=== PATIENT | female | born 1945 | race Caucasian/White ===

== ENCOUNTER → 2016-10-13 | Outpatient (CLI) | payer BC ==
[~2016-10-13] MED LIST: ASPCH81X PO; COEN100C11 PO; CRS10 PO; DIFL0.0519 OPR; DILT-115 PO; EZET10TA63 PO; FRRS300 PO; FRS/40 PO; HMLI SC; INSDGI SC; MULT-506 PO; NEPA0.6D OPR; OMEG10007 PO; SYN25 PO; VITAMIN D2 PO
[2016-10-13 12:23] LABS: HEMATOCRIT 35.6 % (37-47); MEAN CELL VOLUME 90.1 fL (80-100); MEAN CORPUSCULAR HEMOGLOBIN 29.1 pg (25-34); MEAN CORPUSCULAR HGB CONC 32.3 g/dl (32-36); MEAN PLATELET VOLUME 10.3 fL (7.4-10.4); PLATELET COUNT 234 K/uL (130-400); RED BLOOD COUNT 3.95 M/uL (4.2-5.4); WHITE BLOOD COUNT 8.76 K/uL (4.8-10.8)
[2016-10-13 13:25] LABS: BLOOD UREA NITROGEN 18 mg/dl (7-18); BUN/CREATININE RATIO 15.3 (10-20); CALCIUM 8.8 mg/dl (8.5-10.1); CARBON DIOXIDE 25 mmol/L (21-32); CHLORIDE 102 mmol/L (98-107); GLUCOSE 146 mg/dl (70-99); POTASSIUM 3.9 mmol/L (3.5-5.1); SODIUM 140 mmol/L (136-145)
[2016-10-13 13:29] LABS: PHOSPHORUS 2.7 mg/dl (2.5-4.9)
[2016-10-13 13:39] LABS: MANUAL MICROSCOPIC REQUIRED? NO; REVIEW REQ? NO; URINE APPEARANCE TURBID (CLEAR); URINE BILIRUBIN NEG (NEG); URINE COLOR YELLOW; URINE NITRITE NEG (NEG); URINE SPECIFIC GRAVITY 1.018 (1.000-1.030); UROBILINOGEN NEG (NEG)
[2016-10-13 14:33] LABS: URINE PROTIEN/CREAT RATIO 0.2 (0-0.2); URINE TOTAL PROTEIN 35.8 mg/dl (0-11.9)
== END | disposition home or self-care (01) ==
LOC: C.LABBFT 07:57
PROVIDERS: ATTEND Internal Medicine Nephrology
DX: N18.3 Chronic kidney disease, stage 3 (moderate) (principal); I12.9 Hypertensive chronic kidney disease with stage 1 through stage 4 chronic kidney disease, or unspecified chronic kidney disease; D64.9 Anemia, unspecified; N25.81 Secondary hyperparathyroidism of renal origin; E55.9 Vitamin D deficiency, unspecified

== ENCOUNTER → 2016-12-05 | Outpatient (CLI) | payer BC ==
--- NOTE | 2016-12-05 15:28 | MAMMOGRAPHY REPORT ---
BILATERAL DIGITAL SCREENING MAMMOGRAM WITH CAD: 12/05/2016 CLINICAL HISTORY: Routine screening examination. TECHNIQUE: Bilateral CC and MLO views were obtained in addition to left cleavage view. Current stud y was also evaluated with a Computer Aided Detection (CAD) system. COMPARISON: Comparison is made to exam dated: 11/24/2015 mammogram - [facility]. BREAST COMPOSITION: There are scattered areas of fibroglandular density in both breasts. FINDINGS: The exam is suboptimal due to inability of the patient to tolerate adequate positioning fo r the exam. She declined repeat views to include more posterior tissue. Within the limitations of the exam, there is stable nodularity throughout the left greater than right breast. Stable benign-a ppearing coarse calcifications and mild vascular calcifications bilaterally. No new suspicious mass , architectural distortion or cluster of microcalcifications is seen. IMPRESSION: ACR BI-RADS CATEGORY 1: NEGATIVE There is no mammographic evidence of malignancy, within the limitations of the exam. A 1 year screen ing mammogram is recommended. The patient will receive written notification of the results. Approximately 10% of breast cancers are not detected with mammography. A negative mammographic repor t should not delay biopsy if a clinically suggestive mass is present. Windy Acosta M.D. ay/:12/05/2016 14:47:56 Oim Consultant: Megha BEAL(Aaron)([place]), [facility] letter sent: Normal 1/2 BI-RADS Code: ACR BI-RADS Category 1: Negative
== END | disposition home or self-care (01) ==
LOC: C.MAMM 13:58
PROVIDERS: ATTEND Family Medicine
DX: Z12.31 Encounter for screening mammogram for malignant neoplasm of breast (principal); Z13.820 Encounter for screening for osteoporosis; M85.832 Other specified disorders of bone density and structure, left forearm

== ENCOUNTER → 2017-04-17 | Outpatient (CLI) | payer BC ==
[2017-04-17 17:51] LABS: HEMATOCRIT 38.3 % (37-47); MEAN CELL VOLUME 86.7 fL (80-100); MEAN CORPUSCULAR HEMOGLOBIN 28.5 pg (25-34); MEAN CORPUSCULAR HGB CONC 32.9 g/dl (32-36); MEAN PLATELET VOLUME 10.6 fL (7.4-10.4); PLATELET COUNT 255 K/uL (130-400); RED BLOOD COUNT 4.42 M/uL (4.2-5.4); WHITE BLOOD COUNT 9.84 K/uL (4.8-10.8)
[2017-04-17 18:12] LABS: BLOOD UREA NITROGEN 20 mg/dl (7-18); CALCIUM 8.9 mg/dl (8.5-10.1); CARBON DIOXIDE 27 mmol/L (21-32); CHLORIDE 109 mmol/L (98-107); GLUCOSE 149 mg/dl (70-99); PHOSPHORUS 2.2 mg/dl (2.5-4.9); POTASSIUM 3.6 mmol/L (3.5-5.1); SODIUM 141 mmol/L (136-145)
== END | disposition home or self-care (01) ==
LOC: C.LABBFT 11:56
PROVIDERS: ATTEND Internal Medicine Nephrology
DX: N18.3 Chronic kidney disease, stage 3 (moderate) (principal); I12.9 Hypertensive chronic kidney disease with stage 1 through stage 4 chronic kidney disease, or unspecified chronic kidney disease; D64.9 Anemia, unspecified; N25.81 Secondary hyperparathyroidism of renal origin; E55.9 Vitamin D deficiency, unspecified

== ENCOUNTER → 2017-04-18 | Outpatient (CLI) | payer BC ==
[2017-04-18 17:38] LABS: URINE APPEARANCE CLEAR (CLEAR); URINE BILIRUBIN NEG (NEG); URINE COLOR YELLOW; URINE EPITHELIAL CELL AUTO 20-30 /lpf (0-5); URINE NITRITE NEG (NEG); URINE SPECIFIC GRAVITY 1.018 (1.000-1.030); UROBILINOGEN NEG (NEG)
[2017-04-18 17:56] LABS: MANUAL MICROSCOPIC REQUIRED? NO; REVIEW REQ? NO
== END | disposition home or self-care (01) ==
LOC: C.LABBFT 11:44
PROVIDERS: ATTEND Internal Medicine Nephrology
DX: N18.3 Chronic kidney disease, stage 3 (moderate) (principal); I12.9 Hypertensive chronic kidney disease with stage 1 through stage 4 chronic kidney disease, or unspecified chronic kidney disease; D64.9 Anemia, unspecified; N25.81 Secondary hyperparathyroidism of renal origin; E55.9 Vitamin D deficiency, unspecified

== ENCOUNTER → 2017-10-15 | Outpatient (CLI) | payer BC ==
[2017-10-15 10:44] LABS: HEMATOCRIT 38.1 % (37-47); HEMOGLOBIN 12.6 g/dL (12.0-16.0); MEAN CELL VOLUME 89.6 fL (80-100); MEAN CORPUSCULAR HEMOGLOBIN 29.6 pg (25-34); MEAN CORPUSCULAR HGB CONC 33.1 g/dl (32-36); MEAN PLATELET VOLUME 10.1 fL (7.4-10.4); PLATELET COUNT 236 K/uL (130-400); RED CELL DISTRIBUTION WIDTH CV 15.7 % (11.5-14.5); RED CELL DISTRIBUTION WIDTH SD 51.5 fL (36.4-46.3)
[2017-10-15 11:07] LABS: ALBUMIN 3.3 gm/dl (3.4-5.0); BLOOD UREA NITROGEN 17 mg/dl (7-18); CALCIUM 9.2 mg/dl (8.5-10.1); CARBON DIOXIDE 26 mmol/L (21-32); CREATININE 1.09 mg/dl (0.60-1.20); GLUCOSE 141 mg/dl (70-99); POTASSIUM 3.9 mmol/L (3.5-5.1); SODIUM 140 mmol/L (136-145)
[2017-10-15 11:08] LABS: PHOSPHORUS 2.9 mg/dl (2.5-4.9)
== END | disposition home or self-care (01) ==
LOC: C.LAB1850 09:56
PROVIDERS: ATTEND Internal Medicine Nephrology
DX: I12.9 Hypertensive chronic kidney disease with stage 1 through stage 4 chronic kidney disease, or unspecified chronic kidney disease (principal); N18.3 Chronic kidney disease, stage 3 (moderate); N25.81 Secondary hyperparathyroidism of renal origin; D64.9 Anemia, unspecified; E55.9 Vitamin D deficiency, unspecified

== ENCOUNTER → 2018-04-12 | Outpatient (CLI) | payer BC ==
[~2018-04-12] MED LIST changes: -DIFL0.0519 OPR; +FERR1TAB13 PO; +FEXO1TAB49 PO; -FRRS300 PO; -HMLI SC; +INSU100I SC; +LEVO25TA5 PO; -NEPA0.6D OPR; -SYN25 PO
[2018-04-12 11:02] LABS: HEMOGLOBIN 11.8 g/dL (12.0-16.0); MEAN CELL VOLUME 89.4 fL (80-100); MEAN CORPUSCULAR HEMOGLOBIN 27.8 pg (25-34); MEAN CORPUSCULAR HGB CONC 31.1 g/dl (32-36); MEAN PLATELET VOLUME 9.9 fL (7.4-10.4); PLATELET COUNT 271 K/uL (130-400); RED CELL DISTRIBUTION WIDTH CV 16.8 % (11.5-14.5); RED CELL DISTRIBUTION WIDTH SD 54.9 fL (36.4-46.3); WHITE BLOOD COUNT 8.99 K/uL (4.8-10.8)
[2018-04-12 11:34] LABS: ALBUMIN 3.4 gm/dl (3.4-5.0); BLOOD UREA NITROGEN 17 mg/dl (7-18); CALCIUM 8.9 mg/dl (8.5-10.1); CARBON DIOXIDE 29 mmol/L (21-32); CREATININE 1.09 mg/dl (0.60-1.20); GLUCOSE 95 mg/dl (70-99); PHOSPHORUS 2.7 mg/dl (2.5-4.9); SODIUM 138 mmol/L (136-145)
== END | disposition home or self-care (01) ==
LOC: C.LAB1850 08:56
PROVIDERS: ATTEND Internal Medicine Nephrology
DX: I12.9 Hypertensive chronic kidney disease with stage 1 through stage 4 chronic kidney disease, or unspecified chronic kidney disease (principal); N18.3 Chronic kidney disease, stage 3 (moderate); D64.9 Anemia, unspecified; N25.81 Secondary hyperparathyroidism of renal origin; E55.9 Vitamin D deficiency, unspecified

== ENCOUNTER 2020-06-05 01:15 | Inpatient (IN) ==
[2020-06-05 02:12] LABS: Basophils # (auto) 0.03 K/uL (0-0.2); Basophils % (auto) 0.3 %; Eosinophils # (auto) 0.26 K/uL (0-0.5); Eosinophils % (auto) 2.8 %; Hematocrit (blood only) 39.2 % (37-47); Hemoglobin 12.4 g/dL (12.0-16.0); Immature Granulocytes # (auto) 0.05 K/uL (0.00-0.02); Immature Granulocytes % (auto) 0.5 %; Lymphocytes # (auto) 1.58 K/uL (1.2-3.4); Lymphocytes % (auto) 17.2 %; Mean Corpuscular Hemoglobin 28.7 pg (25-34); Mean Corpuscular Hgb Conc 31.6 g/dL (32-36); Mean Corpuscular Volume 90.7 fL (80-100); Mean Platelet Volume 9.8 fL (7.4-10.4); Monocytes % (auto) 5.5 %; Neutrophils # (auto) 6.75 K/uL (1.4-6.5); Neutrophils % (auto) 73.7 %; Platelet Count 230 K/uL (130-400); RDW Coefficient of Variation 17.4 % (11.5-14.5); RDW Standard Deviation 56.6 fL (36.4-46.3); Red Blood Count 4.32 M/uL (4.2-5.4); White Blood Count 9.17 K/uL (4.8-10.8)
[2020-06-05 02:31] LABS: Alanine Aminotransferase 17 U/L (12-78); Aspartate Aminotransferase 20 U/L (15-37); BUN Creatinine Ratio 20.1 (10-20); Blood Urea Nitrogen 32 mg/dl (7-18); Calcium 8.8 mg/dl (8.5-10.1); Carbon Dioxide 29 mmol/L (21-32); Chloride 105 mmol/L (98-107); Est GFR (African American) 37.3; Est GFR (Non-African American) 32.1; Glucose 175 mg/dl (70-99); Potassium 3.8 mmol/L (3.5-5.1); Sodium 139 mmol/L (136-145)
[2020-06-05 02:46] LABS: Albumin Globulin Ratio 0.7 (0.9-2); Alkaline Phosphatase 75 U/L (45-117); Bilirubin,Total 0.7 mg/dl (0.2-1); Globulin 4.3 gm/dl (2.5-4.0); NT Pro B Type Natriuretic Pept 2939 pg/ml (0-900); Total Protein 7.3 gm/dl (6.4-8.2); Troponin I 0.032 ng/ml (0-0.045)
[2020-06-05 03:25] LABS: INR 1.1 (0.9-1.1); Partial Thromboplastin Ratio 0.9; Partial Thromboplastin Time 24.2 Seconds (21.0-31.0)
[2020-06-05 03:33] LABS: D Dimer 1780 ug/L FEU (0-500)
--- NOTE | 2020-06-05 03:55 | Emergency Department Note ---
Impression & Plan Hypoxia, Acute dyspnea ED Provider Note NAME: CHANDANA FRASER AGE: 74 SEX: F ARRIVES VIA: Walk-In INFORMANT: Patient ED PROVIDER(S): Leeanna Gandhi DO CHIEF COMPLAINT: Shortness of breath PLAN: [facility] Stable MEDICAL DECISION MAKING: This is a 74-year-old female patient who presents to the emergency department with a sudden onset of dyspnea. Upon presentation to triage, her O2 saturations were 76%. She has noticed increased swelling in her lower extremities. She did have a procedure 5 days ago for the removal of kidney stones. She does take a diuretic. Chest x-ray showed some mild pulmonary vascular congestion, small ri ght pleural effusion and cardiomegaly. CT angiogram showed no evidence of PE. However without supplemental oxygen, the patient remains hypoxic. I discussed the case with the [facility] hospitalist and they will evaluate for further management and will obtain lower extremity Dopplers. Triage Nursing notes reviewed and agree them. Additional history obtained from patient's family who is at the bedside Prior medical records reviewed Vital Signs: reviewed and remarkable for hypoxia and hypertension Differential diagnosis: Pneumonia, PE, COVID-19, CHF, pneumothorax, pleural effusion ER treatment provided: Supplemental oxygen Diagnostics interpreted by me: ECG: Normal sinus rhythm at a rate of 85 with PACs. There is no ST segment elevation or signs of ischemia Cardiac Monitoring: Normal sinus rhythm at a rate of 80 Laboratory studies: See below Imaging studies: Chest x-ray-as per my interpretation-cardiomegaly with mild pulmonary vascular congestion CT scan of the chest as per stat rad-no central pulmonary embolus. Evaluation of segmental and subsegmental branches is limited due to contrast bolus timing any emboli within these divisions cannot be excluded. Small right pleural effusion with adjacent passive atelectasis. Multilevel cervical thoracic spondylosis. HPI: 74/F arrives for evaluation of dyspnea. Patient states that she has felt some slight increased shortness of breath over the past couple of days but around 10:30 PM this evening she felt a very sudden onset of dyspnea. She states that it felt like it "came up over her like a push of air." She denies ever having symptoms like this in the past. The patient denies any chest pain, nausea or diaphoresis. She states that she felt very scared. The patient typically has some sense that she cannot catch her breath when she walks because of chronic back pain but has never felt like this in the past. ROS: See above HPI for pertinent positives & negatives. A total of 10 systems reviewed and were otherwise negative. PAST MEDICAL HISTORY:See Below PAST SURGICAL HISTORY:See Below FAMILY HISTORY:See Below SOCIAL HISTORY:See Below HOME MEDICATIONS:See list ALLERGIES:See list VITALS:See Below PHYSICAL EXAMINATION: HEENT: Head - normocephalic and atraumatic Pupils are equal, round, and r eactive to light. Extraocular eye muscles are intact, and sclera are anicteric. Nose - moist nasal mucosa without discharge. Mouth - moist buccal mucosa. Oropharynx is nonerythematous and there is no tonsillar exudate or edema noted. Neck: Supple; no JVD or thyromegaly. Heart: Regular rate and rhythm. There is a normal S1 and S2 with no murmurs, clicks, or gallops appreciated. Lungs: Diminished breath sounds at both lung bases with minimal rales heard throughout. Abdomen: Soft, completely nontender, nondistended, with good bowel sounds. There are no palpable pulsatile masses or hepatosplenomegaly. There is no guarding, rigidity, or rebound noted. Extremities: Mild venous stasis changes noted with 2+ pitting edema in both lower extremities. Skin: warm and dry with good turgor and no rashes. ED COURSE:0125: The patient was evaluated in room A3. A complete history and physical was performed. An order was placed for continuous cardiac monitoring. The patient was in a normal sinus rhythm at a rate of 70. An IV lock was initiated and labs were drawn as above. A twelve-lead EKG was obtained as described above. The patient's oxygen saturation in triage was 76%. She was on supplemental oxygen to maintain O2 sats in the 90s. She she had a portable chest x-ray which was fairly unremarkable. D-dimer was greater than 1000. She will go for CT angiogram to rule out PE. The patient remained hypoxic without supplemental oxygen. 0340: The patient was comfortable at this time. I reviewed the results of laboratory studies with the patient and her family. 0455: Again, the patient remains hemodynamically stable with the supplemental oxygen in place. The case was discussed with the [facility] Hospitalist and they will evaluate for further management. I have personally spent greater than 45 minutes of critical care time in the direct management of this patient. This includes bedside care, interpretation of diagnostic studies, and testing, discussion with consultants, patient, and family members, and other required patient management activities. This 45 minutes is in excess of all separately billable procedures. Leeanna Gandhi DO Past Med/Surg History Medical History (Updated 06/05/20 @ 22:43 by Leeanna Gandhi DO) Anemia Chronic kidney disease, stage 3 (moderate) Diverticular disease DJD (degenerative joint disease) DM type 2 (diabetes mellitus, type 2) IDDM. 7.2% 03/2020 Hearing deficit B/L [place] HTN (hypertension) Hyperlipidemia Hypothyroidism Ileostomy, has currently Kidney stones Morbid obesity Osteoarthritis Renal insufficiency follows dr. Bedoya Sacroiliitis Surgical History H/O hernia repair History of appendectomy History of bowel resection 2010 History of cholecystectomy History of colonoscopy History of cystoscopy WITH STENT History of left knee replacement History of tonsillectomy History of tooth extraction History of total abdominal hysterectomy and bilateral salpingo-oophorectomy History of tubal ligation Family History Unknown Cardiac disorder Cancer Hypertension Mother Diabetes Cardiac disorder Cancer Hypertension Father No problems noted. Sister Rectal cancer Uncle Family hx of colon cancer Other No family history of adverse response to anesthesia No family history of bleeding disorder Denies family history of Cystic kidney disease Social History Smoking Status: Former smoker Tobacco Type: Cigarettes Second Hand Exposure: No; Hx Alcohol Use: No Hx Substance Use: No Preferred Language: Urdu Communication Ability: Effective Cook Fry Required: No Beliefs That Will Affect Care: None marital status: Current Living Situation: Spouse Feels Safe at Home: Yes Allergies Allergies Allergy/AdvReac Type Severity Reaction Status Date / Time codeine Allergy Intermediate WHITE Verified 06/05/20 02:31 CHANGE UNDER THE SKIN-ARMS Penicillins Allergy Intermediate RASH Verified 06/05/20 02:31 sulfamethoxazole Allergy Unknown DOES NOT Verified 06/05/20 02:31 KNOW REACTION trimethoprim Allergy Unknown DOES NOT Verified 06/05/20 02:31 KNOW REACTION atorvastatin AdvReac Intermediate SHE FELT Verified 09/19/20 02:31 WEAK simvastatin AdvReac Intermediate ARMS Verified 06/05/20 02:31 SWELLING adhesive AdvReac Mild SOME Verified 06/05/20 02:31 TAPE-REDNESS, ITCHY Home Meds Home Medications Medication Instructions Recorded Confirmed Co Q-10 300 mg PO QAM 04/22/19 06/05/20 Humalog U-100 Insulin 1 sliding scale dose SUBCUT 04/22/19 06/05/20 USEASDIRECTD Lantus U-100 Insulin 40 unit SUBCUT HS 04/22/19 06/05/20 diltiazem HCl 240 mg PO HS 04/22/19 06/05/20 ezetimibe [Zetia] 10 mg PO HS 04/22/19 06/05/20 ferrous sulfate [iron] 650 mg PO PM 04/22/19 06/05/20 furosemide [Lasix] 40 mg PO QAM 04/22/19 06/05/20 levothyroxine [Synthroid] 50 mcg PO QAM 04/22/19 06/05/20 niacin 50 mg PO BID 04/22/19 06/05/20 rosuvastatin 5 mg PO HS 04/22/19 06/05/20 omega-3 acid ethyl esters 1 gram 1 cap PO HS 12/29/19 06/05/20 capsule Previous Rx's Medication Instructions Recorded ergocalciferol (vitamin D2) 1,250 50,000 unit PO MONTHLY #12 cap 05/10/20 mcg (50,000 unit) capsule phenazopyridine [Pyridium] 200 mg PO Q8H PRN #10 tab 05/31/20 tamsulosin 0.4 mg PO HS #30 cap 05/31/20 Results & Data (ED) Vital Signs Vital Signs - 24 hr 06/05/20 01:19 06/05/20 01:35 06/05/20 02:00 Temperature 36.8 C Temperature Source Oral Pulse Rate 82 Pulse Rate [Apical] 79 Respiratory Rate 32 H 23 Respiratory Effort / Characteristics Short of Breath Respiratory Depth Shallow Normal Respiratory Pattern Tachypnea Blood Pressure 139/76 Blood Pressure [Right Arm] 150/60 H Blood Pressure Mean 97 Blood Pressure Mean [Right Arm] 90 Blood Pressure Position [Right Arm] Pulse Oximetry 89 L 95 95 Oxygen Delivery Method Room Air Nasal Cannula Nasal Cannula Oxygen Flow Rate 3 3 Sepsis Recent Fever Within 48 Hours No Sepsis New/Unexplained Change in Mental Status No Sepsis Action Taken by Nursing No Action Required Oxygen Flow Rate - Titration 3 Pulse Oximetry Post Tiitration 95 06/05/20 03:38 06/05/20 04:52 06/05/20 06:23 Temperature Temperature Source Pulse Rate Pulse Rate [Apical] 79 83 80 Respiratory Rate 21 20 21 Respiratory Effort / Characteristics Respiratory Depth Normal Normal Respiratory Pattern Blood Pressure Blood Pressure [Right Arm] 144/52 H 192/73 H 151/62 H Blood Pressure Mean Blood Pressure Mean [Right Arm] 82 112 91 Blood Pressure Position [Right Arm] Sitting Pulse Oximetry 96 100 95 Oxygen Delivery Method Nasal Cannula Nasal Cannula Room Air Oxygen Flow Rate 3 2 Sepsis Recent Fever Within 48 Hours Sepsis New/Unexplained Change in Mental Status Sepsis Action Taken by Nursing Oxygen Flow Rate - Titration Pulse Oximetry Post Tiitration Laboratory Data Result diagrams: 06/05/20 02:00 06/05/20 02:00 Lab Results 06/05/20 06/05/20 06/05/20 Range/Units 02:00 02:00 02:00 WBC 9.17 (4.8-10.8) K/uL RBC 4.32 (4.2-5.4) M/uL Hgb 12.4 (12.0-16.0) g/dL Hct 39.2 (37-47) % MCV 90.7 (80-100) fL MCH 28.7 (25-34) pg MCHC 31.6 L (32-36) g/dL RDW Std Deviation 56.6 H (36.4-46.3) fL RDW Coeff of Sreedhar 17.4 H (11.5-14.5) % Plt Count 230 (130-400) K/uL MPV 9.8 (7.4-10.4) fL Immature Gran % (Auto) 0.5 % Neut % (Auto) 73.7 % Lymph % (Auto) 17.2 % [place] % (Auto) 5.5 % Eos % (Auto) 2.8 % Baso % (Auto) 0.3 % Neut # (Auto) 6.75 H (1.4-6.5) K/uL Lymph # (Auto) 1.58 (1.2-3.4) K/uL [place] # (Auto) 0.50 (0.11-0.59) K/uL Eos # (Auto) 0.26 (0-0.5) K/uL Baso # (Auto) 0.03 (0-0.2) K/uL Immature Gran # (Auto) 0.05 H (0.00-0.02) K/uL PT Cancelled INR Cancelled APTT Cancelled PTT Ratio Cancelled D-Dimer Cancelled Sodium 139 (136-145) mmol/L Potassium 3.8 (3.5-5.1) mmol/L Chloride 105 (98-107) mmol/L Carbon Dioxide 29 (21-32) mmol/L Anion Gap 5.0 (3-11) BUN 32 H (7-18) mg/dl Creatinine 1.57 H (0.6-1.2) mg/dl Est Cr Clr Drug Dosing Not Reportable Est GFR ( Amer) 37.3 Est GFR (Non-Af Amer) 32.1 BUN/Creatinine Ratio 20.1 H (10-20) Glucose 175 H (70-99) mg/dl Calcium 8.8 (8.5-10.1) mg/dl Total Bilirubin 0.7 (0.2-1) mg/dl AST 20 (15-37) U/L ALT 17 (12-78) U/L Alkaline Phosphatase 75 (45-117) U/L Troponin I 0.032 (0-0.045) ng/ml NT-Pro-B Natriuret Pep 2939 H (0-900) pg/ml Total Protein 7.3 (6.4-8.2) gm/dl Albumin 3.0 L (3.4-5.0) gm/dl Globulin 4.3 H (2.5-4.0) gm/dl Albumin/Globulin Ratio 0.7 L (0.9-2) Specimen Hemolysis Urine Color Urine Appearance (Clear) Urine pH (4.5-7.5) Ur Specific [place] (1.000-1.030) Urine Protein (Negative) Urine Glucose (UA) (Negative) Urine Ketones (Negative) Urine Blood (Negative) Urine Nitrite (Negative) Urine Bilirubin (Negative) Urine Urobilinogen (Negative) Ur Leukocyte Esterase (Negative) Urine WBC (Auto) (0-5) /hpf Urine RBC (Auto) (0-4) /hpf U Hyaline Cast (Auto) (0-5) /lpf U Epithel Cells (Auto) (0-5) /lpf Urine Bacteria (Auto) (Negative) 06/05/20 06/05/20 Range/Units 03:00 05:00 WBC (4.8-10.8) K/uL RBC (4.2-5.4) M/uL Hgb (12.0-16.0) g/dL Hct (37-47) % MCV (80-100) fL MCH (25-34) pg MCHC (32-36) g/dL RDW Std Deviation (36.4-46.3) fL RDW Coeff of Sreedhar (11.5-14.5) % Plt Count (130-400) K/uL MPV (7.4-10.4) fL Immature Gran % (Auto) % Neut % (Auto) % Lymph % (Auto) % [place] % (Auto) % Eos % (Auto) % Baso % (Auto) % Neut # (Auto) (1.4-6.5) K/uL Lymph # (Auto) (1.2-3.4) K/uL [place] # (Auto) (0.11-0.59) K/uL Eos # (Auto) (0-0.5) K/uL Baso # (Auto) (0-0.2) K/uL Immature Gran # (Auto) (0.00-0.02) K/uL PT 12.0 INR 1.1 APTT 24.2 PTT Ratio 0.9 D-Dimer 1780 H* Sodium (136-145) mmol/L Potassium (3.5-5.1) mmol/L Chloride (98-107) mmol/L Carbon Dioxide (21-32) mmol/L Anion Gap (3-11) BUN (7-18) mg/dl Creatinine (0.6-1.2) mg/dl Est Cr Clr Drug Dosing Est GFR ( Amer) Est GFR (Non-Af Amer) BUN/Creatinine Ratio (10-20) Glucose (70-99) mg/dl Calcium (8.5-10.1) mg/dl Total Bilirubin (0.2-1) mg/dl AST (15-37) U/L ALT (12-78) U/L Alkaline Phosphatase (45-117) U/L Troponin I (0-0.045) ng/ml NT-Pro-B Natriuret Pep (0-900) pg/ml Total Protein (6.4-8.2) gm/dl Albumin (3.4-5.0) gm/dl Globulin (2.5-4.0) gm/dl Albumin/Globulin Ratio (0.9-2) Specimen Hemolysis Urine Color Dark Yellow Urine Appearance Clear (Clear) Urine pH 5.0 (4.5-7.5) Ur Specific [place] 1.020 (1.000-1.030) Urine Protein 1+ H (Negative) Urine Glucose (UA) Negative (Negative) Urine Ketones Negative (Negative) Urine Blood 3+ H (Negative) Urine Nitrite Positive A (Negative) Urine Bilirubin Negative (Negative) Urine Urobilinogen Negative (Negative) Ur Leukocyte Esterase 2+ H (Negative) Urine WBC (Auto) 10-30 H (0-5) /hpf Urine RBC (Auto) >30 H (0-4) /hpf U Hyaline Cast (Auto) 1-5 (0-5) /lpf U Epithel Cells (Auto) >30 H (0-5) /lpf Urine Bacteria (Auto) Negative (Negative) Administered Medications Diltiazem HCl (Diltiazem Hcl 240 Mg Capcr) 240 mg PO TODAY@1200 [facility] Stop: 07/05/20 12:59 Last Admin: 06/05/20 13:38 Dose: 240 mg Documented by: [id number] Ezetimibe (Ezetimibe 10 Mg Tablet) 10 mg PO HS [facility] Stop: 07/05/20 20:59 Last Admin: 06/05/20 20:47 Dose: 10 mg Documented by: [id number] Ferrous Sulfate (Ferrous Sulfate 325 Mg Tab) 650 mg PO QDL [facility] Stop: 07/05/20 11:29 Last Admin: 06/05/20 12:31 Dose: 650 mg Documented by: [id number] Fish Oil ([place]-3 (Purified Fish Oil) 1 Gm Cap) 1 gm PO HS [facility] Stop: 07/05/20 20:59 Last Admin: 06/05/20 20:47 Dose: 1 gm Documented by: [id number] Heparin Sodium (Porcine) (Heparin Sod 5,000 Unit/0.5 Ml Vial) 7,500 units SQ Q8 [facility] Stop: 07/05/20 13:59 Last Admin: 06/05/20 20:53 Dose: 7,500 units Documented by: [id number] Cosigned by: [id number] Admin: 06/05/20 17:11 Dose: Not Given Documented by: [id number] Insulin Aspart (Insulin Aspart 100 Units/Ml 3 Ml Pen) 0 units SC ACHS [facility] Stop: 07/05/20 07:56 Last Admin: 06/05/20 20:57 Dose: 3 units Documented by: [id number] Cosigned by: [id number] Admin: 06/05/20 17:30 Dose: 3 units Documented by: [id number] Cosigned by: [id number] Admin: 06/05/20 12:31 Dose: 9 units Documented by: [id number] Cosigned by: [id number] Admin: 06/05/20 10:03 Dose: Not Given Documented by: [id number] Cosigned by: [id number] Insulin Glargine (Insulin Glargine Solostar 100 Units/Ml 3 Ml Pen) 40 units SC HS [facility] Stop: 07/05/20 20:59 Last Admin: 06/05/20 20:54 Dose: 40 units Documented by: [id number] Cosigned by: [id number] Rosuvastatin Calcium (Rosuvastatin Calcium 5 Mg Tab) 5 mg PO [facility] Stop: 07/05/20 20:59 Last Admin: 06/05/20 20:47 Dose: 5 mg Documented by: [id number] Tamsulosin HCl (Tamsulosin Hcl 0.4 Mg Cap) 0.4 mg PO HS [facility] Stop: 07/05/20 20:59 Last Admin: 06/05/20 20:47 Dose: 0.4 mg Documented by: [id number] Discontinued Medications Ioversol (Optiray 320 125ml) 92 ml IV ONCE ONE Stop: 06/05/20 04:31 Last Admin: 06/05/20 04:30 Dose: 92 ml Documented by: [id number] Discharge Plan Visit Data Chief Complaint: Shortness of Breath/Dyspnea Stated Complaint: HARD TO BREATHE ED Provider: Leeanna Gandhi Discharge Problem: Hypoxia, Acute dyspnea Patient Disposition: Admitted As Inpatient Discharge Instructions Interventions: ED Discharge Assessment Last Done: 06/05/20 07:07
[2020-06-05] MEDS ORDERED: OPTIRAY 320 125ml IV ONE (04:30)
[2020-06-05 05:37] LABS: Appearance Urine Clear (Clear); Bacteria Urine Automated Negative (Negative); Bilirubin Urine Negative (Negative); Blood Urine 3+ (Negative); Color Urine Dark Yellow; Epithelial Cell Urine Auto >30 /lpf (0-5); Glucose Urine UA Negative (Negative); Ketones Urine Negative (Negative); Leukocyte Esterase Urine 2+ (Negative); Nitrite Urine Positive (Negative); Protein Urine 1+ (Negative); RBC Urine Automated >30 /hpf (0-4); Urobilinogen Urine Negative (Negative)
--- NOTE | 2020-06-05 06:44 | History & Physical Report ---
Date of Service June 05, 2020 Assessment & Plan (1) Acute respiratory failure with hypoxia: CT angiography of chest for PE protocol, with limitation of only being able see central pulmonary arteries. Order venous Doppler bilateral lower extremities to assess for DVT, and if abnormal, will presume there are bilateral PEs subsegmentally, and treat with heparin IV. Patient does have signs of fluid overload and lower extremities, and likely has some new CHF. The patient will be admitted to telemetry for serial cardiac enzymes, serial EKG's, cardiac rhythm monitoring and a 2-D echocardiogram with Dopplers. Would like to place on Lasix IV, however, patient has had a dye load, and her GFR is 32.1, so would be concerned regarding precipitating significant kidney injury. For now continue nasal cannula oxygen, and further treatments as the remaining studies results return. Present on Admission?: Yes (2) Hypothyroidism: Continue levothyroxine sodium 50 mcg daily Present on Admission?: Yes (3) Hyperlipidemia: Continue niacin, rosuvastatin and Zetia Present on Admission?: Yes (4) Type 2 diabetes mellitus: Continue Lantus 4 units subcu at bedtime. Place on Accu-Cheks before meals and at bedtime with NovoLog coverage per scale Present on Admission?: Yes (5) Hypertension: Continue diltiazem 240 mg at bedtime. Present on Admission?: Yes (6) Left ureteral calculus: Status post recent procedure as detailed above. Continue tamsulosin. No signs of infection at this time. Not likely directly associated with hypoxic issue, other than for relative immobility Present on Admission?: Yes History of Present Illness Chief Complaint: The patient presents to the emergency department with complaint of worsening shortness of breath over the past few days Primary Care Provider: Ismael Pink MD The patient is a 74-year-old female with a past medical history including hypertension, insulin-dependent diabetes mellitus, hypercholesterolemia, CKD, acute cystitis, C. difficile colitis, eustachian tube dysfunction, hypothyroidism, mixed conductive and sensorineural hearing loss, rectovaginal fistula, secondary hyperparathyroidism, vitamin D deficiency, left ureteral calculus, bilateral nephrolithiasis and sacroiliitis. On 05/31/2020, she underwent a cystoscopy with right ureteroscopy, ureteral deal dilatation, laser lithotripsy, stone basket extraction, retrograde pyelogram and stent placement by urology Dr. Silva. She reports that she tolerated the procedure well, but since that time has had more shortness of breath as noted. Upon questioning, and with her 's confirmation, her legs are more swollen than usual at this time. In the emergency department she did undergo a CT angiography of the chest for PE, which showed no central pulmonary embolism but there was limitation of further evaluation due to timing of contrast, with small pulmonary midline not excluded. Allergies Allergy/AdvReac Type Severity Reaction Status Date / Time codeine Allergy Intermediate WHITE Verified 06/05/20 02:31 CHANGE UNDER THE SKIN-ARMS Penicillins Allergy Intermediate RASH Verified 06/05/20 02:31 sulfamethoxazole Allergy Unknown DOES NOT Verified 06/05/20 02:31 KNOW REACTION trimethoprim Allergy Unknown DOES NOT Verified 06/05/20 02:31 KNOW REACTION atorvastatin AdvReac Intermediate SHE FELT Verified 06/05/20 02:31 WEAK simvastatin AdvReac Intermediate ARMS Verified 06/05/20 02:31 SWELLING adhesive AdvReac Mild SOME Verified 06/05/20 02:31 TAPE-REDNESS, ITCHY Home Medications Home Medications Medication Instructions Recorded Confirmed Type Co Q-10 300 mg PO QAM 04/22/19 06/05/20 History Humalog U-100 Insulin 1 sliding scale dose SUBCUT 04/22/19 06/05/20 History USEASDIRECTD Lantus U-100 Insulin 40 unit SUBCUT HS 04/22/19 06/05/20 History diltiazem HCl 240 mg PO HS 04/22/19 06/05/20 History ezetimibe [Zetia] 10 mg PO HS 04/22/19 06/05/20 History ferrous sulfate [iron] 650 mg PO PM 04/22/19 06/05/20 History furosemide [Lasix] 40 mg PO QAM 04/22/19 06/05/20 History levothyroxine [Synthroid] 50 mcg PO QAM 04/22/19 06/05/20 History niacin 50 mg PO BID 04/22/19 06/05/20 History rosuvastatin 5 mg PO HS 04/22/19 06/05/20 History omega-3 acid ethyl esters 1 gram 1 cap PO HS 12/29/19 06/05/20 History capsule ergocalciferol (vitamin D2) 1,250 50,000 unit PO MONTHLY #12 cap 05/10/20 06/05/20 Rx mcg (50,000 unit) capsule phenazopyridine [Pyridium] 200 mg PO Q8H PRN #10 tab 05/31/20 06/05/20 Rx tamsulosin 0.4 mg PO HS #30 cap 05/31/20 06/05/20 Rx Past Med/Surg History Medical History (Updated 06/05/20 @ 06:57 by Rick Flores MD) Anemia Chronic kidney disease, stage 3 (moderate) Diverticular disease DJD (degenerative joint disease) DM type 2 (diabetes mellitus, type 2) IDDM. 7.2% 03/2020 Hearing deficit B/L [place] HTN (hypertension) Hyperlipidemia Hypothyroidism Ileostomy, has currently Kidney stones Morbid obesity Osteoarthritis Renal insufficiency follows dr. Bedoya Sacroiliitis Surgical History H/O hernia repair History of appendectomy History of bowel resection 2010 History of cholecystectomy History of colonoscopy History of cystoscopy WITH STENT History of left knee replacement History of tonsillectomy History of tooth extraction History of total abdominal hysterectomy and bilateral salpingo-oophorectomy History of tubal ligation Family History Unknown Cardiac disorder Cancer Hypertension Mother Diabetes Cardiac disorder Cancer Hypertension Father No problems noted. Sister Rectal cancer Uncle Family hx of colon cancer Other No family history of adverse response to anesthesia No family history of bleeding disorder Denies family history of Cystic kidney disease Social History Smoking Status: Former smoker Tobacco Type: Cigarettes Second Hand Exposure: No; Hx Alcohol Use: No Hx Substance Use: No Preferred Language: Bolivian Communication Ability: Effective Skein [employer] Drier Required: No Beliefs That Will Affect Care: None marital status: Current Living Situation: Spouse Feels Safe at Home: Yes Review of Systems Review of Systems: The patient denies palpitations, sore throat, fevers, chills, sweats, nausea, vomiting, diarrhea , constipation, abdominal pain, pelvic pain, blood in urine or stool, dysuria, urinary frequency or urgency, lightheadedness, dizziness, headache, memory loss, loss of consciousness, rash, abnormal bruising or bleeding, imbalance, focal or generalized weakness, numbness or tingling in arms or legs, generalized arthralgias or myalgias, back or neck pain, or night sweats. The review of systems is otherwise negative other than for that already noted above, and at least 10 systems have been reviewed. Physical Exam Physical Exam: The patient is awake, alert and oriented 3, well developed and well nourished, normocephalic and atraumatic, lying in bed and in no acute distress. HEENT--PERRL, EOMI, mucous membranes and oropharynx normal. Neck--supple. No JVD. No bruits. Thyroid normal, trachea midline, no adenopathy. Heart--normal S1 and S2. No murmurs, rubs or gallops. Lungs--clear bilaterally, no respiratory distress, no accessory muscle use. Abdomen--normal bowel sounds and soft. Nontender. Nondistended. Extremities--no cyanosis or clubbing. 1+ bilateral pretibial pitting edema. Lower extremities are otherwise very tight and not compressible. Dermatologic--normal skin turgor, normal color, no abnormal lymph nodes, no rash. Neurologic--cranial nerves II through XII grossly intact. Rheumatologic--normal range of motion. Psychiatric--normal affect. Results & Data Results & Data ([facility]) Vital Signs (Past 12 Hours) Vital Signs Temp Pulse Pulse Resp BP BP Pulse Ox 06/05/20 06:23 80 21 151/62 H 95 06/05/20 04:52 83 20 192/73 H 100 06/05/20 03:38 79 21 144/52 H 96 06/05/20 02:00 79 23 150/60 H 95 06/05/20 01:35 95 06/05/20 01:19 98.2 F 82 32 H 139/76 89 L Laboratory Results Laboratory Results WBC 9.17 K/uL (4.8-10.8) 06/05/20 02:00 RBC 4.32 M/uL (4.2-5.4) 06/05/20 02:00 Hgb 12.4 g/dL (12.0-16.0) 06/05/20 02:00 Hct 39.2 % (37-47) 06/05/20 02:00 MCV 90.7 fL (80-100) 06/05/20 02:00 MCH 28.7 pg (25-34) 06/05/20 02:00 MCHC 31.6 g/dL (32-36) L 06/05/20 02:00 RDW Std Deviation 56.6 fL (36.4-46.3) H 06/05/20 02:00 RDW Coeff of Sreedhar 17.4 % (11.5-14.5) H 06/05/20 02:00 Plt Count 230 K/uL (130-400) 06/05/20 02:00 MPV 9.8 fL (7.4-10.4) 06/05/20 02:00 Immature Gran % (Auto) 0.5 % 06/05/20 02:00 Neut % (Auto) 73.7 % 06/05/20 02:00 Lymph % (Auto) 17.2 % 06/05/20 02:00 [place] % (Auto) 5.5 % 06/05/20 02:00 Eos % (Auto) 2.8 % 06/05/20 02:00 Baso % (Auto) 0.3 % 06/05/20 02:00 Neut # (Auto) 6.75 K/uL (1.4-6.5) H 06/05/20 02:00 Lymph # (Auto) 1.58 K/uL (1.2-3.4) 06/05/20 02:00 [place] # (Auto) 0.50 K/uL (0.11-0.59) 06/05/20 02:00 Eos # (Auto) 0.26 K/uL (0-0.5) 06/05/20 02:00 Baso # (Auto) 0.03 K/uL (0-0.2) 06/05/20 02:00 Immature Gran # (Auto) 0.05 K/uL (0.00-0.02) H 06/05/20 02:00 PT 12.0 Seconds (9.0-12.0) 06/05/20 03:00 INR 1.1 (0.9-1.1) 06/05/20 03:00 APTT 24.2 Seconds (21.0-31.0) 06/05/20 03:00 PTT Ratio 0.9 06/05/20 03:00 D-Dimer 1780 ug/L FEU (0-500) H* 06/05/20 03:00 Sodium 139 mmol/L (136-145) 06/05/20 02:00 Potassium 3.8 mmol/L (3.5-5.1) 06/05/20 02:00 Chloride 105 mmol/L (98-107) 06/05/20 02:00 Carbon Dioxide 29 mmol/L (21-32) 06/05/20 02:00 Anion Gap 5.0 (3-11) 06/05/20 02:00 BUN 32 mg/dl (7-18) H 06/05/20 02:00 Creatinine 1.57 mg/dl (0.6-1.2) H 06/05/20 02:00 Est Cr Clr Drug Dosing Not Reportable 06/05/20 02:00 Est GFR ( Amer) 37.3 06/05/20 02:00 Est GFR (Non-Af Amer) 32.1 06/05/20 02:00 BUN/Creatinine Ratio 20.1 (10-20) H 06/05/20 02:00 Glucose 175 mg/dl (70-99) H 06/05/20 02:00 Calcium 8.8 mg/dl (8.5-10.1) 06/05/20 02:00 Total Bilirubin 0.7 mg/dl (0.2-1) 06/05/20 02:00 AST 20 U/L (15-37) 06/05/20 02:00 ALT 17 U/L (12-78) 06/05/20 02:00 Alkaline Phosphatase 75 U/L (45-117) 06/05/20 02:00 Troponin I 0.032 ng/ml (0-0.045) 06/05/20 02:00 NT-Pro-B Natriuret Pep 2939 pg/ml (0-900) H 06/05/20 02:00 Total Protein 7.3 gm/dl (6.4-8.2) 06/05/20 02:00 Albumin 3.0 gm/dl (3.4-5.0) L 06/05/20 02:00 Globulin 4.3 gm/dl (2.5-4.0) H 06/05/20 02:00 Albumin/Globulin Ratio 0.7 (0.9-2) L 06/05/20 02:00 Specimen Hemolysis 06/05/20 02:00 Urine Color Dark Yellow 06/05/20 05:00 Urine Appearance Clear (Clear) 06/05/20 05:00 Urine pH 5.0 (4.5-7.5) 06/05/20 05:00 Ur Specific [place] 1.020 (1.000-1.030) 06/05/20 05:00 Urine Protein 1+ (Negative) H 06/05/20 05:00 Urine Glucose (UA) Negative (Negative) 06/05/20 05:00 Urine Ketones Negative (Negative) 06/05/20 05:00 Urine Blood 3+ (Negative) H 06/05/20 05:00 Urine Nitrite Positive (Negative) A 06/05/20 05:00 Urine Bilirubin Negative (Negative) 06/05/20 05:00 Urine Urobilinogen Negative (Negative) 06/05/20 05:00 Ur Leukocyte Esterase 2+ (Negative) H 06/05/20 05:00 Urine WBC (Auto) 10-30 /hpf (0-5) H 06/05/20 05:00 Urine RBC (Auto) >30 /hpf (0-4) H 06/05/20 05:00 U Hyaline Cast (Auto) 1-5 /lpf (0-5) 06/05/20 05:00 U Epithel Cells (Auto) >30 /lpf (0-5) H 06/05/20 05:00 Urine Bacteria (Auto) Negative (Negative) 06/05/20 05:00 Diagnostic Findings [facility] Patient: CHANDANA FRASER (Female) : 45 Status: ER Date: 06/05/20 04:32 Room #: History: short of breath unable to raise arms Slices: [phone] Priors: Tech: Dai García @ [phone] Exams: CTA CHEST Contrast: IV Amt: 92 ml optiray 320 Accession Numbers: [id number] Preliminary Findings Only See Final Report For Complete Findings CTA CHEST: No central pulmonary embolus. Evaluation of segmental and subsegmental branches is limited due to contrast bolus timing and emboli within these divisions cannot be excluded. Small right pleural effusion with adjacent passive atelectasis. Multilevel cervical thoracic spondylosis. Radiologist: Jay Smalls MD Study ready at 04:41 and initial results transmitted at 04:46 *This report constitutes a preliminary interpretation only. Non-acute findings felt to be unrelated to the clinical presentation may not be discussed in this report. The study will be interpreted and a final report will be generated by the local Radiologist the following shift. To reach the hospital radiology department call [phone]. If a discrepancy is found between the preliminary and final interpretations of this study, please notify us via our Client Portal at [email or web address] under QA Exams.You can also fax this report with a description of the discrepancy, or include the final report, to our daytime fax number [phone].If faxing, please indicate the severity of discrepancy using one of the following categories: [ ] 1 - Agree/Informational [ ] 2 - Unlikely to Affect Management [ ] 3 - Possible Eventual Change of Management [ ] 4 - Probable Immediate Change of Management For all other patient related information, please fax us at [phone]. [id number] Code Status & VTE Plan Code Status Full code VTE Prophylaxis Plan VTE Prophylaxis will be ordered: Yes PG Care Time/CCT Total # of Minutes Spent Total Time Spent with Patient: Total time spent is greater than 50% in coordination of care (as documented) at patient's floor/unit and/or counseling patient: Coding Level of Care Code 93829 Initial Inpt Care Lvl 3 Diagnoses Acute respiratory failure with hypoxia J96.01 Hypothyroidism E03.9 Hyperlipidemia E78.5 Type 2 diabetes mellitus E11.9 Hypertension I10 Left ureteral calculus N20.1
--- NOTE | 2020-06-05 07:50 | Ultrasound Report ---
ULTRASOUND BILATERAL LOWER EXTREMITY VENOUS CLINICAL HISTORY: Hypoxia. Lower extremity edema. COMPARISON STUDY: Bilateral lower extremity venous ultrasound dated 04/05/2018. TECHNIQUE: Real-time, grayscale, and color Doppler sonography of the deep veins of the right and left lower extremity was performed from the inguinal crease to the calf. Compression and augmentation wer e utilized. FINDINGS: There is no sonographic evidence of deep venous thrombosis identified in the right or left lower extremity. The common femoral, superficial femoral, and popliteal veins are patent and normally compressible bilaterally. The greater saphenous vein and the profunda femoris vein at the junction w ith the common femoral vein are clear in both legs. The visualized calf veins are patent bilaterally. IMPRESSION: There is no sonographic evidence of deep venous thrombosis identified in the right or lef t lower extremity. ACT 112: Negative or not required by law. Electronically signed by: Ashu Hollins M.D. 06/05/2020 7:49 AM
[2020-06-05] MEDS ORDERED: DEXTROSE 50% 50 ML SYRINGE IV PRN (07:57)
[2020-06-05] MEDS ORDERED: ACETAMINOPHEN 325 MG TAB PO PRN (07:57)
[2020-06-05] MEDS ORDERED: MAGNESIUM HYDROXIDE SUSP 30 ML UDC PO PRN (07:57)
[2020-06-05] MEDS ORDERED: CARBOHYDRATES FOR HYPOGLYCEMIA PO PRN (07:57)
[2020-06-05] MEDS ORDERED: ALUMINUM/MAGNESIUM SUSP 30 ML UDC PO PRN (07:57)
[2020-06-05] MEDS ORDERED: GLUCOSE 40% GEL 15 GM TUBE PO PRN (07:57)
[2020-06-05] MEDS ORDERED: GLUCOSE 10 TABS/TUBE PO PRN (07:57)
[2020-06-05] MEDS ORDERED: ONDANSETRON INJ 2 MG/ML 2 ML VIAL IV PRN (07:57)
[2020-06-05] MEDS ORDERED: GLUCAGON FOR INJ 1 MG VIAL SQ PRN (07:57)
--- NOTE | 2020-06-05 08:17 | CT Scan Report ---
CT ANGIOGRAM OF THE CHEST CLINICAL HISTORY: Cough. Dyspnea. COMPARISON STUDY: Chest CT dated 03/17/2018 and 07/15/2013. Chest x-ray dated 06/05/2020. TECHNIQUE: Following the IV administration of 92 cc of Optiray 320, CT angiogram of the chest was per formed from the upper abdomen to the thoracic inlet utilizing the pulmonary embolus protocol. Images are reviewed in the axial, sagittal, and coronal planes. 3-D MIPS images are created and assessed. IV contrast was administered without complication. A dose lowering technique was utilized adhering to the principles of ALARA. The examination is degraded by large body habitus, and by streak artifact fr om the body wall abutting the CT gantry. There is also motion artifact. CT DOSE: 952.40 mGy.cm FINDINGS: Thyroid: The thyroid gland is enlarged and heterogeneous. Low-attenuation thyroid nodules measure up to 13 mm. Thoracic aorta: There is atherosclerotic calcification of the thoracic aorta, which is normal in jonathon yumiko and demonstrates standard 3-vessel arch anatomy. No dissection is seen. Pulmonary vasculature: The pulmonary trunk is mildly dilated measuring 3.3 cm diameter. This suggests pulmonary artery hypertension. There are no filling defects identified in main, lobar, or proximal s egmental pulmonary branches to suggest pulmonary embolus. Evaluation of the peripheral branches is de graded by artifact and suboptimal contrast opacification. Heart: The heart is enlarged and without pericardial effusion. The coronary arteries are densely calc ified. Reflux of contrast into the hepatic veins suggests cardiac dysfunction. Lungs and pleural spaces: Evaluation of the lung parenchyma is degraded by motion artifact. There is a small right pleural effusion with right basilar consolidation. Atelectasis is noted at the left marli g base. A 5 mm pleural-based nodule in the right middle lobe as seen on image #75. A 3 mm right lower lobe nodule seen on image #111. These were not seen on prior examinations. The trachea and central a irways are clear. Mediastinum: There are mildly enlarged mediastinal lymph nodes. A prevascular node on image #133 bre ures 11 mm in short axis. A precarinal node measures 12 mm in short axis. The are similar in appearan ce to previous. Judy: Clear. Axillae: There is no axillary lymphadenopathy. Upper abdomen: Partially visualized upper abdominal viscera is within normal limits. Skeletal structures: The skeletal structures are osteopenic. Degenerative change and hyperkyphosis ar e noted in the thoracic spine. No lytic or blastic bony lesions are seen. IMPRESSION: 1. Streak and motion compromised examination. 2. There is no evidence of pulmonary embolus in the main, lobar, or proximal segmental pulmonary janusz feliciano. Evaluation of the peripheral branches is degraded. 3. Cardiomegaly. 4. There is a small right pleural effusion with right basilar consolidation. This could represent ate lectasis versus an infectious/inflammatory pneumonitis. Clinical correlation will be required. 5. There are least 2 pulmonary and pleural-based nodules measure up to 5 mm. These were not seen on p rior examinations and follow-up is recommended as per the Fleischner criteria. 6. Additional findings as above. Please refer to below summary of Fleischner criteria recommendations for follow-up of incidental CT n odules (Nellie Diaz, Guidelines for management of small pulmonary nodules detected on CT scans: A sta tement from the Fleischner Society, Radiology 237: [phone].) SOLID NODULES Solitary nodule size: <6 mm * low risk patients: no follow-up needed * high risk patients: optional CT at 12 months Solitary nodule size: 6-8 mm * low risk patients: follow-up at 6-12 months, then consider further follow-up at 18-24 months * high risk patients: initial follow-up CT at 6-12 months and then at 18-24 months if no change Solitary nodule size: >8 mm * either low or high risk patients - consider follow-up CT at 3 months, and/or CT-PET, and/or biopsy Multiple nodules size: <6 mm * low risk patients: no routine follow-up * high risk patients: optional CT at 12 months Multiple nodules size: 6-8 mm * low risk patients: follow-up at 3-6 months, then consider further follow-up at 18-24 months * high risk patients: follow-up at 3-6 months, then at 18-24 months if no change Multiple nodules size: >8 mm * low risk patients: follow-up at 3-6 months, then consider further follow-up at 18-24 months * high risk patients: follow-up at 3-6 months, then at 18-24 months if no change Note: newly detected indeterminate nodule in persons 35 years of age or older. * low risk patients: minimal or absent history of smoking and/or other known risk factors * high risk patients: history of smoking or of other known risk factors (e.g. first degree relative with lung cancer, or exposure to asbestos, radon, uranium) * if a nodule up to 8 mm is partly solid or is ground glass further follow-up is required after 24 m onths to exclude possible slow growing adenocarcinoma (NAOMI) SUBSOLID NODULES Solitary pure ground-glass nodule * nodule size <6 mm - no CT follow-up required * nodule size >=6 mm - follow-up CT at 6-12 months, then every 2 years until 5 years Solitary part-solid nodule * nodule size <6 mm - no CT follow-up required * nodule size >=6 mm - follow-up CT at 3-6 months. If unchanged, and solid component remains <6 mm, then annual follow-up for 5 years Multiple subsolid nodules * nodule size <6 mm - follow-up CT at 3-6 months, consider further follow-up at 2 and 4 years if sta ble * nodule size >=6 mm - follow-up CT at 3-6 months, subsequent management based on the most suspiciou s nodule(s) ACT 112: Negative or not required by law. Electronically signed by: Ashu Hollins M.D. 06/05/2020 8:15 AM
[2020-06-05] MEDS ORDERED: COENZYME Q10 300 MG PO SCH (09:00)
[2020-06-05] MEDS ORDERED: NIACIN 50 MG PO SCH (09:00)
--- NOTE | 2020-06-05 10:00 | XRay Report ---
SINGLE VIEW CHEST CLINICAL HISTORY: Dyspnea. FINDINGS: An AP, portable, upright chest radiograph is compared to study dated 04/02/2020 and correlat ed with chest CT dated 03/17/2018. The heart is enlarged noting atherosclerotic calcification of the th oracic aorta. There is pulmonary vascular congestion. A small right pleural effusion is noted. There is bibasilar atelectasis. No pneumothorax is seen. The skeletal structures are osteopenic. The bony t horax is grossly intact. IMPRESSION: 1. Cardiomegaly with pulmonary vascular congestion. 2. Small right pleural effusion. ACT 112: Negative or not required by law. Electronically signed by: Ashu Hollins M.D. 06/05/2020 9:59 AM
[2020-06-05] MEDS: INSULIN ASPART 100 UNITS/ML 3 ML PEN SC SCH ×4 (10:03→20:57)
[2020-06-05] MEDS: FERROUS SULFATE 325 MG TAB PO SCH (12:31)
[2020-06-05] MEDS ORDERED: Nursing to Pharmacy Communication SCH (12:45)
[2020-06-05] MEDS: dilTIAZem HCL 240 MG CAPCR PO SCH (13:38)
--- NOTE | 2020-06-05 14:50 | XCELERA ---
[id number]
--- NOTE | 2020-06-05 16:52 | Electrocardiogram Report ---
Test Reason : Blood Pressure : / mmHG Vent. Rate : 085 BPM Atrial Rate : 085 BPM P-R Int : 182 ms QRS Dur : 086 ms QT Int : 332 ms P-R-T Axes : 064 -43 047 degrees QTc Int : 395 ms Poor data quality, interpretation may be adversely affected Sinus rhythm with Premature atrial complexes Left axis deviation Abnormal ECG When compared with ECG of 02-APR-2020 09:29, Premature atrial complexes are now Present WA interval has decreased QT has shortened Confirmed by Reginald Ortega ([id number]) on 06/05/2020 4:51:58 PM Referred By: REFERRED SELF Confirmed By:Logan Ortega
[2020-06-05] MEDS: HEPARIN SOD 5,000 UNIT/0.5 ML VIAL SQ SCH ×2 (17:11→20:53)
[2020-06-05] MEDS: TAMSULOSIN HCL 0.4 MG CAP PO SCH (20:47)
[2020-06-05] MEDS: OMEGA-3 (PURIFIED FISH OIL) 1 GM CAP PO SCH (20:47)
[2020-06-05] MEDS: ROSUVASTATIN CALCIUM 5 MG TAB PO SCH (20:47)
[2020-06-05] MEDS: EZETIMIBE 10 MG TABLET PO SCH (20:47)
[2020-06-05] MEDS: INSULIN GLARGINE SOLOSTAR 100 UNITS/ML 3 ML PEN SC SCH (20:54)
[2020-06-05] MEDS ORDERED: dilTIAZem HCL 240 MG CAPCR PO SCH (21:00)
[2020-06-05] MEDS ORDERED: MELATONIN 3 MG TAB PO PRN (23:26)
[2020-06-06] MEDS: HEPARIN SOD 5,000 UNIT/0.5 ML VIAL SQ SCH ×3 (06:00→21:01)
[2020-06-06] MEDS: LEVOTHYROXINE SODIUM 50 MCG TABLET PO SCH (06:04)
[2020-06-06 07:16] LABS: INR 1.1 (0.9-1.1); Partial Thromboplastin Ratio 0.8; Partial Thromboplastin Time 21.9 Seconds (21.0-31.0); Prothrombin Time 11.9 Seconds (9.0-12.0)
[2020-06-06 07:33] LABS: Albumin Level 2.8 gm/dl (3.4-5.0); BUN Creatinine Ratio 18.3 (10-20); Calcium 9.5 mg/dl (8.5-10.1); Creatinine Clr Calc Pharmacy 38.4 ml/min; Est GFR (African American) 45.9; Est GFR (Non-African American) 39.6; Magnesium 1.9 mg/dl (1.8-2.4); Potassium 4.6 mmol/L (3.5-5.1)
[2020-06-06 07:34] LABS: Albumin Globulin Ratio 0.7 (0.9-2); Bilirubin,Total 0.6 mg/dl (0.2-1); Total Protein 6.8 gm/dl (6.4-8.2)
[2020-06-06 07:43] LABS: Basophils # (auto) 0.04 K/uL (0-0.2); Basophils % (auto) 0.4 %; Eosinophils # (auto) 0.49 K/uL (0-0.5); Eosinophils % (auto) 5.3 %; Hematocrit (blood only) 39.9 % (37-47); Hemoglobin 12.7 g/dL (12.0-16.0); Immature Granulocytes # (auto) 0.03 K/uL (0.00-0.02); Immature Granulocytes % (auto) 0.3 %; Lymphocytes # (auto) 1.89 K/uL (1.2-3.4); Lymphocytes % (auto) 20.6 %; Mean Corpuscular Hemoglobin 28.7 pg (25-34); Mean Corpuscular Volume 90.3 fL (80-100); Mean Platelet Volume 9.7 fL (7.4-10.4); Monocytes # (auto) 0.72 K/uL (0.11-0.59); Monocytes % (auto) 7.9 %; Neutrophils % (auto) 65.5 %; Platelet Count 210 K/uL (130-400); RDW Coefficient of Variation 17.9 % (11.5-14.5); RDW Standard Deviation 57.2 fL (36.4-46.3); Red Blood Count 4.42 M/uL (4.2-5.4); White Blood Count 9.17 K/uL (4.8-10.8)
[2020-06-06 07:46] LABS: Mean Corpuscular Hgb Conc 31.8 g/dL (32-36)
[2020-06-06] MEDS: INSULIN ASPART 100 UNITS/ML 3 ML PEN SC SCH ×4 (08:00→21:04)
--- NOTE | 2020-06-06 11:07 | Electrocardiogram Report ---
Test Reason : Blood Pressure : / mmHG Vent. Rate : 071 BPM Atrial Rate : 071 BPM P-R Int : 196 ms QRS Dur : 084 ms QT Int : 386 ms P-R-T Axes : 051 -37 016 degrees QTc Int : 419 ms Poor data quality, interpretation may be adversely affected Normal sinus rhythm Left axis deviation Nonspecific ST and T wave abnormality Poor R wave progression, consider anterior TN vs. lead placement vs. LVH Abnormal ECG When compared with ECG of 05-JUN-2020 01:27, Premature atrial complexes are no longer Present T wave inversion now evident in Lateral leads Confirmed by Reginald Ortega ([id number]) on 06/06/2020 11:06:30 AM Referred By: REFERRED SELF Confirmed By:Logan Ortega
[2020-06-06] MEDS: dilTIAZem HCL 240 MG CAPCR PO SCH (12:29)
[2020-06-06] MEDS: FERROUS SULFATE 325 MG TAB PO SCH (12:29)
[2020-06-06] MEDS ORDERED: FUROSEMIDE 20 MG in SYRINGE 0 ML IV ONE (14:00)
--- NOTE | 2020-06-06 17:18 | XRay Report ---
XR chest 2V PA/lateral HISTORY: Shortness of breath. COMPARISON: Chest 06/05/2020. FINDINGS: The cardiac silhouette remains mildly enlarged. Pulmonary vascular congestion has improved. A small right pleural effusion persists. No new focal lung consolidations. No pneumothorax. IMPRESSION: 1. Interval improvement in the pulmonary vascular congestion. 2. Cardiomegaly and a small right pleural effusion persists. ACT 112: Negative or not required by law. Electronically signed by: Chase Buchanan M.D. 06/06/2020 5:16 PM
[2020-06-06] MEDS: TAMSULOSIN HCL 0.4 MG CAP PO SCH (21:00)
[2020-06-06] MEDS: INSULIN GLARGINE SOLOSTAR 100 UNITS/ML 3 ML PEN SC SCH (21:05)
[2020-06-06] MEDS: OMEGA-3 (PURIFIED FISH OIL) 1 GM CAP PO SCH (21:07)
[2020-06-06] MEDS: EZETIMIBE 10 MG TABLET PO SCH (21:07)
[2020-06-06] MEDS: ROSUVASTATIN CALCIUM 5 MG TAB PO SCH (21:40)
--- NOTE | 2020-06-06 22:51 | Hospitalist Progress Note ---
Date of Service June 06, 2020 Assessment & Plan (1) Acute respiratory failure with hypoxia: CT angiography of chest for PE protocol, with limitation of only being able see central pulmonary arteries: negative. Patient does have some elevated pulmonary pressures on echo. Perhaps patient has diastolic congestive heart failure. Will place on lasix IV 20 mg. will contiue to monitor. BNP is elevated, weight is elevated too. For now continue nasal cannula oxygen, and further treatments as the remaining studies results return. (2) Hypothyroidism: Continue levothyroxine sodium 50 mcg daily (3) Hyperlipidemia: Continue niacin, rosuvastatin and Zetia (4) Type 2 diabetes mellitus: Continue Lantus 4 units subcu at bedtime. Place on Accu-Cheks before meals and at bedtime with NovoLog coverage per scale (5) Hypertension: Continue diltiazem 240 mg at bedtime. (6) Left ureteral calculus: Status post recent procedure as detailed above. Continue tamsulosin. No signs of infection at this time. Not likely directly associated with hypoxic issue, other than for relative immobility Admission and Anticipated Discharge Date Admission Date: June 05, 2020 Subjective Patient reports feeling well, she is requiring oxygen. She does not take oxygen at home. Review of Systems Review of Systems: The patient denies palpitations, sore throat, fevers, chills, sweats, nausea, vomiting, diarrhea , constipation, abdominal pain, pelvic pain, blood in urine or stool, dysuria, urinary frequency or urgency, lightheadedness, dizziness, headache, memory loss, loss of consciousness, rash, abnormal bruising or bleeding, imbalance, focal or generalized weakness, numbness or tingling in arms or legs, generalized arthralgias or myalgias, back or neck pain, or night sweats. The review of systems is otherwise negative other than for that already noted above, and at least 10 systems have been reviewed. Physical Exam Physical Exam: The patient is awake, alert and oriented 3, well developed and well nourished, normocephalic and atraumatic, lying in bed and in no acute distress. HEENT--PERRL, EOMI, mucous membranes and oropharynx normal. Neck--supple. No JVD. No bruits. Thyroid normal, trachea midline, no adenopathy. Heart--normal S1 and S2. No murmurs, rubs or gallops. Lungs--clear bilaterally, no respiratory distress, no accessory muscle use. Abdomen--normal bowel sounds and soft. Nontender. Nondistended. Extremities--no cyanosis or clubbing. 1+ bilateral pretibial pitting edema. Lower extremities are otherwise very tight and not compressible. Dermatologic--normal skin turgor, normal color, no abnormal lymph nodes, no rash. Neurologic--cranial nerves II through XII grossly intact. Rheumatologic--normal range of motion. Psychiatric--normal affect. Results & Data Results & Data ([facility]) Vital Signs (Past 12 Hours) Vital Signs Temp Pulse Pulse Resp BP Pulse Ox 06/06/20 19:19 37.1 C 71 18 125/56 L 95 06/06/20 16:00 60 06/06/20 15:10 36.6 C 71 19 139/72 98 06/06/20 11:12 36.8 C 75 20 141/75 H 91 PG Care Time/CCT Total # of Minutes Spent Total Time Spent with Patient: Total time spent is greater than 50% in coordination of care (as documented) at patient's floor/unit and/or counseling patient: Coding Level of Care Code 78833 Subseq Hosp Care Lvl 3 Diagnoses Acute respiratory failure with hypoxia J96.01 Hypothyroidism E03.9 Hyperlipidemia E78.5 Type 2 diabetes mellitus E11.9 Hypertension I10 Left ureteral calculus N20.1 Time Spent (min) 35
[2020-06-07] MEDS: HEPARIN SOD 5,000 UNIT/0.5 ML VIAL SQ SCH ×3 (06:26→21:07)
[2020-06-07] MEDS: LEVOTHYROXINE SODIUM 50 MCG TABLET PO SCH (06:26)
[2020-06-07 06:40] LABS: Estimated Average Glucose 151 mg/dl; Hemoglobin A1C 6.9 % (4.5-5.6)
[2020-06-07 07:10] LABS: Basophils # (auto) 0.02 K/uL (0-0.2); Basophils % (auto) 0.3 %; Eosinophils % (auto) 4.6 %; Hematocrit (blood only) 39.5 % (37-47); Hemoglobin 12.5 g/dL (12.0-16.0); Immature Granulocytes # (auto) 0.01 K/uL (0.00-0.02); Immature Granulocytes % (auto) 0.2 %; Lymphocytes # (auto) 1.67 K/uL (1.2-3.4); Lymphocytes % (auto) 25.8 %; Mean Corpuscular Hgb Conc 31.6 g/dL (32-36); Mean Corpuscular Volume 91.6 fL (80-100); Monocytes # (auto) 0.43 K/uL (0.11-0.59); Monocytes % (auto) 6.6 %; Neutrophils # (auto) 4.05 K/uL (1.4-6.5); Neutrophils % (auto) 62.5 %; Platelet Count 216 K/uL (130-400); RDW Coefficient of Variation 17.7 % (11.5-14.5); RDW Standard Deviation 58.1 fL (36.4-46.3); Red Blood Count 4.31 M/uL (4.2-5.4); White Blood Count 6.48 K/uL (4.8-10.8)
[2020-06-07 07:20] LABS: INR 1.1 (0.9-1.1); Partial Thromboplastin Ratio 0.9; Partial Thromboplastin Time 24.8 Seconds (21.0-31.0); Prothrombin Time 11.3 Seconds (9.0-12.0)
[2020-06-07 07:43] LABS: Albumin Level 2.9 gm/dl (3.4-5.0); BUN Creatinine Ratio 16.7 (10-20); Calcium 9.1 mg/dl (8.5-10.1); Creatinine Clr Calc Pharmacy 38.7 ml/min; Est GFR (African American) 46.8; Est GFR (Non-African American) 40.4; Potassium 4.3 mmol/L (3.5-5.1)
[2020-06-07 07:46] LABS: Albumin Globulin Ratio 0.7 (0.9-2); Bilirubin,Total 0.7 mg/dl (0.2-1); Globulin 4.1 gm/dl (2.5-4.0)
[2020-06-07] MEDS: INSULIN ASPART 100 UNITS/ML 3 ML PEN SC SCH ×4 (08:06→21:02)
--- NOTE | 2020-06-07 09:36 | Electrocardiogram Report ---
Test Reason : Blood Pressure : / mmHG Vent. Rate : 071 BPM Atrial Rate : 071 BPM P-R Int : 188 ms QRS Dur : 084 ms QT Int : 402 ms P-R-T Axes : 051 -29 019 degrees QTc Int : 436 ms Normal sinus rhythm Nonspecific T wave abnormality Abnormal ECG When compared with ECG of 06-JUN-2020 06:47, No significant change Confirmed by Vic Saldana ([id number]) on 06/07/2020 9:35:51 AM Referred By: REFERRED SELF Confirmed By:Vic Saldana
[2020-06-07] MEDS ORDERED: FUROSEMIDE 20 MG in SYRINGE 0 ML IV ONE (10:45)
[2020-06-07] MEDS: dilTIAZem HCL 240 MG CAPCR PO SCH (12:09)
[2020-06-07] MEDS: FERROUS SULFATE 325 MG TAB PO SCH (12:11)
--- NOTE | 2020-06-07 14:20 | Cardiology Consultation ---
Date of Consultation June 07, 2020 Assessment & Plan (1) Acute respiratory failure with hypoxia: Acute respiratory failure w/ hypoxia CHF History of Present Illness Attending Physician: Carlos Hurt Allergies Allergy/AdvReac Type Severity Reaction Status Date / Time codeine Allergy Intermediate WHITE Verified 06/05/20 02:31 CHANGE UNDER THE SKIN-ARMS Penicillins Allergy Intermediate RASH Verified 06/05/20 02:31 sulfamethoxazole Allergy Unknown DOES NOT Verified 06/05/20 02:31 KNOW REACTION trimethoprim Allergy Unknown DOES NOT Verified 06/05/20 02:31 KNOW REACTION atorvastatin AdvReac Intermediate SHE FELT Verified 06/05/20 02:31 WEAK simvastatin AdvReac Intermediate ARMS Verified 06/05/20 02:31 SWELLING adhesive AdvReac Mild SOME Verified 06/05/20 02:31 TAPE-REDNESS, ITCHY Home Medications Home Medications Medication Instructions Recorded Confirmed Type Co Q-10 300 mg PO QAM 04/22/19 06/05/20 History Humalog U-100 Insulin 1 sliding scale dose SUBCUT 04/22/19 06/05/20 History USEASDIRECTD Lantus U-100 Insulin 40 unit SUBCUT HS 04/22/19 06/05/20 History diltiazem HCl 240 mg PO HS 04/22/19 06/05/20 History ezetimibe [Zetia] 10 mg PO HS 04/22/19 06/05/20 History ferrous sulfate [iron] 650 mg PO PM 04/22/19 06/05/20 History furosemide [Lasix] 40 mg PO QAM 04/22/19 06/05/20 History levothyroxine [Synthroid] 50 mcg PO QAM 04/22/19 06/05/20 History niacin 50 mg PO BID 04/22/19 06/05/20 History rosuvastatin 5 mg PO HS 04/22/19 06/05/20 History omega-3 acid ethyl esters 1 gram 1 cap PO HS 12/29/19 06/05/20 History capsule ergocalciferol (vitamin D2) 1,250 50,000 unit PO MONTHLY #12 cap 05/10/20 06/05/20 Rx mcg (50,000 unit) capsule phenazopyridine [Pyridium] 200 mg PO Q8H PRN #10 tab 05/31/20 06/05/20 Rx tamsulosin 0.4 mg PO HS #30 cap 05/31/20 06/05/20 Rx Patient History Medical History (Updated 06/05/20 @ 22:43 by Leeanna Gandhi DO) Anemia Chronic kidney disease, stage 3 (moderate) Diverticular disease DJD (degenerative joint disease) DM type 2 (diabetes mellitus, type 2) IDDM. 7.2% 03/2020 Hearing deficit B/L [place] HTN (hypertension) Hyperlipidemia Hypothyroidism Ileostomy, has currently Kidney stones Morbid obesity Osteoarthritis Renal insufficiency follows dr. Bedoya Sacroiliitis Surgical History H/O hernia repair History of appendectomy History of bowel resection 2010 History of cholecystectomy History of colonoscopy History of cystoscopy WITH STENT History of left knee replacement History of tonsillectomy History of tooth extraction History of total abdominal hysterectomy and bilateral salpingo-oophorectomy History of tubal ligation Family History Unknown Cardiac disorder Cancer Hypertension Mother Diabetes Cardiac disorder Cancer Hypertension Father No problems noted. Sister Rectal cancer Uncle Family hx of colon cancer Other No family history of adverse response to anesthesia No family history of bleeding disorder Denies family history of Cystic kidney disease Social History Smoking Status: Former smoker Tobacco Type: Cigarettes Second Hand Exposure: No; Hx Alcohol Use: No Hx Substance Use: No Preferred Language: Mexican Communication Ability: Effective Guide Escort Required: No Beliefs That Will Affect Care: None marital status: Current Living Situation: Spouse Feels Safe at Home: Yes Assistive Devices: Cane and Oxygen - Continuous Results & Data ([facility]) Vital Signs (Past 12 Hours) Vital Signs Temp Pulse Pulse Resp BP Pulse Ox 06/07/20 12:30 36.8 C 82 18 151/62 H 90 06/07/20 08:00 78 06/07/20 07:29 36.4 C L 69 18 111/62 98 06/07/20 05:00 74 06/07/20 03:03 36.8 C 78 16 130/62 97
[2020-06-07] MEDS: INSULIN GLARGINE SOLOSTAR 100 UNITS/ML 3 ML PEN SC SCH (21:03)
[2020-06-07] MEDS: OMEGA-3 (PURIFIED FISH OIL) 1 GM CAP PO SCH (21:06)
[2020-06-07] MEDS: TAMSULOSIN HCL 0.4 MG CAP PO SCH (21:06)
[2020-06-07] MEDS: ROSUVASTATIN CALCIUM 5 MG TAB PO SCH (21:06)
[2020-06-07] MEDS: EZETIMIBE 10 MG TABLET PO SCH (21:06)
--- NOTE | 2020-06-07 22:32 | Hospitalist Progress Note ---
Date of Service June 07, 2020 Assessment & Plan (1) Acute respiratory failure with hypoxia: CT angiography of chest for PE protocol, with limitation of only being able see central pulmonary arteries: negative. Patient does have some elevated pulmonary pressures on echo. Perhaps patient has diastolic congestive heart failure. on lasix IV 20 mg daily now 3 liters negative will contiue to monitor. BNP is elevated, weight is elevated too. For now continue nasal cannula oxygen, and further treatments as the remaining studies results return. consulted cardio (2) Hypothyroidism: Continue levothyroxine sodium 50 mcg daily (3) Hyperlipidemia: Continue niacin, rosuvastatin and Zetia (4) Type 2 diabetes mellitus: Continue Lantus 4 units subcu at bedtime. Place on Accu-Cheks before meals and at bedtime with NovoLog coverage per scale (5) Hypertension: Continue diltiazem 240 mg at bedtime. (6) Left ureteral calculus: Status post recent procedure as detailed above. Continue tamsulosin. No signs of infection at this time. Not likely directly associated with hypoxic issue, other than for relative immobility Admission and Anticipated Discharge Date Admission Date: June 05, 2020 Subjective 74 yo female reports breathing better today. She has intermittently tolerated room air. Review of Systems Review of Systems: All systems reviewed & are unremarkable except as noted in HPI & below Physical Exam Physical Exam: The patient is awake, alert and oriented 3, well developed and well nourished, normocephalic and atraumatic, lying in bed and in no acute distress. HEENT--PERRL, EOMI, mucous membranes and oropharynx normal. Neck--supple. No JVD. No bruits. Thyroid normal, trachea midline, no adenopathy. Heart--normal S1 and S2. No murmurs, rubs or gallops. Lungs--clear bilaterally, no respiratory distress, no accessory muscle use. Abdomen--normal bowel sounds and soft. Nontender. Nondistended. Extremities--no cyanosis or clubbing. 1+ bilateral pretibial pitting edema. Lower extremities are otherwise very tight and not compressible. Dermatologic--normal skin turgor, normal color, no abnormal lymph nodes, no rash. Neurologic--cranial nerves II through XII grossly intact. Rheumatologic--normal range of motion. Psychiatric--normal affect. Results & Data Results & Data ([facility]) Vital Signs (Past 12 Hours) Vital Signs Temp Pulse Pulse Resp BP Pulse Ox 06/07/20 18:56 36.7 C 66 20 123/50 L 97 06/07/20 15:34 78 06/07/20 15:30 36.9 C 83 18 153/68 H 91 06/07/20 12:30 36.8 C 82 18 151/62 H 90 PG Care Time/CCT Total # of Minutes Spent Total Time Spent with Patient: Total time spent is greater than 50% in coordination of care (as documented) at patient's floor/unit and/or counseling patient: Coding Level of Care Code 65229 Subseq Hosp Care Lvl 2 Diagnoses Acute respiratory failure with hypoxia J96.01 Hypothyroidism E03.9 Hyperlipidemia E78.5 Type 2 diabetes mellitus E11.9 Hypertension I10 Left ureteral calculus N20.1 Time Spent (min) 25
[2020-06-08] MEDS: LEVOTHYROXINE SODIUM 50 MCG TABLET PO SCH (06:02)
[2020-06-08] MEDS: HEPARIN SOD 5,000 UNIT/0.5 ML VIAL SQ SCH ×3 (06:02→22:23)
[2020-06-08 06:27] LABS: Basophils # (auto) 0.01 K/uL (0-0.2); Basophils % (auto) 0.2 %; Eosinophils % (auto) 5.4 %; Hematocrit (blood only) 36.3 % (37-47); Hemoglobin 11.5 g/dL (12.0-16.0); Immature Granulocytes # (auto) 0.01 K/uL (0.00-0.02); Immature Granulocytes % (auto) 0.2 %; Lymphocytes # (auto) 1.53 K/uL (1.2-3.4); Lymphocytes % (auto) 27.6 %; Mean Corpuscular Hemoglobin 28.8 pg (25-34); Mean Corpuscular Hgb Conc 31.7 g/dL (32-36); Mean Corpuscular Volume 90.8 fL (80-100); Mean Platelet Volume 9.7 fL (7.4-10.4); Monocytes # (auto) 0.34 K/uL (0.11-0.59); Monocytes % (auto) 6.1 %; Neutrophils # (auto) 3.36 K/uL (1.4-6.5); Neutrophils % (auto) 60.5 %; Platelet Count 183 K/uL (130-400); RDW Coefficient of Variation 17.6 % (11.5-14.5); RDW Standard Deviation 56.8 fL (36.4-46.3); White Blood Count 5.55 K/uL (4.8-10.8)
[2020-06-08 06:42] LABS: INR 1.1 (0.9-1.1); Partial Thromboplastin Ratio 0.9; Partial Thromboplastin Time 26.5 Seconds (21.0-31.0); Prothrombin Time 11.4 Seconds (9.0-12.0)
--- NOTE | 2020-06-08 06:51 | Cardiology Consultation ---
Date of Consultation June 07, 2020 Assessment & Plan (1) Acute respiratory failure with hypoxia: She presents with relatively acute symptoms and findings of fluid retention and heart failure, she does describe symptoms going back a month or so but much worse over the last week, ever since her urologic procedure 1 week ago. It has been progressive and she presents with significant fluid overload. She feels better now with diuresis. I would recommend continued diuresis at this point, I believe she still has a fair amount of fluid which will have to be eliminated. (2) Congestive heart failure: Evidently diastolic in nature as she does not have left ventricular systolic dysfunction. It may be a function of excessive fluid intake and poor diuresis, why she has that now is not clear but perhaps it has something to do with urologic procedure since her kidney function based on her creatinine is little bit worse this admission although that is improving. She does have pulmonary hypertension so this may be longstanding and she does have longstanding symptoms. (3) Chronic kidney disease, stage 3 (moderate): She has longstanding renal insufficiency, her creatinine was elevated on admission, possibly related to her urologic procedure or her heart failure which can often do that but usually in the setting of left ventricular dysfunction. (4) Pulmonary hypertension: She does have severe pulmonary hypertension based on her echo although it was a technically limited study and some of that may be her acute presentation. I believe she is fluid overloaded as noted above, she may also have pulmonary hypertension from obesity or sleep apnea. This should be followed up once we have her fluid status stabilized. History of Present Illness Reason for Consultation: Congestive heart failure Attending Physician: Carlos Hurt History of Present Illness This is a 74-year-old woman with this history of hypertension, diabetes mellitus, hypercholesterolemia, chronic kidney disease, hypothyroidism and obesity. She has been having trouble with kidney stones recently and has had several lithotripsy treatments, most recently May 31, 2020. She presented with shortness of breath and leg swelling. She describes her shortness of breath is been present for about 6 years however much worse recently, especially over the last week since her recent urologic procedure. She had been trying to lose weight up until recently and apparently was having some success however she reports having weight gain over the last week and noting that her legs were swollen and she has been quite short of breath with exertion. That has been progressive until she was having shortness of breath at rest and she presented to the emergency room. In the emergency room on June 05, 2020 she appeared to be in congestive heart failure, she did not appear to have a pulmonary embolism based on a CT scan and she has therefore been diuresed. At the time of my evaluation she was feeling better but still noted that her legs were swollen. Her reports that she eats very little but has not been able to lose a substantial amount of weight. He has noticed that she is very much more short of breath now than she has been in the recent past. She denies exertional chest pain or exertional chest tightness, either now or in the past. Allergies Allergy/AdvReac Type Severity Reaction Status Date / Time codeine Allergy Intermediate WHITE Verified 06/05/20 02:31 CHANGE UNDER THE SKIN-ARMS Penicillins Allergy Intermediate RASH Verified 06/05/20 02:31 sulfamethoxazole Allergy Unknown DOES NOT Verified 06/05/20 02:31 KNOW REACTION trimethoprim Allergy Unknown DOES NOT Verified 06/05/20 02:31 KNOW REACTION atorvastatin AdvReac Intermediate SHE FELT Verified 06/05/20 02:31 WEAK simvastatin AdvReac Intermediate ARMS Verified 06/05/20 02:31 SWELLING adhesive AdvReac Mild SOME Verified 06/05/20 02:31 TAPE-REDNESS, ITCHY Home Medications Home Medications Medication Instructions Recorded Confirmed Type Co Q-10 300 mg PO QAM 04/22/19 06/05/20 History Humalog U-100 Insulin 1 sliding scale dose SUBCUT 04/22/19 06/05/20 History USEASDIRECTD Lantus U-100 Insulin 40 unit SUBCUT 04/22/19 06/05/20 History diltiazem HCl 240 mg PO HS 04/22/19 06/05/20 History ezetimibe [Zetia] 10 mg PO HS 04/22/19 06/05/20 History ferrous sulfate [iron] 650 mg PO PM 04/22/19 06/05/20 History furosemide [Lasix] 40 mg PO QAM 04/22/19 06/05/20 History levothyroxine [Synthroid] 50 mcg PO QAM 04/22/19 06/05/20 History niacin 50 mg PO BID 04/22/19 06/05/20 History rosuvastatin 5 mg PO HS 04/22/19 06/05/20 History omega-3 acid ethyl esters 1 gram 1 cap PO HS 12/29/19 06/05/20 History capsule ergocalciferol (vitamin D2) 1,250 50,000 unit PO MONTHLY #12 cap 05/10/20 06/05/20 Rx mcg (50,000 unit) capsule phenazopyridine [Pyridium] 200 mg PO Q8H PRN #10 tab 05/31/20 06/05/20 Rx tamsulosin 0.4 mg PO HS #30 cap 05/31/20 06/05/20 Rx Patient History Medical History (Updated 06/08/20 @ 10:32 by Vic Saldana MD) Anemia Chronic kidney disease, stage 3 (moderate) Diverticular disease DJD (degenerative joint disease) DM type 2 (diabetes mellitus, type 2) IDDM. 7.2% 03/2020 Hearing deficit B/L [place] HTN (hypertension) Hyperlipidemia Hypothyroidism Ileostomy, has currently Kidney stones Morbid obesity Osteoarthritis Renal insufficiency follows dr. Bedoya Sacroiliitis Surgical History H/O hernia repair History of appendectomy History of bowel resection 2010 History of cholecystectomy History of colonoscopy History of cystoscopy WITH STENT History of left knee replacement History of tonsillectomy History of tooth extraction History of total abdominal hysterectomy and bilateral salpingo-oophorectomy History of tubal ligation Family History Unknown Cardiac disorder Cancer Hypertension Mother Diabetes Cardiac disorder Cancer Hypertension Father No problems noted. 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 She is obese. HEENT: Unremarkable Neck: No jugular venous distention, carotid pulses are normal and equal bilaterally without bruits. Pulmonary: Clear to auscultation bilaterally. Cardiac: Regular rhythm with no murmur, gallop or rub. Abdomen: Soft, nontender with normal bowel sounds. Extremities: +3 bilateral edema. Distal pulses hard to feel. Neurologic: No focal findings. Gait was not tested. Skin: No rash, ecchymoses or petechiae. Results & Data ([facility]) Vital Signs (Past 12 Hours) Vital Signs Temp Pulse Resp BP Pulse Ox 06/08/20 03:44 36.5 C 69 20 122/50 L 97 06/07/20 23:11 36.6 C 78 20 143/57 H 95 06/07/20 18:56 36.7 C 66 20 123/50 L 97 Diagnostic Findings Electrocardiogram: Her presenting electrocardiogram on June 05, 2020 at 1:30 in the morning shows sinus rhythm at 85 bpm with left axis deviation and no significant abnormality. This was repeated on June 06 at 6:47 AM and was very similar with a heart rate of 71 bpm. Telemetry: Sinus rhythm with PACs. Echocardiogram: Her echocardiogram showed normal left ventricular systolic function with borderline right ventricular dilatation and elevated pulmonary pressures. PG Care Time/CCT Total # of Minutes Spent Total Time Spent with Patient: Total time spent is greater than 50% in coordination of care (as documented) at patient's floor/unit and/or counseling patient: Coding Level of Care Code 79665 Initial Inpt Care Lvl 3 Diagnoses Acute respiratory failure with hypoxia J96.01 Congestive heart failure I50.9 Chronic kidney disease, stage 3 (moderate) N18.3 Pulmonary hypertension I27.20
[2020-06-08 07:00] LABS: Albumin Level 2.7 gm/dl (3.4-5.0); BUN Creatinine Ratio 20.7 (10-20); Calcium 8.5 mg/dl (8.5-10.1); Creatinine Clr Calc Pharmacy 43.5 ml/min; Est GFR (African American) 54.3; Est GFR (Non-African American) 46.8; Magnesium 2.1 mg/dl (1.8-2.4); Potassium 4.2 mmol/L (3.5-5.1)
[2020-06-08 07:03] LABS: Albumin Globulin Ratio 0.7 (0.9-2); Bilirubin,Total 0.5 mg/dl (0.2-1); Globulin 3.8 gm/dl (2.5-4.0); Total Protein 6.5 gm/dl (6.4-8.2)
[2020-06-08] MEDS: INSULIN ASPART 100 UNITS/ML 3 ML PEN SC SCH ×4 (08:06→20:12)
[2020-06-08] MEDS ORDERED: FUROSEMIDE 20 MG in SYRINGE 0 ML IV ONE (08:45)
--- NOTE | 2020-06-08 10:46 | Cardiology Progress Note ---
Date of Service June 08, 2020 Assessment & Plan (1) Acute respiratory failure with hypoxia: She presents with relatively acute symptoms and findings of fluid retention and heart failure, she does describe symptoms going back a month or so but much worse over the last week, ever since her urologic procedure 1 week ago. It has been progressive and she presented with significant fluid overload. She feels much better now with diuresis although still has excessive fluid. (2) Congestive heart failure: Evidently diastolic in nature as she does not have left ventricular systolic dysfunction. It may be a function of excessive fluid intake and poor diuresis, why she has that now is not clear but perhaps it has something to do with urologic procedure since her kidney function based on her creatinine was a little bit worse this admission although that is improving. She does have pulmonary hypertension so this may be longstanding and she does have longstanding symptoms. I believe she still has a significant amount of fluid and will need continued diuresis. This could probably be handled fairly well through our outpatient heart failure clinic. (3) Chronic kidney disease, stage 3 (moderate): She has longstanding mild renal insufficiency, her creatinine was more elevated on admission, possibly related to her urologic procedure or her heart failure which can often do that but usually in the setting of left ventricular dysfunction. That is improving with diuresis. (4) Pulmonary hypertension: She does have severe pulmonary hypertension based on her echo although it was a technically limited study and some of that may be her acute presentation. I believe she is fluid overloaded as noted above which will raise pulmonary pressures, she may also have underlying pulmonary hypertension from obesity or sleep apnea. This should be followed up once we have her fluid status stabilized. Admission and Anticipated Discharge Date Admission Date: June 05, 2020 Subjective She is feeling well today, she is comfortable at rest but has not been very active. She notes that her legs are still swollen. No cardiovascular symptoms. Physical Exam Physical Exam: Constitutional: Alert, cooperative and in no distress. She is obese. HEENT: Unremarkable Neck: No jugular venous distention, carotid pulses are normal and equal [place] aterally without bruits. Pulmonary: Clear to auscultation bilaterally. Cardiac: Regular rhythm with no murmur, gallop or rub. Abdomen: Soft, nontender with normal bowel sounds. Extremities: +3 bilateral edema. Distal pulses hard to feel. Neurologic: No focal findings. Gait was not tested. Skin: No rash, ecchymoses or petechiae. Results & Data ([facility]) Vital Signs (Past 12 Hours) Vital Signs Temp Pulse Resp BP Pulse Ox 06/08/20 07:37 36.4 C L 71 18 135/53 L 97 06/08/20 03:44 36.5 C 69 20 122/50 L 97 06/07/20 23:11 36.6 C 78 20 143/57 H 95 Laboratory Results Cardiac Enzymes 06/08/20 Range/Units 06:11 AST 18 (15-37) U/L Coagulation 06/08/20 Range/Units 06:11 PT 11.4 (9.0-12.0) Seconds APTT 26.5 (21.0-31.0) Seconds CBC 06/08/20 Range/Units 06:11 WBC 5.55 (4.8-10.8) K/uL RBC 4.00 L (4.2-5.4) M/uL Hgb 11.5 L (12.0-16.0) g/dL Hct 36.3 L (37-47) % Plt Count 183 (130-400) K/uL Neut # (Auto) 3.36 (1.4-6.5) K/uL Lymph # (Auto) 1.53 (1.2-3.4) K/uL [place] # (Auto) 0.34 (0.11-0.59) K/uL Eos # (Auto) 0.30 (0-0.5) K/uL Baso # (Auto) 0.01 (0-0.2) K/uL Comprehensive Metabolic Panel 06/08/20 Range/Units 06:11 Sodium 140 (136-145) mmol/L Potassium 4.2 (3.5-5.1) mmol/L Chloride 104 (98-107) mmol/L Carbon Dioxide 30 (21-32) mmol/L BUN 24 H (7-18) mg/dl Creatinine 1.15 (0.6-1.2) mg/dl Glucose 81 (70-99) mg/dl Calcium 8.5 (8.5-10.1) mg/dl AST 18 (15-37) U/L ALT 18 (12-78) U/L Alkaline Phosphatase 62 (45-117) U/L Total Protein 6.5 (6.4-8.2) gm/dl Albumin 2.7 L (3.4-5.0) gm/dl Intake and Output 06/07/20 06/08/20 06/08/20 22:59 06:59 14:59 Intake Total 200 / 440 Output Total 750 / 1675 225 / 1675 Balance -550 / -1235 -225 / -1235 Intake: Oral 200 / 440 Output: Urine 750 / 1675 225 / 1675 Other: # Unmeasured Voids 2 Weight 99 kg Diagnostic Findings Telemetry: Sinus rhythm, rate 60 to 80 bpm. No significant arrhythmia. PG Care Time/CCT Total # of Minutes Spent Total Time Spent with Patient: Total time spent is greater than 50% in coordination of care (as documented) at patient's floor/unit and/or counseling patient: Coding Level of Care Code 93408 Subseq Hosp Care Lvl 3 Diagnoses Acute respiratory failure with hypoxia J96.01 Congestive heart failure I50.9 Chronic kidney disease, stage 3 (moderate) N18.3 Pulmonary hypertension I27.20
[2020-06-08] MEDS: FERROUS SULFATE 325 MG TAB PO SCH (12:13)
[2020-06-08] MEDS: dilTIAZem HCL 240 MG CAPCR PO SCH (12:14)
[2020-06-08] MEDS: TAMSULOSIN HCL 0.4 MG CAP PO SCH (20:09)
[2020-06-08] MEDS: ROSUVASTATIN CALCIUM 5 MG TAB PO SCH (20:10)
[2020-06-08] MEDS: OMEGA-3 (PURIFIED FISH OIL) 1 GM CAP PO SCH (20:11)
[2020-06-08] MEDS: EZETIMIBE 10 MG TABLET PO SCH (20:11)
[2020-06-08] MEDS: INSULIN GLARGINE SOLOSTAR 100 UNITS/ML 3 ML PEN SC SCH (20:11)
--- NOTE | 2020-06-08 23:22 | Hospitalist Progress Note ---
Date of Service June 08, 2020 Assessment & Plan (1) Acute respiratory failure with hypoxia: CT angiography of chest for PE protocol, with limitation of only being able see central pulmonary arteries: negative. Patient does have some elevated pulmonary pressures on echo. Perhaps patient has diastolic congestive heart failure. on lasix IV 20 mg daily now 3.5 liters negative will contniue to monitor. BNP is elevated, weight is elevated too. will recheck BNP in AM. (2) Hypothyroidism: Continue levothyroxine sodium 50 mcg daily (3) Hyperlipidemia: Continue niacin, rosuvastatin and Zetia (4) Type 2 diabetes mellitus: Continue Lantus 4 units subcu at bedtime. Place on Accu-Cheks before meals and at bedtime with NovoLog coverage per scale (5) Hypertension: Continue diltiazem 240 mg at bedtime. (6) Left ureteral calculus: Status post recent procedure as detailed above. Continue tamsulosin. No signs of infection at this time. Not likely directly associated with hypoxic issue, other than for relative immobility Admission and Anticipated Discharge Date Admission Date: June 05, 2020 Subjective Patient reports feeling better. She has no new complaints at this time. Review of Systems Review of Systems: All systems reviewed & are unremarkable except as noted in HPI & below Physical Exam Physical Exam: The patient is awake, alert and oriented 3, well developed and well nourished, normocephalic and atraumatic, lying in bed and in no acute distress. HEENT--PERRL, EOMI, mucous membranes and oropharynx normal. Neck--supple. No JVD. No bruits. Thyroid normal, trachea midline, no adenopathy. Heart--normal S1 and S2. No murmurs, rubs or gallops. Lungs--clear bilaterally, no respiratory distress, no accessory muscle use. Abdomen--normal bowel sounds and soft. Nontender. Nondistended. Extremities--no cyanosis or clubbing. 1+ bilateral pretibial pitting edema. Lower extremities are otherwise very tight and not compressible. Dermatologic--normal skin turgor, normal color, no abnormal lymph nodes, no rash. Neurologic--cranial nerves II through XII grossly intact. Rheumatologic--normal range of motion. Psychiatric--normal affect. Results & Data Results & Data ([facility]) Vital Signs (Past 12 Hours) Vital Signs Temp Pulse Pulse Resp BP Pulse Ox 09/22/20 21:55 76 06/08/20 19:17 36.8 C 65 18 130/66 95 06/08/20 18:14 71 06/08/20 15:08 36.6 C 73 18 138/55 L 95 06/08/20 11:33 36.3 C L 71 18 181/54 H 91 PG Care Time/CCT Total # of Minutes Spent Total Time Spent with Patient: Total time spent is greater than 50% in coordination of care (as documented) at patient's floor/unit and/or counseling patient: Coding Level of Care Code 85032 Subseq Hosp Care Lvl 2 Diagnoses Acute respiratory failure with hypoxia J96.01 Hypothyroidism E03.9 Hyperlipidemia E78.5 Type 2 diabetes mellitus E11.9 Hypertension I10 Left ureteral calculus N20.1 Time Spent (min) 25
[2020-06-09] MEDS: HEPARIN SOD 5,000 UNIT/0.5 ML VIAL SQ SCH ×2 (06:03→14:44)
[2020-06-09] MEDS: LEVOTHYROXINE SODIUM 50 MCG TABLET PO SCH (06:03)
[2020-06-09] MEDS: INSULIN ASPART 100 UNITS/ML 3 ML PEN SC SCH ×2 (07:58→12:16)
[2020-06-09 12:10] LABS: Creatinine Clr Calc Pharmacy 43.2 ml/min; Est GFR (African American) 54.3; Est GFR (Non-African American) 46.8; Potassium 4.4 mmol/L (3.5-5.1)
[2020-06-09] MEDS: FERROUS SULFATE 325 MG TAB PO SCH (12:15)
[2020-06-09] MEDS: dilTIAZem HCL 240 MG CAPCR PO SCH (12:17)
--- NOTE | 2020-06-09 12:35 | Cardiology Progress Note ---
Date of Service June 09, 2020 Assessment & Plan (1) Acute respiratory failure with hypoxia: She presented with with relatively acute symptoms and findings of fluid retention and heart failure, she does describe symptoms going back a month or so but much worse over the last week, ever since her urologic procedure 1 week ago. It had been progressive and she presented with significant fluid overload. She feels much better now with diuresis although still has excessive fluid. (2) Congestive heart failure: Evidently diastolic in nature as she does not have left ventricular systolic dysfunction. It may be a function of excessive fluid intake and poor diuresis, why she has that now is not clear but perhaps it has something to do with urologic procedure since her kidney function based on her creatinine was a little bit worse this admission although that is improving. She does have pulmonary hypertension so this may be longstanding and she does have longstanding symptoms. I believe she still has a significant amount of fluid and will need continued diuresis, but not necessarily inpatient. This could probably be handled fairly well through our outpatient heart failure clinic. (3) Chronic kidney disease, stage 3 (moderate): She has longstanding mild renal insufficiency, her creatinine was more elevated on admission, possibly related to her urologic procedure or her heart failure which can often do that but usually in the setting of left ventricular dysfunction. That is improving with diuresis. (4) Pulmonary hypertension: She does have severe pulmonary hypertension based on her echo although it was a technically limited study and some of that may be her acute presentation. I believe she is fluid overloaded as noted above which will raise pulmonary pressures, she may also have underlying pulmonary hypertension from obesity or sleep apnea. This should be followed up once we have her fluid status stabilized. Admission and Anticipated Discharge Date Admission Date: June 05, 2020 Subjective She is feeling well, she has no complaints. She is not short of breath and notes that her legs are still swollen but better. Physical Exam Physical Exam: Constitutional: Alert, cooperative and in no distress. She is obese. HEENT: Unremarkable Neck: No jugular venous distention, carotid pulses are normal and equal bilaterally without bruits. Pulmonary: Clear to auscultation bilaterally. Cardiac: Regular rhythm with no murmur, gallop or rub. Abdomen: Soft, nontender with normal bowel sounds. Extremities: +2 bilateral edema. Distal pulses hard to feel. Neurologic: No focal findings. Gait was not tested. Skin: No rash, ecchymoses or petechiae. Results & Data ([facility]) Vital Signs (Past 12 Hours) Vital Signs Temp Pulse Resp BP Pulse Ox 06/09/20 11:11 36.6 C 78 18 148/65 H 92 06/09/20 08:00 75 06/09/20 07:04 36.5 C 69 18 125/48 L 97 06/09/20 03:23 36.6 C 71 20 120/61 97 Laboratory Results Comprehensive Metabolic Panel 06/09/20 Range/Units 11:00 Sodium 137 (136-145) mmol/L Potassium 4.4 (3.5-5.1) mmol/L Chloride 103 (98-107) mmol/L Carbon Dioxide 28 (21-32) mmol/L BUN 23 H (7-18) mg/dl Creatinine 1.15 (0.6-1.2) mg/dl Glucose 139 H (70-99) mg/dl Calcium 9.0 (8.5-10.1) mg/dl Intake and Output 06/08/20 06/09/20 06/09/20 22:59 06:59 14:59 Intake Total 150 / 490 Output Total 400 / 1651 1650 Balance -250 / -1161 -1 / -1161 Intake: Oral 150 / 490 Output: Urine 400 / 1650 # Bowel Movements Other: # Unmeasured Voids 1 Weight 97.9 kg Diagnostic Findings Telemetry: Sinus rhythm with PACs PG Care Time/CCT Total # of Minutes Spent Total Time Spent with Patient: Total time spent is greater than 50% in cook seafood rdination of care (as documented) at patient's floor/unit and/or counseling patient: Coding Level of Care Code 67896 Subseq Hosp Care Lvl 2 Diagnoses Acute respiratory failure with hypoxia J96.01 Congestive heart failure I50.9 Chronic kidney disease, stage 3 (moderate) N18.3 Pulmonary hypertension I27.20
[2020-06-09] MEDS ORDERED: FUROSEMIDE 20 MG in SYRINGE 0 ML IV ONE (13:15)
--- NOTE | 2020-06-16 00:06 | Discharge Summary ---
Date of Service June 09, 2020 Admission HPI Per Admitting Provider The patient is a 74-year-old female with a past medical history including hypertension, insulin-dependent diabetes mellitus, hypercholesterolemia, CKD, acute cystitis, C. difficile colitis, eustachian tube dysfunction, hypothyroidism, mixed conductive and sensorineural hearing loss, rectovaginal fistula, secondary hyperparathyroidism, vitamin D deficiency, left ureteral calculus, bilateral nephrolithiasis and sacroiliitis. On 05/31/2020, she underwent a cystoscopy with right ureteroscopy, ureteral deal dilatation, laser lithotripsy, stone basket extraction, retrograde pyelogram and stent placement by urology Dr. Silva. She reports that she tolerated the procedure well, but since that time has had more shortness of breath as noted. Upon questioning, and with her 's confirmation, her legs are more swollen than usual at this time. In the emergency department she did undergo a CT angiography of the chest for PE, which showed no central pulmonary embolism but there was limitation of further evaluation due to timing of contrast, with small pulmonary midline not excluded. Principal Diagnosis acute diastolic CHF Discharge Exam The patient is awake, alert and oriented 3, well developed and well nourished, normocephalic and atraumatic, lying in bed and in no acute distress. HEENT--PERRL, EOMI, mucous membranes and oropharynx normal. Neck--supple. No JVD. No bruits. Thyroid normal, trachea midline, no adenopathy. Heart--normal S1 and S2. No murmurs, rubs or gallops. Lungs--clear bilaterally, no respiratory distress, no accessory muscle use. Abdomen--normal bowel sounds and soft. Nontender. Nondistended. Extremities--no cyanosis or clubbing. 1+ bilateral pretibial pitting edema. Lower extremities are otherwise very tight and not compressible. Dermatologic--normal skin turgor, normal color, no abnormal lymph nodes, no rash. Neurologic--cranial nerves II through XII grossly intact. Rheumatologic--normal range of motion. Psychiatric--normal affect. Discharge Data Allergies Allergy/AdvReac Type Severity Reaction Status Date / Time codeine Allergy Intermediate WHITE Verified 06/15/20 10:38 CHANGE UNDER THE SKIN-ARMS Penicillins Allergy Intermediate RASH Verified 06/15/20 10:38 sulfamethoxazole Allergy Unknown DOES NOT Verified 06/15/20 10:38 KNOW REACTION trimethoprim Allergy Unknown DOES NOT Verified 06/15/20 10:38 KNOW REACTION atorvastatin AdvReac Intermediate SHE FELT Verified 06/15/20 10:38 WEAK simvastatin AdvReac Intermediate ARMS Verified 06/15/20 10:38 SWELLING adhesive AdvReac Mild SOME Verified 06/15/20 10:38 TAPE-REDNESS, ITCHY Consultations 06/05/20 05:19 ED Decision to Admit Stat 06/05/20 07:57 Consult Case Management - Discharge Planning Routine 06/06/20 11:33 Consult Lung Nodule Program Routine 06/07/20 10:31 [facility] CHF Program Referral Routine 06/07/20 13:54 Consult Cardiology Routine Ordered Studies 06/05/20 03:35 CT angio chest PE protocol Urgent 06/05/20 06:32 US venous doppler [facility] Stat Hospital Course (1) Acute respiratory failure with hypoxia: Acute diastolic CHF CT angiography of chest for PE protocol, with limitation of only being able see central pulmonary arteries: negative. Patient does have some elevated pulmonary pressures on echo. Perhaps patient has diastolic congestive heart failure. on lasix IV 20 mg daily now 4 liters negative BNP is normal, dscharge on lasix. (2) Hypothyroidism: Continue levothyroxine sodium 50 mcg daily (3) Hyperlipidemia: Continue niacin, rosuvastatin and Zetia (4) Type 2 diabetes mellitus: Continue Lantus 4 units subcu at bedtime. Place on Accu-Cheks before meals and at bedtime with NovoLog coverage per scale (5) Hypertension: Continue diltiazem 240 mg at bedtime. (6) Left ureteral calculus: Status post recent procedure as detailed above. Continue tamsulosin. No signs of infection at this time. Not likely directly associated with hypoxic issue, other than for relative immobility Total Time Total Time Spent Total Time Spent (In Minutes): 32 Total Time Includes: Examination of the Patient, Discharge Planning and Medication Reconciliation Discharge Plan Discharge Items Patient Disposition: Home - Self-Care Reason For Visit: HYPOXIA, CHF Discharge Diagnosis: CHF case management Activity: Resume your previous activity Non-emergency contact: Primary Care Provider Call non-emergency contact if: you have any medication questions Follow-up/Referrals: Kimberlee Perrin PA-C [Physician Tire Tester] - 06/15/20 10:30 am (Congestive Heart Failure Program Appointment Information Early follow up is essential to managing your heart failure. An appointment has been scheduled for you with the [facility] Heart Failure Program within 7 days of discharge. Anticipate this visit to be 30-60 minutes long. Please expect a supervisor major appliance assembly phone call from one of our nurses approximately 48 hours from discharge. They will also be placing an order for lab work to be completed 1-2 days prior to your heart failure follow up appointment. Please be sure to have this done so we can go over the results when you come in. Office Location The cardiology office building is located in front of the hospital at [address] Bring the following with you to your follow-up doctor appointments: Please bring your daily weight log any discharge paperwork all of your medication bottles with you to this visit. ) Ismael Pink MD [Primary Care Provider] - Diet: Carb Consistent or DM2 and Heart Healthy Addtl Attending Provider Instructions: Call your Primary Care doctor if any of the following symptoms or problems start or get worse: * Shortness of breath or difficulty breathing * Wake up at night short of breath * Chest pain * Cough * Swelling of your hands, feet, or legs * More fatigued or tired with your normal activity * Palpitations - sudden fast heart beats WEIGHT * Weigh yourself every morning after using the bathroom. * Use the same scale. * Wear the same amount of clothing. * Write your weight down on a chart. * Call your Primary Care doctor if you gain more than 2-3 pounds in 1-2 days. MEDICATIONS * Use this discharge instruction sheet for medication instructions. * Take your medications at the time your doctor ordered. * Do not skip a dose of your medicines. * If you miss a dose of medicine, take it as soon as possible, but DO NOT DOUBLE A DOSE. * Read your medicine information when you get home. * Know all of the side effects of your medicine. If in doubt, ask your pharmacist * Call your Primary Care doctor's office if you have any side effects. * Be sure all of your doctors know what medicine and herbs you take (including cold, flu, and herbal medicine). Take the following with you to your follow-up doctor appointments: * Weight Chart * Medication List * List of questions Do not drink excessive alcohol, beer or wine. will recommend you followup with Cardiology within one week for possible diastolic dysfunction. You will be discharged on home oxygen on exertion. Pending Studies at Discharge: No Stand-Alone Forms: My [facility], Smoking Cessation Medications and DC Order Prescriptions: Continued ergocalciferol (vitamin D2) [Vitamin D2] 1,250 mcg (50,000 unit) capsule 50,000 unit PO MONTHLY Qty: 12 RF: 0 omega-3 acid ethyl esters 1 gram capsule 1 cap PO HS RF: 0 phenazopyridine [Pyridium] 200 mg tablet 200 mg PO Q8H PRN (Reason: pain) Qty: 10 RF: 0 tamsulosin 0.4 mg capsule 0.4 mg PO HS Qty: 30 RF: 0 furosemide [Lasix] 40 mg Tablet 40 mg PO QAM RF: 0 Lantus U-100 Insulin 100 unit/mL Solution 40 unit SUBCUT HS RF: 0 diltiazem HCl 240 mg Capsule,Ext.Rel 24h Degradable 240 mg PO HS RF: 0 niacin 50 mg Tablet 50 mg PO BID RF: 0 levothyroxine [Synthroid] 50 mcg Tablet 50 mcg PO QAM RF: 0 ferrous sulfate [iron] 325 mg (65 mg iron) Tablet 650 mg PO PM RF: 0 Humalog U-100 Insulin 100 unit/mL Cartridge 1 sliding scale dose SUBCUT USEASDIRECTD RF: 0 ezetimibe [Zetia] 10 mg Tablet 10 mg PO HS RF: 0 rosuvastatin 5 mg Tablet 5 mg PO HS RF: 0 Co Q-10 300 mg Capsule 300 mg PO QAM RF: 0 Discharge Orders: Discharge Order (Routine); Ordered 06/09/20 Ordered By: Carlos Hurt Admission Data Admit Date/Time: 06/05/20 06:43 Attending Provider: Carlos Hurt Admit Provider: Rick Flores Primary Care Provider: Ismael Pink Other Providers: Rick Flores ; Kimberlee Perrin ; Vic Saldana Other Interventions: Discharge Summary Assessment (RN) Last Done: 06/09/20 15:35 Coding Level of Care Code D/C Day Management >30 mins Diagnoses Acute respiratory failure with hypoxia J96.01 Hypothyroidism E03.9 Hyperlipidemia E78.5 Type 2 diabetes mellitus E11.9 Hypertension I10 Left ureteral calculus N20.1 Time Spent (min) 32
== END 2020-06-09 16:53 | disposition home or self-care (01) | DRG 291 ==
LOC: ED 01:15 → 2S 06:43 → SUATTDRO 06:43 → 2S 07:07

== ENCOUNTER 2021-11-04 01:34 | Inpatient (IN) ==
[2021-11-04] MEDS ORDERED: MoRPHine SULFATE 4 MG/ML 1 ML CARP\\VIAL IV STA ×2 (01:56→06:29)
[2021-11-04] MEDS ORDERED: ONDANSETRON INJ 2 MG/ML 2 ML VIAL IV STA (01:56)
[2021-11-04] MEDS ORDERED: SODIUM CHLORIDE 0.9% 1000ML 500 ML IV ONE (01:56)
--- NOTE | 2021-11-04 02:43 | Emergency Department Note ---
History of Present Illness General Chief complaint: Vomiting Stated complaint: VOMITING Time Seen by Provider: 11/04/21 01:49 History of Present Illness Maximum Pain Intensity: 8 This 76-year-old who wears oxygen at night presents to the ER complaining of nausea vomiting and severe abdominal pain who has an ostomy Location: Mid abdomen Quality: Severe Severity: Severe Duration: This evening Timing: This evening Context: Patient was concerned and came in Modifying factors: better with nothing; worse with activity Patient states she normally wears 2 L. Her O2 levels were checked without her oxygen. Patient complains of abdominal pain with nausea and vomiting. She just emptied her ostomy. Patient denies chest pain, fevers, diarrhea, flulike illness. Home Medications Medication Instructions Recorded Confirmed Type diltiazem HCl 240 mg 240 mg PO HS 04/22/19 11/04/21 History capsule,extended release 24 hr, controlled ezetimibe 10 mg tablet (Zetia) 10 mg PO HS 04/22/19 11/04/21 History insulin glargine 100 unit/mL 40 unit SUBCUT HS 04/22/19 11/04/21 History subcutaneous solution (Lantus U-100 Insulin) insulin lispro 100 unit/mL 1 sliding scale dose SUBCUT 04/22/19 11/04/21 History subcutaneous cartridge (Humalog USEASDIRECTD U-100 Insulin) levothyroxine 50 mcg tablet 50 mcg PO QAM 04/22/19 11/04/21 History (Synthroid) niacin 50 mg tablet 50 mg PO BID 04/22/19 11/04/21 History rosuvastatin 5 mg tablet 5 mg PO HS 04/22/19 11/04/21 History furosemide 40 mg tablet (Lasix) 40 mg PO Q2D tab 06/24/20 11/04/21 History calcitriol 0.25 mcg capsule 0.25 mcg PO QAM 11/04/21 11/04/21 History coenzyme Q10 300 mg capsule (Co 300 mg PO HS 11/04/21 11/04/21 History Q-10) Allergies Allergy/AdvReac Type Severity Reaction Status Date / Time codeine Allergy Intermediate WHITE Verified 11/04/21 02:26 CHANGE UNDER THE SKIN-ARMS Penicillins Allergy Intermediate RASH Verified 11/04/21 02:26 sulfamethoxazole Allergy Unknown DOES NOT Verified 11/04/21 02:26 KNOW REACTION trimethoprim Allergy Unknown DOES NOT Verified 11/04/21 02:26 KNOW REACTION atorvastatin AdvReac Intermediate SHE FELT Verified 11/04/21 02:26 WEAK simvastatin AdvReac Intermediate ARMS Verified 11/04/21 02:26 SWELLING adhesive AdvReac Mild SOME Verified 11/04/21 02:26 TAPE-REDNESS, ITCHY Past Med/Surg History Medical History Chronic kidney disease, stage 3 (moderate) Follows with nephro Congestive heart failure Stable and euvolemic per cardio note 08/2020 DM type 2 (diabetes mellitus, type 2) IDDM. Hgb A1C 6.9 in 05/2020 Hearing deficit B/L M[place]OCHO HTN (hypertension) Hx of Clostridium difficile infection ~2010 (reason for bowel resection) Hyperlipidemia Hypothyroidism Ileostomy, has currently Kidney stones Osteoarthritis Pulmonary hypertension Per 08/23/20 Heart Failture clinic note- secondary from undiagnosed MYRANDA/OHS (presumed). Sacroiliitis Seasonal allergies Surgical History H/O hernia repair History of appendectomy History of bowel resection 2010 History of cholecystectomy History of colonoscopy History of cystoscopy WITH STENT History of left knee replacement History of lithotripsy ESWL History of tonsillectomy History of tooth extraction History of total abdominal hysterectomy and bilateral salpingo-oophorectomy History of tubal ligation Status post laser lithotripsy of ureteral calculus Family History Unknown Cardiac disorder Cancer Hypertension Mother Diabetes Cardiac disorder Cancer Hypertension Father No problems noted. Sister Rectal cancer Uncle Family hx of colon cancer Other No family history of adverse response to anesthesia No family history of bleeding disorder Denies family history of Cystic kidney disease Social History Smoking Status: Never smoker Tobacco Type: Cigarettes Second Hand Exposure: No; Hx Alcohol Use: No Hx Substance Use: No Preferred Language: Georgian Communication Ability: Effective Visual Impairment: No Limitations Quality Control Systems Manager Required: No Beliefs That Will Affect Care: None marital status: Current Living Situation: Spouse Feels Safe at Home: Yes Assistive Devices: Hearing Aid - Bilateral Review of Systems A total of 10 systems reviewed and were otherwise negative Physical Exam Vital Signs Vital Signs - 24 hr 11/04/21 01:40 11/04/21 02:03 11/04/21 02:26 Temperature 36.9 C Temperature Source Temporal Artery Scan Pulse Rate 92 H Pulse Rate [Apical] Pulse Rate from SpO2 Sensor Respiratory Rate 16 Respiratory Effort / Characteristics Respiratory Depth Blood Pressure 226/80 H Blood Pressure [Left Arm] Blood Pressure Mean 128 Blood Pressure Mean [Left Arm] Pulse Oximetry 78 L 96 Oxygen Delivery Method Room Air Nasal Cannula Nasal Cannula Oxygen Flow Rate 6 4 Sepsis Recent Fever Within 48 Hours No Sepsis New/Unexplained Change in Mental Status N/A Sepsis Action Taken by Nursing No Action Required Pulse Oximetry Post Tiitration 94 11/04/21 04:20 11/04/21 04:30 11/04/21 04:40 Temperature Temperature Source Pulse Rate 98 H 95 H 94 H Pulse Rate [Apical] Pulse Rate from SpO2 Sensor 96 H 95 H 95 H Respiratory Rate 21 18 18 Respiratory Effort / Characteristics Respiratory Depth Blood Pressure Blood Pressure [Left Arm] Blood Pressure Mean Blood Pressure Mean [Left Arm] Pulse Oximetry 97 92 93 Oxygen Delivery Method Nasal Cannula Nasal Cannula Nasal Cannula Oxygen Flow Rate 4 4 4 Sepsis Recent Fever Within 48 Hours Sepsis New/Unexplained Change in Mental Status Sepsis Action Taken by Nursing Pulse Oximetry Post Tiitration 11/04/21 04:58 Temperature Temperature Source Pulse Rate Pulse Rate [Apical] 100 H Pulse Rate from SpO2 Sensor Respiratory Rate 18 Respiratory Effort / Characteristics Non-Labored Spontaneous Respiratory Depth Normal Blood Pressure Blood Pressure [Left Arm] 187/84 H Blood Pressure Mean Blood Pressure Mean [Left Arm] 118 Pulse Oximetry Oxygen Delivery Method Nasal Cannula Oxygen Flow Rate 4 Sepsis Recent Fever Within 48 Hours Sepsis New/Unexplained Change in Mental Status Sepsis Action Taken by Nursing Pulse Oximetry Post Tiitration VITALS: Vitals are noted on the nurse's note and reviewed by myself. Vital signs reviewed hypertensive. GENERAL: Elderly female who appears in pain, in moderate acute distress, SKIN: The skin was without rashes, erythema, edema, or bruising. There is no tenting of the skin. Capillary reflex less than 2 seconds. HEAD: Normocephalic atraumatic. EARS: External auditory canals clear, EYES: Pupils equal round and reactive to light and accommodation. Conjunctivae without injection, sclerae without icterus. Extraocular movements intact. NOSE: Patent, turbinates without inflammation or discharge. MOUTH: Mucous membranes moist. Pharynx without erythema or exudate. Uvula midline. Airway patent. Tongue does not deviate. NECK: Supple without nuchal rigidity. No lymphadenopathy. No thyromegaly. Cervical spine is nontender. No JVD. HEART: Regular rate and rhythm LUNGS: Clear to auscultation bilaterally without wheezes, rales or rhonchi. No retractions or accessory muscle use. ABDOMEN: Positive bowel sounds x 4. Normal tympanic percussion. Soft, tender to palpation upper abdomen, right lower quadrant with ostomy, without masses or organomegaly. Garcia sign negative. No guarding or rebound tenderness. No CVA tenderness MUSCULOSKELETAL: No muscle atrophy, erythema, noted. NEURO: Patient was alert and oriented to person place and time. Normal sensation to light and sharp touch. No focal neurological deficits. Course Administered Medications Discontinued Medications Morphine Sulfate (Morphine Sulfate 4 Mg/Ml 1 Ml Carp\Vial) 4 mg IV NOW STA Stop: 11/04/21 01:57 Last Admin: 11/04/21 03:25 Dose: 4 mg Documented by: [id number] Ondansetron HCl (Ondansetron Inj 2 Mg/Ml 2 Ml Vial) 4 mg IV NOW STA Stop: 11/04/21 01:57 Last Admin: 11/04/21 03:25 Dose: 4 mg Documented by: [id number] Medical Decision Making Medical Records Attestation: I reviewed the patient's medical records. Home Medications Current Medication List: was personally reviewed by me Laboratory Data Attestation: I reviewed the patient's lab results. Result diagrams: 11/04/21 03:13 11/04/21 03:13 Lab Results 11/04/21 11/04/21 11/04/21 Range/Units 03:13 03:13 03:13 WBC 11.99 H (4.8-10.8) K/uL RBC 4.86 (4.2-5.4) M/uL Hgb 14.9 (12.0-16.0) g/dL POC Hgb (12.0-16.0) g/dl Hct 46.8 (37-47) % POC Hct (37-47) % MCV 96.3 (80-100) fL MCH 30.7 (25-34) pg MCHC 31.8 L (32-36) g/dL RDW Std Deviation 57.6 H (36.4-46.3) fL RDW Coeff of Sreedhar 16.2 H (11.5-14.5) % Plt Count 203 (130-400) K/uL MPV 10.8 H (7.4-10.4) fL Immature Gran % (Auto) 0.2 % Neut % (Auto) 90.1 % Lymph % (Auto) 6.7 % Glascock % (Auto) 2.7 % Eos % (Auto) 0.1 % Baso % (Auto) 0.2 % Neut # (Auto) 10.82 H (1.4-6.5) K/uL Lymph # (Auto) 0.80 L (1.2-3.4) K/uL Glascock # (Auto) 0.32 (0.11-0.59) K/uL Eos # (Auto) 0.01 (0-0.5) K/uL Baso # (Auto) 0.02 (0-0.2) K/uL Immature Gran # (Auto) 0.02 (0.00-0.02) K/uL POC Sodium (135-144) mmol/L Sodium 138 (136-145) mmol/L POC Potassium (3.3-5.0) mmol/L Potassium 4.5 (3.5-5.1) mmol/L POC Chloride (101-112) mmol/L Chloride 101 (98-107) mmol/L Carbon Dioxide 28 (21-32) mmol/L POC Total CO2 (24-31) mmol/L Anion Gap 9 (3-11) POC Anion Gap (16-25) mmol/L POC BUN (7-18) mg/dl BUN 32 H (6-23) mg/dl Creatinine 1.25 H (0.6-1.2) mg/dl POC Creatinine (0.6-1.3) mg/dl Est Cr Clr Drug Dosing Not Reportable Est GFR ( Amer) 48.4 ml/min Est GFR (Non-Af Amer) 41.8 ml/min BUN/Creatinine Ratio 25.6 H (10-20) Glucose 180 H (70-99(Fasting)) mg/dl POC Glucose (other) (70-99) mg/dl Lactate 1.1 (0.4-2.0) mmol/L Calcium 9.8 (8.5-10.1) mg/dl POC Ioniz Calcium Saloni (1.12-1.32) mmol/l Total Bilirubin 0.9 (0.2-1.0) mg/dl AST 17 (13-39) U/L ALT 12 (7-52) U/L Alkaline Phosphatase 61 (34-104) U/L Troponin I < 0.03 (0-0.04) ng/ml B-Natriuretic Peptide (0-100) pg/ml Total Protein 8.0 (6.0-8.3) gm/dl Albumin 4.3 (3.4-5.0) gm/dl Globulin 3.7 (2.5-4.0) gm/dl Albumin/Globulin Ratio 1.2 (0.9-2) Lipase 14 (11-82) U/L 11/04/21 11/04/21 Range/Units 03:13 03:14 WBC (4.8-10.8) K/uL RBC (4.2-5.4) M/uL Hgb (12.0-16.0) g/dL POC Hgb 16.3 H (12.0-16.0) g/dl Hct (37-47) % POC Hct 48 H (37-47) % MCV (80-100) fL MCH (25-34) pg MCHC (32-36) g/dL RDW Std Deviation (36.4-46.3) fL RDW Coeff of Sreedhar (11.5-14.5) % Plt Count (130-400) K/uL MPV (7.4-10.4) fL Immature Gran % (Auto) % Neut % (Auto) % Lymph % (Auto) % Glascock % (Auto) % Eos % (Auto) % Baso % (Auto) % Neut # (Auto) (1.4-6.5) K/uL Lymph # (Auto) (1.2-3.4) K/uL Glascock # (Auto) (0.11-0.59) K/uL Eos # (Auto) (0-0.5) K/uL Baso # (Auto) (0-0.2) K/uL Immature Gran # (Auto) (0.00-0.02) K/uL POC Sodium 141 (135-144) mmol/L Sodium (136-145) mmol/L POC Potassium 4.6 (3.3-5.0) mmol/L Potassium (3.5-5.1) mmol/L POC Chloride 101 (101-112) mmol/L Chloride (98-107) mmol/L Carbon Dioxide (21-32) mmol/L POC Total CO2 29 (24-31) mmol/L Anion Gap (3-11) POC Anion Gap 17.0 (16-25) mmol/L POC BUN 34 H (7-18) mg/dl BUN (6-23) mg/dl Creatinine (0.6-1.2) mg/dl POC Creatinine 1.2 (0.6-1.3) mg/dl Est Cr Clr Drug Dosing Est GFR ( Amer) ml/min Est GFR (Non-Af Amer) ml/min BUN/Creatinine Ratio (10-20) Glucose (70-99(Fasting)) mg/dl POC Glucose (other) 184 H (70-99) mg/dl Lactate (0.4-2.0) mmol/L Calcium (8.5-10.1) mg/dl POC Ioniz Calcium Saloni 1.21 (1.12-1.32) mmol/l Total Bilirubin (0.2-1.0) mg/dl AST (13-39) U/L ALT (7-52) U/L Alkaline Phosphatase (34-104) U/L Troponin I (0-0.04) ng/ml B-Natriuretic Peptide 117 H (0-100) pg/ml Total Protein (6.0-8.3) gm/dl Albumin (3.4-5.0) gm/dl Globulin (2.5-4.0) gm/dl Albumin/Globulin Ratio (0.9-2) Lipase (11-82) U/L Imaging Data Attestation: I personally reviewed and interpreted this imaging study as follows : MDM Narrative Prior records/ancillary studies reviewed. Triage Nursing notes reviewed. Additional history obtained from family. The patient's history was concerning for abdominal pain. Differential diagnosis: Etiologies such as appendicitis, diverticulitis, PUD, biliary pathology, UTI, pancreatitis, obstruction, mesenteric ischemia, aortic pathology, infections, inflammatory bowel disease, renal colic, as well as others were entertained. Physical examination findings: As above. ER treatment provided: An order was placed for continuous cardiac monitoring. The monitor shows a rate of 60-1 50 with a sinus rhythm. Morphine, Zofran On reassessment the patient felt better. Diagnostics interpreted by me: ECG: Ordered for dyspnea EKG: Normal sinus, left axis deviation, poor baseline, rate of 101. Impression sinus tachycardia with left axis deviation interpreted by myself I think arrhythmia is unlikely. EKG shows normal sinus rhythm with no interval abnormalities such as QT prolongation or WPW. There are no findings to suggest Brugada syndrome. Cardiac monitoring in the emergency department reveals no tachycardic or bradycardic dysrhythmia. Hypertrophic cardiomyopathy was considered but there are no clear historical elements pointing toward this. EKG is not suggestive. The QRS voltage is not extremely large and there are no suggestive Q waves. The labs revealed negative lactate, hyperglycemia without DKA Mild leukocytosis Imaging studies: CT CHEST Without Contrast: Prior 06/14/[address] abdomen and pelvis also today. Mild bibasilar atelectasis. Small and mildly enlarged mediastinal nodes similar/mildly decreased in size Coronary calcifications. Radiologist: Caitlin Bowling M.D. Preliminary Findings Only See Final Report For Complete Findings CT ABDOMEN & PELVIS Without Contrast: Prior dated 10/25/21 CT abdomen and pelvis. CT chest also today. Right lower quadrant ileostomy and large parastomal hernia New dilation of small bowel loops throughout the abdomen and pelvis and within the parastomal hernia. Likely represents small bowel obstruction. Transition point likely at the site of the hernia. Stomach is moderately distended with fluid No free air, free fluid. Mild basilar atelectasis. Cholelithiasis Nonobstructing left renal calculi Other incidental nonacute findings Radiologist: Caitlin Bowling M.D. Consultation: A consultation was placed with the hospitalist. The case was discussed and diagnostics were reviewed. The patient was evaluated in the ER for further treatment. Exam and history seem consistent with small bowel obstruction. Medicine was consulted. She will be evaluated for possible admission. By the evaluation outlined above emergent etiologies such as appendicitis, diverticulitis, PUD, biliary pathology, UTI, pancreatitis, mesenteric ischemia, aortic pathology, infections, inflammatory bowel disease, renal colic, as well as others were deemed relatively unlikely. The pt informed about the findings as listed above. All questions were answered and pleased with the treatment. The chart was completed utilizing [employer] voice recognition software. Grammatical errors, random word insertions, pronoun errors, and incomplete sentences are an occassional consequence of this system due to software limitations, ambient noise, and hardware issues. Any formal questions or concerns about the content, text, or information contained within the body of this dictation should be directly addressed to the physician medical support assistant for clarification. Impression & Plan SBO (small bowel obstruction) Discharge Plan Visit Data Chief Complaint: Vomiting Stated Complaint: VOMITING ED Provider: Gila Hurd ED Midlevel Provider: Dodie Gutierrez Discharge Problem: SBO (small bowel obstruction) Patient Disposition: Admitted As Inpatient Condition: Good Forms Stand Alone Forms: [facility]ur Prescriptions Prescriptions: No Action Lantus U-100 Insulin 100 unit/mL Solution 40 unit SUBCUT HS RF: 0 diltiazem HCl 240 mg Capsule,Ext.Rel 24h Degradable 240 mg PO HS RF: 0 niacin 50 mg Tablet 50 mg PO BID RF: 0 levothyroxine [Synthroid] 50 mcg Tablet 50 mcg PO QAM RF: 0 Humalog U-100 Insulin 100 unit/mL Cartridge 1 sliding scale dose SUBCUT USEASDIRECTD RF: 0 ezetimibe [Zetia] 10 mg Tablet 10 mg PO HS RF: 0 rosuvastatin 5 mg Tablet 5 mg PO HS RF: 0 furosemide [Lasix] 40 mg tablet 40 mg PO Q2D RF: 0 calcitriol 0.25 mcg capsule 0.25 mcg PO QAM RF: 0 Co Q-10 300 mg Capsule 300 mg PO HS RF: 0 Referrals Referrals: Ismael Pink MD [Primary Care Provider] -
[2021-11-04 03:25] LABS: Basophils # (auto) 0.02 K/uL (0-0.2); Basophils % (auto) 0.2 %; Eosinophils # (auto) 0.01 K/uL (0-0.5); Eosinophils % (auto) 0.1 %; Hematocrit (blood only) 46.8 % (37-47); Hemoglobin 14.9 g/dL (12.0-16.0); Immature Granulocytes # (auto) 0.02 K/uL (0.00-0.02); Immature Granulocytes % (auto) 0.2 %; Lymphocytes % (auto) 6.7 %; Mean Corpuscular Hemoglobin 30.7 pg (25-34); Mean Corpuscular Hgb Conc 31.8 g/dL (32-36); Mean Corpuscular Volume 96.3 fL (80-100); Mean Platelet Volume 10.8 fL (7.4-10.4); Monocytes # (auto) 0.32 K/uL (0.11-0.59); Monocytes % (auto) 2.7 %; Neutrophils # (auto) 10.82 K/uL (1.4-6.5); Neutrophils % (auto) 90.1 %; Platelet Count 203 K/uL (130-400); RDW Coefficient of Variation 16.2 % (11.5-14.5); RDW Standard Deviation 57.6 fL (36.4-46.3); Red Blood Count 4.86 M/uL (4.2-5.4); White Blood Count 11.99 K/uL (4.8-10.8)
[2021-11-04 03:27] LABS: iSTAT Creatinine 1.2 mg/dl (0.6-1.3); iSTAT Hemoglobin 16.3 g/dl (12.0-16.0); iSTAT Ionized Calcium 1.21 mmol/l (1.12-1.32); iSTAT Potassium 4.6 mmol/L (3.3-5.0)
[2021-11-04 03:48] LABS: Troponin I < 0.03 ng/ml (0-0.04)
[2021-11-04 04:30] LABS: Alanine Aminotransferase 12 U/L (7-52); Albumin Globulin Ratio 1.2 (0.9-2); Albumin Level 4.3 gm/dl (3.4-5.0); Alkaline Phosphatase 61 U/L (34-104); Anion Gap 9 (3-11); Aspartate Aminotransferase 17 U/L (13-39); BUN Creatinine Ratio 25.6 (10-20); Bilirubin,Total 0.9 mg/dl (0.2-1.0); Blood Urea Nitrogen 32 mg/dl (6-23); Calcium 9.8 mg/dl (8.5-10.1); Carbon Dioxide 28 mmol/L (21-32); Chloride 101 mmol/L (98-107); Est GFR (African American) 48.4 ml/min; Est GFR (Non-African American) 41.8 ml/min; Globulin 3.7 gm/dl (2.5-4.0); Glucose 180 mg/dl (70-99(Fasting)); Lipase 14 U/L (11-82); Potassium 4.5 mmol/L (3.5-5.1); Sodium 138 mmol/L (136-145)
[2021-11-04 06:14] LABS: Appearance Urine Clear (Clear); Bacteria Urine Automated Negative (Negative); Bilirubin Urine Negative (Negative); Blood Urine 3+ (Negative); Color Urine Yellow; Glucose Urine UA Negative (Negative); Ketones Urine Negative (Negative); Leukocyte Esterase Urine Trace (Negative); Nitrite Urine Negative (Negative); Protein Urine 2+ (Negative); Specific Gravity Urine 1.023 (1.000-1.030); Urobilinogen Urine Negative (Negative)
--- NOTE | 2021-11-04 06:24 | History & Physical Report ---
Date of Service November 04, 2021 Assessment & Plan (1) SBO (small bowel obstruction): Plan: NPO NSS + KCl 20 mEq at 60 mils per hour Cipro 400 mg IV every 12 hours Clindamycin 600 mg IV every 8 hours There is a national shortage of Flagyl, and patient has a severe reaction to penicillin and likely cephalosporins Zofran 4 mg IV every 6 hours as needed Famotidine 20 mg IV every 12 hours General surgery consulted (2) Hypertension: Plan: Hold diltiazem and furosemide (3) Insulin dependent diabetes mellitus: Plan: Hold Lantus Place on Accu-Cheks before meals and at bedtime with NovoLog coverage per scale Check hemoglobin A1c (4) Hypercholesterolemia: Plan: Hold rosuvastatin and Zetia (5) Hypothyroidism: Plan: Hold levothyroxine (6) Chronic kidney disease, stage 3 (moderate): Plan: Creatinine 1.25 upon admission, with base 1.23 Follow labs serially History of Present Illness Chief Complaint: The patient presents to the ED with complaint of acute onset of lower abdominal pain, nausea, vomiting and fullness that began shortly after eating supper this evening. Primary Care Provider: Ismael Pink MD The patient is a 76-year-old female with a past medical history including pulmonary hypertension, osteoarthritis, hypertension, insulin-dependent diabetes mellitus, hypercholesterolemia, C. difficile colitis, hypercholesterolemia, hypothyroidism, bilateral hearing loss, rectovaginal fistula, secondary hyperparathyroidism, vitamin D deficiency, history of right and left ureteral calculi, CKD, hyperlipidemia and sacroiliitis. The patient reports decreased colostomy output, and abdominal pain and distention that began acutely after eating supper this evening. She reports never having had symptoms like this since undergoing her surgery. She has had some nausea and vomiting. She denies any recent travels or sick exposures. She has not any change in her eating or drinking habits over the past weeks Allergies Allergy/AdvReac Type Severity Reaction Status Date / Time codeine Allergy Intermediate WHITE Verified 11/04/21 02:26 CHANGE UNDER THE SKIN-ARMS Penicillins Allergy Intermediate RASH Verified 11/04/21 02:26 sulfamethoxazole Allergy Unknown DOES NOT Verified 11/04/21 02:26 KNOW REACTION trimethoprim Allergy Unknown DOES NOT Verified 11/04/21 02:26 KNOW REACTION atorvastatin AdvReac Intermediate SHE FELT Verified 11/04/21 02:26 WEAK simvastatin AdvReac Intermediate ARMS Verified 11/04/21 02:26 SWELLING adhesive AdvReac Mild SOME Verified 11/04/21 02:26 TAPE-REDNESS, ITCHY Home Medications Medication Instructions Recorded Confirmed Type diltiazem HCl 240 mg 240 mg PO HS 04/22/19 11/04/21 History capsule,extended release 24 hr, controlled ezetimibe 10 mg tablet (Zetia) 10 mg PO HS 04/22/19 11/04/21 History insulin glargine 100 unit/mL 40 unit SUBCUT HS 04/22/19 11/04/21 History subcutaneous solution (Lantus U-100 Insulin) insulin lispro 100 unit/mL 1 sliding scale dose SUBCUT 04/22/19 11/04/21 History subcutaneous cartridge (Humalog USEASDIRECTD U-100 Insulin) levothyroxine 50 mcg tablet 50 mcg PO QAM 04/22/19 11/04/21 History (Synthroid) niacin 50 mg tablet 50 mg PO BID 04/22/19 11/04/21 History rosuvastatin 5 mg tablet 5 mg PO HS 04/22/19 11/04/21 History furosemide 40 mg tablet (Lasix) 40 mg PO Q2D tab 06/24/20 11/04/21 History calcitriol 0.25 mcg capsule 0.25 mcg PO QAM 11/04/21 11/04/21 History coenzyme Q10 300 mg capsule (Co 300 mg PO HS 11/04/21 11/04/21 History Q-10) Past Med/Surg History Medical History Chronic kidney disease, stage 3 (moderate) Follows with nephro Congestive heart failure Stable and euvolemic per cardio note 08/2020 DM type 2 (diabetes mellitus, type 2) IDDM. Hgb A1C 6.9 in 05/2020 Hearing deficit B/L [place] HTN (hypertension) Hx of Clostridium difficile infection ~2010 (reason for bowel resection) Hyperlipidemia Hypothyroidism Ileostomy, has currently Kidney stones Osteoarthritis Pulmonary hypertension Per 08/23/20 Heart Failture clinic note- secondary from undiagnosed MYRANDA/OHS (presumed). Sacroiliitis Seasonal allergies Surgical History H/O hernia repair History of appendectomy History of bowel resection 2010 History of cholecystectomy History of colonoscopy History of cystoscopy WITH STENT History of left knee replacement History of lithotripsy ESWL History of tonsillectomy History of tooth extraction History of total abdominal hysterectomy and bilateral salpingo-oophorectomy History of tubal ligation Status post laser lithotripsy of ureteral calculus Family History Unknown Cardiac disorder Cancer Hypertension Mother Diabetes Cardiac disorder Cancer Hypertension Father No problems noted. Sister Rectal cancer Uncle Family hx of colon cancer Other No family history of adverse response to anesthesia No family history of bleeding disorder Denies family history of Cystic kidney disease Social History Smoking Status: Never smoker Tobacco Type: Cigarettes Second Hand Exposure: No; Hx Alcohol Use: No Hx Substance Use: No Preferred Language: Yakut Communication Ability: Effective Visual Impairment: No Limitations Patient Financial Representative Required: No Beliefs That Will Affect Care: None marital status: Current Living Situation: Spouse Feels Safe at Home: Yes Assistive Devices: Hearing Aid - Bilateral Review of Systems Review of Systems: The patient denies chest pain, palpitations, shortness of breath, dyspnea on exertion, cough, lower extremity swelling, sore throat, fevers, chills, sweats, weight change, fatigue, blood in urine or stool, dysuria, urinary frequency or urgency, lightheadedness, dizziness, headache, memory loss, loss of consciousness, rash, abnormal bruising or bleeding, imbalance, focal or generalized weakness, numbness or tingling in arms or legs, generalized arthralgias or myalgias, back or neck pain, or night sweats. The review of systems is otherwise negative other than for that already noted above, and at least 10 systems have been reviewed. Physical Exam 2 Physical Exam: The patient is awake, alert and oriented 3, well developed and well nourished, normocephalic and atraumatic, lying in bed and in mild intermitt en distress secondary to abdominal discomfort HEENT--PERRL, EOMI, mucous membranes and oropharynx dry. Neck--supple. No JVD. No bruits. Thyroid normal, trachea midline, no adenopathy. Heart--normal S1 and S2. No murmurs, rubs or gallops. Lungs--clear bilaterally, no respiratory distress, no accessory muscle use. Abdomen-normal bowel sounds and soft, mildly distended, mild discomfort epigastric and mid abdomen. Extremities--no cyanosis or clubbing. No edema. Dermatologic--normal skin turgor, normal color, no abnormal lymph nodes, no rash. Neurologic--cranial nerves II through XII grossly intact. Rheumatologic--normal range of motion. Psychiatric--normal affect. Results & Data Results & Data ([facility]) Vital Signs (Past 12 Hours) Vital Signs Temp Pulse Pulse Resp BP BP Pulse Ox 11/04/21 05:11 97 H 24 173/92 H 94 11/04/21 04:58 100 H 18 187/84 H 11/04/21 04:40 94 H 18 93 11/04/21 04:30 95 H 18 92 11/04/21 04:20 98 H 21 97 11/04/21 02:26 96 11/04/21 01:40 36.9 C 92 H 16 226/80 H 78 L Laboratory Results Laboratory Results WBC 11.99 K/uL (4.8-10.8) H 11/04/21 03:13 RBC 4.86 M/uL (4.2-5.4) 11/04/21 03:13 Hgb 14.9 g/dL (12.0-16.0) 11/04/21 03:13 POC Hgb 16.3 g/dl (12.0-16.0) H 11/04/21 03:14 Hct 46.8 % (37-47) 11/04/21 03:13 POC Hct 48 % (37-47) H 11/04/21 03:14 MCV 96.3 fL (80-100) 11/04/21 03:13 MCH 30.7 pg (25-34) 11/04/21 03:13 MCHC 31.8 g/dL (32-36) L 11/04/21 03:13 RDW Std Deviation 57.6 fL (36.4-46.3) H 11/04/21 03:13 RDW Coeff of Sreedhar 16.2 % (11.5-14.5) H 11/04/21 03:13 Plt Count 203 K/uL (130-400) 11/04/21 03:13 MPV 10.8 fL (7.4-10.4) H 11/04/21 03:13 Immature Gran % (Auto) 0.2 % 11/04/21 03:13 Neut % (Auto) 90.1 % 11/04/21 03:13 Lymph % (Auto) 6.7 % 11/04/21 03:13 [place] % (Auto) 2.7 % 11/04/21 03:13 Eos % (Auto) 0.1 % 11/04/21 03:13 Baso % (Auto) 0.2 % 11/04/21 03:13 Neut # (Auto) 10.82 K/uL (1.4-6.5) H 11/04/21 03:13 Lymph # (Auto) 0.80 K/uL (1.2-3.4) L 11/04/21 03:13 [place] # (Auto) 0.32 K/uL (0.11-0.59) 11/04/21 03:13 Eos # (Auto) 0.01 K/uL (0-0.5) 11/04/21 03:13 Baso # (Auto) 0.02 K/uL (0-0.2) 11/04/21 03:13 Immature Gran # (Auto) 0.02 K/uL (0.00-0.02) 11/04/21 03:13 POC Sodium 141 mmol/L (135-144) 11/04/21 03:14 Sodium 138 mmol/L (136-145) 11/04/21 03:13 POC Potassium 4.6 mmol/L (3.3-5.0) 11/04/21 03:14 Potassium 4.5 mmol/L (3.5-5.1) 11/04/21 03:13 POC Chloride 101 mmol/L (101-112) 11/04/21 03:14 Chloride 101 mmol/L (98-107) 11/04/21 03:13 Carbon Dioxide 28 mmol/L (21-32) 11/04/21 03:13 POC Total CO2 29 mmol/L (24-31) 11/04/21 03:14 Anion Gap 9 (3-11) 11/04/21 03:13 POC Anion Gap 17.0 mmol/L (16-25) 11/04/21 03:14 POC BUN 34 mg/dl (7-18) H 11/04/21 03:14 BUN 32 mg/dl (6-23) H 11/04/21 03:13 Creatinine 1.25 mg/dl (0.6-1.2) H 11/04/21 03:13 POC Creatinine 1.2 mg/dl (0.6-1.3) 11/04/21 03:14 Est Cr Clr Drug Dosing Not Reportable 11/04/21 03:13 Est GFR ( Amer) 48.4 ml/min 11/04/21 03:13 Est GFR (Non-Af Amer) 41.8 ml/min 11/04/21 03:13 BUN/Creatinine Ratio 25.6 (10-20) H 11/04/21 03:13 Glucose 180 mg/dl (70-99(Fasting)) H 11/04/21 03:13 POC Glucose (other) 184 mg/dl (70-99) H 11/04/21 03:14 Lactate 1.1 mmol/L (0.4-2.0) 11/04/21 03:13 Calcium 9.8 mg/dl (8.5-10.1) 11/04/21 03:13 POC Ioniz Calcium Saloni 1.21 mmol/l (1.12-1.32) 11/04/21 03:14 Total Bilirubin 0.9 mg/dl (0.2-1.0) 11/04/21 03:13 AST 17 U/L (13-39) 11/04/21 03:13 ALT 12 U/L (7-52) 11/04/21 03:13 Alkaline Phosphatase 61 U/L (34-104) 11/04/21 03:13 Troponin I < 0.03 ng/ml (0-0.04) 11/04/21 03:13 B-Natriuretic Peptide 117 pg/ml (0-100) H 11/04/21 03:13 Total Protein 8.0 gm/dl (6.0-8.3) 11/04/21 03:13 Albumin 4.3 gm/dl (3.4-5.0) 11/04/21 03:13 Globulin 3.7 gm/dl (2.5-4.0) 11/04/21 03:13 Albumin/Globulin Ratio 1.2 (0.9-2) 11/04/21 03:13 Lipase 14 U/L (11-82) 11/04/21 03:13 Urine Color Yellow 11/04/21 05:30 Urine Appearance Clear (Clear) 11/04/21 05:30 Urine pH 5.0 (4.5-7.5) 11/04/21 05:30 Ur Specific [place] 1.023 (1.000-1.030) 11/04/21 05:30 Urine Protein 2+ (Negative) H 11/04/21 05:30 Urine Glucose (UA) Negative (Negative) 11/04/21 05:30 Urine Ketones Negative (Negative) 11/04/21 05:30 Urine Blood 3+ (Negative) H 11/04/21 05:30 Urine Nitrite Negative (Negative) 11/04/21 05:30 Urine Bilirubin Negative (Negative) 11/04/21 05:30 Urine Urobilinogen Negative (Negative) 11/04/21 05:30 Ur Leukocyte Esterase Trace (Negative) H 11/04/21 05:30 Urine WBC (Auto) 5-10 /hpf (0-5) H 11/04/21 05:30 Urine RBC (Auto) 5-10 /hpf (0-4) H 11/04/21 05:30 U Hyaline Cast (Auto) 1-5 /lpf (0-5) 11/04/21 05:30 U Epithel Cells (Auto) 10-20 /lpf (0-5) H 11/04/21 05:30 Urine Bacteria (Auto) Negative (Negative) 11/04/21 05:30 SARS-CoV-2, RNA, NAAT NEGATIVE (NEGATIVE) 11/04/21 05:30 Diagnostic Findings [facility] Patient: CHANDANA FRASER (Female) : 45 Status: ER Date: 11/04/21 04:16 Room #: History: severe mid abd pain appen removed Slices: [phone] Priors: Tech: Gunner Napier @ [phone] Exams: CT ABDOMEN & PELVIS Without Contrast Contrast: Accession Numbers: [id number] Referring Physician: REFERRED SELF Preliminary Findings Only See Final Report For Complete Findings CT ABDOMEN & PELVIS Without Contrast: Prior dated 10/25/21 CT abdomen and pelvis. CT chest also today. Right lower quadrant ileostomy and large parastomal hernia New dilation of small bowel loops throughout the abdomen and pelvis and within the parastomal hernia. Likely represents small bowel obstruction. Transition point likely at the site of the hernia. Stomach is moderately distended with fluid No free air, free fluid. Mild basilar atelectasis. Cholelithiasis Nonobstructing left renal calculi Other incidental nonacute findings Radiologist: Caitlin Bowling M.D. Study ready at 04:26 and initial results transmitted at 05:09 Communications: Clear Time Type Notes 11/04/21 05:17 Verify Receipt Verified r eceipt with ER secretary administrative assistant Juhi for Dr. Kenia Gutierrez on 11/04 05:17 (-05:00) *This report constitutes a preliminary interpretation only. Non-acute findings felt to be unrelated to the clinical presentation may not be discussed in this report. The study will be interpreted and a final report will be generated by the local Radiologist the following shift. To reach the [facility] radiology department call [phone]. If a discrepancy is found between the preliminary and final interpretations of this study, please notify us via our Client Portal at [email or web address], under QA Exams. You can also fax this report with a description of the discrepancy, or include the final report, to our daytime fax number [phone]. If faxing, please indicate the severity of discrepancy using one of the following categories: [ ] 1 - Agree/Informational [ ] 2 - Unlikely to Affect Management [ ] 3 - Possible Eventual Change of Management [ ] 4 - Probable Immediate Change of Management For all other patient related information, please fax us at [phone]. [id number] [facility] Patient: CHANDANA FRASER (Female) : 45 Status: ER Date: 11/04/21 04:17 Room #: History: sob Slices: [phone] Priors: Tech: Gunner Napier @ [phone] Exams: CT CHEST Without Contrast Contrast: Accession Numbers: [id number] Referring Physician: REFERRED SELF Preliminary Findings Only See Final Report For Complete Findings CT CHEST Without Contrast: Prior 06/14/[address] abdomen and pelvis also today. Mild bibasilar atelectasis. Small and mildly enlarged mediastinal nodes similar/mildly decreased in size Coronary calcifications. Radiologist: Caitlin Bowling M.D. Study ready at 04:26 and initial results transmitted at 05:11 *This report constitutes a preliminary interpretation only. Non-acute findings felt to be unrelated to the clinical presentation may not be discussed in this report. The study will be interpreted and a final report will be generated by the local Radiologist the following shift. To reach the hospital radiology department call [phone]. If a discrepancy is found between the preliminary and final interpretations of this study, please notify us via our Client Portal at [email or web address], under QA Exams. You can also fax this report with a description of the discrepancy, or include the final report, to our daytime fax number [phone]. If faxing, please indicate the severity of discrepancy using one of the following categories: [ ] 1 - Agree/Informational [ ] 2 - Unlikely to Affect Management [ ] 3 - Possible Eventual Change of Management [ ] 4 - Probable Immediate Change of Management For all other patient related information, please fax us at [phone]. [id number] Code Status & VTE Plan Code Status Full code VTE Prophylaxis Plan VTE Prophylaxis will be ordered: Yes PG Care Time/CCT Total # of Minutes Spent Total Time Spent with Patient: Total time spent is greater than 50% in coordination of care (as documented) at patient's floor/unit and/or counseling patient: Coding Level of Care Code 61124 Initial Inpt Care Lvl 3 Diagnoses SBO (small bowel obstruction) K56.609 Hypertension I10 Insulin dependent diabetes mellitus E11.9; Z79.4 Hypercholesterolemia E78.00 Hypothyroidism E03.9 Chronic kidney disease, stage 3 (moderate) N18.3
--- NOTE | 2021-11-04 06:24 | Surgery Consultation ---
Date of Consultation November 04, 2021 Assessment & Plan (1) SBO (small bowel obstruction): (2) Parastomal hernia: pt is a 76 year-old female who presents to ER with one day history abdominal pain, nausea and vomiting, pt had partial colectomy and ostomy at [facility] one year ago . IMP: large parastomal hernia, SBO, plan, NG tube insertion,recommend to transfer [facility] for her large parastomal hernia surgery, D/W benefits, risks and alternatives of the transfer, pt and her understood, they agree with transfer to [facility], pt also want to transfer to [facility], I answered all questions, D/W ER attending. History of Present Illness Reason for Consultation: SBO, parastomal hernia Requesting Physician: Lore Flores History of Present Illness Chief complaint: Vomiting History of Present Illness This 76-year-old who wears oxygen at night presents to the ER complaining of nausea vomiting and abdominal pain for one day, who has an ostomy and partial colectomy at [facility] one year ago, the pain is located at RLQ area, and pain is 7/10, pt just empted her ostomy bag this morning, small amount of stool, pt denies chest pain, no bloody stool, no fever, pt had CT scan diagnosis- parastomal hernia with SBO, I got a call for consult this pt, I reviewed pt's H/P, labs and CT scan with pt and her . Allergies Allergy/AdvReac Type Severity Reaction Status Date / Time codeine Allergy Intermediate WHITE Verified 11/04/21 02:26 CHANGE UNDER THE SKIN-ARMS Penicillins Allergy Intermediate RASH Verified 11/04/21 02:26 sulfamethoxazole Allergy Unknown DOES NOT Verified 11/04/21 02:26 KNOW REACTION trimethoprim Allergy Unknown DOES NOT Verified 11/04/21 02:26 KNOW REACTION atorvastatin AdvReac Intermediate SHE FELT Verified 11/04/21 02:26 WEAK simvastatin AdvReac Intermediate ARMS Verified 11/04/21 02:26 SWELLING adhesive AdvReac Mild SOME Verified 11/04/21 02:26 TAPE-REDNESS, ITCHY Home Medications Medication Instructions Recorded Confirmed Type diltiazem HCl 240 mg 240 mg PO HS 04/22/19 11/04/21 History capsule,extended release 24 hr, controlled ezetimibe 10 mg tablet (Zetia) 10 mg PO HS 04/22/19 11/04/21 History insulin glargine 100 unit/mL 40 unit SUBCUT HS 04/22/19 11/04/21 History subcutaneous solution (Lantus U-100 Insulin) insulin lispro 100 unit/mL 1 sliding scale dose SUBCUT 04/22/19 11/04/21 History subcutaneous cartridge (Humalog USEASDIRECTD U-100 Insulin) levothyroxine 50 mcg tablet 50 mcg PO QAM 04/22/19 11/04/21 History (Synthroid) niacin 50 mg tablet 50 mg PO BID 04/22/19 11/04/21 History rosuvastatin 5 mg tablet 5 mg PO HS 04/22/19 11/04/21 History furosemide 40 mg tablet (Lasix) 40 mg PO Q2D tab 06/24/20 11/04/21 History calcitriol 0.25 mcg capsule 0.25 mcg PO QAM 11/04/21 11/04/21 History coenzyme Q10 300 mg capsule (Co 300 mg PO HS 11/04/21 11/04/21 History Q-10) Patient History Medical History Chronic kidney disease, stage 3 (moderate) Follows with nephro Congestive heart failure Stable and euvolemic per cardio note 08/2020 DM type 2 (diabetes mellitus, type 2) IDDM. Hgb A1C 6.9 in 05/2020 Hearing deficit B/L [place] HTN (hypertension) Hx of Clostridium difficile infection ~2010 (reason for bowel resection) Hyperlipidemia Hypothyroidism Ileostomy, has currently Kidney stones Osteoarthritis Pulmonary hypertension Per 08/23/20 Heart Failture clinic note- secondary from undiagnosed MYRANDA/OHS (presumed). Sacroiliitis Seasonal allergies Surgical History H/O hernia repair History of appendectomy History of bowel resection 2010 History of cholecystectomy History of colonoscopy History of cystoscopy WITH STENT History of left knee replacement History of lithotripsy ESWL History of tonsillectomy History of tooth extraction History of total abdominal hysterectomy and bilateral salpingo-oophorectomy History of tubal ligation Status post laser lithotripsy of ureteral calculus Family History Unknown Cardiac disorder Cancer Hypertension Mother Diabetes Cardiac disorder Cancer Hypertension Father No problems noted. Sister Rectal cancer Uncle Family hx of colon cancer Other No family history of adverse response to anesthesia No family history of bleeding disorder Denies family history of Cystic kidney disease Social History Smoking Status: Never smoker Tobacco Type: Cigarettes Second Hand Exposure: No; Hx Alcohol Use: No Hx Substance Use: No Preferred Language: Kyrgyz Communication Ability: Effective Visual Impairment: No Limitations Green Building Engineer Required: No Beliefs That Will Affect Care: None marital status: Current Living Situation: Spouse Feels Safe at Home: Yes Assistive Devices: Hearing Aid - Bilateral Review of Systems Constitutional: as per Subjective / HPI obesity Eyes: as per Subjective / HPI Respiratory: pulmonary HTN, need home O2 Cardiovascular: Additional Comments: HTN, CHF Gastrointestinal: C-diff, partial colectomy, ostomy, rectovaginal fistula Genitourinary: kidney stone Musculoskeletal: as per Subjective / HPI Neurologic: as per Subjective / HPI Psychiatric: as per Subjective / HPI Endocrine: hypothyroidism, secondary hyperparathyroidism Hematologic / Lymphatic: as per Subjective / HPI Physical Exam Constitutional: WD/WN, vitals as above obesity, no distress Eyes: PERRL, conjunctivae normal, anicteric sclerae Neck: trachea midline, no thyromegaly Respiratory: normal respiratory effort, lungs clear to auscultation Cardiovascular: RRR, no murmur, no edema Gastrointestinal (Abdomen): soft, large parastomal hernia at right side abdomen, some tenderness, no rebound pain, the hernia is not reducible, BS +, no stool at ostomy bag now, no redness around ostomy site, Musculoskeletal: no cyanosis or clubbing, extremities motor strength 5/5 Neurologic: patellar DTR's 2+ bilat, sensation intact Psychiatric: A+Ox3, euthymic affect Results & Data ([facility]) Vital Signs (Past 12 Hours) Vital Signs Temp Pulse Pulse Resp BP BP Pulse Ox 11/04/21 05:11 97 H 24 173/92 H 94 11/04/21 04:58 100 H 18 187/84 H 11/04/21 04:40 94 H 18 93 11/04/21 04:30 95 H 18 92 11/04/21 04:20 98 H 21 97 02/18/22 02:26 96 11/04/21 01:40 36.9 C 92 H 16 226/80 H 78 L Laboratory Results Abnormal lab results 11/04/21 11/04/21 11/04/21 Range/Units 03:13 03:13 03:13 WBC 11.99 H (4.8-10.8) K/uL POC Hgb (12.0-16.0) g/dl POC Hct (37-47) % MCHC 31.8 L (32-36) g/dL RDW Std Deviation 57.6 H (36.4-46.3) fL RDW Coeff of Sreedhar 16.2 H (11.5-14.5) % MPV 10.8 H (7.4-10.4) fL Neut # (Auto) 10.82 H (1.4-6.5) K/uL Lymph # (Auto) 0.80 L (1.2-3.4) K/uL POC BUN (7-18) mg/dl BUN 32 H (6-23) mg/dl Creatinine 1.25 H (0.6-1.2) mg/dl BUN/Creatinine Ratio 25.6 H (10-20) Glucose 180 H (70-99(Fasting)) mg/dl POC Glucose (other) (70-99) mg/dl B-Natriuretic Peptide 117 H (0-100) pg/ml Urine Protein (Negative) Urine Blood (Negative) Ur Leukocyte Esterase (Negative) Urine WBC (Auto) (0-5) /hpf Urine RBC (Auto) (0-4) /hpf U Epithel Cells (Auto) (0-5) /lpf 11/04/21 11/04/21 Range/Units 03:14 05:30 WBC (4.8-10.8) K/uL POC Hgb 16.3 H (12.0-16.0) g/dl POC Hct 48 H (37-47) % MCHC (32-36) g/dL RDW Std Deviation (36.4-46.3) fL RDW Coeff of Sreedhar (11.5-14.5) % MPV (7.4-10.4) fL Neut # (Auto) (1.4-6.5) K/uL Lymph # (Auto) (1.2-3.4) K/uL POC BUN 34 H (7-18) mg/dl BUN (6-23) mg/dl Creatinine (0.6-1.2) mg/dl BUN/Creatinine Ratio (10-20) Glucose (70-99(Fasting)) mg/dl POC Glucose (other) 184 H (70-99) mg/dl B-Natriuretic Peptide (0-100) pg/ml Urine Protein 2+ H (Negative) Urine Blood 3+ H (Negative) Ur Leukocyte Esterase Trace H (Negative) Urine WBC (Auto) 5-10 H (0-5) /hpf Urine RBC (Auto) 5-10 H (0-4) /hpf U Epithel Cells (Auto) 10-20 H (0-5) /lpf Diagnostic Findings CT scan- parastomal hernia with SBO,
--- NOTE | 2021-11-04 07:56 | CT Scan Report ---
CT abd pelvis wo con CLINICAL HISTORY: severe mid abd pain TECHNIQUE: Helical axial images of the abdomen and pelvis were obtained. Automated dose lowering tech niques and/or adjustment according to patient size were utilized for this exam. This exam was perfor med without intravenous contrast. COMPARISON: Comparison is made to CT abdomen pelvis 10/25/2021 FINDINGS: Lower chest: Bibasilar atelectasis versus scarring is seen. Liver: Unremarkable. No focal lesions are seen. Gallbladder and biliary tree: Patient is status post cholecystectomy. Common bile duct is enlarged me asuring up to 2 cm in diameter. Choledocho stones are seen. Pancreas: Fatty replacement of the pancreas is seen. Spleen: Unremarkable. Adrenals: Exophytic cysts are seen bilaterally. Nonobstructive nephrolithiasis is noted. Kidneys and ureters: Unremarkable. Bladder: Unremarkable. Reproductive organs: Patient is status post hysterectomy. Bowel: Multiple gas dilated loops of small bowel are seen. These measure up to 30 mm in diameter. The re is a proximal transition point in the lower mid abdomen. Distal dilated loops also lie within the stoma. Lymph nodes Retroperitoneal: Unremarkable. Mesenteric: Unremarkable. Pelvic: Unremarkable. Peritoneum: Normal. Vessels: Unremarkable. Abdominal wall: A parastomal hernia is seen. Bones: Degenerative changes in the visualized spine. IMPRESSION: 1. Multiple gas dilated loops of small bowel are seen compatible with small bowel obstruction. A lar ge parastomal hernia is seen. 2. Prominence of the biliary duct with choledocholithiasis. This is unchanged from prior exam. ACT 112: Negative or not required by law. Electronically signed by: Jake Kemp M.D. 11/04/2021 7:54 AM
--- NOTE | 2021-11-04 07:58 | XRay Report ---
XR chest 1V portable CLINICAL HISTORY: sob. COMPARISON STUDY: 10/07/2021 TECHNIQUE: 1 view of the chest FINDINGS: Single frontal view of the chest demonstrates the heart to again be enlarged. The lungs are clear of alveolar opacities. There is no evidence for pleural effusion. There is no evidence for vascular yaneth estion. There is no acute osseous pathology. IMPRESSION: 1. No acute cardiopulmonary disease. There is no significant interval change. ACT 112: Negative or not required by law. Electronically signed by: Cooper Herring M.D. 11/04/2021 7:57 AM
[2021-11-04] MEDS ORDERED: CLINDAMYCIN 600 MG in DEXTROSE 5% 50 ML IV SCH (08:12)
[2021-11-04] MEDS ORDERED: GLUCAGON FOR INJ 1 MG VIAL SQ PRN (08:12)
[2021-11-04] MEDS ORDERED: GLUCOSE 40% GEL 15 GM TUBE PO PRN (08:12)
[2021-11-04] MEDS: FAMOTIDINE 20 MG in SYRINGE 3 ML IV SCH ×2 (08:12→21:16)
[2021-11-04] MEDS ORDERED: ONDANSETRON INJ 2 MG/ML 2 ML VIAL IV PRN ×2 (08:12→10:14)
[2021-11-04] MEDS ORDERED: DEXTROSE 50% 50 ML SYRINGE IV PRN (08:12)
[2021-11-04] MEDS ORDERED: GLUCOSE 10 TABS/TUBE PO PRN (08:12)
[2021-11-04] MEDS ORDERED: CARBOHYDRATES FOR HYPOGLYCEMIA PO PRN (08:12)
[2021-11-04] MEDS: NSS + 20MEQ KCL 20 MEQ/1,000 ML BAG IV SCH (08:45)
[2021-11-04] MEDS: CIPROFLOXACIN / D5W 400 MG/200 ML BAG IV SCH ×2 (08:46→21:17)
--- NOTE | 2021-11-04 08:49 | CT Scan Report ---
CT chest diagnostic wo con CLINICAL HISTORY: Shortness of breath COMPARISON STUDY: Portable chest from 11/04/[address] chest from 06/14/2021 CT DOSE: 42.25 mGy.cm TECHNIQUE: Standard CT of the Chest was performed without IV contrast. A dose lowering technique was utilized adhering to the principles of ALARA. FINDINGS: Airway: The airway is clear. No endobronchial lesion is identified. Lungs: Minimal dependent atelectasis is seen at the lung bases. The lungs are clear of acute alveolar opacities, air bronchograms or pulmonary nodules. Pleura: There is no evidence for pleural effusion. There is no evidence for pneumothorax. Mediastinum: There is no evidence for pathologic adenopathy on these limited noncontrast images. Prev iously identified lymph nodes have decreased in size. The heart size is within normal limits. Coronar y artery calcification is present. The thoracic aorta is within normal limits. Atherosclerotic calcif ication is present. There is no evidence for pericardial effusion. Upper abdomen: The adrenal glands are normal bilaterally. Osseous structures: There is no acute osseous pathology. Degenerative changes seen within the spine. IMPRESSION: 1. Minimal dependent atelectasis at the lung bases. There is otherwise no acute chest disease on thes e noncontrast images. ACT 112: Negative or not required by law. Electronically signed by: Cooper Herring M.D. 11/04/2021 8:48 AM
[2021-11-04] MEDS: INSULIN ASPART PER UNIT SC SCH ×3 (09:22→16:51)
[2021-11-04] MEDS ORDERED: MEROPENEM CONSULT ACTIVE PRN (09:43)
[2021-11-04] MEDS ORDERED: MEROPENEM 1,000 MG in SYRINGE 0 ML IV SCH (09:45)
[2021-11-04] MEDS ORDERED: MoRPHine SULFATE 2 MG/ML CARP IV PRN (10:13)
[2021-11-04] MEDS ORDERED: ONDANSETRON INJ 2 MG/ML 2 ML VIAL IV ONE (10:30)
[2021-11-04] MEDS: metroNIDAZOLE 500 MG/100 ML BAG IV SCH ×2 (12:06→19:19)
--- NOTE | 2021-11-04 15:31 | Electrocardiogram Report ---
Test Reason : Blood Pressure : / mmHG Vent. Rate : 101 BPM Atrial Rate : 101 BPM P-R Int : 176 ms QRS Dur : 084 ms QT Int : 352 ms P-R-T Axes : 041 -50 041 degrees QTc Int : 456 ms Poor data quality, interpretation may be adversely affected Sinus tachycardia Left axis deviation Pulmonary disease pattern Abnormal ECG When compared with ECG of 07-OCT-2021 17:52, CO interval has decreased Nonspecific T wave abnormality, improved in Anterolateral leads Confirmed by Vic Saldana ([id number]) on 11/04/2021 3:31:38 PM Referred By: REFERRED SELF Confirmed By:Vic Saldana
[2021-11-04] MEDS ORDERED: INFLUENZA VACCINE HIGH DOSE PF 65+ 0.7 ML SYR IM ONE (15:37)
--- NOTE | 2021-11-04 20:19 | Hospitalist Progress Note ---
Date of Service November 04, 2021 Assessment & Plan (1) SBO (small bowel obstruction): Plan: - CT - multiple gas dilated loops of small bowel consistent with SBO; large parastomal hernia with distal dilated loops within the stoma; proximal transition point in lower mid abdomen; prominence of the biliary duct with choledocholithiasis (unchanged from previous) -- No LFT elevations - Normal lactic and appears non-toxic - Continue hydration while NPO and monitor labs - Ciprofloxacin and Flagyl - Pepcid BID - Gen Surg consulted and recommending transfer -- Discussed with [facility] [place] who recommend conservative measures at this time of NGT and bowel rest but if failure to progress then can consider transfer for surgical intervention (2) Hypertension: Plan: - Hold diltiazem and furosemide; continue to monitor (3) Insulin dependent diabetes mellitus: Plan: - A1c in AM - Hold home regimen and cover with SSI (4) Hypercholesterolemia: Plan: - Hold Rosuvastatin and Zetia (5) Hypothyroidism: Plan: - Previous TSH high with no reflex T4 and will recheck in AM - Hold levothyroxine -- if not able to advance diet soon will add IV formulation (6) Chronic kidney disease, stage 3 (moderate): Plan: - Baseline around 1.2 and current at baseline and will monitor Plan: Conservative SBO measures but if failure to resolve will need transfer to [facility] [place] if surgical intervention is warranted; Discussed with [facility] [place] colorectal Admission and Anticipated Discharge Date Admission Date: November 04, 2021 Subjective Admitted early in AM. NGT placed and tolerating. Removed 400 cc with insertion. Reports feeling like her abdomen is less distended now. Reports no other symptoms Review of Systems Review of Systems: All systems reviewed & are unremarkable except as noted in Subjective Physical Exam Physical Exam: PHYSICAL EXAM General Appearance: WDWN in NAD who is A&O x 3 HEENT: Head is normocephalic/atraumatic;Hearing grossly intact; NGT placed Neck: Supple; Trachea midline; Neg JVD Heart: RRR with no M/G/R Lungs: CTA in all lung ponce bilaterally; Respirations unlabored; Neg accessory muscle use Abdomen: Large abdominal hernia around stoma; Distended but nontender without guarding or rigidity; colostomy placed on R side Extremities: Neg cyanosis or edema Neurological: Speech clear; Gross motor/sensory function intact; Neg focal neurologic deficits Psychiatric: Appropriate mood/affect Skin: Normal Color; Warm/Dry Results & Data Results & Data ([facility]) Vital Signs (Past 12 Hours) Vital Signs Temp Pulse Pulse Pulse Resp BP BP 11/04/21 19:17 36.3 C L 80 18 143/75 H 11/04/21 15:47 77 11/04/21 15:32 37.0 C 84 20 149/74 H 11/04/21 13:00 79 17 127/68 11/04/21 12:38 79 11/04/21 10:00 86 86 26 H 151/65 H 151/65 H Pulse Ox 11/04/21 19:17 92 11/04/21 15:47 11/04/21 15:32 94 11/04/21 13:00 95 11/04/21 12:38 11/04/21 10:00 93 PG Care Time/CCT Total # of Minutes Spent Total Time Spent with Patient: Total time spent is greater than 50% in coordination of care (as documented) at patient's floor/unit and/or counseling patient: Coding Level of Care Code None Diagnoses SBO (small bowel obstruction) K56.609 Hypertension I10 Insulin dependent diabetes mellitus E11.9; Z79.4 Hypercholesterolemia E78.00 Hypothyroidism E03.9 Chronic kidney disease, stage 3 (moderate) N18.3
[2021-11-05] MEDS: INSULIN ASPART PER UNIT SC SCH ×5 (00:10→20:58)
[2021-11-05] MEDS: NSS + 20MEQ KCL 20 MEQ/1,000 ML BAG IV SCH (00:12)
[2021-11-05] MEDS: metroNIDAZOLE 500 MG/100 ML BAG IV SCH (03:19)
[2021-11-05 06:43] LABS: Albumin Globulin Ratio 1.3 (0.9-2); Albumin Level 3.8 gm/dl (3.4-5.0); Bilirubin,Total 0.6 mg/dl (0.2-1.0); Calcium 8.4 mg/dl (8.5-10.1); Creatinine Clr Calc Pharmacy 36.5 ml/min; Est GFR (African American) 45.3 ml/min; Est GFR (Non-African American) 39.1 ml/min; Potassium 5.4 mmol/L (3.5-5.1); Total Protein 6.8 gm/dl (6.0-8.3)
[2021-11-05 07:44] LABS: Estimated Average Glucose 137 mg/dl; Hemoglobin A1C 6.4 % (4.5-5.6)
[2021-11-05 07:54] LABS: Basophils # (auto) 0.02 K/uL (0-0.2); Basophils % (auto) 0.2 %; Eosinophils % (auto) 0.8 %; Hematocrit (blood only) 44.4 % (37-47); Hemoglobin 13.3 g/dL (12.0-16.0); Immature Granulocytes # (auto) 0.01 K/uL (0.00-0.02); Immature Granulocytes % (auto) 0.1 %; Lymphocytes # (auto) 0.89 K/uL (1.2-3.4); Lymphocytes % (auto) 7.3 %; Mean Corpuscular Hemoglobin 30.3 pg (25-34); Mean Corpuscular Volume 101.1 fL (80-100); Mean Platelet Volume 10.8 fL (7.4-10.4); Monocytes # (auto) 0.74 K/uL (0.11-0.59); Monocytes % (auto) 6.1 %; Neutrophils % (auto) 85.5 %; Platelet Count 174 K/uL (130-400); RDW Coefficient of Variation 16.7 % (11.5-14.5); RDW Standard Deviation 62.7 fL (36.4-46.3); Red Blood Count 4.39 M/uL (4.2-5.4); White Blood Count 12.16 K/uL (4.8-10.8)
[2021-11-05] MEDS: SODIUM CHLORIDE 0.9% 1000ML 1,000 ML IV SCH ×2 (08:07→20:53)
[2021-11-05] MEDS: FAMOTIDINE 20 MG in SYRINGE 3 ML IV SCH ×2 (08:08→20:54)
[2021-11-05] MEDS: CIPROFLOXACIN / D5W 400 MG/200 ML BAG IV SCH (08:09)
--- NOTE | 2021-11-05 10:39 | Hospitalist Progress Note ---
Date of Service November 05, 2021 Assessment & Plan (1) SBO (small bowel obstruction): Plan: Mrs. Talbot is a 76 yo woman with a PMHx of [place] [facility] [place] who presented with reduced colostomy output, abdominal pain and distention, and nausea/vomiting. SBO - CT scan of abdomen showed evidence of SBO, large parastomal hernia and chronic choledocholithiasis - likely mechanical due to large parastomal hernia - NG tube in place --> consider removing today as symptoms are improving - NPO --> trial clears when appetite returns - mIVF with NSS at 80mls/hr in interim - empiric antibiotics started on admission discontinued given clinical improvement - General surgery consulted, [place] [facility] [place]. However, [facility] [place] trial of conservative management with bowel prior to accepting patient Leukocytosis - WBC 12.9 today, mildy elevated - started on empiric abx on admission, discontinued due to low suspicion for infection on re-evaluation. Low threshold to add anaerobic coverage back on if patient clinically worsens - trend CBC Elevated MCV - MCV > 100 oon CBC - check B12 and folate levels Hyperkalemia - K at 5.4. - changed mIVF from Kcl containing to NSS - trend BMP Hypertension: - Hold diltiazem and furosemide while NPO Insulin dependent diabetes mellitus: - hold home lantus while NPO - A1c at 6.4, below goal for age - Accu-Cheks before meals and at bedtime with NovoLog coverage per scale - sugars above goal today - will hold off on altering insulin regimen as patient remains NPO, consider adjusting if sugars remain elevated with increasing PO intake Hypercholesterolemia: - Hold rosuvastatin and Zetia while NPO Hypothyroidism: - hold home dose levothyroxine while NPO Chronic kidney disease, stage 3 (moderate): - baseline Cr ~1.1 - 1.2 - Cr slightly elevated at 1.3 - continue mIVF in the event of a pre-renal etiology - trend BMP Diet: NPO, will trial clear liquids when patient's appetite returns DVT ppx: Heparin 5,000 units q12, SCDs Code: Full Code Dispo: Med/Surg. Admission and Anticipated Discharge Date Admission Date: November 04, 2021 Supervising Physician Co-Signing Physician Notes I personally examined the patient and verified all martínez points of history and e xam, discussed case, and agree with decision making with Dr Bonilla bellyuli feels better no nausea/vomiting vitals noted nad heent nc at mmm breathing unlabored no accessory muscles good effort abd soft mild distention L mid abd tender but she thinks it's from heparin ostomy and alan-ostomy area soft nd nt SBO - seems to be improving. trial DC NGT, if does well - advance diet slowly as possible. ongoing serial exams but no clear need for surgical intervention at this time also no clear need for ongoing abx - will hold and follow otherwise as above Subjective No acute events overnight. Abdominal pain and nausea have resolved. Appetite not yet returned. Review of Systems Review of Systems: All systems reviewed & are unremarkable except as noted in HPI & below Physical Exam Constitutional: WD/WN, vitals as above + obese, cooperative and comfortable; no acute distress Eyes: + anicteric sclerae ENMT: external ear and nose normal, oropharynx normal Neck: trachea midline Respiratory: no labored breathing Cardiovascular: Rate/Rhythm: not tachycardic Gastrointestinal (Abdomen): Inspection/Auscultation: + significant pannus and + hypoactive bowel sounds; abdomen not distended + colostomy bag Musculoskeletal: Head/Neck/Chest: normocephalic and head atraumatic Skin: no rashes, warm and dry Neurologic: moves all extremities Psychiatric: A+Ox3, euthymic affect Results & Data Results & Data ([facility]) Vital Signs (Past 12 Hours) Vital Signs Temp Pulse Pulse Resp BP Pulse Ox 11/05/21 07:42 37.1 C 96 H 18 116/69 93 11/05/21 07:31 81 11/05/21 03:18 36.6 C 80 20 121/66 93 11/04/21 23:24 78 11/04/21 22:39 37.0 C 80 20 150/71 H 93
[2021-11-05 11:10] LABS: Folate (Folic Acid) 7.4 ng/ml (>5.38)
--- NOTE | 2021-11-05 15:31 | Billing Data ---
Date of Service November 05, 2021 Coding Level of Care Code 03148 Subseq Hosp Care Lvl 3
[2021-11-05] MEDS: HEPARIN SOD 5,000 UNIT/0.5 ML VIAL SQ SCH (21:32)
[2021-11-06 07:29] LABS: Basophils # (auto) 0.02 K/uL (0-0.2); Basophils % (auto) 0.2 %; Eosinophils # (auto) 0.04 K/uL (0-0.5); Eosinophils % (auto) 0.4 %; Hematocrit (blood only) 41.7 % (37-47); Hemoglobin 12.7 g/dL (12.0-16.0); Immature Granulocytes # (auto) 0.04 K/uL (0.00-0.02); Immature Granulocytes % (auto) 0.4 %; Lymphocytes # (auto) 1.27 K/uL (1.2-3.4); Lymphocytes % (auto) 13.8 %; Mean Corpuscular Hemoglobin 30.3 pg (25-34); Mean Corpuscular Hgb Conc 30.5 g/dL (32-36); Mean Corpuscular Volume 99.5 fL (80-100); Mean Platelet Volume 10.5 fL (7.4-10.4); Monocytes # (auto) 0.55 K/uL (0.11-0.59); Neutrophils # (auto) 7.29 K/uL (1.4-6.5); Neutrophils % (auto) 79.2 %; Platelet Count 165 K/uL (130-400); RDW Coefficient of Variation 16.8 % (11.5-14.5); RDW Standard Deviation 60.7 fL (36.4-46.3); Red Blood Count 4.19 M/uL (4.2-5.4); White Blood Count 9.21 K/uL (4.8-10.8)
[2021-11-06] MEDS: HEPARIN SOD 5,000 UNIT/0.5 ML VIAL SQ SCH ×2 (07:50→20:00)
[2021-11-06] MEDS: SODIUM CHLORIDE 0.9% 1000ML 1,000 ML IV SCH (07:50)
[2021-11-06] MEDS: INSULIN GLARGINE SOLOSTAR 100 UNITS/ML 3 ML PEN SC SCH (07:51)
[2021-11-06] MEDS: FAMOTIDINE 20 MG in SYRINGE 3 ML IV SCH ×2 (07:51→20:00)
[2021-11-06] MEDS: INSULIN ASPART PER UNIT SC SCH ×4 (07:58→23:07)
[2021-11-06 08:06] LABS: Albumin Globulin Ratio 1.3 (0.9-2); Albumin Level 3.7 gm/dl (3.4-5.0); BUN Creatinine Ratio 22.6 (10-20); Bilirubin,Total 0.5 mg/dl (0.2-1.0); Calcium 8.6 mg/dl (8.5-10.1); Creatinine Clr Calc Pharmacy 33.3 ml/min; Est GFR (African American) 40.1 ml/min; Est GFR (Non-African American) 34.6 ml/min; Globulin 2.8 gm/dl (2.5-4.0); Potassium 5.2 mmol/L (3.5-5.1); Total Protein 6.5 gm/dl (6.0-8.3)
--- NOTE | 2021-11-06 11:46 | Hospitalist Progress Note ---
Date of Service November 06, 2021 Assessment & Plan (1) SBO (small bowel obstruction): Plan: Mrs. Talbot is a 76 yo woman with a PMHx of a partial colectomy with colostomy placement at [facility] [place] in [place] who presented with reduced colostomy output, abdominal pain and distention, and nausea/vomiting. SBO - improving - CT scan of abdomen showed evidence of SBO, large parastomal hernia and chronic choledocholithiasis - likely mechanical due to adhesions vs. large parastomal hernia - NG tube placed on admission, removed 11/05/21 - advancing diet as tolerated - will discharge home once she can tolerate regular diet and colostomy output resumes - empiric antibiotics started on admission discontinued given clinical improvement - General surgery consulted, recommended transfer to [facility] [place] for possible surgical intervention. However, [facility] [place] recommended trial of conservative management with bowel prior to accepting patient Leukocytosis: resolved - WBC 12.9 on admission, normalized - started on empiric abx on admission, discontinued due to low suspicion for infection on re-evaluation. Elevated MCV - MCV > 100 on CBC - B12 and folate levels checked and both normal Hyperkalemia - K at 5.4 on admission --> down to 5.2 today - trend BMP Hypertension: - continue diltiazem and furosemide Insulin dependent diabetes mellitus: - hold home lantus while NPO - A1c at 6.4, below goal for age - Accu-Cheks before meals and at bedtime with NovoLog coverage per scale - sugars above goal today - will hold off on altering insulin regimen as patient remains NPO, consider adjusting if sugars remain elevated with increasing PO intake Hypercholesterolemia: - continue rosuvastatin and Zetia Hypothyroidism: - continue levothyroxine Chronic kidney disease, stage 3 (moderate): - baseline Cr ~1.1 - 1.2 - Cr slightly elevated at 1.4 - continue mIVF in the event of a pre-renal etiology - trend BMP Diet: trial full liquid for lunch - advance to regular at dinner if tolerates DVT ppx: Heparin 5,000 units q12, SCDs Code: Full Code Dispo: Med/Surg. Admission and Anticipated Discharge Date Admission Date: November 04, 2021 Supervising Physician Co-Signing Physician Notes I personally examined the patient and verified all martínez points of history and exam, discussed case, and agree with decision making with Dr Bonilla tolerated clears pain better no stool yet vitals noted nad heent nc at mmm breathing unlabored no accessory muscles good effort abd soft mild distention mild peristomal tenderness SBO - seems to be improving. suspect adhesional but does have peristomal hernia - will want to follow to full resolution. serial exams, advance diet. safe for home once tolerating regular diet and (+) stool. then would have follow up w surgery at [facility] [place] -- although likely no intervention would be needed - but for opinion on risk of hernia (again for now i doubt this is the culprit since she is getting better, etc) otherwise as above Subjective No acute events overnight. Patient trialed on clear liquids at dinner last night and breakfast today, tolerated well without recurrence of symptoms. Review of Systems Review of Systems: All systems reviewed & are unremarkable except as noted in HPI & below Physical Exam Constitutional: WD/WN, vitals as above + obese, cooperative and comfortable; no acute distress Eyes: + anicteric sclerae ENMT: external ear and nose normal, oropharynx normal Neck: trachea midline Respiratory: no labored breathing Cardiovascular: Rate/Rhythm: not tachycardic Gastrointestinal (Abdomen): Inspection/Auscultation: + significant pannus and + hypoactive bowel sounds; abdomen not distended Percussion/Palpation: + abdomen tender (near ostomy site ) + colostomy bag present Musculoskeletal: Head/Neck/Chest: normocephalic and head atraumatic Skin: no rashes, warm and dry Neurologic: moves all extremities Psychiatric: A+Ox3, euthymic affect Results & Data Results & Data ([facility]) Vital Signs (Past 12 Hours) Vital Signs Temp Pulse Resp BP Pulse Ox 11/06/21 07:51 36.9 C 84 18 160/68 H 93 Resident Activity Tracking Resident Involvement: Resident Care Provided Care Provided: Adult Hospital Medicine
[2021-11-06] MEDS ORDERED: FUROSEMIDE 40 MG TAB PO SCH (12:00)
[2021-11-06] MEDS ORDERED: MELATONIN 3 MG TAB PO PRN (13:56)
--- NOTE | 2021-11-06 14:35 | Billing Data ---
Date of Service November 06, 2021 Coding Level of Care Code 39669 Subseq Hosp Care Lvl 2
[2021-11-06] MEDS ORDERED: ACETAMINOPHEN 1,000 MG/100 ML VIAL IV PRN (17:04)
[2021-11-06] MEDS ORDERED: OPTIRAY 320 100ml IV ONE (17:15)
--- NOTE | 2021-11-06 17:40 | CT Scan Report ---
ABDOMEN AND PELVIS CT WITH IV CONTRAST CT DOSE: 1745.91 mGy.cm HISTORY: Acute abnormalities abdominal pain. Follow-up study in a patient with a bowel obstruction. S tatus post subtotal colectomy with parastomal hernia. Abdominal pain TECHNIQUE: Multiaxial CT images of the abdomen and pelvis were performed following the IV administrat ion of 94 cc of Optiray, A dose lowering technique was utilized adhering to the principles of ALARA. COMPARISON STUDY: CT abdomen and pelvis 11/04/2021, 10/25/2021. FINDINGS: Coronary artery calcifications. Mild cardiomegaly. Mild right hemidiaphragmatic elevation w ith trace right pleural effusion and mild bibasilar atelectasis. Limited study secondary to upper ext remity positioning and patient body habitus. No pneumatosis or pneumoperitoneum. The spleen, moderate ly atrophic pancreas and adrenal glands are unremarkable. Cholecystectomy. There is persistent choled ocholithiasis resulting in extrahepatic biliary ductal dilation. 8 mm hypodense focus of the hepatic dome is indeterminate and unchanged. Liver is otherwise unremarkable. There are a few cysts of the kidneys measuring up to 2.1 cm on the right. Clustered nonobstructing ca lculi of the inferior pole left kidney conglomerate measure up to 6 mm. No hydronephrosis. Unremarkab le urinary bladder. Hysterectomy. Extensive calcified plaque of the aorta and branch vessels. Mild no nspecific bilateral neural chain adenopathy measuring up to 12 mm. Prior subtotal colectomy with right parastomal hernia redemonstrated. Numerous air and fluid-filled d ilated loops of small bowel are again noted within the abdomen and pelvis measuring up to 4 cm. Trans ition point noted within the hernia sac on image 316 series 3. The degree of small bowel distention h as progressively worsened from prior. Mild generalized body wall edema. Trace ascites. Degenerative c hanges of the shoulders and spine. No acute fracture. Degenerative changes of the spine, pelvis and h ips. IMPRESSION: 1. High-grade small bowel obstruction with progressive dilation of the small bowel loops compared to the 11/04/2021 study. The transition point appears to be located within the large bowel filled parasto mal hernia within the abdominal right lower quadrant. 2. Prior subtotal colectomy. 3. Trace right pleural effusion with trace pelvic ascites. 4. Nonobstructing left nephrolithiasis. 5. Cholecystectomy with choledocholithiasis again noted resulting in extrahepatic biliary ductal dila tion. 6. Additional findings as above. ACT 112: Negative or not required by law. The above report was generated using voice recognition software. It may contain grammatical, syntax o r spelling errors. Electronically signed by: Erick Kaiser M.D. 11/06/2021 5:39 PM
[2021-11-06 18:39] LABS: Basophils # (auto) 0.01 K/uL (0-0.2); Basophils % (auto) 0.1 %; Eosinophils # (auto) 0.01 K/uL (0-0.5); Eosinophils % (auto) 0.1 %; Hematocrit (blood only) 44.5 % (37-47); Hemoglobin 13.7 g/dL (12.0-16.0); Immature Granulocytes # (auto) 0.06 K/uL (0.00-0.02); Immature Granulocytes % (auto) 0.6 %; Lymphocytes # (auto) 0.79 K/uL (1.2-3.4); Lymphocytes % (auto) 7.9 %; Mean Corpuscular Hemoglobin 30.4 pg (25-34); Mean Corpuscular Volume 98.7 fL (80-100); Mean Platelet Volume 9.8 fL (7.4-10.4); Monocytes # (auto) 0.67 K/uL (0.11-0.59); Monocytes % (auto) 6.7 %; Neutrophils # (auto) 8.44 K/uL (1.4-6.5); Neutrophils % (auto) 84.6 %; Platelet Count 167 K/uL (130-400); RDW Coefficient of Variation 16.3 % (11.5-14.5); RDW Standard Deviation 58.7 fL (36.4-46.3); Red Blood Count 4.51 M/uL (4.2-5.4); White Blood Count 9.98 K/uL (4.8-10.8)
[2021-11-06 18:46] LABS: Mean Corpuscular Hgb Conc 30.8 g/dL (32-36)
[2021-11-06 18:57] LABS: Albumin Globulin Ratio 1.3 (0.9-2); Albumin Level 3.8 gm/dl (3.4-5.0); BUN Creatinine Ratio 23.3 (10-20); Bilirubin,Total 0.6 mg/dl (0.2-1.0); Calcium 8.6 mg/dl (8.5-10.1); Creatinine Clr Calc Pharmacy 36.6 ml/min; Est GFR (African American) 44.9 ml/min; Est GFR (Non-African American) 38.7 ml/min; Potassium 4.9 mmol/L (3.5-5.1); Total Protein 6.8 gm/dl (6.0-8.3)
--- NOTE | 2021-11-06 19:07 | XRay Report ---
KUB HISTORY: Status post placement of an enteric tube NG tube placement COMPARISON: CT abdomen and pelvis of same day FINDINGS: Status post placement of an enteric tube, distal tip projected over the gastric body. Persi stent small bowel obstruction. The right lateral and lower abdomen are excluded from the [id number]. Cardiomegaly. No renal calculi. No ureteral calculi. No pneumoperitoneum or pneumatosis. No fract ure. IMPRESSION: Status post placement of an enteric tube terminating within the gastric body. ACT 112: Negative or not required by law. The above report was generated using voice recognition software. It may contain grammatical, syntax o r spelling errors. Electronically signed by: Erick Kaiser M.D. 11/06/2021 7:06 PM
[2021-11-06] MEDS ORDERED: ROSUVASTATIN CALCIUM 5 MG TAB PO SCH (21:00)
[2021-11-06] MEDS ORDERED: dilTIAZem HCL 240 MG CAPCR PO SCH (21:00)
[2021-11-06] MEDS ORDERED: EZETIMIBE 10 MG TABLET PO SCH (21:00)
[2021-11-07] MEDS ORDERED: LEVOTHYROXINE SODIUM 50 MCG TABLET PO SCH (06:30)
--- NOTE | 2021-11-07 06:50 | XRay Report ---
KUB CLINICAL HISTORY: NG tube placement COMPARISON STUDY: CT of the abdomen and pelvis and KUB November 06, 2021. FINDINGS: Incidental note is made of contrast within the bladder from recent contrast-enhanced CT. Na sogastric tube is slightly coiled with tip projecting over the proximal body of the stomach. The tube could be advanced an additional 3 cm. Multiple loops of dilated small bowel are again noted. IMPRESSION: 1. Tip of nasogastric tube projects over the proximal body of the stomach. The tube could be advanced an additional 3 cm. 2. Findings suggestive of a persistent small bowel obstruction. ACT 112: Negative or not required by law. Electronically signed by: Froylan Dhaliwal M.D. 11/07/2021 6:48 AM
--- NOTE | 2021-11-07 07:52 | Hospitalist Progress Note ---
Date of Service November 07, 2021 Assessment & Plan Admission and Anticipated Discharge Date Admission Date: November 04, 2021 Supervising Physician Co-Signing Physician Notes I also saw the patient with the resident physician. Please see my complete attestation in the discharge summary of the same day. Subjective Seen at bedside this AM. She reports that her abd pain is gone since being made NPO and NGT replaced. She is open to transfer but we have been made aware by [facility] [place] that they will not be able to accept patient. Wroking on other transfer options. Review of Systems Review of Systems: Denies f/c, n/v, abd pain, SOB, cough, CP, palp, neuro deficits, [place], lightheadedness Physical Exam Constitutional: WD/WN, vitals as above + obese, cooperative and comfortable; no acute distress Eyes: + anicteric sclerae ENMT: external ear and nose normal, oropharynx normal Neck: trachea midline Respiratory: no labored breathing Cardiovascular: Rate/Rhythm: not tachycardic Gastrointestinal (Abdomen): Inspection/Auscultation: + significant pannus and + hypoactive bowel sounds; abdomen not distended Percussion/Palpation: + abdomen tender colostomy bag in place Musculoskeletal: Head/Neck/Chest: normocephalic and head atraumatic Skin: no rashes, warm and dry Neurologic: moves all extremities Psychiatric: A+Ox3, euthymic affect Results & Data Results & Data ([facility]) Vital Signs (Past 12 Hours) Vital Signs Temp Pulse Resp BP Pulse Ox 11/07/21 07:34 36.7 C 81 20 181/62 H 98 11/07/21 05:00 37.1 C 11/06/21 22:44 37.9 C H 98 H 18 159/65 H 94 Resident Activity Tracking Resident Involvement: Resident Care Provided Care Provided: Adult Hospital Medicine
[2021-11-07 08:04] LABS: BUN Creatinine Ratio 22.8 (10-20); Calcium 8.5 mg/dl (8.5-10.1); Creatinine Clr Calc Pharmacy 39.6 ml/min; Est GFR (African American) 49.3 ml/min; Est GFR (Non-African American) 42.6 ml/min; Potassium 4.7 mmol/L (3.5-5.1)
[2021-11-07] MEDS: HEPARIN SOD 5,000 UNIT/0.5 ML VIAL SQ SCH (09:45)
[2021-11-07] MEDS: FAMOTIDINE 20 MG in SYRINGE 3 ML IV SCH (09:45)
[2021-11-07] MEDS: INSULIN ASPART PER UNIT SC SCH (11:30)
[2021-11-07] MEDS: INSULIN GLARGINE SOLOSTAR 100 UNITS/ML 3 ML PEN SC SCH (11:31)
[2021-11-07] MEDS ORDERED: LACTATED RINGER'S 1,000 ML IV SCH (12:00)
--- NOTE | 2021-11-07 14:56 | Discharge Summary ---
Date of Service November 07, 2021 Admission HPI Per Admitting Provider The patient is a 76-year-old female with a past medical history including pulmonary hypertension, osteoarthritis, hypertension, insulin-dependent diabetes mellitus, hypercholesterolemia, C. difficile colitis, hypercholesterolemia, hypothyroidism, bilateral hearing loss, rectovaginal fistula, secondary hyperparathyroidism, vitamin D deficiency, history of right and left ureteral calculi, CKD, hyperlipidemia and sacroiliitis. The patient reports decreased colostomy output, and abdominal pain and distention that began acutely after eating supper this evening. She reports never having had symptoms like this sin ce undergoing her surgery. She has had some nausea and vomiting. She denies any recent travels or sick exposures. She has not any change in her eating or drinking habits over the past weeks Principal Diagnosis SBO Discharge Exam Constitutional WD/WN, vitals as above + obese, cooperative and comfortable; no acute distress Eyes + anicteric sclerae ENMT external ear and nose normal, oropharynx normal Neck trachea midline Respiratory no labored breathing Cardiovascular Rate/Rhythm: not tachycardic Gastrointestinal (Abdomen) Inspection/Auscultation: + significant pannus and + hypoactive bowel sounds; abdomen not distended Percussion/Palpation: + abdomen tender Musculoskeletal Head/Neck/Chest: normocephalic and head atraumatic Skin no rashes, warm and dry Neurologic moves all extremities Psychiatric A+Ox3, euthymic affect Discharge Data Allergies Allergy/AdvReac Type Severity Reaction Status Date / Time codeine Allergy Intermediate WHITE Verified 11/04/21 02:26 CHANGE UNDER THE SKIN-ARMS Penicillins Allergy Intermediate RASH Verified 11/04/21 02:26 sulfamethoxazole Allergy Unknown DOES NOT Verified 11/04/21 02:26 KNOW REACTION trimethoprim Allergy Unknown DOES NOT Verified 11/04/21 02:26 KNOW REACTION atorvastatin AdvReac Intermediate SHE FELT Verified 11/04/21 02:26 WEAK simvastatin AdvReac Intermediate ARMS Verified 11/04/21 02:26 SWELLING adhesive AdvReac Mild SOME Verified 11/04/21 02:26 TAPE-REDNESS, ITCHY Consultations 11/04/21 05:13 ED Decision to Admit Stat 11/06/21 19:09 Burn CD for patient Stat Ordered Studies 11/04/21 01:56 CT abd pelvis wo con Urgent CT chest diagnostic wo con Urgent 11/06/21 16:50 CT abd pelvis IV con only Stat Total Time Total Time Spent Total Time Spent (In Minutes): see attending attestation Discharge Plan Discharge Items Patient Disposition: Transfer Acute Care Hospital Reason For Visit: SBO, HYPOXIA Discharge Diagnosis: small bowel obstruction Condition on Discharge: Good Activity: Resume your previous activity Non-emergency contact: Primary Care Provider Call non-emergency contact if: your symptoms worsen Follow-up/Referrals: Ismael Pink MD [Primary Care Provider] - Diet: Carb Consistent or DM2 and Heart Healthy Ambulatory Orders: Basic Metabolic Panel (Routine) Timeframe: 2 Days Location: Determined by Patient Ordered By: Donita Terrell Attending Provider Instructions: Mrs. Talbot is a 76 yo woman with a PMHx of a partial colectomy with colostomy placement at [facility] in 2020 who presented with reduced colostomy output, abdominal pain and distention, and nausea/vomiting. SBO - CT scan of abdomen showed evidence of SBO, large parastomal hernia and chronic choledocholithiasis - likely mechanical due to adhesions vs. large parastomal hernia - NG tube placed on admission, removed 11/05/21, replaced 11/06/21 - empiric antibiotics started on admission--discontinued given clinical improvement - General surgery consulted, recommended transfer to [facility] for possible surgical intervention. However, [facility] recommended trial of conservative management with bowel prior to accepting patient - 11/06 patient had been tolerating clear liquids. Advanced to full liquids and had recurrence of pain and firmness at site of stoma. Made NPO and NGT replaced - CT A/P showed progression of SBO. - Patient to be transferred to [facility] for likely surgical intervention Leukocytosis- resolved - WBC 12.9 on admission, normalized - started on empiric abx on admission, discontinued due to low suspicion for infection on re-evaluation. Elevated MCV - MCV > 100 on CBC - B12 and folate levels checked and both normal Hyperkalemia-resolved - K at 5.4 on admission, normalized Hypertension - continue diltiazem and furosemide Insulin dependent diabetes mellitus - hold home lantus while NPO - A1c at 6.4, below goal for age - Accu-Cheks before meals and at bedtime with NovoLog coverage per scale - sugars above goal today - will hold off on altering insulin regimen as patient remains NPO, consider adjusting if sugars remain elevated with increasing PO intake Hypercholesterolemia - continue rosuvastatin and Zetia Hypothyroidism - continue levothyroxine Chronic kidney disease, stage 3 (moderate) - baseline Cr ~1.1 - 1.2 - trend BMP Diet: NPO, NGT in place Code: Full Code Dispo: Transfer to [facility] Pending Studies at Discharge: No Stand-Alone Forms: [employer], Smoking Cessation Skilled Items Patient informed of condition?: Yes DNR: No Discharge Level of Care: Other Communicable Disease: No Discharge Prognosis: Stable Lines: Peripheral IV Urinary Catheter: No Medications and DC Order Prescriptions: Continued Lantus U-100 Insulin 100 unit/mL Solution 40 unit SUBCUT HS RF: 0 diltiazem HCl 240 mg Capsule,Ext.Rel 24h Degradable 240 mg PO HS RF: 0 niacin 50 mg Tablet 50 mg PO BID RF: 0 levothyroxine [Synthroid] 50 mcg Tablet 50 mcg PO QAM RF: 0 Humalog U-100 Insulin 100 unit/mL Cartridge 1 sliding scale dose SUBCUT USEASDIRECTD RF: 0 ezetimibe [Zetia] 10 mg Tablet 10 mg PO HS RF: 0 rosuvastatin 5 mg Tablet 5 mg PO HS RF: 0 furosemide [Lasix] 40 mg tablet 40 mg PO Q2D RF: 0 calcitriol 0.25 mcg capsule 0.25 mcg PO QAM RF: 0 Co Q-10 300 mg Capsule 300 mg PO HS RF: 0 Discharge Orders: Discharge Order (Routine); Ordered 11/07/21 Ordered By: Jose Martin Cardenas Admission Data Admit Date/Time: 11/04/21 06:23 Attending Provider: Azar Bryan Admit Provider: Rick Flores Primary Care Provider: Ismael Pink Other Providers: Oliver Ha ; Rick Flores ; Donita Bonilla Supervising Physician Co-Signing Physician Notes I also saw the patient with the resident physician and confirmed martínez portions of the history and the physical examination. I agree with the impression and plan as noted in the discharge summary. Upon a.m. rounds, the patient was resting comfortably. Unfortunately, with advancing diet, she had recurrent symptoms. As noted previously, general surgery had recommended transfer to [facility] for possible surgical intervention. In discussions with [facility], recommendations were made for a trial of conservative management prior to transfer. Since this was unsuccessful, reached out to [facility] he was not able to accept the patient in transfer due to bed availability. Also reached out to [facility], he was also unable to accept the patient due to bed availability. [facility] was able to accommodate the patient accepted the patient in transfer. Exam 156/67, 87, 18, 37.1 She is pleasant. No significant distress at rest. Heart is regular, slightly tachycardic (82) Respirations nonlabored. Lungs clear Abdomen obese. She does have noted tenderness in the left lower and left lower mid quadrants (just inferior to the umbilicus). Data Sodium 137, potassium 4.7, BUN 28 creatinine 1.23 Impression and Plan Parastomal hernia with obstruction Leukocytosis, resolved Hyperkalemia, resolved Hypertension, chronic/stable Insulin-dependent diabetes CKD, stage III Morbid obesity (BMI 49.2) The patient has been accepted to [facility] given the recommendation of general surgery here and the lack of improvement with conservative management. The patient understands the necessity of the transfer, including the risks/benefits of ground transportation. I believe this is a medically indicate d transfer given that definitive care is not available at our facility. Resident Activity Tracking Resident Involvement: Resident Care Provided Care Provided: Adult Hospital Medicine
== END 2021-11-07 19:45 | disposition short-term general hospital (02) | DRG 394 ==
LOC: ED 01:34 → EDINP 06:23 → SUATTDRO 06:23 → 2N 07:39

== ENCOUNTER 2023-03-17 08:17 | Inpatient (IN) ==
--- NOTE | 2023-03-17 09:23 | Emergency Department Note ---
History of Present Illness General Chief complaint: Abnormal Labs/Diagnostic Testing Stated complaint: REF BY DOC, ABNORMAL LABS Time Seen by Provider: 03/17/23 09:03 Source: patient, family ( who is at the bedside), RN notes reviewed and old records reviewed (I have reviewed her outpatient labs) Mode of arrival: ambulatory Limitations: no limitations History of Present Illness This patient is a 77-year-old female who was sent up after having abnormal labs. Her creatinine was greater than 4. She normally has a normal creatinine. She has had these done for preoperative for a kidney stone removal on March 29. She had a CAT scan done within the last week which showed obstructive ureteral stone on the left is 5 mm she says she feels fine and has no complaints she feels she has been keeping up with her fluid she has been eating and drinking as normal no illness she has chronic back pain which she says is unchanged she denies any new lower extremity pain or swelling. No fever no chest pain or shortness of breath no fall or trauma her O2 sat is low in the 80s she says she runs 84 chronically wears oxygen mostly at night. She denies that she feels short of breath. She is asymptomatic at present Home Medications Medication Instructions Recorded Confirmed Type diltiazem HCl 240 mg 240 mg PO HS 04/22/19 03/17/23 History capsule,extended release 24 hr, controlled ezetimibe 10 mg tablet (Zetia) 10 mg PO HS 04/22/19 03/17/23 History insulin lispro 100 unit/mL 1 sliding scale dose subcut 04/22/19 03/17/23 History subcutaneous cartridge (Humalog USEASDIRECTD U-100 Insulin) levothyroxine 50 mcg tablet 50 mcg PO QAM 04/22/19 03/17/23 History (Synthroid) niacin 50 mg tablet 50 mg PO BID 04/22/19 03/17/23 History rosuvastatin 5 mg tablet 5 mg PO HS 04/22/19 03/17/23 History calcitriol 0.25 mcg capsule 0.25 mcg PO QAM 11/04/21 03/17/23 History coenzyme Q10 300 mg capsule (Co 300 mg PO HS 11/04/21 03/17/23 History Q-10) acetaminophen 650 mg 650 mg PO Q12H 03/15/22 03/17/23 History tablet,extended release (Arthritis Pain Relief (acetaminophen) ER) ferrous sulfate 325 mg (65 mg 325 mg PO DAILY 12/12/22 03/17/23 History iron) tablet,delayed release insulin glargine 100 unit/mL 40 unit subcut HS 12/12/22 03/17/23 History subcutaneous solution (Lantus U-100 Insulin) magnesium 200 mg tablet 400 mg PO DAILY 12/12/22 03/17/23 History ascorbate calcium (vitamin C) 500 500 mg PO DAILY 01/16/23 03/17/23 History mg tablet oxycodone-acetaminophen 5 mg-325 1 tab PO Q8H PRN pain #10 tabs 03/13/23 03/17/23 Rx mg tablet (Percocet) tamsulosin 0.4 mg capsule 0.4 mg PO DAILY #30 caps 03/13/23 03/17/23 Rx letrozole 2.5 mg tablet 2.5 mg PO DAILY 03/17/23 03/17/23 History Allergies Allergy/AdvReac Type Severity Reaction Status Date / Time codeine Allergy Intermediate WHITE Verified 03/15/23 14:08 CHANGE UNDER THE SKIN-ARMS Penicillins Allergy Intermediate RASH Verified 03/15/23 14:08 sulfamethoxazole Allergy Unknown DOES NOT Verified 03/15/23 14:08 KNOW REACTION trimethoprim Allergy Unknown DOES NOT Verified 03/15/23 14:08 KNOW REACTION atorvastatin AdvReac Intermediate SHE FELT Verified 03/15/23 14:08 WEAK simvastatin AdvReac Intermediate ARMS Verified 03/15/23 14:08 SWELLING adhesive AdvReac Mild SOME Verified 03/15/23 14:08 TAPE-REDNESS, ITCHY Past Med/Surg History Medical History Acute respiratory failure with hypoxia Chronic kidney disease, stage 3 (moderate) Follows with nephro Congestive heart failure Stable and euvolemic per cardio note 08/2020 Diverticulitis DM type 2 (diabetes mellitus, type 2) IDDM. Hgb A1C 6.9 in 05/2020 Dyslipidemia Hearing deficit B/L [place] HTN (hypertension) Hx of Clostridium difficile infection ~2010 (reason for bowel resection) Hyperlipidemia Hypothyroidism Ileostomy, has currently Kidney stones Osteoarthritis Pulmonary hypertension Per 08/23/20 Heart Failture clinic note- secondary from undiagnosed MYRANDA/OHS (presumed). Sacroiliitis SBO (small bowel obstruction) Seasonal allergies Surgical History H/O hernia repair History of appendectomy History of bowel resection 2010 History of breast surgery (01/02/23) Re-excision of left inferior margin of lumpectomy site Dr. Aniya Cooper History of cataract surgery Bilateral History of cholecystectomy History of colonoscopy History of cystoscopy WITH STENT History of left knee replacement History of lithotripsy ESWL History of lumpectomy of left breast (11/07/22) Dr. Aniya Cooper History of tonsillectomy History of tooth extraction History of total abdominal hysterectomy and bilateral salpingo-oophorectomy History of tubal ligation Status post laser lithotripsy of ureteral calculus Family History Mother , 75yo Diabetes Hypertension Angina pectoris, unspecified Multiple sclerosis Father , 54yo Myocardial infarction Sister Rectal cancer Lung cancer Son No problems noted. Son No problems noted. 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 Beliefs That Will Affect Care: None marital status: Current Living Situation: Spouse current occupational status: retired current occupation: From [employer] How many Children do You have: 2 Feels Safe at Home: Yes Diet: regular caffeine: No during the past year weight has: remained stable Review of Systems A total of 10 systems reviewed and were otherwise negative Physical Exam Vital Signs Vital Signs - 24 hr 03/17/23 08:26 03/17/23 09:44 03/17/23 09:44 Temperature 36.3 C L Temperature Source Temporal Artery Scan Pulse Rate 78 79 Pulse Rate [Left Finger] 83 Pulse Rhythm Regular Regular Pulse Strength Normal Respiratory Rate 20 22 16 Respiratory Effort / Characteristics Non-Labored Spontaneous Non-Labored Spontaneous Respiratory Depth Normal Normal Respiratory Pattern Regular Regular Blood Pressure 130/63 Blood Pressure [Left Arm] 149/81 H Blood Pressure Mean 85 Blood Pressure Mean [Left Arm] 103 Blood Pressure Position Sitting Blood Pressure Position [Left Arm] Sitting Pulse Oximetry 86 L 84 L 95 Oxygen Delivery Method Room Air Room Air Nasal Cannula Oxygen Flow Rate 3 Sepsis Recent Fever Within 48 Hours No Sepsis New/Unexplained Change in Mental Status No Sepsis Action Taken by Nursing No Action Required 03/17/23 11:20 03/17/23 12:30 Temperature Temperature Source Pulse Rate Pulse Rate [Left Finger] 78 80 Pulse Rhythm Pulse Strength Respiratory Rate 18 20 Respiratory Effort / Characteristics Respiratory Depth Respiratory Pattern Blood Pressure Blood Pressure [Left Arm] 167/82 H 177/78 H Blood Pressure Mean Blood Pressure Mean [Left Arm] 110 111 Blood Pressure Position Blood Pressure Position [Left Arm] Sitting Lying Pulse Oximetry 97 94 Oxygen Delivery Method Room Air Nasal Cannula Oxygen Flow Rate 3 Sepsis Recent Fever Within 48 Hours Sepsis New/Unexplained Change in Mental Status Sepsis Action Taken by Nursing General: Well developed well nourished not ill-appearing older female who appears in no acute distress, breathing comfortably on room air. Normal speech HEENT: Normal cephalic atraumatic. Pupils are equal round and reactive to lig ht. Extraocular movements are intact. Oropharynx is pink with moist mucous membranes. No swelling of the mouth lips or tongue. Neck: Supple with a midline trachea. No meningeal signs or stiffness, no JVD or bruits. No Stridor. Chest: Clear to auscultation bilaterally. No wheezes or rhonchi. No increased work of breathing. Heart: Regular rate and rhythm without murmurs or gallops. Abdomen: Soft nontender, nondistended without rebound guarding or rigidity. Extremities: No cyanosis clubbing or edema. No calf tenderness or assymetry Spine/Back. Non tender to palpation. No CVA tenderness Skin: Good turgor without rashes. Neurologic exam: Cranial nerves two through 12 are intact. Motor and sensation are intact and symmetrical throughout. Course Administered Medications Sodium Bicarbonate 150 meq/ (Dextrose) 1,150 mls @ 125 mls/hr IV .Q9H12M [facility] Stop: 04/16/23 12:29 Last Admin: 03/17/23 13:28 Dose: 125 mls/hr Documented By: JARED Discontinued Medications Cefazolin Sodium (Cefazolin 330 Mg/Ml 1 Gm Vial) 2,000 mg IV ONCE ONE; Protocol Stop: 03/17/23 15:16 Last Admin: 03/17/23 15:10 Dose: 2,000 mg Documented By: [id number] Diatrizoate Meglumine (Diatrizoate Meglumine 30% 100ml Vial) 50 ml INSTIL ONCE ONE Stop: 03/17/23 15:05 Last Admin: 03/17/23 15:17 Dose: 20 ml Documented By: [id number] Sodium Chloride (Nss) 500 mls @ 125 mls/hr IV .Q4H [facility] Stop: 04/16/23 10:59 Last Admin: 03/17/23 11:42 Dose: Not Given Documented By: JARED Parenteral Electrolytes (Plasma-Lyte A Ph 7.4) 1,000 mls @ 999 mls/hr IV .Q1H1M ONE Stop: 03/17/23 12:11 Last Admin: 03/17/23 11:42 Dose: Not Given Documented By: JARED Parenteral Electrolytes (Plasma-Lyte A Ph 7.4) 1,000 mls @ 125 mls/hr IV .Q8H [facility] Stop: 04/16/23 11:14 Last Infusion: 03/17/23 13:35 Dose: 0 mls/hr Documented By: Admin: 03/17/23 11:28 Dose: 125 mls/hr Documented By: JARED Sodium Chloride (Nss 1000ml) 250 mls @ 999 mls/hr IV .Q16M ONE Stop: 03/17/23 11:30 Last Infusion: 03/17/23 11:45 Dose: 0 mls/hr Documented By: Admin: 03/17/23 11:15 Dose: 999 mls/hr Documented By: JARED Parenteral Electrolytes (Plasma-Lyte A Ph 7.4) 1,000 mls @ 999 mls/hr IV .Q1H1M ONE Stop: 03/17/23 13:21 Last Infusion: 03/17/23 13:35 Dose: 0 mls/hr Documented By: Admin: 03/17/23 12:25 Dose: 999 mls/hr Documented By: JARED Medical Decision Making Differential Diagnosis Acute renal insufficiency/failure, electrolyte or metabolic abnormality, o bstructive uropathy, dehydration, cardiac disease, pulmonary disease, infection Medical Records Attestation: I reviewed the patient's medical records. Home Medications Current Medication List: was personally reviewed by me Laboratory Data Attestation: I reviewed the patient's lab results. 03/17/23 09:34 03/17/23 09:34 Lab Results 03/17/23 03/17/23 03/17/23 Range/Units 09:34 09:34 10:24 WBC 10.03 (4.8-10.8) K/ul RBC 3.59 L (4.20-5.40) M/uL Hgb 10.6 L (12.0-16.0) g/dl Hct 32.9 L (37.0-47.0) % MCV 91.6 (80.0-100.0) fL MCH 29.5 (25.0-34.0) pg MCHC 32.2 (32.0-36.0) g/dL RDW Std Deviation 51.6 H (36.4-46.3) fL RDW Coeff of Sreedhar 15.3 H (11.5-14.5) % Plt Count 225 (130-400) K/uL MPV 9.9 (9.4-12.4) fL Immature Gran % (Auto) 0.3 % Neut % (Auto) 78.9 % Lymph % (Auto) 9.6 % [place] % (Auto) 7.0 % Eos % (Auto) 3.8 % Baso % (Auto) 0.4 % Neut # (Auto) 7.92 H (1.40-6.50) K/uL Lymph # (Auto) 0.96 L (1.2-3.4) K/uL [place] # (Auto) 0.70 H (0.11-0.59) K/uL Eos # (Auto) 0.38 (0-0.50) K/uL Baso # (Auto) 0.04 (0-0.2) K/uL Immature Gran # (Auto) 0.03 (0.01-0.20) K/uL VBG pH (7.36-7.41) VBG pCO2 (38-50) mmHg VBG pO2 mmHg VBG HCO3 mmol/L VBG O2 Saturation % VBG Base Excess mEq/L Sodium 130 L (136-145) mmol/L Potassium 4.3 (3.5-5.1) mmol/L Chloride 104 (98-107) mmol/L Carbon Dioxide 16 L (21-32) mmol/L Anion Gap 10 (3-11) BUN 57 H (6-23) mg/dl Creatinine 4.18 H (0.6-1.2) mg/dl Est Cr Clr Drug Dosing 10.5 ml/min Est GFR ( Amer) 11.2 ml/min Est GFR (Non-Af Amer) 9.6 ml/min BUN/Creatinine Ratio 13.6 (10-20) Glucose 245 H (70-99(Fasting)) mg/dl Calcium 8.9 (8.6-10.3) mg/dl Magnesium 1.9 (1.7-2.4) mg/dl Total Bilirubin 0.3 (0.2-1.0) mg/dl AST 18 (13-39) U/L ALT 20 (7-52) U/L Alkaline Phosphatase 82 (34-104) U/L Total Protein 7.1 (6.0-8.3) gm/dl Albumin 3.6 (3.4-5.0) gm/dl Globulin 3.5 (2.5-4.0) gm/dl Albumin/Globulin Ratio 1.0 (0.9-2) Urine Color Yellow Urine Appearance Clear (Clear) Urine pH 5.5 (4.5-7.5) Ur Specific [place] 1.008 (1.000-1.030) Urine Protein 1+ H (Negative) Urine Glucose (UA) Negative (Negative) Urine Ketones Negative (Negative) Urine Blood Trace H (Negative) Urine Nitrite Negative (Negative) Urine Bilirubin Negative (Negative) Urine Urobilinogen Negative (Negative) Ur Leukocyte Esterase 1+ H (Negative) Urine WBC (Auto) 10-30 H (0-5) /hpf Urine RBC (Auto) 0-4 (0-4) /hpf U Hyaline Cast (Auto) 1-5 (0-5) /lpf U Epithel Cells (Auto) 20-30 H (0-5) /lpf Urine Bacteria (Auto) Negative (Negative) Ur Random Creatinine mg/dl U Random Total Protein (0-11.9) mg/dl Protein/Creatinin Ratio (0-0.2) SARS-CoV-2, RNA, NAAT (NEGATIVE) 03/17/23 03/17/23 03/17/23 Range/Units 10:24 11:33 11:43 WBC (4.8-10.8) K/ul RBC (4.20-5.40) M/uL Hgb (12.0-16.0) g/dl Hct (37.0-47.0) % MCV (80.0-100.0) fL MCH (25.0-34.0) pg MCHC (32.0-36.0) g/dL RDW Std Deviation (36.4-46.3) fL RDW Coeff of Sreedhar (11.5-14.5) % Plt Count (130-400) K/uL MPV (9.4-12.4) fL Immature Gran % (Auto) % Neut % (Auto) % Lymph % (Auto) % [place] % (Auto) % Eos % (Auto) % Baso % (Auto) % Neut # (Auto) (1.40-6.50) K/uL Lymph # (Auto) (1.2-3.4) K/uL [place] # (Auto) (0.11-0.59) K/uL Eos # (Auto) (0-0.50) K/uL Baso # (Auto) (0-0.2) K/uL Immature Gran # (Auto) (0.01-0.20) K/uL VBG pH 7.21 L (7.36-7.41) VBG pCO2 48 (38-50) mmHg VBG pO2 26 mmHg VBG HCO3 19 mmol/L VBG O2 Saturation < 60.0 % VBG Base Excess -8.7 mEq/L Sodium (136-145) mmol/L Potassium (3.5-5.1) mmol/L Chloride (98-107) mmol/L Carbon Dioxide (21-32) mmol/L Anion Gap (3-11) BUN (6-23) mg/dl Creatinine (0.6-1.2) mg/dl Est Cr Clr Drug Dosing ml/min Est GFR ( Amer) ml/min Est GFR (Non-Af Amer) ml/min BUN/Creatinine Ratio (10-20) Glucose (70-99(Fasting)) mg/dl Calcium (8.6-10.3) mg/dl Magnesium (1.7-2.4) mg/dl Total Bilirubin (0.2-1.0) mg/dl AST (13-39) U/L ALT (7-52) U/L Alkaline Phosphatase (34-104) U/L Total Protein (6.0-8.3) gm/dl Albumin (3.4-5.0) gm/dl Globulin (2.5-4.0) gm/dl Albumin/Globulin Ratio (0.9-2) Urine Color Urine Appearance (Clear) Urine pH (4.5-7.5) Ur Specific [place] (1.000-1.030) Urine Protein (Negative) Urine Glucose (UA) (Negative) Urine Ketones (Negative) Urine Blood (Negative) Urine Nitrite (Negative) Urine Bilirubin (Negative) Urine Urobilinogen (Negative) Ur Leukocyte Esterase (Negative) Urine WBC (Auto) (0-5) /hpf Urine RBC (Auto) (0-4) /hpf U Hyaline Cast (Auto) (0-5) /lpf U Epithel Cells (Auto) (0-5) /lpf Urine Bacteria (Auto) (Negative) Ur Random Creatinine 63.9 mg/dl U Random Total Protein 41.3 H (0-11.9) mg/dl Protein/Creatinin Ratio 0.6 H (0-0.2) SARS-CoV-2, RNA, NAAT NEGATIVE (NEGATIVE) Imaging Data Attestation: I personally reviewed and interpreted this imaging study as follows: My Impression: Chest x-raycardiomegaly but no overt CHF, no pneumonia or pneumothorax seen. Radiologist's Impression: KUB X-Ray 03/17/23 11:58 KUB HISTORY: Follow-up left ureteral stone. ureterolithiasis COMPARISON: Abdomen and pelvis CT 03/13/2023. FINDINGS: The bowel gas pattern is unremarkable. There are no dilated loops of small bowel to suggest an obstruction. The patient's known left renal stone is not clearly identified and could be obscured by the overlying bowel or left-si ded ostomy. No additional renal calculi identified. Vascular calcifications again noted within the pelvis. No pneumoperitoneum or pneumatosis. IMPRESSION: The patient's known left renal stone is not clearly identified and could be obscured by the overlying bowel or left-sided ostomy. ACT 112: Negative or not required by law. Electronically signed by: Chase Buchanan M.D. 03/17/2023 1:10 PM Chest X-Ray 03/17/23 12:06 XR chest 1V portable HISTORY: hypoxia COMPARISON: Chest 03/15/2023. FINDINGS: No pneumothorax. No pleural effusions. Left basilar linear densities favor subsegmental atelectasis or scarring. The heart remains enlarged. There is mild central pulmonary vascular congestion without overt edema. No new focal lung consolidations to suggest a pneumonia. There are calcifications within the aortic knob. IMPRESSION: Mild cardiomegaly with mild congestive change. This is similar to the prior study. ACT 112: Negative or not required by law. Electronically signed by: Chase Buchanan M.D. 03/17/2023 1:08 PM ECG Data Attestation: I personally reviewed and interpreted this ECG as follows: Indication: + weakness Rate (beats per minute): 83 Rhythm: + normal sinus ECG Intervals/blocks: + Normal QRS, + Normal QT and + Normal DC ECG Hope: + Normal ECG ST segments: + Normal ST segments ECG Findings: no PACs or no PVCs Comparison ECG Date: from (11/04/21) Change: no significant change MDM Narrative This patient comes in as described above she has abnormal labs. She had a recent CAT scan which shows obstructive uropathy due to stone on the left. She is asymptomatic otherwise. IV access was established, blood work was obtained EKG was obtained. She was reassessed frequently. I rechecked her labs her creatinine remains elevated at 4.18. She has no significant electrolyte or metabolic abnormalities. chest x-ray does not show overt CHF. EKG was unremarkable. She was gently hydrated with IV normal saline. given her significant medical problems, I did not feel she needed large boluses as is worried about fluid overload. I did consult Dr. Oliver Ha and discussed the case with him he recommended that we talk to Dr. Silva from urology. Dr. Silva reviewed the case and he will likely take her to the operating room for stent. Dr. Ha and the [facility] hospitalist will help manage her in the hospital as well. She was admitted for further treatment and evaluation. When she came in she was hypoxemic in the 80s although denies any respiratory symptoms and says this is typical for her she was placed on oxygen has been stable with this. Continuous cardiac monitoring: Orders placed in EMR for continuous cardiac monitoring: Upon my evaluation patient was noted to be in normal sinus rhythm with a rate of 80 Impression & Plan Acute renal failure, Calculus of left ureter, Lab test negative for COVID-19 virus, Pulmonary hypertension, Hypoxemia Discharge Plan Visit Data Chief Complaint: Abnormal Labs/Diagnostic Testing Stated Complaint: REF BY DOC, ABNORMAL LABS ED Provider: Efren Perea Discharge Problem: Acute renal failure, Calculus of left ureter, Lab test negative for COVID-19 virus, Pulmonary hypertension, Hypoxemia Patient Disposition: Admitted As Inpatient Discharge Instructions Interventions: ED Discharge Assessment Last Done: 03/17/23 13:34
[2023-03-17 10:07] LABS: Basophils # (auto) 0.04 K/uL (0-0.2); Basophils % (auto) 0.4 %; Eosinophils # (auto) 0.38 K/uL (0-0.50); Eosinophils % (auto) 3.8 %; Hematocrit (blood only) 32.9 % (37.0-47.0); Hemoglobin 10.6 g/dl (12.0-16.0); Immature Granulocytes # (auto) 0.03 K/uL (0.01-0.20); Immature Granulocytes % (auto) 0.3 %; Lymphocytes # (auto) 0.96 K/uL (1.2-3.4); Lymphocytes % (auto) 9.6 %; Mean Corpuscular Hemoglobin 29.5 pg (25.0-34.0); Mean Corpuscular Hgb Conc 32.2 g/dL (32.0-36.0); Mean Corpuscular Volume 91.6 fL (80.0-100.0); Mean Platelet Volume 9.9 fL (9.4-12.4); Neutrophils # (auto) 7.92 K/uL (1.40-6.50); Neutrophils % (auto) 78.9 %; Platelet Count 225 K/uL (130-400); RDW Coefficient of Variation 15.3 % (11.5-14.5); RDW Standard Deviation 51.6 fL (36.4-46.3); Red Blood Count 3.59 M/uL (4.20-5.40); White Blood Count 10.03 K/ul (4.8-10.8)
[2023-03-17 10:15] LABS: Albumin Level 3.6 gm/dl (3.4-5.0); BUN Creatinine Ratio 13.6 (10-20); Bilirubin,Total 0.3 mg/dl (0.2-1.0); Calcium 8.9 mg/dl (8.6-10.3); Creatinine Clr Calc Pharmacy 10.5 ml/min; Est GFR (African American) 11.2 ml/min; Est GFR (Non-African American) 9.6 ml/min; Globulin 3.5 gm/dl (2.5-4.0); Potassium 4.3 mmol/L (3.5-5.1); Total Protein 7.1 gm/dl (6.0-8.3)
[2023-03-17 10:43] LABS: Appearance Urine Clear (Clear); Bacteria Urine Automated Negative (Negative); Bilirubin Urine Negative (Negative); Blood Urine Trace (Negative); Color Urine Yellow; Epithelial Cell Urine Auto 20-30 /lpf (0-5); Glucose Urine UA Negative (Negative); Ketones Urine Negative (Negative); Leukocyte Esterase Urine 1+ (Negative); Nitrite Urine Negative (Negative); Protein Urine 1+ (Negative); RBC Urine Automated 0-4 /hpf (0-4); Specific Gravity Urine 1.008 (1.000-1.030); Urobilinogen Urine Negative (Negative); pH Urine 5.5 (4.5-7.5)
[2023-03-17] MEDS ORDERED: SODIUM CHLORIDE 0.9% 500 ML IV SCH (11:00)
[2023-03-17] MEDS ORDERED: PLASMA-LYTE A 1,000 ML IV ONE ×2 (11:11→12:21)
[2023-03-17] MEDS ORDERED: PLASMA-LYTE A 1,000 ML IV SCH (11:15)
[2023-03-17] MEDS ORDERED: SODIUM CHLORIDE 0.9% 1000ML 250 ML IV ONE (11:15)
[2023-03-17 11:51] LABS: Base Excess VBG -8.7 mEq/L; HCO3 VBG 19 mmol/L; Oxygen Saturation VBG < 60.0 %; PCO2 VBG 48 mmHg (38-50); PO2 VBG 26 mmHg; pH VBG 7.21 (7.36-7.41)
--- NOTE | 2023-03-17 12:00 | History & Physical Report ---
Date of Service March 17, 2023 Assessment & Plan (1) LANDON (acute kidney injury): Plan: Presumed obstructive uropathy although only comparison lab test is from January 2022. Consult urology She does not appear to be significantly hypovolemic however will support post obstructive diuresis with Normasol 1L bolus now then sodium bicarb due to NAGMA, switch to LR as bicarb resolves Monitor for worsening respiratory status given history of diastolic heart failure and current hypoxia Protein/Cr ratio 0.6 - appears stable. Will defer nephrology consult unless she does not return to her baseline Cr. Strict I&Os as will need to match her output with IV fluids Daily weights (2) Calculus of left ureter: Plan: Consult urology as above. UA does not appear infected (3) Hypoxemia: Plan: Aim O2 sats > 90%. Usually on 3LPM O2 at night and occasionally during the day. Suspect just from poor inspiratory effort with current illness. Continue to monitor closely with IV fluids as above. (4) Hypertension: Plan: Continue diltiazem (5) Hypercholesterolemia: (6) Hypothyroidism: Plan: TSH 2.45 in Oct 2021, will repeat with AM labs Continue levothyroxine (7) Type 2 diabetes mellitus: Plan: HbA1C 6.4 in Oct 2021 Usual home dose Lantus 40 units SQ Novolog based on basal dosing as above: --Goal BSG Range: Low 110 mg/dL, High 140 mg/dL --Correction Factor: 20 mg/dL/unit --Carbohydrate ratio = 7 g/unit --BSGs ACHS if eating, q6h if npo Consult pharmacy for ongoing glycemic control (8) Metabolic acidosis with normal anion gap and bicarbonate losses: Plan VTE Prophylaxis - start heparin 5000 units SQ BID post operatively Diet - NPO Disposition - admit to med/tele Admission and Anticipated Discharge Date Admission Date: March 17, 2023 History of Present Illness Chief Complaint: Abnormal outpatient labs Primary Care Provider: Ismael Pink MD Aniya Talbot is a 77 year old female who presents to the ER due to LANDON on outpatient labs. She has a known obstructive proximal left ureteral stone 5mm causing hydronephrosis on prior CT performed by urology on March 13. This was taken after she started complaining of left sided abdominal and flank pain starting on March 10. However today she reports as the first day as not having pain. She denies any dysuria, urinary frequency, change in color or smell. Plan was to have lithitripsy performed on March 29 however pre-operative labs were concerning for acute kidney injury therefore she was sent to the ER. She reports eating and drinking well with no significant recent change to her colostomy output. She has a significant history of abscess surrounding her colostomy last year but reports no recent problems. 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 Last Cr 1.12 in January 2022 (this was following her abscess hospitalization in December 2021). She reports possibly h aving labs 3 months ago from her oncologist that were normal but those are not available on admission. In the ER she is currently requiring 2-3LPM O2 to maintain O2 sats > 90%. She reports using oxygen usually only at night at 3LPM O2 but usually does not require it during the day. She denies any respiratory symptoms. Allergies Allergy/AdvReac Type Severity Reaction Status Date / Time codeine Allergy Intermediate WHITE Verified 03/15/23 14:08 CHANGE UNDER THE SKIN-ARMS Penicillins Allergy Intermediate RASH Verified 03/15/23 14:08 sulfamethoxazole Allergy Unknown DOES NOT Verified 03/15/23 14:08 KNOW REACTION trimethoprim Allergy Unknown DOES NOT Verified 03/15/23 14:08 KNOW REACTION atorvastatin AdvReac Intermediate SHE FELT Verified 03/15/23 14:08 WEAK simvastatin AdvReac Intermediate ARMS Verified 03/15/23 14:08 SWELLING adhesive AdvReac Mild SOME Verified 03/15/23 14:08 TAPE-REDNESS, ITCHY Home Medications Medication Instructions Recorded Confirmed Type diltiazem HCl 240 mg 240 mg PO HS 04/22/19 03/17/23 History capsule,extended release 24 hr, controlled ezetimibe 10 mg tablet (Zetia) 10 mg PO HS 04/22/19 03/17/23 History insulin lispro 100 unit/mL 1 sliding scale dose subcut 04/22/19 03/17/23 History subcutaneous cartridge (Humalog USEASDIRECTD U-100 Insulin) levothyroxine 50 mcg tablet 50 mcg PO QAM 04/22/19 03/17/23 History (Synthroid) niacin 50 mg tablet 50 mg PO BID 04/22/19 03/17/23 History rosuvastatin 5 mg tablet 5 mg PO HS 04/22/19 03/17/23 History calcitriol 0.25 mcg capsule 0.25 mcg PO QAM 11/04/21 03/17/23 History coenzyme Q10 300 mg capsule (Co 300 mg PO HS 11/04/21 03/17/23 History Q-10) acetaminophen 650 mg 650 mg PO Q12H 03/15/22 03/17/23 History tablet,extended release (Arthritis Pain Relief (acetaminophen) ER) ferrous sulfate 325 mg (65 mg 325 mg PO DAILY 12/12/22 03/17/23 History iron) tablet,delayed release insulin glargine 100 unit/mL 40 unit subcut HS 12/12/22 03/17/23 History subcutaneous solution (Lantus U-100 Insulin) magnesium 200 mg tablet 400 mg PO DAILY 12/12/22 03/17/23 History ascorbate calcium (vitamin C) 500 500 mg PO DAILY 01/16/23 03/17/23 History mg tablet oxycodone-acetaminophen 5 mg-325 1 tab PO Q8H PRN pain #10 tabs 03/13/23 03/17/23 Rx mg tablet (Percocet) tamsulosin 0.4 mg capsule 0.4 mg PO DAILY #30 caps 03/13/23 03/17/23 Rx letrozole 2.5 mg tablet 2.5 mg PO DAILY 03/17/23 03/17/23 History Past Med/Surg History Medical History Acute respiratory failure with hypoxia Chronic kidney disease, stage 3 (moderate) Follows with nephro Congestive heart failure Stable and euvolemic per cardio note 08/2020 Diverticulitis DM type 2 (diabetes mellitus, type 2) IDDM. Hgb A1C 6.9 in 05/2020 Dyslipidemia Hearing deficit B/L MOROCHO HTN (hypertension) Hx of Clostridium difficile infection ~2010 (reason for bowel resection) Hyperlipidemia Hypothyroidism Ileostomy, has currently Kidney stones Osteoarthritis Pulmonary hypertension Per 08/23/20 Heart Failture clinic note- secondary from undiagnosed MYRANDA/OHS (presumed). Sacroiliitis SBO (small bowel obstruction) Seasonal allergies Surgical History H/O hernia repair History of appendectomy History of bowel resection 2010 History of breast surgery (01/02/23) Re-excision of left inferior margin of lumpectomy site Dr. Aniya Cooper History of cataract surgery Bilateral History of cholecystectomy History of colonoscopy History of cystoscopy WITH STENT History of left knee replacement History of lithotripsy ESWL History of lumpectomy of left breast (11/07/22) Dr. Aniya Cooper History of tonsillectomy History of tooth extraction History of total abdominal hysterectomy and bilateral salpingo-oophorectomy History of tubal ligation Status post laser lithotripsy of ureteral calculus Family History Mother , 75yo Diabetes Hypertension Angina pectoris, unspecified Multiple sclerosis Father , 54yo Myocardial infarction Sister Rectal cancer Lung cancer Son No problems noted. Son No problems noted. Family/Other Breast cancer Maternal aunt Other No family history of adverse response to anesthesia No family history of bleeding disorder Denies family history of Cystic kidney disease Social History Smoking Status: Never smoker Tobacco Type: Cigarettes Age Started Using Tobacco: 12; Age Quit Using Tobacco: 20; Cigarettes Per Day: Sneak smoking;; Second Hand Exposure: No; Do You Dip or Chew Tobacco: No; Hx Alcohol Use: No Hx Substance Use: No Preferred Language: Fijian Communication Ability: Effective Visual Impairment: No Limitations Hearing Ability: Hard of Hearing Rn Bariatric Required: No Beliefs That Will Affect Care: None marital status: Current Living Situation: Spouse current occupational status: retired current occupation: From [employer] How many Children do You have: 2 Feels Safe at Home: Yes Diet: regular caffeine: No during the past year weight has: remained stable Assistive Devices: None, Cane and Walker Review of Systems Review of Systems: All systems reviewed & are unremarkable except as noted in HPI & below Physical Exam Constitutional: WD/WN, vitals as above + morbidly obese Eyes: PERRL, conjunctivae normal, anicteric sclerae Respiratory: normal respiratory effort, lungs clear to auscultation Cardiovascular: Rate/Rhythm: regular rate and regular rhythm Heart Sounds: no murmur Extremities: normal capillary refill and + pedal edema (trace pitting equal b/l); no calf tenderness Gastrointestinal (Abdomen): normal bowel sounds, soft, nontender, no hepatosplenomegaly Colostomy present with brown liquid/solid output Musculoskeletal: no cyanosis or clubbing, extremities motor strength 5/5 Skin: no rashes, warm and dry Neurologic: moves all extremities and awake; not confused Psychiatric: A+Ox3, euthymic affect Genitourinary: no CVA tenderness Results & Data Results & Data Vital Signs (Past 12 Hours) Vital Signs Temp Pulse Pulse Resp BP BP Pulse Ox 03/17/23 11:20 78 18 167/82 H 97 03/17/23 09:44 79 16 95 03/17/23 09:44 83 22 149/81 H 84 L 03/17/23 08:26 36.3 C L 78 20 130/63 86 L O2 Del Method O2 Flow Rate 03/17/23 11:20 Room Air 03/17/23 09:44 Nasal Cannula 3 03/17/23 09:44 Room Air 03/17/23 08:26 Room Air Laboratory Results Abnormal lab results 03/17/23 03/17/23 03/17/23 Range/Units 09:34 09:34 10:24 RBC 3.59 L (4.20-5.40) M/uL Hgb 10.6 L (12.0-16.0) g/dl Hct 32.9 L (37.0-47.0) % RDW Std Deviation 51.6 H (36.4-46.3) fL RDW Coeff of Sreedhar 15.3 H (11.5-14.5) % Neut # (Auto) 7.92 H (1.40-6.50) K/uL Lymph # (Auto) 0.96 L (1.2-3.4) K/uL Lincoln # (Auto) 0.70 H (0.11-0.59) K/uL VBG pH (7.36-7.41) Sodium 130 L (136-145) mmol/L Carbon Dioxide 16 L (21-32) mmol/L BUN 57 H (6-23) mg/dl Creatinine 4.18 H (0.6-1.2) mg/dl Glucose 245 H (70-99(Fasting)) mg/dl Urine Protein 1+ H (Negative) Urine Blood Trace H (Negative) Ur Leukocyte Esterase 1+ H (Negative) Urine WBC (Auto) 10-30 H (0-5) /hpf U Epithel Cells (Auto) 20-30 H (0-5) /lpf 03/17/23 Range/Units 11:43 RBC (4.20-5.40) M/uL Hgb (12.0-16.0) g/dl Hct (37.0-47.0) % RDW Std Deviation (36.4-46.3) fL RDW Coeff of Sreedhar (11.5-14.5) % Neut # (Auto) (1.40-6.50) K/uL Lymph # (Auto) (1.2-3.4) K/uL [place] # (Auto) (0.11-0.59) K/uL VBG pH 7.21 L (7.36-7.41) Sodium (136-145) mmol/L Carbon Dioxide (21-32) mmol/L BUN (6-23) mg/dl Creatinine (0.6-1.2) mg/dl Glucose (70-99(Fasting)) mg/dl Urine Protein (Negative) Urine Blood (Negative) Ur Leukocyte Esterase (Negative) Urine WBC (Auto) (0-5) /hpf U Epithel Cells (Auto) (0-5) /lpf Diagnostic Findings None Medications Administered ER Medications Given: NSS @ 125ml/hr (discontinued prior to being given NSS 250ml bolus ECG Rate (beats per minute): 83 Rhythm: normal sinus Findings: + LAFB Comparison ECG Date: from (Nov 04, 2021) Change: no significant change Code Status & VTE Plan Code Status Full VTE Prophylaxis Plan VTE Prophylaxis will be ordered: Yes PG Care Time/CCT Total # of Minutes Spent Total Time Spent with Patient: Total time spent is greater than 50% in coordination of care (as documented) at patient's floor/unit and/or counseling patient: Coding Level of Care Code 84756 INT INP/OBS CARE 3/75MIN Diagnoses LANDON (acute kidney injury) N17.9 Calculus of left ureter N20.1 Hypoxemia R09.02 Hypertension I10 Hypercholesterolemia E78.00 Hypothyroidism E03.9 Type 2 diabetes mellitus E11.9 Metabolic acidosis with normal anion gap and bicarbonate losses E87.20
[2023-03-17] MEDS ORDERED: STAT IV STA (12:21)
[2023-03-17] MEDS ORDERED: SODIUM BICARBONATE 8.4% 150 MEQ in DEXTROSE 5% 1,000 ML IV SCH (12:30)
[2023-03-17 13:07] LABS: Magnesium 1.9 mg/dl (1.7-2.4)
--- NOTE | 2023-03-17 13:09 | XRay Report ---
XR chest 1V portable HISTORY: hypoxia COMPARISON: Chest 03/15/2023. FINDINGS: No pneumothorax. No pleural effusions. Left basilar linear densities favor subsegmental ate lectasis or scarring. The heart remains enlarged. There is mild central pulmonary vascular congestion without overt edema. No new focal lung consolidations to suggest a pneumonia. There are calcificatio ns within the aortic knob. IMPRESSION: Mild cardiomegaly with mild congestive change. This is similar to the prior study. ACT 112: Negative or not required by law. Electronically signed by: Chase Buchanan M.D. 03/17/2023 1:08 PM
--- NOTE | 2023-03-17 13:11 | XRay Report ---
KUB HISTORY: Follow-up left ureteral stone. ureterolithiasis COMPARISON: Abdomen and pelvis CT 03/13/2023. FINDINGS: The bowel gas pattern is unremarkable. There are no dilated loops of small bowel to suggest an obstruction. The patient's known left renal stone is not clearly identified and could be obscure d by the overlying bowel or left-sided ostomy. No additional renal calculi identified. Vascular calci fications again noted within the pelvis. No pneumoperitoneum or pneumatosis. IMPRESSION: The patient's known left renal stone is not clearly identified and could be obscured by the overlying bowel or left-sided ostomy. ACT 112: Negative or not required by law. Electronically signed by: Chase Buchanan M.D. 03/17/2023 1:10 PM
[2023-03-17 13:30] LABS: Total Protein Urine Random 41.3 mg/dl (0-11.9)
--- NOTE | 2023-03-17 13:30 | Urology Consultation ---
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 Patient had significant elevation in creatinine at home. Had known about the stone and was planning to undergo monitoring during work-up found to have a significant elevation of the creatinine. On repeat assessment today in the ER patient found to have only mild improvement with oral hydration. Patient is being admitted for close monitoring and supportive care including IV hydration. Due to worsening LANDON with chronic kidney disease and considerable comorbidities had discussed different options. White count was 10.03. Most recent creatinine is 4.18. Hemoglobin 10.6. All other labs are reviewed pertinent values in the HPI Patient's imaging was reviewed interpreted by myself. Obstructing stone on the left with hydronephrosis. Likely right cyst. Patient is undergoing treatment for her cancer. Had significant history of CKD at baseline. Discussed extensively with patient and family different options including observation and support. Discussed with patient's obstructing stone and possible issues. Discussed need for drainage in order to improve renal function over time. Discussed possibility of nephrotoxic drugs increasing the severity of LANDON. Discussed options and alternatives including intervention. Reviewed extensively. Multiple questions answered. Patient's complicated medical and surgical history was reviewed and summarized above. All imaging was reviewed interpreted by myself. All labs reviewed with pertinent values in the HPI and plan section. We will plan to monitor closely patient and family are agreeable to move forward with intervention. We will plan to assess bilaterally with likely plans for stent placement. Patient was agreeable. Risks and benefits discussed at length for procedure. These include bleeding, infection, injury to surrounding tissues or organs, and risks associated with anesthesia. Patient states understanding and agrees to proceed. Will sign consent and proceed. Plan for cystoscopy with possible bilateral retrograde pyelograms and stent History of Present Illness History of Present Illness New consultation for patient with stone, discomfort, obstruction, and ill feelings. Patient developed sudden onset of pain into flank going down and radiating into groin and back in waves comes and goes. Can be severe at times. Patient has been going outpatient work-up and found to have the obstructing stone. During work-up with lab work found to have severe LANDON. Patient had attempted hydration at home but developed worsening issues and was seen in the ER today. Found to have only mild improvement of LANDON now down to 4.18. Patient's vitals were reviewed. Blood pressure 177/78 pulse 80 temp 36.3 no signs of fever. Patient is on 3 L nasal cannula. Has baseline respiratory issues. Discussed and reviewed patient's family history for any history of stone disease. Also, discussed patient's medical surgery history especially related to any history of urinary issues or stone disease. Patient was admitted and is undergoing observation. Allergies Allergy/AdvReac Type Severity Reaction Status Date / Time codeine Allergy Intermediate WHITE Verified 03/15/23 14:08 CHANGE UNDER THE SKIN-ARMS Penicillins Allergy Intermediate RASH Verified 03/15/23 14:08 sulfamethoxazole Allergy Unknown DOES NOT Verified 03/15/23 14:08 KNOW REACTION trimethoprim Allergy Unknown DOES NOT Verified 03/15/23 14:08 KNOW REACTION atorvastatin AdvReac Intermediate SHE FELT Verified 03/15/23 14:08 WEAK simvastatin AdvReac Intermediate ARMS Verified 03/15/23 14:08 SWELLING adhesive AdvReac Mild SOME Verified 03/15/23 14:08 TAPE-REDNESS, ITCHY Home Medications Medication Instructions Recorded Confirmed Type diltiazem HCl 240 mg 240 mg PO HS 04/22/19 03/17/23 History capsule,extended release 24 hr, controlled ezetimibe 10 mg tablet (Zetia) 10 mg PO HS 04/22/19 03/17/23 History insulin lispro 100 unit/mL 1 sliding scale dose subcut 04/22/19 03/17/23 History subcutaneous cartridge (Humalog USEASDIRECTD U-100 Insulin) levothyroxine 50 mcg tablet 50 mcg PO QAM 04/22/19 03/17/23 History (Synthroid) niacin 50 mg tablet 50 mg PO BID 04/22/19 03/17/23 History rosuvastatin 5 mg tablet 5 mg PO HS 04/22/19 03/17/23 History calcitriol 0.25 mcg capsule 0.25 mcg PO QAM 11/04/21 03/17/23 History coenzyme Q10 300 mg capsule (Co 300 mg PO HS 11/04/21 03/17/23 History Q-10) acetaminophen 650 mg 650 mg PO Q12H 03/15/22 03/17/23 History tablet,extended release (Arthritis Pain Relief (acetaminophen) ER) ferrous sulfate 325 mg (65 mg 325 mg PO DAILY 12/12/22 03/17/23 History iron) tablet,delayed release insulin glargine 100 unit/mL 40 unit subcut HS 12/12/22 03/17/23 History subcutaneous solution (Lantus U-100 Insulin) magnesium 200 mg tablet 400 mg PO DAILY 12/12/22 03/17/23 History ascorbate calcium (vitamin C) 500 500 mg PO DAILY 01/16/23 03/17/23 History mg tablet oxycodone-acetaminophen 5 mg-325 1 tab PO Q8H PRN pain #10 tabs 03/13/23 03/17/23 Rx mg tablet (Percocet) tamsulosin 0.4 mg capsule 0.4 mg PO DAILY #30 caps 03/13/23 03/17/23 Rx letrozole 2.5 mg tablet 2.5 mg PO DAILY 03/17/23 03/17/23 History Patient History Medical History Acute respiratory failure with hypoxia Chronic kidney disease, stage 3 (moderate) Follows with nephro Congestive heart failure Stable and euvolemic per cardio note 08/2020 Diverticulitis DM type 2 (diabetes mellitus, type 2) IDDM. Hgb A1C 6.9 in 05/2020 Dyslipidemia Hearing deficit B/L MOROCHO HTN (hypertension) Hx of Clostridium difficile infection ~2010 (reason for bowel resection) Hyperlipidemia Hypothyroidism Ileostomy, has currently Kidney stones Osteoarthritis Pulmonary hypertension Per 08/23/20 Heart Failture clinic note- secondary from undiagnosed MYRANDA/OHS (presumed). Sacroiliitis SBO (small bowel obstruction) Seasonal allergies Surgical History H/O hernia repair History of appendectomy History of bowel resection 2010 History of breast surgery (01/02/23) Re-excision of left inferior margin of lumpectomy site Dr. Aniya Cooper History of cataract surgery Bilateral History of cholecystectomy History of colonoscopy History of cystoscopy WITH STENT History of left knee replacement History of lithotripsy ESWL History of lumpectomy of left breast (11/07/22) Dr. Aniya Cooper History of tonsillectomy History of tooth extraction History of total abdominal hysterectomy and bilateral salpingo-oophorectomy History of tubal ligation Status post laser lithotripsy of ureteral calculus Family History Mother , 75yo Diabetes Hypertension Angina pectoris, unspecified Multiple sclerosis Father , 54yo Myocardial infarction Sister Rectal cancer Lung cancer Son No problems noted. Son No problems noted. Family/Other Breast cancer Maternal aunt Other No family history of adverse response to anesthesia No family history of bleeding disorder Denies family history of Cystic kidney disease Social History Smoking Status: Former smoker Tobacco Type: Cigarettes Age Started Using Tobacco: 12; Age Quit Using Tobacco: 20; Cigarettes Per Day: Sneak smoking;; Second Hand Exposure: No; Do You Dip or Chew Tobacco: No; Hx Alcohol Use: No Hx Substance Use: No Preferred Language: Armenian Communication Ability: Effective Visual Impairment: No Limitations Hearing Ability: Hard of Hearing Level Vial Inside Grinder Required: No Beliefs That Will Affect Care: None marital status: Current Living Situation: Spouse current occupational status: retired current occupation: From [employer] How many Children do You have: 2 Feels Safe at Home: Yes Diet: regular caffeine: No during the past year weight has: remained stable Review of Systems Review of Systems: All systems reviewed & are unremarkable except as noted in HPI & below Physical Exam Physical Exam: General: Alert and oriented x 3 in no acute distress. Advanced age HEENT: Normocephalic Atraumatic. Inspection normal. Cranial Nerves 2-12 Grossly intact. Nares are clear. Neck is supple. Normal inspection of face. Normal inspection of neck. Neurologic: No deficits on inspection. Baseline for motor function and sensory. Psychologic: Normal affect. Respiratory: Nonlabored. No use of accessory muscles. No tachypnea or dyspnea. Cardiovascular: No tachycardia Skin: [place] and Dry. No rashes or visible lesions. Extremities: Moving without issues. No motor deficits on inspection Lymphatics: No edema Abdomen: Soft Non-distended. No rebound or guarding. Results & Data Vital Signs (Past 12 Hours) Vital Signs Temp Pulse Pulse Resp BP BP Pulse Ox 03/17/23 12:30 80 20 177/78 H 94 03/17/23 11:20 78 18 167/82 H 97 03/17/23 09:44 79 16 95 03/17/23 09:44 83 22 149/81 H 84 L 03/17/23 08:26 36.3 C L 78 20 130/63 86 L O2 Del Method O2 Flow Rate 03/17/23 12:30 Nasal Cannula 3 03/17/23 11:20 Room Air 03/17/23 09:44 Nasal Cannula 3 03/17/23 09:44 Room Air 03/17/23 08:26 Room Air PG Care Time/CCT Total # of Minutes Spent Total Time Spent with Patient: Total time spent is greater than 50% in coordination of care (as documented) at patient's floor/unit and/or counseling patient: Coding Level of Care Code 59184 INT INP/OBS CARE MIN Diagnoses LANDON (acute kidney injury) N17.9 Left flank pain R10.9 Neoplasm of left breast, primary tumor staging category Tis: ductal carcinoma in situ (DCIS) D05.12 Parastomal hernia K43.5 Pulmonary hypertension I27.20 Secondary hyperparathyroidism N25.81 Type 2 diabetes mellitus E11.9 Acute diastolic (congestive) heart failure I50.31 Chronic kidney disease, stage 3 (moderate) N18.30 Chronic kidney disease stage 3 subtype: unspecified whether 3a or 3b (9) Chronic kidney disease, stage 3 (moderate) Chronic kidney disease stage 3 subtype: unspecified whether 3a or 3b Qualified Code(s): N18.30 - Chronic kidney disease, stage 3 unspecified
[2023-03-17 13:35] LABS: Creatinine Urine Random 63.9 mg/dl; Protein Creatinine Ratio Urine 0.6 (0-0.2)
[2023-03-17] MEDS ORDERED: KETAMINE 50 MG/5 ML SYRINGE ONE (14:42)
[2023-03-17] MEDS ORDERED: MIDAZOLAM HCL 1 MG/ML 2ML VIAL ONE (14:42)
[2023-03-17] MEDS ORDERED: fentaNYL citrate PF 100 MCG/2 ML VIAL ONE (14:42)
[2023-03-17] MEDS ORDERED: DIATRIZOATE MEGLUMINE 30% 100ML VIAL INSTIL ONE (15:04)
[2023-03-17] MEDS ORDERED: ceFAZolin 330 MG/ML 1 GM VIAL IV ONE (15:15)
[2023-03-17] MEDS ORDERED: PROPOFOL IV EMULSION 10 MG/ML 20 ML VIAL IV ONE (15:21)
--- NOTE | 2023-03-17 15:32 | Operative Report ---
PG Post Operative Report Pre & Post Diagnosis Operation Date: 03/17/23 14:00 Pre-Op Diagnosis: Left obstructing stone Post-Op Diagnosis: Left obstructing stone I identified the patient and participated in the time-out.: Yes Procedure Operation Date: 03/17/23 14:00 Actual Procedures p Cystoscopy with bilateral Retrograde Pyelogram and Left Ureteral Stent I nsertion(Not Applicable) - Solomon Silva, Surgeon Solomon Silva, II, DO Digital Production Artist None Estimated Blood Loss 1 Findings Consistent with Post-Op Diagnosis Stent placed in good position. Specimens None Drains 7 Fr x 24 on Left Anesthesia Type MAC Complications none Disposition Disposition: Recovery Room Indications Patient with obstruction. Risks and benefits discussed at length. Description of Procedure Patient was consented and brought back to the operating room. Patient was placed under anesthesia in the supine position and moved to the dorsal lithotomy position. Patient was prepped and draped in the regular sterile fashion. A time out was completed. A 30degree Cystoscope was placed into the bladder and the entire bladder was examined. The UO's were identified. The UO was cannulized with a catheter and a retrograde pyelogram was completed. The right was clear but the left had considerable obstruction. A wire was then placed on the left. With the wire in place, a 7 Fr Double J stent was placed. It was confirmed with fluoroscopy. With the stent in place, the bladder was emptied. The scope was removed. The patient was cleaned, aroused from anesthesia, and transferred to the pacu in stable condition having tolerated the procedure well with no complications. I was present and participated in all aspects of the procedure. The patient will be monitored in the PACU until transferred. Admitted to Hospitalist for acute renal failure. Will monitor labs and plan stone treatment in few weeks as long as LANDON improves. I attest to the content of the Intraoperative Record and any orders documented therein. Any exceptions are noted below.
--- NOTE | 2023-03-17 15:54 | Fluoroscopy Report ---
FL retrograde includes kub CLINICAL HISTORY: B/L STENTS COMPARISON STUDY: None. FLUOROSCOPY TIME: 22 seconds. FLUOROSCOPY IMAGES: 4 Ka,r: 10.0 mGy FINDINGS: Retrograde opacification of bilateral renal collecting systems followed by placement of a l eft ureteral stent. The ureteral stent appears in good position. IMPRESSION: Fluoroscopic assistance as above. ACT 112: Negative or not required by law. Electronically signed by: Chase Buchanan M.D. 03/17/2023 3:52 PM
[2023-03-17] MEDS ORDERED: GLUCOSE 10 TAB/TUBE PO PRN (16:54)
[2023-03-17] MEDS ORDERED: GLUCAGON FOR INJ 1 MG VIAL SQ PRN (16:54)
[2023-03-17] MEDS ORDERED: ACETAMINOPHEN 325 MG TAB PO PRN (16:54)
[2023-03-17] MEDS ORDERED: GLUCOSE 40% GEL 15 GM TUBE PO PRN (16:54)
[2023-03-17] MEDS ORDERED: CARBOHYDRATES FOR HYPOGLYCEMIA PO PRN (16:54)
[2023-03-17] MEDS ORDERED: ONDANSETRON INJ 2 MG/ML 2 ML VIAL IV PRN (16:54)
[2023-03-17] MEDS ORDERED: PHARMACY GLYCEMIC MGMT CONSULT PRN (16:54)
[2023-03-17] MEDS ORDERED: DEXTROSE 50% 50 ML SYRINGE IV PRN (16:54)
[2023-03-17] MEDS ORDERED: LANTUS PER UNIT CHARGE SC ONE (18:00)
[2023-03-17] MEDS: INSULIN ASPART PER UNIT CHARGE SC SCH ×2 (18:02→21:42)
[2023-03-17 18:39] LABS: BUN Creatinine Ratio 14.7 (10-20); Calcium 8.8 mg/dl (8.6-10.3); Creatinine Clr Calc Pharmacy 11.8 ml/min; Est GFR (African American) 12.8 ml/min; Est GFR (Non-African American) 11.1 ml/min; Potassium 3.8 mmol/L (3.5-5.1)
[2023-03-17] MEDS: dilTIAZem HCL 240 MG CAPCR PO SCH (21:42)
[2023-03-17] MEDS: EZETIMIBE 10 MG TABLET PO SCH (21:42)
[2023-03-17] MEDS: ROSUVASTATIN CALCIUM 5 MG TAB PO SCH (21:43)
[2023-03-17] MEDS ORDERED: Nursing to Pharmacy Communication SCH (22:30)
[2023-03-17 23:07] LABS: Calcium 8.3 mg/dl (8.6-10.3); Creatinine Clr Calc Pharmacy 12.9 ml/min; Est GFR (African American) 14.3 ml/min; Est GFR (Non-African American) 12.4 ml/min; Potassium 3.7 mmol/L (3.5-5.1)
[2023-03-17] MEDS: LACTATED RINGER'S 1,000 ML IV SCH (23:46)
[2023-03-18] MEDS: LEVOTHYROXINE SODIUM 50 MCG TABLET PO SCH (05:39)
[2023-03-18 06:32] LABS: Basophils # (auto) 0.03 K/uL (0-0.2); Basophils % (auto) 0.4 %; Eosinophils # (auto) 0.43 K/uL (0-0.50); Eosinophils % (auto) 6.3 %; Hematocrit (blood only) 27.9 % (37.0-47.0); Immature Granulocytes # (auto) 0.02 K/uL (0.01-0.20); Immature Granulocytes % (auto) 0.3 %; Lymphocytes # (auto) 1.01 K/uL (1.2-3.4); Lymphocytes % (auto) 14.7 %; Mean Corpuscular Hemoglobin 29.7 pg (25.0-34.0); Mean Corpuscular Hgb Conc 32.3 g/dL (32.0-36.0); Mean Corpuscular Volume 92.1 fL (80.0-100.0); Mean Platelet Volume 9.9 fL (9.4-12.4); Monocytes # (auto) 0.51 K/uL (0.11-0.59); Monocytes % (auto) 7.4 %; Neutrophils # (auto) 4.86 K/uL (1.40-6.50); Neutrophils % (auto) 70.9 %; Platelet Count 224 K/uL (130-400); RDW Standard Deviation 50.6 fL (36.4-46.3); Red Blood Count 3.03 M/uL (4.20-5.40); White Blood Count 6.86 K/ul (4.8-10.8)
[2023-03-18 06:51] LABS: BUN Creatinine Ratio 15.7 (10-20); Calcium 8.3 mg/dl (8.6-10.3); Creatinine Clr Calc Pharmacy 14.7 ml/min; Est GFR (African American) 16.7 ml/min; Est GFR (Non-African American) 14.4 ml/min; Potassium 3.7 mmol/L (3.5-5.1)
[2023-03-18 06:58] LABS: Thyroid Stimulating Hormone 4.633 uIu/ml (0.300-4.500)
[2023-03-18 07:13] LABS: Estimated Average Glucose 134 mg/dl; Hemoglobin A1C 6.3 % (4.5-5.6)
[2023-03-18 07:34] LABS: T4 Free Thyroxine 0.9 ng/dl (0.61-1.60)
[2023-03-18] MEDS: FERROUS SULFATE 325 MG TAB PO SCH (08:29)
[2023-03-18] MEDS: HEPARIN SOD 5,000 UNIT/0.5 ML VIAL SQ SCH ×2 (08:30→20:39)
[2023-03-18] MEDS: CALCITRIOL 0.25 MCG CAPSULE PO SCH (08:30)
[2023-03-18] MEDS: INSULIN ASPART PER UNIT CHARGE SC SCH ×4 (08:30→20:39)
[2023-03-18] MEDS: TAMSULOSIN HCL 0.4 MG CAP PO SCH (08:30)
[2023-03-18] MEDS: MAGNESIUM OXIDE 400 MG TAB PO SCH (08:30)
[2023-03-18] MEDS: LACTATED RINGER'S 1,000 ML IV SCH (08:42)
--- NOTE | 2023-03-18 11:57 | Hospitalist Progress Note ---
Date of Service March 18, 2023 Assessment & Plan (1) LANDON (acute kidney injury): Plan: Patient is a 77-year-old female who presents for LANDON on CKD with left obstructive uropathy secondary to calculus in the left ureter. Patient is currently status post stent placement on the left side is having blood-tinged urine but without any pain at this time. LANDON Last Cr prior to admission at 1.12, -Presumed obstructive uropathy although only comparison lab test is from January 2022. -S/p uroscopy and stent placement 03/17. -Supported post obstructive diuresis with Normasol 1L bolus, -Infusing LR 2 bags. -Follow for fluid overload -Cr at 2.99 today and is downtrending. Left ureter calculus -S/p uroscopy and stent placement 03/17. No sign of infection. Hypoxia -Aim O2 sats > 90%. Usually on 3LPM O2 at night and occasionally during the day. -Suspect just from poor inspiratory effort with current illness and ?underlying OHA -Encourage IS Chronic diastolic heart failure -Echo in 09/07 showing normal EF and LV systolic function, moderate LVH, -No chronic diuretic use per last Cardiology visit note DM HbA1C 6.4 in Oct 2021 Usual home dose Lantus 40 units SQ and SSI Consult pharmacy for ongoing glycemic control, appreciate recs Hypothyroid -TSH 2.45 in Oct 2021, Repeat at 4.6, but may be slightly elevated in the setting of acute illness -Continue levothyroxine at current dose. HTN -continue diltiazem FEN - LR 125ml/hr VTE Prophylaxis -heparin 5000 units SQ BID Diet - Carb Consistent Disposition - med/tele (2) Calculus of left ureter: (3) Diastolic heart failure: (4) Hypoxemia: Plan: . (5) Hypertension: (6) Hypothyroidism: (7) Type 2 diabetes mellitus: Admission and Anticipated Discharge Date Admission Date: March 17, 2023 Supervising Physician Co-Signing Physician Notes Resident Physician Supervision Note: I independently interviewed and examined the patient and verified the martínez history and physical, reviewed labs and image studies and agree with resident findings and care plan. Subjective Patient seen at bedside this morning. No acute events reported overnight. Patient doing well after having uroscopy done yesterday status post stent placement. Denies any pain. Patient is having clear/tea colored urine output today. No nausea or vomiting. No fevers. Overall doing well. Review of Systems Review of Systems: All systems reviewed & are unremarkable except as noted in HPI & below Physical Exam Constitutional: WD/WN, vitals as above Eyes: + anicteric sclerae Neck: normal visual inspection Respiratory: normal respiratory effort, lungs clear to auscultation Cardiovascular: RRR, no murmur, no edema Vessels: no JVD Gastrointestinal (Abdomen): Inspection/Auscultation: abdomen normal to inspection Percussion/Palpation: abdomen soft; abdomen nontender Musculoskeletal: Head/Neck/Chest: normocephalic and head atraumatic Skin: no rashes, warm and dry Neurologic: moves all extremities Genitourinary: PureWick in place Results & Data Results & Data Vital Signs (Past 12 Hours) Vital Signs Temp Pulse Pulse Resp BP BP Pulse Ox 03/18/23 08:00 73 03/18/23 07:36 36.5 C 78 20 143/64 H 96 03/18/23 03:32 36.5 C 70 18 127/64 94 O2 Del Method O2 Flow Rate 03/18/23 08:00 03/18/23 07:36 Nasal Cannula 2 03/18/23 03:32 Nasal Cannula 2
--- NOTE | 2023-03-18 13:17 | Pharmacy Report ---
Pharmacy Glycemic Short Note 2 - Date of Service March 18, 2023 - Glycemic Short BSG Results (Last 24 hours): 03/17/23 03/17/23 03/17/23 15:29 16:56 17:43 Glucose 197 H POC Glucose 243 H 241 H 03/17/23 03/17/23 03/18/23 20:27 22:21 06:11 Glucose 185 H 128 H POC Glucose 215 H 03/18/23 03/18/23 07:54 11:46 Glucose POC Glucose 130 H 167 H OUTPATIENT ANTIDIABETIC REGIMEN: * Lantus 40 units nightly * Novolog * HbA1C= 6.3% (03/18/23) ASSESSMENT: * Ms Talbot is a 77 y/o F with a PMH of T2DM on insulin who presents with obstructive uropathy and is s/o uroscopy with stent placement. * Patient received 20 units of Lantus and 18 units of Novolog yesterday. * Fasting today is 130 mg/dL. Lunch is 167 mg/dL. * For Lantus, will have a scale with 20-25-30 (1/2 to 3/4's of home dose). * Novolog weight-based stress of 2-3 which correlates with these Lantus doses. PLAN FOR INPATIENT GLYCEMIC CONTROL: * Hold outpatient oral diabetes medications * Basal insulin * Lantus 20-30 units SQ HS * Bolus insulin * NovoLog per scale ACHS or Q6hrs while NPO * Goal Range: Low 110 mg/dL - High 140 mg/dL * Correction Factor: 20 mg/dL/unit * Nutritional / Prandial insulin per carb ratio of 1 unit per 6 grams CHO consumed
[2023-03-18] MEDS: EZETIMIBE 10 MG TABLET PO SCH (20:39)
[2023-03-18] MEDS: ROSUVASTATIN CALCIUM 5 MG TAB PO SCH (20:39)
[2023-03-18] MEDS: dilTIAZem HCL 240 MG CAPCR PO SCH (20:39)
[2023-03-18] MEDS ORDERED: LANTUS PER UNIT CHARGE SC SCH (21:00)
[2023-03-19] MEDS: LEVOTHYROXINE SODIUM 50 MCG TABLET PO SCH (06:25)
--- NOTE | 2023-03-19 07:02 | Hospitalist Progress Note ---
Date of Service March 19, 2023 Assessment & Plan (1) LANDON (acute kidney injury): Plan: Patient is a 77-year-old female who presents for LANDON on CKD with left obstructive uropathy secondary to calculus in the left ureter. Patient is currently status post stent placement on the left side is having blood-tinged urine but without any pain at this time. -Presumed obstructive uropathy although only comparison lab test is from January 2022. -Consult urology: S/p uroscopy and stent placement -She does not appear to be significantly hypovolemic however will support post obstructive diuresis with Normasol 1L bolus now then sodium bicarb due to NAGMA, switch to LR as bicarb resolves -We will discontinue LR after 2 bags have been completed as not to fluid overload the patient -Monitor for worsening respiratory status given history of diastolic heart failure and current hypoxia -Protein/Cr ratio 0.6 - appears stable. Will defer nephrology consult unless she does not return to her baseline Cr. -Strict I&Os as will need to match her output with IV fluids -Daily weights -Cr at 2.99 today and is downtrending. Last Cr prior to admission at 1.12, unsure if this is true baseline or not (2) Calculus of left ureter: Plan: -Consult urology as above. UA does not appear infected, no antibiotics indicated at this time. (3) Diastolic heart failure: Plan: -Echo in 09/07 showing normal EF and LV systolic function, moderate LVH, mild RV dilation -Accurate I/O's, daily weights -No chronic diuretic use per last Cardiology visit note (4) Hypoxemia: Plan: -Aim O2 sats > 90%. Usually on 3LPM O2 at night and occasionally during the day. Suspect just from poor inspiratory effort with current illness. Continue to monitor closely with IV fluids as above. (5) Hypertension: Plan: -Continue diltiazem (6) Hypercholesterolemia: Plan: -Continue rosuvastatin (7) Hypothyroidism: Plan: -TSH 2.45 in Oct 2021, Repeat at 4.6, but may be slightly elevated in the setting of acute illness -Continue levothyroxine at current dose. (8) Type 2 diabetes mellitus: Plan: HbA1C 6.4 in Oct 2021 Usual home dose Lantus 40 units SQ Novolog based on basal dosing as above: --Goal BSG Range: Low 110 mg/dL, High 140 mg/dL --Correction Factor: 20 mg/dL/unit --Carbohydrate ratio = 7 g/unit --BSGs ACHS if eating, q6h if npo Consult pharmacy for ongoing glycemic control, appreciate recs Plan VTE Prophylaxis -heparin 5000 units SQ BID Diet - Carb Consistent Admission and Anticipated Discharge Date Admission Date: March 17, 2023 Review of Systems Review of Systems: As per above Physical Exam Physical Exam: Constitutional: well-appearing, no acute distress HEENT: NCAT, no conjunctival injection CV: regular rhythm, no murmur appreciated, extremities well-perfused, no LE edema Resp: CTABL, no wheezes/rales/rhonchi appreciated, no increased work of breathing GI: soft, nondistended, nontender, BS normoactive MSK: no gross deformities appreciated Skin: warm, dry, no rash appreciated Neuro: alert, oriented, no focal neurologic deficit appreciated Results & Data Results & Data Vital Signs (Past 12 Hours) Vital Signs Temp Pulse Pulse Resp BP Pulse Ox O2 Del Method 03/19/23 04:05 36.7 C 81 18 125/62 94 Nasal Cannula 03/18/23 20:30 Nasal Cannula 03/18/23 22:01 83 03/18/23 23:35 36.9 C 80 18 141/60 H 93 Room Air 03/18/23 19:46 36.8 C 85 20 148/57 H 95 Nasal Cannula O2 Flow Rate 03/19/23 04:05 2 03/18/23 20:30 2 03/18/23 22:01 03/18/23 23:35 03/18/23 19:46 2 Resident Activity Tracking Resident Involvement: Resident Care Provided Care Provided: Adult Hospital Medicine
[2023-03-19 08:18] LABS: Hematocrit (blood only) 29.4 % (37.0-47.0); Hemoglobin 9.1 g/dl (12.0-16.0); Mean Corpuscular Hemoglobin 28.8 pg (25.0-34.0); Mean Platelet Volume 9.7 fL (9.4-12.4); Platelet Count 262 K/uL (130-400); RDW Coefficient of Variation 15.1 % (11.5-14.5); RDW Standard Deviation 52.3 fL (36.4-46.3); Red Blood Count 3.16 M/uL (4.20-5.40); White Blood Count 6.29 K/ul (4.8-10.8)
[2023-03-19 08:20] LABS: BUN Creatinine Ratio 19.1 (10-20); Calcium 8.6 mg/dl (8.6-10.3); Creatinine Clr Calc Pharmacy 19.4 ml/min; Est GFR (African American) 24.3 ml/min; Est GFR (Non-African American) 20.9 ml/min; Potassium 4.2 mmol/L (3.5-5.1)
[2023-03-19] MEDS: INSULIN ASPART PER UNIT CHARGE SC SCH ×2 (08:27→12:11)
[2023-03-19] MEDS: TAMSULOSIN HCL 0.4 MG CAP PO SCH (08:28)
[2023-03-19] MEDS: MAGNESIUM OXIDE 400 MG TAB PO SCH (08:28)
[2023-03-19] MEDS: CALCITRIOL 0.25 MCG CAPSULE PO SCH (08:28)
[2023-03-19] MEDS: FERROUS SULFATE 325 MG TAB PO SCH (08:28)
[2023-03-19] MEDS: HEPARIN SOD 5,000 UNIT/0.5 ML VIAL SQ SCH (08:29)
--- NOTE | 2023-03-19 09:15 | Urology Progress Note ---
Date of Service March 19, 2023 Assessment & Plan (1) LANDON (acute kidney injury): (2) Left flank pain: (3) Left ureteral calculus: Plan - Pt POD#2 s/p cystoscpy and left ureteral stent placement - Doing well, progressing as expected - Afebrile, lab work reviewed - creatinine trending down (now 2.20), no leukocytosis - Tolerating left ureteral stent with minimal bother - Okay to d/c from perspective when medically stable - Recommend d/c with course Tamsulosin, prn Pyridium and prn analgesia for stent management - Expected clinical course reviewed, all questions answered - She has outpatient surgery scheduled for treatment of her left ureteral stone - will sign off, contact us with any questions or concerns Admission and Anticipated Discharge Date Admission Date: March 17, 2023 Subjective POD #2 s/p cystoscopy and left ureteral stent placement Patient seen and examined at bedside this morning. She is awake, alert and sitting up in bedside chair. No acute concerns. Denies flank or abdominal pain. No nausea, vomiting, fever or chills. Voiding without difficulty. Review of Systems 2 Constitutional: as per Subjective / HPI Gastrointestinal: as per Subjective / HPI Genitourinary: as per Subjective / HPI Physical Exam Physical Exam: General: obese, well-appearing, no acute distress HEENT: Normocephalic, mucous membranes moist Pulmonary: Nonlabored respirations, O2 via NC Abdomen: Nondistended Extremities: Moves all 4 spontaneously Neuro: No gross deficits Psych: alert and oriented, normal mood Skin: Warm, dry Results & Data Vital Signs (Past 12 Hours) Vital Signs Temp Pulse Pulse Resp BP Pulse Ox O2 Del Method 03/19/23 07:50 36.7 C 87 18 119/68 92 Nasal Cannula 03/19/23 04:05 36.7 C 81 18 125/62 94 Nasal Cannula 03/18/23 22:01 83 03/18/23 23:35 36.9 C 80 18 141/60 H 93 Room Air O2 Flow Rate 03/19/23 07:50 3 03/19/23 04:05 2 03/18/23 22:01 03/18/23 23:35 PG Care Time/CCT Total # of Minutes Spent Total Time Spent with Patient: Total time spent is greater than 50% in coordination of care (as documented) at patient's floor/unit and/or counseling patient: Coding Level of Care Code 72222 SUB INP/OBS CARE 10/11MIN Diagnoses LANDON (acute kidney injury) N17.9 Left flank pain R10.9 Left ureteral calculus N20.1
--- NOTE | 2023-03-19 17:33 | Discharge Summary ---
Date of Service March 19, 2023 Admission HPI Per Admitting Provider Aniya Talbot is a 77 year old female who presents to the ER due to LANDON on outpatient labs. She has a known obstructive proximal left ureteral stone 5mm causing hydronephrosis on prior CT performed by urology on March 13. This was taken after she started complaining of left sided abdominal and flank pain starting on March 10. However today she reports as the first day as not having pain. She denies any dysuria, urinary frequency, change in color or smell. Plan was to have lithitripsy performed on March 29 however pre-operative labs were concerning for acute kidney injury therefore she was sent to the ER. She reports eating and drinking well with no significant recent change to her colostomy output. She has a significant history of abscess surrounding her colostomy last year but reports no recent problems. 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 Last Cr 1.12 in January 2022 (this was following her abscess hospitalization in December 2021). She reports possibly having labs 3 months ago from her oncologist that were normal but those are not available on admission. In the ER she is currently requiring 2-3LPM O2 to maintain O2 sats > 90%. She reports using oxygen usually only at night at 3LPM O2 but usually does not require it during the day. She denies any respiratory symptoms. Principal Diagnosis LANDON on CKD Discharge Exam Constitutional: well-appearing, no acute distress HEENT: NCAT, no conjunctival injection CV: regular rhythm, no murmur appreciated, extremities well-perfused, no LE edema Resp: CTABL, no wheezes/rales/rhonchi appreciated, no increased work of breathing MSK: no gross deformities appreciated Skin: warm, dry, no rash appreciated Neuro: alert, oriented, no focal neurologic deficit appreciated Discharge Data Allergies Allergy/AdvReac Type Severity Reaction Status Date / Time codeine Allergy Intermediate WHITE Verified 03/15/23 14:08 CHANGE UNDER THE SKIN-ARMS Penicillins Allergy Intermediate RASH Verified 03/15/23 14:08 sulfamethoxazole Allergy Unknown DOES NOT Verified 03/15/23 14:08 KNOW REACTION trimethoprim Allergy Unknown DOES NOT Verified 03/15/23 14:08 KNOW REACTION atorvastatin AdvReac Intermediate SHE FELT Verified 03/15/23 14:08 WEAK simvastatin AdvReac Intermediate ARMS Verified 03/15/23 14:08 SWELLING adhesive AdvReac Mild SOME Verified 03/15/23 14:08 TAPE-REDNESS, ITCHY Consultations 03/17/23 11:16 ED Decision to Admit Stat 03/17/23 11:58 Consult Urology Routine Procedures Performed Operation Date: 03/17/23 14:00 Actual Procedures p Cystoscopy, Retrograde Pyelogram, Left Ureteral Stent Insertion(Not Applicable) - Solomon Silva, DO Ordered Studies 03/17/23 FL retrograde includes kub Routine Hospital Course (1) LANDON (acute kidney injury): Patient is a 77-year-old female who presents for LANDON on CKD with left obstructive uropathy secondary to calculus in the left ureter. Patient is currently status post stent placement on the left side. LANDON Last Cr prior to admission at 1.12, -Presumed obstructive uropathy although only comparison lab test is from January 2022. Also likely hypovolemic upon presentation -S/p uroscopy and stent placement 03/17. -Supported post obstructive diuresis with Normasol 1L bolus, -Infusing LR 2 bags. -Cr at 2.2 prior to d/c downtrending. - Will need repeat BMP with PCP in 2-3 days - Hydration with 60 oz fluid daily, to avoid fluid overload while maintaining adequate hydration - Avoid NSAIDS Left ureter calculus -S/p uroscopy and stent placement 03/17. No sign of infection. - D/c with tamsulosin - She has outpatient surgery scheduled for treatment of her left ureteral stone Hypoxia -Aim O2 sats > 90%. Usually on 3LPM O2 at night and occasionally during the day. -Suspect just from poor inspiratory effort with current illness and underlying OHA vs CHF - New oxygen requirement 2L at rest, 4L when ambulating. Will need further f/u outpatient as cause of new requirement not entirely clear. Pt was insistent on leaving on 03/19. Two step was completed prior to discharge Chronic diastolic heart failure -Echo in 09/07 showing normal EF and LV systolic function, moderate LVH, -No chronic diuretic use per last Cardiology visit note - Could be cause of increased oxygen requirement, f/u with cardiology as an outpatient Breast Cancer - S/p surgery last month - Was started on letrozole; states that she has had increased fatigue since starting this medication - Will f/u with her oncologist, with likely plan to trial for 4-6 weeks prior to making a change DM HbA1C 6.4 in Oct 2021 Resume home regimen Hypothyroid -TSH 2.45 in Oct 2021, Repeat at 4.6, but may be slightly elevated in the setting of acute illness -Continue levothyroxine at current dose. HTN -continue diltiazem (2) Calculus of left ureter: (3) Diastolic heart failure: (4) Hypoxemia: (5) Hypertension: (6) Hypercholesterolemia: (7) Hypothyroidism: (8) Type 2 diabetes mellitus: Total Time Total Time Spent Total Time Spent (In Minutes): >30 Discharge Plan Discharge Items Patient Disposition: Home - Self-Care Reason For Visit: LANDON, URETEROLITHIASIS Discharge Diagnosis: acute kidney injury Activity: Per Instructions section Non-emergency contact: Primary Care Provider and Can Sterilizer Call non-emergency contact if: you have any medication questions and your symptoms worsen Follow-up/Referrals: Vic Saldana MD [Physician] - Ismael Pink MD [Primary Care Provider] - Diet: Regular Addtl Attending Provider Instructions: - Your kidney numbers are starting to improve, but aren't quite back to normal yet. We would like you to follow up with your primary care doctor to have the numbers checked again. We were able to get you an appointment at the [facility] office for March 21 at 8:25 am with Kenia Atwood. You should drink about 60oz of water per day to help hydrate your kidneys. We don't want you to over do it with the fluid because of your heart failure, but want to make sure you are getting enough fluid. Avoid anti-inflammatories such as ibuprofen, as this could worsened your kidney function. - At home you should use 2L oxygen at rest, 4L while you are up and moving around. This increase in oxygen need could be because of your heart failure, but you will need to continue to get this worked up with Dr. Saldana and your primary care doctor. You should continue to use the oxygen as you were prior in the evening. If you do not hear from Dr. Saldana's office in the next few days with an appointment time, please reach out and schedule one. - We will reach out to your breast cancer doctor to touch base on the fatigue you have been having this the pill (letrozole) and suggest perhaps a shorter trial to see in the fatigue improves. - If you were to become short of breath please call your primary care doctor or come back to the ED. Pending Studies at Discharge: No Stand-Alone Forms: My [facility] [employer], Smoking Cessation Medications and DC Order Prescriptions: Continued magnesium 200 mg tablet 400 mg PO DAILY ferrous sulfate 325 mg (65 mg iron) tablet,delayed release (DR/EC) 325 mg PO DAILY ascorbate calcium (vitamin C) 500 mg tablet 500 mg PO DAILY acetaminophen [Arthritis Pain Relief (acetam)] 650 mg tablet extended release 650 mg PO Q12H tamsulosin 0.4 mg capsule 0.4 mg PO DAILY Qty: 30 0RF oxycodone-acetaminophen [Percocet] 5-325 mg tablet 1 tab PO Q8H PRN (Reason: pain) Qty: 10 0RF diltiazem HCl 240 mg Capsule,Ext.Rel 24h Degradable 240 mg PO HS niacin 50 mg Tablet 50 mg PO BID levothyroxine [Synthroid] 50 mcg Tablet 50 mcg PO QAM Humalog U-100 Insulin 100 unit/mL Cartridge 1 sliding scale dose SUBCUT USEASDIRECTD Rx Instructions: with meals ezetimibe [Zetia] 10 mg Tablet 10 mg PO HS rosuvastatin 5 mg Tablet 5 mg PO HS Lantus U-100 Insulin 100 unit/mL solution 40 unit SUBCUT HS calcitriol 0.25 mcg capsule 0.25 mcg PO QAM Co Q-10 300 mg Capsule 300 mg PO HS letrozole 2.5 mg tablet 2.5 mg PO DAILY Discharge Orders: Discharge Order (Routine); Ordered 03/19/23 Ordered By: Rosa Jordan/Other Patient Handouts: Managing Type 2 Diabetes Admission Data Admit Date/Time: 03/17/23 13:39 Attending Provider: Antonio Diaz Admit Provider: Oliver Ha Primary Care Provider: Ismael Pink Other Providers: Oliver Ha ; Solomon Silva Other Interventions: Discharge Summary Assessment (RN) Last Done: 03/19/23 16:19 Supervising Physician Co-Signing Physician Notes I personally examined the patient and verified all martínez points of history and exam, discussed case, and agree with decision making with Dr Benito essentially demanding to go home. No acute complaints. Hypoxia notedthen it was unearthed that patient has oxygen at homeboth for at bedtime and portable tanks vitals noted, in general she is awake and alert pleasant no distress. HEENT normocephalic atraumatic mucous membranes moist. Lungs are clear to auscultation bilaterally no rales rhonchi or wheezes with good effort no accessory muscle use no conversational dyspnea. Resting and ambulatory pulse ox shows her to need 2 L at rest and 4 with exertion. Neuro shows cranial nerves II through XII be grossly intact gross motor and sensory are intact acute renal failureimproving, creatinine now down to 2.2, but not yet at baseline. Discussed that it would be preferable to keep her in the hospital to watch for further improvement, but given that she is improving on her own/not requiring IV fluids, its not unreasonable for her to go home. Discussed having basic metabolic panel in 2 to 3 days, discussed drinking about 60 ounces of fluid a day (balanced by not wanting to drink too much for her CHF), and strict avoidance of NSAIDs. Discussed that the downside of going home will be that if her creatinine stalls out/fails to improve working up why/intervening further may be more cumbersome or require rehospitalizationshe and understand hypoxiauncertain etiologybut after discussion, it became more clear that she has oxygen at home, and probably should be using it. She has noted multiple times with pulse ox is in the 70s and she is asymptomaticshe has a further evidence of chronicity of her hypoxia. She carries a diagnosis of CHF, but has clear lungsso it is possible but not super likely this would be a contributor. She apparently had pulmonary hypertension previouslyalthough cardiology thought this was largely during acute exacerbationbut it is possible that this is a contributor. I do wonder about OHS/MYRANDA physiology as well. Extensive discussion with patient and on the difference between feeling okay and being hypoxic/still being in dangerdiscussed that I would really be able to get to the bottom of things more quickly if she stayed in the hospital, but that this too can be worked up further as an outpatient as long as she is on oxygen to remedy the situation. Personally discussed with case management, and was able to procure her a loaner oxygen tank for her to get home with fatiguereymundo noted that since she started letrozole a few weeks ago she is very fatigued. He notes that their oncologist has not noticed this as a side effect, and I agreed it would be rarealthough on review of possible side effects, fatigue as listed. At the same time, in discussion with the patient, I noted that it would be far more likely that the stress of everything she would go through with a cancer diagnosis (even a very favorable 1 like she has) would probably lead to fatigue more likely than medication side effect. If it was medication side effect, it would be quite likely to resolve with time, and if it did not resolve with time, it is likely that her oncologist could switch her to a different hormonal treatment. Messaged oncologist the above discussion summary, as was very worried about this particular medicine, but did not know how to voice things to her oncologist. I did not make her leave against advice, but did note that there are a lot of loose ends that would be easier to tie up in the hospital, discussed that if things are not going well at home I would much prefer she come back quickly rat her than suffering harm. Should have close PCP, urology, Cardiology, and oncology follow-up. Basic metabolic panel 2-3 days.
--- NOTE | 2023-03-19 18:18 | Billing Data ---
Date of Service March 19, 2023 Coding Level of Care Code 82553 INP/OBS DISCH >30 MIN
--- NOTE | 2023-03-19 22:21 | Electrocardiogram Report ---
Test Reason : Blood Pressure : / mmHG Vent. Rate : 083 BPM Atrial Rate : 083 BPM P-R Int : 180 ms QRS Dur : 094 ms QT Int : 372 ms P-R-T Axes : 066 -47 048 degrees QTc Int : 437 ms Normal sinus rhythm Left anterior fascicular block Nonspecific T wave abnormality Abnormal ECG When compared with ECG of 04-NOV-2021 02:16, No significant change was found Confirmed by Isra Hickman [id number]) on 03/19/2023 10:20:39 PM Referred By: Windy Hopper Confirmed By:Isra Hickman
== END 2023-03-19 17:20 | disposition home or self-care (01) | DRG 660 ==
LOC: ED 08:17 → 2N 12:27 → OR 13:38 → 2N 13:38 → SUATTDRO 13:39

== ENCOUNTER 2023-04-07 11:03 | Inpatient (IN) ==
--- NOTE | 2023-04-07 11:13 | Emergency Department Note ---
Impression & Plan Cellulitis ED Provider Note NAME: CHANDANA FRASER AGE: 77 SEX: F : 1945 ARRIVES VIA: Walk-In INFORMANT: Patient, ED PROVIDER(S): Keo Mcmillan MD CHIEF COMPLAINT: Chills, leg swelling MEDICAL DECISION MAKING: Patient presents due to concern for chills and associated leg swelling. This is in the setting of recent left ureteral stent placement. Sepsis orders initiated. Empiric Rocephin ordered. CT abdomen pelvis no ncontrast ordered. Initially just 500 cc bolus as the patient has reassuring vitals at this time. showed a leukocytosis of 16 with anemia hemoglobin of 10 which is chronic and stable. Platelet count is unremarkable. Kidney function with mild LANDON. Current creatinine 2.3. Magnesium low 1.6. Magnesium ordered for replacement. Urinalysis still pending but given the patient's white count and associated stranding and the patient does have a left lower extremity cellulitis with given her reported fever and recent ureteral stent placement do believe the patient would benefit from inpatient treatment at this time. I did speak with the on- call hospitalist service Dr. Fox and the patient was admitted to the medicine service. Patient's lactate is normal. The patient did have some tachycardia but the patient is not taking her morning medications. 30 cc/kg bolus given as the patient was not hypotensive and the patient does have prior history of diastolic CHF The patient's blood work Prior /Outside records reviewed: I did review recent operative report from Dr. Silva for left ureteral stent placement Differential diagnosis: Sepsis, UTI, pneumonia, metabolic, electrolyte abnormalities, cardiac sources, intracerebral event, toxicologic, neurologic, as well as other pathologies. Diagnostics, as interpreted by me: ECG: Sinus tachycardia, rate of 106, normal intervals, left axis deviation, no ST elevations. Cardiac monitoring: An order was placed for continuous cardiac monitoring. The monitor shows a rate of 85 with sinus rhythm. Patient was placed on pulse oximetry Medical decision rules: none Imaging studies: See below I informally reviewed the patient's chest x-ray which shows no obvious pneumothorax. HPI: Patient presents due to concern for fever and chills and nausea. The patient also did have some associated left lower extremity pain and was co ncerned about a blood clot. The patient did have a recent left ureteral stent placed with Dr. Silva this past Sunday. The patient denies any dysuria or hematuria. Patient states that she took her temperature at home was 100.9. The patient did feel acutely chilled. Patient does feel better since she arrived. Patient did not take anything for her fever at home. Patient is on chronic jarocho al cannula oxygen. Patient denies any abdominal pain or chest pains. No shortness of breath. Patient denies any falls or trauma. Patient is not actively on any current antibiotics. The patient did have a dose of Ancef during her most recent ureteral stent placement PAST MEDICAL HISTORY: See Below PAST SURGICAL HISTORY: See Below SOCIAL HISTORY: See Below HOME MEDICATIONS: See Below ALLERGIES: See Below VITALS: See Below PHYSICAL EXAMINATION: GENERAL: NAD, non-toxic. Nasal cannula in place. EYE EXAM: Normal conjunctiva. PERRL, no anisocoria and EOM's grossly intact w/o pain. OROPHARYNX: Moist mucus membranes, grossly normal dentition. NECK: Supple, no nuchal rigidity, no adenopathy, non-tender. No signs of meningismus. FROM of the neck with good chin to chest and neck extension. No stridor. LUNGS: Clear to auscultation. Normal chest wall mechanics. HEART: NSR, no MRG. ABDOMEN: Abdomen soft, non-tender, no masses, no rebound or guarding. BACK: No CVA TTP. SKIN: No rashes and no bruising. UPPER EXTREMITIES: Upper extremities are grossly normal. LOWER EXTREMITIES: Mild left-sided calf pain, possibly slightly enlarged with some associated redness to the lateral aspect of the left lower extremity no obvious crepitus neurovascular tact distally. NEURO EXAM: A&O x3, cranial nerves II-XII grossly intact, normal speech, moves all 4 extremities. Past Med/Surg History Medical History Acute renal failure Acute respiratory failure with hypoxia Chronic kidney disease, stage 3 (moderate) Follows with nephro Congestive heart failure EF 65-70% on 08/2022 echo Diverticulitis DM type 2 (diabetes mellitus, type 2) IDDM. Dyslipidemia Hearing deficit B/L MOROCHO HTN (hypertension) Hx of Clostridium difficile infection ~2010 (reason for bowel resection) Hyperlipidemia Hypothyroidism Ileostomy, has currently Kidney stones hx Left flank pain Metabolic acidosis with normal anion gap and bicarbonate losses Pulmonary hypertension per 08/2022 [place] records: "...pulmonary hypertension identified on echocardiography when she was fluid overloaded...recent echocardiogram does not suggest significant elevated right-sided pressures although right ventricular systolic pressure was not specifically mentioned, possibly due to inadequate TR to make that determination..." further evaluation not felt to be needed per [facility] cardiology note Sacroiliitis SBO (small bowel obstruction) Seasonal allergies Surgical History H/O hernia repair History of appendectomy History of bowel resection 2010 History of breast surgery (01/02/23) Re-excision of left inferior margin of lumpectomy site Dr. Chandana Cooper History of cataract surgery Bilateral History of cholecystectomy History of colonoscopy History of cystoscopy WITH STENT History of esophagogastroduodenoscopy (EGD) History of left knee replacement History of lithotripsy ESWL History of lumpectomy of left breast (11/07/22) Dr. Chandana Cooper History of tonsillectomy History of tooth extraction History of total abdominal hysterectomy and bilateral salpingo-oophorectomy History of tubal ligation Status post laser lithotripsy of ureteral calculus Family History Mother , 75yo Diabetes Hypertension Angina pectoris, unspecified Multiple sclerosis Father , 54yo Myocardial infarction Sister Rectal cancer Lung cancer Son No problems noted. Son No problems noted. Family/Other Breast cancer Maternal aunt Other No family history of adverse response to anesthesia No family history of bleeding disorder Denies family history of Cystic kidney disease Social History Smoking Status: Former smoker Tobacco Type: Cigarettes Age Started Using Tobacco: 12; Age Quit Using Tobacco: 20; Cigarettes Per Day: Sneak smoking;; Second Hand Exposure: No; Do You Dip or Chew Tobacco: No; Hx Alcohol Use: No Hx Substance Use: No Preferred Language: Danish Communication Ability: Effective Visual Impairment: No Limitations Hearing Ability: Hard of Hearing [employer] Lead Required: No Beliefs That Will Affect Care: None marital status: Current Living Situation: Spouse current occupational status: retired current occupation: From [employer] How many Children do You have: 2 Feels Safe at Home: Yes Diet: regular caffeine: No during the past year weight has: remained stable Assistive Devices: Hearing Aid - Left Allergies Allergies Allergy/AdvReac Type Severity Reaction Status Date / Time codeine Allergy Intermediate WHITE Verified 03/29/23 06:00 CHANGE UNDER THE SKIN-ARMS Penicillins Allergy Intermediate RASH Verified 03/29/23 06:00 sulfamethoxazole Allergy Unknown DOES NOT Verified 03/29/23 06:00 KNOW REACTION trimethoprim Allergy Unknown DOES NOT Verified 03/29/23 06:00 KNOW REACTION atorvastatin AdvReac Intermediate SHE FELT Verified 03/29/23 06:00 WEAK simvastatin AdvReac Intermediate ARMS Verified 03/29/23 06:00 SWELLING adhesive AdvReac Mild SOME Verified 03/29/23 06:00 TAPE-REDNESS, ITCHY Home Meds Home Medications Medication Instructions Recorded Confirmed diltiazem HCl 240 mg 240 mg PO HS 04/22/19 04/07/23 capsule,extended release 24 hr, controlled ezetimibe 10 mg tablet (Zetia) 10 mg PO HS 04/22/19 04/07/23 insulin lispro 100 unit/mL 1 sliding scale dose subcut 04/22/19 04/07/23 subcutaneous cartridge (Humalog USEASDIRECTD U-100 Insulin) levothyroxine 50 mcg tablet 50 mcg PO QAM 04/22/19 04/07/23 (Synthroid) niacin 50 mg tablet 50 mg PO BID 04/22/19 04/07/23 rosuvastatin 5 mg tablet 5 mg PO HS 04/22/19 04/07/23 calcitriol 0.25 mcg capsule 0.25 mcg PO QAM 11/04/21 04/07/23 coenzyme Q10 300 mg capsule (Co 300 mg PO HS 11/04/21 04/07/23 Q-10) acetaminophen 650 mg 650 mg PO Q12H PRN Pain 03/15/22 04/07/23 tablet,extended release (Arthritis Pain Relief (acetaminophen) ER) ferrous sulfate 325 mg (65 mg 325 mg PO QAM 12/12/22 04/07/23 iron) tablet,delayed release insulin glargine 100 unit/mL 40 unit subcut HS 12/12/22 04/07/23 subcutaneous solution (Lantus U-100 Insulin) magnesium 200 mg tablet 400 mg PO QAM 12/12/22 04/07/23 ascorbate calcium (vitamin C) 500 500 mg PO DAILY 01/16/23 04/07/23 mg tablet letrozole 2.5 mg tablet 2.5 mg PO QAM 03/17/23 04/07/23 tamsulosin 0.4 mg capsule 0.4 mg PO HS PRN other 04/07/23 04/07/23 Previous Rx's Medication Instructions Recorded phenazopyridine 200 mg tablet 200 mg PO Q8H PRN pain #10 tabs 03/29/23 (Pyridium) Results & Data (ED) Vital Signs Vital Signs - 24 hr 04/07/23 11:07 04/07/23 11:52 04/07/23 12:24 Temperature 36.7 C Temperature Source Temporal Artery Scan Pulse Rate 80 101 H Pulse Rate [Right Finger] Pulse Rhythm [Right Finger] Pulse Strength [Right Finger] Respiratory Rate 22 Respiratory Effort / Characteristics Non-Labored Respiratory Depth Normal Respiratory Pattern Blood Pressure 174/52 H Blood Pressure [Right Arm] Blood Pressure Mean 92 Blood Pressure Mean [Right Arm] Blood Pressure Position [Right Arm] Pulse Oximetry 96 93 Oxygen Delivery Method Room Air Nasal Cannula Oxygen Flow Rate 3 Sepsis Recent Fever Within 48 Hours No Sepsis New/Unexplained Change in Mental Status N/A Sepsis Action Taken by Nursing No Action Required 04/07/23 12:00 04/07/23 14:00 04/07/23 16:17 Temperature Temperature Source Pulse Rate Pulse Rate [Right Finger] 100 H 100 H 98 H Pulse Rhythm [Right Finger] Regular Regular Regular Pulse Strength [Right Finger] Normal Normal Respiratory Rate 18 18 18 Respiratory Effort / Characteristics Non-Labored Non-Labored Non-Labored Spontaneous Respiratory Depth Normal Normal Normal Respiratory Pattern Regular Regular Regular Blood Pressure Blood Pressure [Right Arm] 161/71 H 166/65 H 158/60 H Blood Pressure Mean Blood Pressure Mean [Right Arm] 101 98 92 Blood Pressure Position [Right Arm] Lying Pulse Oximetry 97 94 98 Oxygen Delivery Method Nasal Cannula Nasal Cannula Nasal Cannula Oxygen Flow Rate 3 2 2 Sepsis Recent Fever Within 48 Hours Sepsis New/Unexplained Change in Mental Status Sepsis Action Taken by Nursing 04/07/23 16:24 04/07/23 18:11 Temperature Temperature Source Pulse Rate 98 H Pulse Rate [Right Finger] 102 H Pulse Rhythm [Right Finger] Regular Pulse Strength [Right Finger] Respiratory Rate 20 Respiratory Effort / Characteristics Non-Labored Spontaneous Respiratory Depth Normal Respiratory Pattern Regular Blood Pressure Blood Pressure [Right Arm] 183/79 H Blood Pressure Mean Blood Pressure Mean [Right Arm] 113 Blood Pressure Position [Right Arm] Pulse Oximetry 100 Oxygen Delivery Method Nasal Cannula Oxygen Flow Rate 2 Sepsis Recent Fever Within 48 Hours Sepsis New/Unexplained Change in Mental Status Sepsis Action Taken by Jail Medications Current Medication List: was personally reviewed by me Laboratory Data Attestation: I reviewed the patient's lab results. 04/07/23 11:28 04/07/23 11:45 Lab Results 04/07/23 04/07/23 04/07/23 Range/Units 11:28 11:28 11:45 WBC 16.23 H (4.8-10.8) K/ul RBC 3.52 L (4.20-5.40) M/uL Hgb 10.2 L (12.0-16.0) g/dl Hct 32.5 L (37.0-47.0) % MCV 92.3 (80.0-100.0) fL MCH 29.0 (25.0-34.0) pg MCHC 31.4 L (32.0-36.0) g/dL RDW Std Deviation 52.4 H (36.4-46.3) fL RDW Coeff of Sreedhar 15.5 H (11.5-14.5) % Plt Count 204 (130-400) K/uL MPV 10.7 (9.4-12.4) fL Immature Gran % (Auto) 0.6 % Neut % (Auto) 87.5 % Lymph % (Auto) 6.0 % [place] % (Auto) 5.2 % Eos % (Auto) 0.5 % Baso % (Auto) 0.2 % Neut # (Auto) 14.19 H (1.40-6.50) K/uL Lymph # (Auto) 0.98 L (1.2-3.4) K/uL [place] # (Auto) 0.84 H (0.11-0.59) K/uL Eos # (Auto) 0.08 (0-0.50) K/uL Baso # (Auto) 0.04 (0-0.2) K/uL Immature Gran # (Auto) 0.10 (0.01-0.20) K/uL Sodium 135 L (136-145) mmol/L Potassium 4.3 (3.5-5.1) mmol/L Chloride 109 H (98-107) mmol/L Carbon Dioxide 17 L (21-32) mmol/L Anion Gap 9 (3-11) BUN 46 H (6-23) mg/dl Creatinine 2.30 H (0.6-1.2) mg/dl Est Cr Clr Drug Dosing Not Reportable Est GFR ( Amer) 23.0 ml/min Est GFR (Non-Af Amer) 19.8 ml/min BUN/Creatinine Ratio 20.0 (10-20) Glucose 188 H (70-99(Fasting)) mg/dl POC Glucose (70-99) mg/dl Lactate (0.4-2.0) mmol/L Calcium 9.4 (8.6-10.3) mg/dl Magnesium 1.6 L (1.7-2.4) mg/dl Total Bilirubin 0.4 (0.2-1.0) mg/dl Direct Bilirubin 0.1 (0-0.2) mg/dl AST 19 (13-39) U/L ALT 26 (7-52) U/L Alkaline Phosphatase 74 (34-104) U/L Troponin I High Sens 7.6 (0-14) pg/ml Total Protein 7.1 (6.0-8.3) gm/dl Albumin 4.2 (3.4-5.0) gm/dl Procalcitonin 0.24 (0-0.5) ng/ml Urine Color Urine Appearance (Clear) Urine pH (4.5-7.5) Ur Specific [place] (1.000-1.030) Urine Protein (Negative) Urine Glucose (UA) (Negative) Urine Ketones (Negative) Urine Blood (Negative) Urine Nitrite (Negative) Urine Bilirubin (Negative) Urine Urobilinogen (Negative) Ur Leukocyte Esterase (Negative) SARS-CoV-2, RNA, NAAT (NEGATIVE) 04/07/23 04/07/23 04/07/23 Range/Units 12:25 15:37 15:38 WBC (4.8-10.8) K/ul RBC (4.20-5.40) M/uL Hgb (12.0-16.0) g/dl Hct (37.0-47.0) % MCV (80.0-100.0) fL MCH (25.0-34.0) pg MCHC (32.0-36.0) g/dL RDW Std Deviation (36.4-46.3) fL RDW Coeff of Sreedhar (11.5-14.5) % Plt Count (130-400) K/uL MPV (9.4-12.4) fL Immature Gran % (Auto) % Neut % (Auto) % Lymph % (Auto) % [place] % (Auto) % Eos % (Auto) % Baso % (Auto) % Neut # (Auto) (1.40-6.50) K/uL Lymph # (Auto) (1.2-3.4) K/uL [place] # (Auto) (0.11-0.59) K/uL Eos # (Auto) (0-0.50) K/uL Baso # (Auto) (0-0.2) K/uL Immature Gran # (Auto) (0.01-0.20) K/uL Sodium (136-145) mmol/L Potassium (3.5-5.1) mmol/L Chloride (98-107) mmol/L Carbon Dioxide (21-32) mmol/L Anion Gap (3-11) BUN (6-23) mg/dl Creatinine (0.6-1.2) mg/dl Est Cr Clr Drug Dosing Est GFR ( Amer) ml/min Est GFR (Non-Af Amer) ml/min BUN/Creatinine Ratio (10-20) Glucose (70-99(Fasting)) mg/dl POC Glucose 157 H (70-99) mg/dl Lactate 1.4 (0.4-2.0) mmol/L Calcium (8.6-10.3) mg/dl Magnesium (1.7-2.4) mg/dl Total Bilirubin (0.2-1.0) mg/dl Direct Bilirubin (0-0.2) mg/dl AST (13-39) U/L ALT (7-52) U/L Alkaline Phosphatase (34-104) U/L Troponin I High Sens (0-14) pg/ml Total Protein (6.0-8.3) gm/dl Albumin (3.4-5.0) gm/dl Procalcitonin (0-0.5) ng/ml Urine Color Urine Appearance (Clear) Urine pH (4.5-7.5) Ur Specific [place] (1.000-1.030) Urine Protein (Negative) Urine Glucose (UA) (Negative) Urine Ketones (Negative) Urine Blood (Negative) Urine Nitrite (Negative) Urine Bilirubin (Negative) Urine Urobilinogen (Negative) Ur Leukocyte Esterase (Negative) SARS-CoV-2, RNA, NAAT NEGATIVE (NEGATIVE) 04/07/23 04/07/23 Range/Units 18:08 18:17 WBC (4.8-10.8) K/ul RBC (4.20-5.40) M/uL Hgb (12.0-16.0) g/dl Hct (37.0-47.0) % MCV (80.0-100.0) fL MCH (25.0-34.0) pg MCHC (32.0-36.0) g/dL RDW Std Deviation (36.4-46.3) fL RDW Coeff of Sreedhar (11.5-14.5) % Plt Count (130-400) K/uL MPV (9.4-12.4) fL Immature Gran % (Auto) % Neut % (Auto) % Lymph % (Auto) % [place] % (Auto) % Eos % (Auto) % Baso % (Auto) % Neut # (Auto) (1.40-6.50) K/uL Lymph # (Auto) (1.2-3.4) K/uL [place] # (Auto) (0.11-0.59) K/uL Eos # (Auto) (0-0.50) K/uL Baso # (Auto) (0-0.2) K/uL Immature Gran # (Auto) (0.01-0.20) K/uL Sodium (136-145) mmol/L Potassium (3.5-5.1) mmol/L Chloride (98-107) mmol/L Carbon Dioxide (21-32) mmol/L Anion Gap (3-11) BUN (6-23) mg/dl Creatinine (0.6-1.2) mg/dl Est Cr Clr Drug Dosing Est GFR ( Amer) ml/min Est GFR (Non-Af Amer) ml/min BUN/Creatinine Ratio (10-20) Glucose (70-99(Fasting)) mg/dl POC Glucose 193 H (70-99) mg/dl Lactate (0.4-2.0) mmol/L Calcium (8.6-10.3) mg/dl Magnesium (1.7-2.4) mg/dl Total Bilirubin (0.2-1.0) mg/dl Direct Bilirubin (0-0.2) mg/dl AST (13-39) U/L ALT (7-52) U/L Alkaline Phosphatase (34-104) U/L Troponin I High Sens (0-14) pg/ml Total Protein (6.0-8.3) gm/dl Albumin (3.4-5.0) gm/dl Procalcitonin (0-0.5) ng/ml Urine Color Yellow Urine Appearance Clear (Clear) Urine pH 5.5 (4.5-7.5) Ur Specific [place] 1.014 (1.000-1.030) Urine Protein 1+ H (Negative) Urine Glucose (UA) Negative (Negative) Urine Ketones Negative (Negative) Urine Blood 3+ H (Negative) Urine Nitrite Negative (Negative) Urine Bilirubin Negative (Negative) Urine Urobilinogen Negative (Negative) Ur Leukocyte Esterase Trace H (Negative) SARS-CoV-2, RNA, NAAT (NEGATIVE) Administered Medications Parenteral Electrolytes (Plasma-Lyte A Ph 7.4) 1,000 mls @ 125 mls/hr IV .Q8H CATY Stop: 04/07/23 19:14 Last Admin: 04/07/23 15:26 Dose: 125 mls/hr Documented By: REENA Insulin Aspart (Insulin Aspart Per Unit Charge) 0 units SC ACHS CATY Stop: 05/07/23 16:59 Last Admin: 04/07/23 18:22 Dose: 3 units Documented By: REENA Co-signed By: DARLEEN Discontinued Medications Sodium Chloride (Nss 1000ml) 500 mls @ 999 mls/hr IV .Q31M CATY Stop: 04/07/23 12:00 Last Infusion: 04/07/23 13:07 Dose: 0 mls/hr Documented By: Admin: 04/07/23 12:20 Dose: 999 mls/hr Documented By: KAITY Ceftriaxone Sodium (Rocephin) 2,000 mg in 70 mls @ 140 mls/hr IV NOW STA Stop: 04/07/23 13:31 Last Infusion: 04/07/23 14:34 Dose: 0 mls/hr Documented By: Admin: 04/07/23 14:04 Dose: 140 mls/hr Documented By: NEO Sodium Chloride (Nss) 500 mls @ 999 mls/hr IV .Q31M ONE Stop: 04/07/23 14:43 Last Infusion: 04/07/23 16:21 Dose: 0 mls/hr Documented By: Admin: 04/07/23 15:26 Dose: 999 mls/hr Documented By: REENA Magnesium Oxide (Magnesium Oxide 400 Mg Tab) 800 mg PO NOW STA Stop: 04/07/23 13:03 Last Admin: 04/07/23 14:05 Dose: 800 mg Documented By: NEO Imaging Data Radiologist's Impression: Chest X-Ray 04/07/23 11:28 XR chest 1V portable CLINICAL HISTORY: Sepsis COMPARISON STUDY: Chest CT November 04, 2021. Chest radiograph March 17, 2023. FINDINGS: Lung volumes are normal. Lungs are clear. There is no pneumothorax or pleural effusion. Cardiac size is stable. Mediastinal contours are normal. There is no evidence for pulmonary edema. IMPRESSION: No acute cardiopulmonary findings. ACT 112: Negative or not required by law. Electronically signed by: Froylan Dhaliwal M.D. 04/07/2023 12:19 PM Abdomen/Pelvis CT 04/07/23 11:29 CT OF THE ABDOMEN AND PELVIS WITHOUT CONTRAST CLINICAL HISTORY: Fever, left ureteral stent placement. COMPARISON STUDY: CT of the abdomen and pelvis March 13, 2023 and KUB March 17, 2023. TECHNIQUE: Axial images of the abdomen and pelvis were obtained without IV contrast. Images were reviewed in the axial, sagittal, and coronal planes. Automated exposure control was utilized for the study. A dose lowering technique was utilized adhering to the principles of ALARA. FINDINGS: Lung bases are unremarkable. No pneumatosis, free air or portal venous gas is present. Left ureteral stent is in place. There is no left hydronephros is. No ureteral calculi or fragments are present. There is minimal stranding adjacent to the left ureter. There is a punctate left renal calculus. No right- sided urinary calculi are present. Water attenuation right renal lesion favors a cyst. Unenhanced images of the liver, spleen, right adrenal gland and pancreas are unremarkable. A low-attenuation 1.3 cm left adrenal nodule is unchanged from earlier exams. This favors an adenoma. As before, there are numerous gallstones within the common bile duct with moderate dilatation of the common bile duct. This is unchanged. There is no fluid collection within the abdomen or pelvis. Colonic resection is noted. There is a left lower quadrant ostomy. Right lower quadrant hernia containing multiple small bowel loops does not result in a bowel obstruction. IMPRESSION: 1. Left ureteral stent in place. No ureteral calculi or fragments. No hydronephrosis. Mild stranding adjacent to the left collecting system and ureter. Punctate left renal calculus. 2. No bowel obstruction. Right lower quadrant hernia which contains several small bowel loops, unchanged. 3. No change in choledocholithiasis and common bile duct dilatation. No evidence for acute pancreatitis. ACT 112: Negative or not required by law. Electronically signed by: Froylan Dhaliwal M.D. 04/07/2023 12:19 PM Venous Doppler Study 04/07/23 11:41 LEFT LOWER EXTREMITY VENOUS DOPPLER CLINICAL HISTORY: swelling/pain COMPARISON STUDY: Bilateral lower extremity venous Doppler ultrasound June 05, 2020. TECHNIQUE: Sonography of the deep venous system of the left lower extremity was performed. Compression and augmentation were evaluated. FINDINGS: The left common femoral, superficial femoral and popliteal veins were compressible. Augmentation was normal. Flow was shown within the deep calf vessels. IMPRESSION: No evidence of deep venous thrombus within the left lower extremity. ACT 112: Negative or not required by law. Electronically signed by: Froylan Dhaliwal M.D. 04/07/2023 1:53 PM Discharge Plan Visit Data Chief Complaint: Vomiting Stated Complaint: VOMITING ED Provider: Keo Mcmillan Discharge Problem: Cellulitis Forms Stand Alone Forms: [facility] Prescriptions Prescriptions: No Action magnesium 200 mg tablet 400 mg PO QAM ferrous sulfate 325 mg (65 mg iron) tablet,delayed release (DR/EC) 325 mg PO QAM ascorbate calcium (vitamin C) 500 mg tablet 500 mg PO DAILY acetaminophen [Arthritis Pain Relief (acetam)] 650 mg tablet extended release 650 mg PO Q12H PRN (Reason: Pain) diltiazem HCl 240 mg Capsule,Ext.Rel 24h Degradable 240 mg PO HS niacin 50 mg Tablet 50 mg PO BID levothyroxine [Synthroid] 50 mcg Tablet 50 mcg PO QAM Humalog U-100 Insulin 100 unit/mL Cartridge 1 sliding scale dose SUBCUT USEASDIRECTD Rx Instructions: with meals ezetimibe [Zetia] 10 mg Tablet 10 mg PO HS rosuvastatin 5 mg Tablet 5 mg PO HS Lantus U-100 Insulin 100 unit/mL solution 40 unit SUBCUT HS calcitriol 0.25 mcg capsule 0.25 mcg PO QAM Co Q-10 300 mg Capsule 300 mg PO HS tamsulosin 0.4 mg capsule 0.4 mg PO HS PRN (Reason: other) phenazopyridine [Pyridium] 200 mg tablet 200 mg PO Q8H PRN (Reason: pain) Qty: 10 0RF letrozole 2.5 mg tablet 2.5 mg PO QAM Referrals Referrals: Ismael Pink MD [Primary Care Provider] -
[2023-04-07] MEDS ORDERED: SODIUM CHLORIDE 0.9% 1000ML 500 ML IV SCH (11:30)
[2023-04-07 12:14] LABS: Basophils # (auto) 0.04 K/uL (0-0.2); Basophils % (auto) 0.2 %; Eosinophils # (auto) 0.08 K/uL (0-0.50); Eosinophils % (auto) 0.5 %; Hematocrit (blood only) 32.5 % (37.0-47.0); Hemoglobin 10.2 g/dl (12.0-16.0); Immature Granulocytes % (auto) 0.6 %; Lymphocytes # (auto) 0.98 K/uL (1.2-3.4); Mean Corpuscular Hgb Conc 31.4 g/dL (32.0-36.0); Mean Corpuscular Volume 92.3 fL (80.0-100.0); Mean Platelet Volume 10.7 fL (9.4-12.4); Monocytes # (auto) 0.84 K/uL (0.11-0.59); Monocytes % (auto) 5.2 %; Neutrophils # (auto) 14.19 K/uL (1.40-6.50); Neutrophils % (auto) 87.5 %; Platelet Count 204 K/uL (130-400); RDW Coefficient of Variation 15.5 % (11.5-14.5); RDW Standard Deviation 52.4 fL (36.4-46.3); Red Blood Count 3.52 M/uL (4.20-5.40); White Blood Count 16.23 K/ul (4.8-10.8)
[2023-04-07 12:21] LABS: Alanine Aminotransferase 26 U/L (7-52); Albumin Level 4.2 gm/dl (3.4-5.0); Alkaline Phosphatase 74 U/L (34-104); Anion Gap 9 (3-11); Aspartate Aminotransferase 19 U/L (13-39); Bilirubin Direct 0.1 mg/dl (0-0.2); Bilirubin,Total 0.4 mg/dl (0.2-1.0); Blood Urea Nitrogen 46 mg/dl (6-23); Calcium 9.4 mg/dl (8.6-10.3); Carbon Dioxide 17 mmol/L (21-32); Chloride 109 mmol/L (98-107); Est GFR (Non-African American) 19.8 ml/min; Glucose 188 mg/dl (70-99(Fasting)); Magnesium 1.6 mg/dl (1.7-2.4); Potassium 4.3 mmol/L (3.5-5.1); Sodium 135 mmol/L (136-145); Total Protein 7.1 gm/dl (6.0-8.3)
--- NOTE | 2023-04-07 12:21 | CT Scan Report ---
CT OF THE ABDOMEN AND PELVIS WITHOUT CONTRAST CLINICAL HISTORY: Fever, left ureteral stent placement. COMPARISON STUDY: CT of the abdomen and pelvis March 13, 2023 and KUB March 17, 2023. TECHNIQUE: Axial images of the abdomen and pelvis were obtained without IV contrast. Images were revi ewed in the axial, sagittal, and coronal planes. Automated exposure control was utilized for the lucero dy. A dose lowering technique was utilized adhering to the principles of ALARA. FINDINGS: Lung bases are unremarkable. No pneumatosis, free air or portal venous gas is present. Left ureteral stent is in place. There is no left hydronephrosis. No ureteral calculi or fragments are pr esent. There is minimal stranding adjacent to the left ureter. There is a punctate left renal calculu s. No right-sided urinary calculi are present. Water attenuation right renal lesion favors a cyst. Un enhanced images of the liver, spleen, right adrenal gland and pancreas are unremarkable. A low-attenu ation 1.3 cm left adrenal nodule is unchanged from earlier exams. This favors an adenoma. As before, there are numerous gallstones within the common bile duct with moderate dilatation of the common bile duct. This is unchanged. There is no fluid collection within the abdomen or pelvis. Colonic resectio n is noted. There is a left lower quadrant ostomy. Right lower quadrant hernia containing multiple sm all bowel loops does not result in a bowel obstruction. IMPRESSION: 1. Left ureteral stent in place. No ureteral calculi or fragments. No hydronephrosis. Mild stranding adjacent to the left collecting system and ureter. Punctate left renal calculus. 2. No bowel obstruction. Right lower quadrant hernia which contains several small bowel loops, unchan ged. 3. No change in choledocholithiasis and common bile duct dilatation. No evidence for acute pancreatit is. ACT 112: Negative or not required by law. Electronically signed by: Froylan Dhaliwal M.D. 04/07/2023 12:19 PM
--- NOTE | 2023-04-07 12:21 | XRay Report ---
XR chest 1V portable CLINICAL HISTORY: Sepsis COMPARISON STUDY: Chest CT November 04, 2021. Chest radiograph March 17, 2023. FINDINGS: Lung volumes are normal. Lungs are clear. There is no pneumothorax or pleural effusion. Car diac size is stable. Mediastinal contours are normal. There is no evidence for pulmonary edema. IMPRESSION: No acute cardiopulmonary findings. ACT 112: Negative or not required by law. Electronically signed by: Froylan Dhaliwal M.D. 04/07/2023 12:19 PM
[2023-04-07 12:27] LABS: Troponin I High Sensitivity 7.6 pg/ml (0-14)
--- NOTE | 2023-04-07 12:56 | Electrocardiogram Report ---
Test Reason : Blood Pressure : / mmHG Vent. Rate : 106 BPM Atrial Rate : 106 BPM P-R Int : 164 ms QRS Dur : 078 ms QT Int : 324 ms P-R-T Axes : 065 -26 041 degrees QTc Int : 430 ms Sinus tachycardia Otherwise normal ECG When compared with ECG of 17-MAR-2023 12:36, No significant change was found Confirmed by Catracho Govea ([id number]) on 04/07/2023 12:56:21 PM Referred By: Confirmed By:Catracho Govea
[2023-04-07] MEDS ORDERED: MAGNESIUM OXIDE 400 MG TAB PO STA (13:02)
[2023-04-07] MEDS ORDERED: cefTRIAXone SODIUM 2,000 MG/70 ML BAG IV STA (13:02)
--- NOTE | 2023-04-07 13:55 | Ultrasound Report ---
LEFT LOWER EXTREMITY VENOUS DOPPLER CLINICAL HISTORY: swelling/pain COMPARISON STUDY: Bilateral lower extremity venous Doppler ultrasound June 05, 2020. TECHNIQUE: Sonography of the deep venous system of the left lower extremity was performed. Compressi on and augmentation were evaluated. FINDINGS: The left common femoral, superficial femoral and popliteal veins were compressible. Augmen tation was normal. Flow was shown within the deep calf vessels. IMPRESSION: No evidence of deep venous thrombus within the left lower extremity. ACT 112: Negative or not required by law. Electronically signed by: Froylan Dhaliwal M.D. 04/07/2023 1:53 PM
[2023-04-07] MEDS ORDERED: SODIUM CHLORIDE 0.9% 500 ML IV ONE (14:13)
--- NOTE | 2023-04-07 14:36 | History & Physical Report ---
Date of Service April 07, 2023 Assessment & Plan (1) Sepsis: Plan: Sepsis, suspect UTI versus cellulitis Sepsis with tachycardia, fever, leukocytosis on admission. Source? UTI with stranding on CTAP, UA is pending at time of admission versus left lower extremity swelling and erythema concerning for cellulitis With recent left ureteral stent placement Also with left lower extremity pain/swelling Elevated temperature of 100.9 at home with chills and feeling of feverishness CTA/P: Left ureteral stent in place, mild adjacent stranding. No bowel obstruction. Stable right lower quadrant hernia. Stable Ivy toco lithiasis and common bile duct dilation without evidence of acute pancreatitis Procalcitonin is normal Lactate is normal Echo 08/2022: Technically challenging study. Normal LV systolic function with EF 65-70%. EKG on admission sinus tachycardia 106 without territorial signs of ischemia, QTc 430, heart rate downtrending post 1 L of fluids. CXR no acute findings, no evidence of pulmonary edema/CHF Tachycardia downtrending, patient given 1 L of fluid. Additional 500 cc of fluid ordered as patient reports poor p.o. intake, remains tachycardic. Will defer additional and fourth 30 cc/kg bolus due to history of diastolic heart failure Recent stent,? UTI CTA/P shows ureteral stent in place, mild adjacent stranding? UTI UA will be infected appearing due to stent Empirically covered with Rocephin. Follow cultures. Urology following Hypomagnesemia, acute [id number] p.o. Mag-Ox in ER. Follow for diarrhea, switch to 40 mg twice daily +/- IV repletion as needed Diastolic CHF With echo preserved ejection fraction as above Patient reports he has never needed Lasix, but has told she has had diastolic failure in the past No chest pain, chest pressure, or evidence of CHF on chest x-ray Lower extremities are chronically swelling LANDON on CKD Baseline creatinine appears approximately 1.21.8, recently peaked at 4.2 and was downtrending to 1.78 following obstructive uropathy Elevated on admission, creatinine 2.3 Leukocytosis of 16 with neutrophilic predominance no left shift Ostomy in place Chronic, longstanding. No surrounding tenderness/erythema. Output normal. No acute change in management Left leg swelling Doppler without evidence of DVT Type II DM Basal Lantus 40 units Sliding scale ordered based on basal requirements Due to difference between basal versus weight-based pharmacy consulted to follow Goal [id number] BSG Glucose checks AC/at bedtime Choledocholithiasis Noted on prior imaging, repeat CTA/P without change No transaminitis, no hyperbilirubinemia No acute change in management at this time DVT prophylaxis: Heparin Disposition: Medical surgical CODE STATUS: Conditional code, shock okay but no intubation under any circumstances. No chest compressions in the event of complete cardiac arrest. Patient aware that this is technically DNR/DNI, but will list as (2) Mixed conductive and sensorineural hearing loss of right ear with restricted hearing of left ear: (3) Type 2 diabetes mellitus: (4) Acute diastolic (congestive) heart failure: (5) DM type 2 (diabetes mellitus, type 2): (6) Pulmonary hypertension: (7) Chronic kidney disease, stage 3 (moderate): (8) Hyperlipidemia: (9) Hypoxemia: History of Present Illness Primary Care Provider: Ismael Pink MD Evette Morales is a 77-year-old female with a past medical history of hypertension, left ureteral calculi, baseline hypoxic respiratory failure on 3 L oxygen at night and as needed during the day with poor inspiratory effort, hyperlipidemia, hypothyroidism, type II DM on basal Lantus 40 units subcu recently discharged on 03/19/2023 after admission for obstructive LANDON with left ureteral calculus s/p stent placement with subsequent laser destruction and stone extraction and stent exchange on 03/29/2023 who presents to the emergency department with chills and leg swelling. Aniya reports she had a kidney stone out last week She reports she was doing OK up until this morning when she had fevers and really bad chills. Also noticed her leg left was swollen and warm and was worrie d about a blood clot, so rushed to the ER No chest pain No chest pressure +nausea, no vomiting On 5th ostomy. Complicated resections [place] [facility] [place] 4x subsequent revisions. Medical History: Reviewed Medications: Reviewed Surgical History: Reviewed Family history: Reviewed Allergies: Reviewed Social History: No tobacco/etoh Code Status: CC, Ok with shock but abdnormal rhythm, but no intubation under any circumstance. Noted Allergies Allergy/AdvReac Type Severity Reaction Status Date / Time codeine Allergy Intermediate WHITE Verified 03/29/23 06:00 CHANGE UNDER THE SKIN-ARMS Penicillins Allergy Intermediate RASH Verified 03/29/23 06:00 sulfamethoxazole Allergy Unknown DOES NOT Verified 03/29/23 06:00 KNOW REACTION trimethoprim Allergy Unknown DOES NOT Verified 03/29/23 06:00 KNOW REACTION atorvastatin AdvReac Intermediate SHE FELT Verified 03/29/23 06:00 WEAK simvastatin AdvReac Intermediate ARMS Verified 03/29/23 06:00 SWELLING adhesive AdvReac Mild SOME Verified 03/29/23 06:00 TAPE-REDNESS, ITCHY Home Medications Medication Instructions Recorded Confirmed Type diltiazem HCl 240 mg 240 mg PO HS 04/22/19 04/07/23 History capsule,extended release 24 hr, controlled ezetimibe 10 mg tablet (Zetia) 10 mg PO HS 04/22/19 04/07/23 History insulin lispro 100 unit/mL 1 sliding scale dose subcut 04/22/19 04/07/23 History subcutaneous cartridge (Humalog USEASDIRECTD U-100 Insulin) levothyroxine 50 mcg tablet 50 mcg PO QAM 04/22/19 04/07/23 History (Synthroid) niacin 50 mg tablet 50 mg PO BID 04/22/19 04/07/23 History rosuvastatin 5 mg tablet 5 mg PO HS 04/22/19 04/07/23 History calcitriol 0.25 mcg capsule 0.25 mcg PO QAM 11/04/21 04/07/23 History coenzyme Q10 300 mg capsule (Co 300 mg PO HS 11/04/21 04/07/23 History Q-10) acetaminophen 650 mg 650 mg PO Q12H PRN Pain 03/15/22 04/07/23 History tablet,extended release (Arthritis Pain Relief (acetaminophen) ER) ferrous sulfate 325 mg (65 mg 325 mg PO QAM 12/12/22 04/07/23 History iron) tablet,delayed release insulin glargine 100 unit/mL 40 unit subcut HS 12/12/22 04/07/23 History subcutaneous solution (Lantus U-100 Insulin) magnesium 200 mg tablet 400 mg PO QAM 12/12/22 04/07/23 History ascorbate calcium (vitamin C) 500 500 mg PO DAILY 01/16/23 04/07/23 History mg tablet letrozole 2.5 mg tablet 2.5 mg PO QAM 03/17/23 04/07/23 History phenazopyridine 200 mg tablet 200 mg PO Q8H PRN pain #10 tabs 03/29/23 04/07/23 Rx (Pyridium) tamsulosin 0.4 mg capsule 0.4 mg PO HS PRN other 04/07/23 04/07/23 History Past Med/Surg History Medical History Acute renal failure Acute respiratory failure with hypoxia Chronic kidney disease, stage 3 (moderate) Follows with nephro Congestive heart failure EF 65-70% on 08/2022 echo Diverticulitis DM type 2 (diabetes mellitus, type 2) IDDM. Dyslipidemia Hearing deficit B/L MOROCHO HTN (hypertension) Hx of Clostridium difficile infection ~2010 (reason for bowel resection) Hyperlipidemia Hypothyroidism Ileostomy, has currently Kidney stones hx Left flank pain Metabolic acidosis with normal anion gap and bicarbonate losses Pulmonary hypertension per 08/2022 [place] records: "...pulmonary hypertension identified on echocardiography when she was fluid overloaded...recent echocardiogram does not suggest significant elevated right-sided pressures although right ventricular systolic pressure was not specifically mentioned, possibly due to inadequate TR to make that determination..." further evaluation not felt to be needed per [facility] cardiology note Sacroiliitis SBO (small bowel obstruction) Seasonal allergies Surgical History H/O hernia repair History of appendectomy History of bowel resection 2010 History of breast surgery (01/02/23) Re-excision of left inferior margin of lumpectomy site Dr. Aniya Cooper History of cataract surgery Bilateral History of cholecystectomy History of colonoscopy History of cystoscopy WITH STENT History of esophagogastroduodenoscopy (EGD) History of left knee replacement History of lithotripsy ESWL History of lumpectomy of left breast (11/07/22) Dr. Aniya Cooper History of tonsillectomy History of tooth extraction History of total abdominal hysterectomy and bilateral salpingo-oophorectomy History of tubal ligation Status post laser lithotripsy of ureteral calculus Family History Mother , 75yo Diabetes Hypertension Angina pectoris, unspecified Multiple sclerosis Father , 54yo Myocardial infarction Sister Rectal cancer Lung cancer Son No problems noted. Son No problems noted. Family/Other Breast cancer Maternal aunt Other No family history of adverse response to anesthesia No family history of bleeding disorder Denies family history of Cystic kidney disease Social History Smoking Status: Former smoker Tobacco Type: Cigarettes Age Started Using Tobacco: 12; Age Quit Using Tobacco: 20; Cigarettes Per Day: Sneak smoking;; Second Hand Exposure: No; Do You Dip or Chew Tobacco: No; Hx Alcohol Use: No Hx Substance Use: No Preferred Language: Nepali Communication Ability: Effective Visual Impairment: No Limitations Hearing Ability: Hard of Hearing Chip Tester Required: No Beliefs That Will Affect Care: None marital status: Current Living Situation: Spouse current occupational status: retired current occupation: From [employer] How many Children do You have: 2 Feels Safe at Home: Yes Diet: regular caffeine: No during the past year weight has: remained stable Assistive Devices: Hearing Aid - Left Review of Systems Review of Systems: All systems reviewed & are unremarkable except as noted in Subjective Physical Exam Physical Exam: General: A&Ox3. NAD. Cooperative. HEENT: Atraumatic, normocephalic. Vision/hearing grossly intact, somewhat hard of hearing Pulm: Distant but grossly CTAB A&P. -wheezes, -rales, -rhonchi. Symmetrical chest rise. No increased work of breathing. No respiratory distress. Cardiac: Regular, mildly tachycardic. Radial pulses intact and symmetrical. Abdominal: Nontender, nondistended, soft. BS present. Ostomy in place Extremities: Left leg with anterior and posterior lower extremity erythema with slight surrounding swelling and asymmetrical warmth. Results & Data Results & Data Vital Signs (Past 12 Hours) Vital Signs Temp Pulse Pulse Resp BP BP Pulse Ox 04/07/23 12:00 100 H 18 161/71 H 97 04/07/23 12:24 101 H 04/07/23 11:52 93 04/07/23 11:07 36.7 C 80 22 174/52 H 96 O2 Del Method O2 Flow Rate 04/07/23 12:00 Nasal Cannula 3 04/07/23 12:24 04/07/23 11:52 Nasal Cannula 3 04/07/23 11:07 Room Air PG Care Time/CCT Total # of Minutes Spent Total Time Spent with Patient: Total time spent is greater than 50% in coordination of care (as documented) at patient's floor/unit and/or counseling patient: Coding Level of Care Code 50667 INT INP/OBS CARE MIN Diagnoses Sepsis A41.9 Mixed conductive and sensorineural hearing loss of right ear with restricted hearing of left ear H90.A31 Type 2 diabetes mellitus E11.9 Acute diastolic (congestive) heart failure I50.31 Pulmonary hypertension I27.20 Chronic kidney disease, stage 3 (moderate) N18.30 Chronic kidney disease stage 3 subtype: unspecified whether 3a or 3b Hyperlipidemia E78.5 Hypoxemia R09.02 (6) Chronic kidney disease, stage 3 (moderate) Chronic kidney disease stage 3 subtype: unspecified whether 3a or 3b Qualified Code(s): N18.30 - Chronic kidney disease, stage 3 unspecified
[2023-04-07] MEDS ORDERED: GLUCOSE 40% GEL 15 GM TUBE PO PRN (15:01)
[2023-04-07] MEDS ORDERED: CARBOHYDRATES FOR HYPOGLYCEMIA PO PRN (15:01)
[2023-04-07] MEDS ORDERED: DEXTROSE 50% 50 ML SYRINGE IV PRN (15:01)
[2023-04-07] MEDS ORDERED: GLUCOSE 10 TAB/TUBE PO PRN (15:01)
[2023-04-07] MEDS ORDERED: GLUCAGON FOR INJ 1 MG VIAL SQ PRN (15:01)
[2023-04-07] MEDS ORDERED: PHARMACY GLYCEMIC MGMT CONSULT PRN (15:01)
[2023-04-07] MEDS ORDERED: PLASMA-LYTE A 1,000 ML IV SCH (15:15)
--- NOTE | 2023-04-07 15:35 | Pharmacy Report ---
Pharmacy Glycemic Short Note 2 - Date of Service April 07, 2023 - Glycemic Short BSG Results (Last 24 hours): 04/07/23 11:45 Glucose 188 H OUTPATIENT ANTIDIABETIC REGIMEN: * Lantus 40 units SQ qHS * Lispro SQ with meals * A1c = 6.3% (03/18/23) ASSESSMENT: * Aniya is a 77 yo T2DM admitted with chills and leg swelling. Patient being worked up for possible UTI and cellulitis. * Per H&P, recently discharged on 03/19/2023 after admission for obstructive LANDON with left ureteral calculus s/p stent placement with subsequent laser destruction and stone extraction and stent exchange on 03/29/2023. * Will utilize insulin dosing from previous admission initially. * Lantus dose per scale - decreased 25-50% compared to home dose * Novolog CF and CR is between a weight based stress of 2 and 3 PLAN FOR INPATIENT GLYCEMIC CONTROL: * Hold outpatient oral diabetes medications * Basal insulin * Lantus 20-30 units SQ qHS per BSG scale * Bolus insulin * NovoLog per scale ACHS or Q6hrs while NPO * Goal Range: Low 110 mg/dL - High 140 mg/dL * Correction Factor: 20 mg/dL/unit * Nutritional / Prandial insulin per carb ratio of 1 unit per 6 grams CHO consumed
[2023-04-07] MEDS: INSULIN ASPART PER UNIT CHARGE SC SCH ×2 (18:22→22:45)
[2023-04-07 18:32] LABS: Appearance Urine Clear (Clear); Bacteria Urine Automated Negative (Negative); Bilirubin Urine Negative (Negative); Blood Urine 3+ (Negative); Color Urine Yellow; Epithelial Cell Urine Auto 20-30 /lpf (0-5); Glucose Urine UA Negative (Negative); Ketones Urine Negative (Negative); Leukocyte Esterase Urine Trace (Negative); Nitrite Urine Negative (Negative); Protein Urine 1+ (Negative); RBC Urine Automated >30 /hpf (0-4); Specific Gravity Urine 1.014 (1.000-1.030); Urobilinogen Urine Negative (Negative); pH Urine 5.5 (4.5-7.5)
[2023-04-07] MEDS ORDERED: PHENAZOPYRIDINE HCL 200 MG TAB PO PRN (20:58)
[2023-04-07] MEDS ORDERED: TAMSULOSIN HCL 0.4 MG CAP PO PRN (20:58)
[2023-04-07] MEDS ORDERED: ACETAMINOPHEN 325 MG TAB PO PRN (20:58)
[2023-04-07] MEDS ORDERED: POLYETHYLENE (MIRALAX) 17 GM PACK PO PRN (20:58)
[2023-04-07] MEDS: dilTIAZem HCL 240 MG CAPCR PO SCH (21:50)
[2023-04-07] MEDS: HEPARIN SOD 5,000 UNIT/0.5 ML VIAL SQ SCH (21:50)
[2023-04-07] MEDS: ROSUVASTATIN CALCIUM 5 MG TAB PO SCH (21:50)
[2023-04-07] MEDS: EZETIMIBE 10 MG TABLET PO SCH (21:50)
[2023-04-07] MEDS: LANTUS PER UNIT CHARGE SQ SCH (22:44)
[2023-04-08] MEDS: LEVOTHYROXINE SODIUM 50 MCG TABLET PO SCH (05:34)
[2023-04-08 06:59] LABS: Basophils # (auto) 0.04 K/uL (0-0.2); Basophils % (auto) 0.3 %; Eosinophils # (auto) 0.08 K/uL (0-0.50); Eosinophils % (auto) 0.6 %; Hematocrit (blood only) 30.3 % (37.0-47.0); Hemoglobin 9.5 g/dl (12.0-16.0); Immature Granulocytes # (auto) 0.05 K/uL (0.01-0.20); Immature Granulocytes % (auto) 0.4 %; Lymphocytes # (auto) 1.16 K/uL (1.2-3.4); Lymphocytes % (auto) 8.8 %; Mean Corpuscular Hemoglobin 28.9 pg (25.0-34.0); Mean Corpuscular Hgb Conc 31.4 g/dL (32.0-36.0); Mean Corpuscular Volume 92.1 fL (80.0-100.0); Mean Platelet Volume 11.4 fL (9.4-12.4); Monocytes # (auto) 0.59 K/uL (0.11-0.59); Monocytes % (auto) 4.5 %; Neutrophils # (auto) 11.32 K/uL (1.40-6.50); Neutrophils % (auto) 85.4 %; Platelet Count 174 K/uL (130-400); RDW Coefficient of Variation 15.8 % (11.5-14.5); RDW Standard Deviation 53.1 fL (36.4-46.3); Red Blood Count 3.29 M/uL (4.20-5.40); White Blood Count 13.24 K/ul (4.8-10.8)
[2023-04-08 07:03] LABS: Calcium 9.1 mg/dl (8.6-10.3); Magnesium 1.9 mg/dl (1.7-2.4)
[2023-04-08 07:09] LABS: BUN Creatinine Ratio 19.4 (10-20); Creatinine Clr Calc Pharmacy 21.9 ml/min; Est GFR (African American) 27.9 ml/min; Est GFR (Non-African American) 24.1 ml/min
--- NOTE | 2023-04-08 07:20 | Hospitalist Progress Note ---
Date of Service April 08, 2023 Assessment & Plan (1) Sepsis: Plan: Aniya is a 77 F with history of DJD, HTN, T2DM (on insulin), HLD, arthritis, prior C Diff, hypothyroidism, SNHL, Diastolic CHF, pHTN, CKD3, ostomy (2/2 diverticulitis 2010) and recent nephrolithiasis with stent placement (left) who presented for worsening chills, nausea, and LLE swelling. Recently discharged on 03/19/2023 after admission for obstructive LANDON with left ureteral calculus s/p st ent placement with subsequent laser destruction and stone extraction and stent exchange on 03/29/2023 Sepsis, suspect UTI versus cellulitis Sepsis with tachycardia (100-101), reported fever, leukocytosis (16.23) on admission. Source Ddx * UTI Recent L ureteral stent placement (03/29) CTAP - stent intact w/ adjacent stranding (mild) UA - 3+ blood, nitrite neg, trace leuk est, epithelial 20-30H Urology recommending against intervention, stent unlikely source given lack of urinary sx * Cellulitis Presentation with acute left lower extremity swelling and erythema No evidence of DVT on Doppler - Cultures * Blood: No growth @ 24 hours * Urine: Pinpoint growth, reincubating - Labs/Studies * Procalcitonin is normal * Lactate is normal * EKG on admission sinus tachycardia 106 without territorial signs of ischemia, QTc 430, heart rate downtrending post 1 L of fluids. * CXR no acute findings, no evidence of pulmonary edema/CHF - S/p 1 L NSS in ER and Plasmalyte 500 cc on admission * Additional fluid resuscitation deferred given hx of HF - Antibiotics * Continue Ceftriaxone 2 g IV q24h Chronic Diastolic CHF - Echo 08/2022: Normal LV systolic function with EF 65-70% - No outpatient diuresis (patient reports never used) - Asymptomatic w/o chest pain or dyspnea - CXR w/o evidence of pulmonary edema Venous Stasis - Chronic, non-pitting LE swelling, likely unrelated to patient's CHF LANDON (on CKD) - Baseline Creatinine 1.2-1.8 * Recent peak 4.2 during obstructive uropathy, downtrend to 1.78 at discharge 03/29 - Elevated to 2.3 on admission - Improved to 1.9 following fluid resuscitation (1.5 L) Hypomagnesemia - S/p 800 mg PO in ER - Continue 40 mg BID supplementation - IV repletion PRN Ostomy (Chronic) - S/p 6 revisions, most recent w/in last year - No surrounding tenderness/erythema - Stoma patent and non-erythematous Type II DM - Pharmacy consulted d/t differences between weight based and basal dosing Goal [id number] BSG Glucose checks AC/at bedtime, SSI, Basal insulin Choledocholithiasis Noted on prior imaging, repeat CTA/P without change Asymptomatic FEN: No IVF, Carb Consistent DVT prophylaxis: Heparin Disposition: Medical surgical CODE: Conditional code, shock okay but no intubation under any circumstances. No chest compressions in the event of complete cardiac arrest. Patient aware that this is technically DNR/DNI, but will list as (2) Mixed conductive and sensorineural hearing loss of right ear with restricted hearing of left ear: (3) Type 2 diabetes mellitus: (4) Acute diastolic (congestive) heart failure: (5) Pulmonary hypertension: (6) Chronic kidney disease, stage 3 (moderate): (7) Hyperlipidemia: (8) Hypoxemia: Admission and Anticipated Discharge Date Admission Date: April 07, 2023 Supervising Physician Co-Signing Physician Notes Resident Physician Supervision Note: I independently interviewed and examined the patient and verified the martínez history and physical, reviewed labs and image studies and agree with resident findings and care plan. Subjective 04/08: Aniya was sitting comfortably in her bedside chair upon arrival. She notes that she feels much better from presentation and is no longer having left lower leg pain. Patient notes that while she recently had ureteral stent placement, she has remained w/o dysuria, fevers, chills, flank, or back pain. She states that she only came in because her LLE was extremely red and she was worried about a blood clot. Patient denies any associated abdominal pain, headaches, or vision changes. She is not experiencing any chest pain, dyspnea, or pleuritic pain. She notes that overall she feels well. Physical Exam Physical Exam: Gen: NAD, alert, interactive Neuro: AO x 3, no focal neurologic defects HEENT: NCAT, supple, no LAD Resp:Non-labored, no wheezing/rhonchi/rales, CTAB CV:RRR, normal S1/S2, no M/R/G Abd: Soft, non-distended, no TTP, normoactive bowels, no masses, Ostomy intact/stoma w/o erythema Extr: 2+ dp bilaterally, 1+ non-pitting edema of bilateral LE * Left leg: Anterior/Posterior-Lateral erythema w/o increased edema and moderate warmth (well within previously drawn boundary lines) Skin: No rashes lesions or erythema Results & Data Results & Data Vital Signs (Past 12 Hours) Vital Signs Temp Pulse Resp BP Pulse Ox O2 Del Method O2 Flow Rate 04/08/23 06:53 37 C 76 16 103/53 L 97 Room Air 04/07/23 22:15 Nasal Cannula 2 04/07/23 20:27 Nasal Cannula 2 04/07/23 20:20 36.7 C 96 H 20 136/63 94 Nasal Cannula 2 Resident Activity Tracking Resident Involvement: Resident Care Provided Care Provided: Adult Hospital Medicine (6) Chronic kidney disease, stage 3 (moderate) Chronic kidney disease stage 3 subtype: unspecified whether 3a or 3b Qualified Code(s): N18.30 - Chronic kidney disease, stage 3 unspecified
[2023-04-08] MEDS: CALCITRIOL 0.25 MCG CAPSULE PO SCH (08:50)
[2023-04-08] MEDS: HEPARIN SOD 5,000 UNIT/0.5 ML VIAL SQ SCH ×2 (08:50→22:03)
[2023-04-08] MEDS: MAGNESIUM OXIDE 400 MG TAB PO SCH (08:50)
[2023-04-08] MEDS: FERROUS SULFATE 325 MG TAB PO SCH (08:51)
[2023-04-08] MEDS: LETROZOLE 2.5 MG TAB PO SCH (08:54)
--- NOTE | 2023-04-08 09:00 | Urology Consultation ---
Date of Consultation April 08, 2023 Assessment & Plan (1) Left ureteral calculus: (2) Sepsis: (3) Cellulitis: Plan 77-year-old female with recent left-sided stone treatment by Dr. Silva. Presented with fevers and concern for sepsis. Also has concern for left lower extremity cellulitis. Admitted to medicine. -No urologic intervention necessary Reviewed patient's labs, urinalysis and imaging. Suspect this is likely cellulitis as her overall urologic picture is not very convincing for sepsis from a urinary cause and she was completely asymptomatic from a stent perspective. Agree with broad-spectrum antibiotics. Follow-up cultures. Suspect we will need to push back stent removal as she may still be in the hospital. Will also depend on if urine culture grows out any specific bacteria as it may need to be postponed until she is appropriately treated Urology to follow peripherally History of Present Illness Attending Physician: Bonnie Tobin MD History of Present Illness 77-year-old female who is status post left ureteroscopy with stent exchange on 03/29/2023. This was done by Dr. Silva. She is scheduled for stent removal on 04/10/2023. She presented to the hospital on 04/07/2023 with concerns for sepsis. I independently reviewed her labs which initially showed a leukocytosis of 16.3 and a creatinine of 2.30. Her baseline creatinines have been quite variable recently. Urinalysis was negative for nitrites, had trace leukocyte Estrace, 5-10 WBCs, 30+ RBCs and no bacteria. Independently reviewed a CT scan of the abdomen and pelvis which shows a stent in appropriate position and no obvious stones remaining. She had left lower extremity swelling with a negative Doppler so concern was for possible cellulitis. She is currently on ceftriaxone. Independently reviewed her labs from this morning which shows downtrending leukocytosis to 13.2, creatinine of 1.96. Cultures are pending. Patient denies any dysuria, hematuria, urgency, frequency or incontinence. Reports her only reason for coming in the hospital was lower left extremity swelling. Allergies Allergy/AdvReac Type Severity Reaction Status Date / Time codeine Allergy Intermediate WHITE Verified 03/29/23 06:00 CHANGE UNDER THE SKIN-ARMS Penicillins Allergy Intermediate RASH Verified 03/29/23 06:00 sulfamethoxazole Allergy Unknown DOES NOT Verified 03/29/23 06:00 KNOW REACTION trimethoprim Allergy Unknown DOES NOT Verified 03/29/23 06:00 KNOW REACTION atorvastatin AdvReac Intermediate SHE FELT Verified 03/29/23 06:00 WEAK simvastatin AdvReac Intermediate ARMS Verified 03/29/23 06:00 SWELLING adhesive AdvReac Mild SOME Verified 03/29/23 06:00 TAPE-REDNESS, ITCHY Home Medications Medication Instructions Recorded Confirmed Type diltiazem HCl 240 mg 240 mg PO HS 04/22/19 04/07/23 History capsule,extended release 24 hr, controlled ezetimibe 10 mg tablet (Zetia) 10 mg PO HS 04/22/19 04/07/23 History insulin lispro 100 unit/mL 1 sliding scale dose subcut 04/22/19 04/07/23 History subcutaneous cartridge (Humalog USEASDIRECTD U-100 Insulin) levothyroxine 50 mcg tablet 50 mcg PO QAM 04/22/19 04/07/23 History (Synthroid) niacin 50 mg tablet 50 mg PO BID 04/22/19 04/07/23 History rosuvastatin 5 mg tablet 5 mg PO HS 04/22/19 04/07/23 History calcitriol 0.25 mcg capsule 0.25 mcg PO QAM 11/04/21 04/07/23 History coenzyme Q10 300 mg capsule (Co 300 mg PO HS 11/04/21 04/07/23 History Q-10) acetaminophen 650 mg 650 mg PO Q12H PRN Pain 03/15/22 04/07/23 History tablet,extended release (Arthritis Pain Relief (acetaminophen) ER) ferrous sulfate 325 mg (65 mg 325 mg PO QAM 12/12/22 04/07/23 History iron) tablet,delayed release insulin glargine 100 unit/mL 40 unit subcut HS 12/12/22 04/07/23 History subcutaneous solution (Lantus U-100 Insulin) magnesium 200 mg tablet 400 mg PO QAM 12/12/22 04/07/23 History ascorbate calcium (vitamin C) 500 500 mg PO DAILY 01/16/23 04/07/23 History mg tablet letrozole 2.5 mg tablet 2.5 mg PO QAM 03/17/23 04/07/23 History phenazopyridine 200 mg tablet 200 mg PO Q8H PRN pain #10 tabs 03/29/23 04/07/23 Rx (Pyridium) tamsulosin 0.4 mg capsule 0.4 mg PO HS PRN other 04/07/23 04/07/23 History Patient History Medical History Acute renal failure Acute respiratory failure with hypoxia Chronic kidney disease, stage 3 (moderate) Follows with nephro Congestive heart failure EF 65-70% on 08/2022 echo Diverticulitis DM type 2 (diabetes mellitus, type 2) IDDM. Dyslipidemia Hearing deficit B/L MORO[place] HTN (hypertension) Hx of Clostridium difficile infection ~2010 (reason for bowel resection) Hyperlipidemia Hypothyroidism Ileostomy, has currently Kidney stones hx Left flank pain Metabolic acidosis with normal anion gap and bicarbonate losses Pulmonary hypertension per 08/2022 [place] records: "...pulmonary hypertension identified on echocardiography when she was fluid overloaded...recent echocardiogram does not suggest significant elevated right-sided pressures although right ventricular systolic pressure was not specifically mentioned, possibly due to inadequate TR to make that determination..." further evaluation not felt to be needed per [facility] cardiology note Sacroiliitis SBO (small bowel obstruction) Seasonal allergies Surgical History H/O hernia repair History of appendectomy History of bowel resection 2010 History of breast surgery (01/02/23) Re-excision of left inferior margin of lumpectomy site Dr. Aniya Cooper History of cataract surgery Bilateral History of cholecystectomy History of colonoscopy History of cystoscopy WITH STENT History of esophagogastroduodenoscopy (EGD) History of left knee replacement History of lithotripsy ESWL History of lumpectomy of left breast (11/07/22) Dr. Aniya Cooper History of tonsillectomy History of tooth extraction History of total abdominal hysterectomy and bilateral salpingo-oophorectomy History of tubal ligation Status post laser lithotripsy of ureteral calculus Family History Mother , 75yo Diabetes Hypertension Angina pectoris, unspecified Multiple sclerosis Father , 54yo Myocardial infarction Sister Rectal cancer Lung cancer Son No problems noted. Son No problems noted. 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 Beliefs That Will Affect Care: None marital status: Current Living Situation: Spouse current occupational status: retired current occupation: From [employer] How many Children do You have: 2 Other Information That Helps Us Care for You: No Feels Safe at Home: Yes Safety Concerns: Feels Safe At This Time Diet: regular caffeine: No during the past year weight has: remained stable Assistive Devices: Oxygen - Continuous Review of Systems Review of Systems: 14 point review of systems negative outside of what is listed above in HPI Physical Exam Physical Exam: General: Alert and oriented, no acute distress HEENT: Normocephalic, mucous membranes moist Pulmonary: Nonlabored respirations Abdomen: Nondistended Extremities: Moves all 4 spontaneously Neuro: No gross deficits Skin: Warm, dry, no rashes noted Results & Data Vital Signs (Past 12 Hours) Vital Signs Temp Pulse Resp BP Pulse Ox O2 Del Method O2 Flow Rate 04/08/23 06:53 37 C 76 16 103/53 L 97 Room Air 04/07/23 22:15 Nasal Cannula 2 PG Care Time/CCT Total # of Minutes Spent Total Time Spent with Patient: Total time spent is greater than 50% in coordination of care (as documented) at patient's floor/unit and/or counseling patient: Coding Level of Care Code 12972 INT INP/OBS CARE 2/55MIN Diagnoses Left ureteral calculus N20.1 Sepsis A41.9 Cellulitis L03.116 Laterality: left Site of cellulitis: extremity Site of cellulitis of extremity: lower extremity (3) Cellulitis Laterality: left Site of cellulitis: extremity Site of cellulitis of extremity: lower extremity Qualified Code(s): L03.116 - Cellulitis of left lower limb
[2023-04-08] MEDS: INSULIN ASPART PER UNIT CHARGE SC SCH ×4 (09:38→21:58)
[2023-04-08] MEDS ORDERED: cefTRIAXone SODIUM 2,000 MG in DEXTROSE 5% 50 ML IV SCH (14:00)
[2023-04-08] MEDS: LANTUS PER UNIT CHARGE SQ SCH (21:58)
[2023-04-08] MEDS: EZETIMIBE 10 MG TABLET PO SCH (22:02)
[2023-04-08] MEDS: dilTIAZem HCL 240 MG CAPCR PO SCH (22:02)
[2023-04-08] MEDS: ROSUVASTATIN CALCIUM 5 MG TAB PO SCH (22:02)
[2023-04-09] MEDS: LEVOTHYROXINE SODIUM 50 MCG TABLET PO SCH (05:35)
--- NOTE | 2023-04-09 07:17 | Hospitalist Progress Note ---
Date of Service April 09, 2023 Assessment & Plan (1) Sepsis: Plan: Aniya is a 77 F with history of DJD, HTN, T2DM (on insulin), HLD, arthritis, prior C Diff, hypothyroidism, SNHL, Diastolic CHF, pHTN, CKD3, ostomy (2/2 diverticulitis 2010) and recent nephrolithiasis with stent placement (left) who presented for worsening chills, nausea, and LLE swelling. Recently discharged on 03/19/2023 after admission for obstructive LANDON with left ureteral calculus s/p st ent placement with subsequent laser destruction and stone extraction and stent exchange on 03/29/2023 Sepsis, suspect UTI versus cellulitis Sepsis with tachycardia (100-101), reported fever, leukocytosis (16.23) on admission. Source Ddx * UTI Recent L ureteral stent placement (03/29) CTAP - stent intact w/ adjacent stranding (mild) UA - 3+ blood, nitrite neg, trace leuk est, epithelial 20-30H Urology recommending against intervention, stent unlikely source given lack of urinary sx * Cellulitis Presentation with acute left lower extremity swelling and erythema No evidence of DVT on Doppler - Cultures * Blood: No growth @ 24 hours * Urine: Pinpoint growth, reincubating - Labs/Studies * Procalcitonin is normal * Lactate is normal * EKG on admission sinus tachycardia 106 without territorial signs of ischemia, QTc 430, heart rate downtrending post 1 L of fluids. * CXR no acute findings, no evidence of pulmonary edema/CHF - S/p 1 L NSS in ER and Plasmalyte 500 cc on admission * Additional fluid resuscitation deferred given hx of HF - Antibiotics * Continue Ceftriaxone 2 g IV q24h Chronic Diastolic CHF - Echo 08/2022: Normal LV systolic function with EF 65-70% - No outpatient diuresis (patient reports never used) - Asymptomatic w/o chest pain or dyspnea - CXR w/o evidence of pulmonary edema Venous Stasis - Chronic, non-pitting LE swelling, likely unrelated to patient's CHF LANDON (on CKD) - Baseline Creatinine 1.2-1.8 * Recent peak 4.2 during obstructive uropathy, downtrend to 1.78 at discharge 03/29 - Elevated to 2.3 on admission - Improved to 1.9 following fluid resuscitation (1.5 L) Hypomagnesemia - S/p 800 mg PO in ER - Continue 40 mg BID supplementation - IV repletion PRN Ostomy (Chronic) - S/p 6 revisions, most recent w/in last year - No surrounding tenderness/erythema - Stoma patent and non-erythematous Type II DM - Pharmacy consulted d/t differences between weight based and basal dosing Goal [id number] BSG Glucose checks AC/at bedtime, SSI, Basal insulin Choledocholithiasis Noted on prior imaging, repeat CTA/P without change Asymptomatic FEN: No IVF, Carb Consistent DVT prophylaxis: Heparin Disposition: Medical surgical CODE: Conditional code, shock okay but no intubation under any circumstances. No chest compressions in the event of complete cardiac arrest. Patient aware that this is technically DNR/DNI, but will list as (2) Mixed conductive and sensorineural hearing loss of right ear with restricted hearing of left ear: (3) Type 2 diabetes mellitus: (4) Acute diastolic (congestive) heart failure: (5) Pulmonary hypertension: (6) Chronic kidney disease, stage 3 (moderate): (7) Hyperlipidemia: (8) Hypoxemia: Admission and Anticipated Discharge Date Admission Date: April 07, 2023 Subjective 04/08: Aniya was sitting comfortably in her bedside chair upon arrival. She notes that she feels much better from presentation and is no longer having left lower leg pain. Patient notes that while she recently had ureteral stent placement, she has remained w/o dysuria, fevers, chills, flank, or back pain. She states that she only came in because her LLE was extremely red and she was worried about a blood clot. Patient denies any associated abdominal pain, headaches, or vision changes. She is not experiencing any chest pain, dyspnea, or pleuritic pain. She notes that overall she feels well. 04/09: Physical Exam Physical Exam: Gen: NAD, alert, interactive Neuro: AO x 3, no focal neurologic defects HEENT: NCAT, supple, no LAD Resp:Non-labored, no wheezing/rhonchi/rales, CTAB CV:RRR, normal S1/S2, no M/R/G Abd: Soft, non-distended, no TTP, normoactive bowels, no masses, Ostomy intact/stoma w/o erythema Extr: 2+ dp bilaterally, 1+ non-pitting edema of bilateral LE * Left leg: Anterior/Posterior-Lateral erythema w/o increased edema and moderate warmth (well within previously drawn boundary lines) Skin: No rashes lesions or erythema Results & Data Results & Data Vital Signs (Past 12 Hours) Vital Signs Temp Pulse Resp BP Pulse Ox O2 Del Method O2 Flow Rate 04/09/23 06:59 36.7 C 66 16 113/63 97 Room Air 04/08/23 21:56 36.6 C 77 16 99/55 L 98 Nasal Cannula 2 Resident Activity Tracking Resident Involvement: Resident Care Provided Care Provided: Adult Hospital Medicine (6) Chronic kidney disease, stage 3 (moderate) Chronic kidney disease stage 3 subtype: unspecified whether 3a or 3b Qualified Code(s): N18.30 - Chronic kidney disease, stage 3 unspecified
[2023-04-09 07:36] LABS: Basophils # (auto) 0.05 K/uL (0-0.2); Basophils % (auto) 0.6 %; Eosinophils # (auto) 0.37 K/uL (0-0.50); Eosinophils % (auto) 4.7 %; Hematocrit (blood only) 31.3 % (37.0-47.0); Hemoglobin 9.8 g/dl (12.0-16.0); Immature Granulocytes # (auto) 0.02 K/uL (0.01-0.20); Immature Granulocytes % (auto) 0.3 %; Lymphocytes # (auto) 1.41 K/uL (1.2-3.4); Lymphocytes % (auto) 17.9 %; Mean Corpuscular Hemoglobin 29.4 pg (25.0-34.0); Mean Corpuscular Hgb Conc 31.3 g/dL (32.0-36.0); Mean Platelet Volume 10.9 fL (9.4-12.4); Monocytes # (auto) 0.56 K/uL (0.11-0.59); Monocytes % (auto) 7.1 %; Neutrophils # (auto) 5.48 K/uL (1.40-6.50); Neutrophils % (auto) 69.4 %; Platelet Count 179 K/uL (130-400); RDW Coefficient of Variation 15.7 % (11.5-14.5); Red Blood Count 3.33 M/uL (4.20-5.40); White Blood Count 7.89 K/ul (4.8-10.8)
[2023-04-09 07:53] LABS: BUN Creatinine Ratio 19.5 (10-20); Calcium 9.5 mg/dl (8.6-10.3); Creatinine Clr Calc Pharmacy 19.9 ml/min; Est GFR (African American) 24.9 ml/min; Est GFR (Non-African American) 21.5 ml/min; Potassium 4.2 mmol/L (3.5-5.1)
[2023-04-09] MEDS: INSULIN ASPART PER UNIT CHARGE SC SCH (08:38)
[2023-04-09] MEDS: FERROUS SULFATE 325 MG TAB PO SCH (08:42)
[2023-04-09] MEDS: CALCITRIOL 0.25 MCG CAPSULE PO SCH (08:42)
[2023-04-09] MEDS: MAGNESIUM OXIDE 400 MG TAB PO SCH (08:42)
[2023-04-09] MEDS: LETROZOLE 2.5 MG TAB PO SCH (08:43)
[2023-04-09] MEDS: HEPARIN SOD 5,000 UNIT/0.5 ML VIAL SQ SCH (08:43)
--- NOTE | 2023-04-09 10:02 | Discharge Summary ---
Date of Service April 09, 2023 Admission HPI Per Admitting Provider Evette Morales is a 77-year-old female with a past medical history of hypertension, left ureteral calculi, baseline hypoxic respiratory failure on 3 L oxygen at night and as needed during the day with poor inspiratory effort, hyperlipidemia, hypothyroidism, type II DM on basal Lantus 40 units subcu recently discharged on 03/19/2023 after admission for obstructive LANDON with left ureteral calculus s/p stent placement with subsequent laser destruction and stone extraction and stent exchange on 03/29/2023 who presents to the emergency department with chills and leg swelling. Aniya reports she had a kidney stone out last week She reports she was doing OK up until this morning when she had fevers and really bad chills. Also noticed her leg left was swollen and warm and was worried about a blood clot, so rushed to the ER No chest pain No chest pressure +nausea, no vomiting On 5th ostomy. Complicated resections following diverticulitis in [facility] in 2010 with 4x subsequent revisions. Medical History: Reviewed Medications: Reviewed Surgical History: Reviewed Family history: Reviewed Allergies: Reviewed Social History: No tobacco/etoh Code Status: CC, Ok with shock but abdnormal rhythm, but no intubation under any circumstance. Noted Admission Exam Per Admitting Provider General: A&Ox3. NAD. Cooperative. HEENT: Atraumatic, normocephalic. Vision/hearing grossly intact, somewhat hard of hearing Pulm: Distant but grossly CTAB A&P. -wheezes, -rales, -rhonchi. Symmetrical chest rise. No increased work of breathing. No respiratory distress. Cardiac: Regular, mildly tachycardic. Radial pulses intact and symmetrical. Abdominal: Nontender, nondistended, soft. BS present. Ostomy in place Extremities: Left leg with anterior and posterior lower extremity erythema with slight surrounding swelling and asymmetrical warmth. Principal Diagnosis Cellulitis Discharge Exam Gen: NAD, alert, interactive Neuro: AO x 3, no focal neurologic defects HEENT: NCAT, supple, no LAD Resp:Non-labored, no wheezing/rhonchi/rales, CTAB CV:RRR, normal S1/S2, no M/R/G Abd: Soft, non-distended, no TTP, normoactive bowels, no masses, Ostomy intact/stoma w/o erythema Extr: 2+ dp bilaterally, 1+ non-pitting edema of bilateral LE * Left leg: Anterior/Posterior erythema w/o increased edema or warmth (well within previously drawn boundary lines, interval improvement) Discharge Data Allergies Allergy/AdvReac Type Severity Reaction Status Date / Time codeine Allergy Intermediate WHITE Verified 03/29/23 06:00 CHANGE UNDER THE SKIN-ARMS Penicillins Allergy Intermediate RASH Verified 03/29/23 06:00 sulfamethoxazole Allergy Unknown DOES NOT Verified 03/29/23 06:00 KNOW REACTION trimethoprim Allergy Unknown DOES NOT Verified 03/29/23 06:00 KNOW REACTION atorvastatin AdvReac Intermediate SHE FELT Verified 03/29/23 06:00 WEAK simvastatin AdvReac Intermediate ARMS Verified 03/29/23 06:00 SWELLING adhesive AdvReac Mild SOME Verified 03/29/23 06:00 TAPE-REDNESS, ITCHY Consultations 04/07/23 14:13 ED Decision to Admit Stat 04/07/23 20:58 Consult Urology Routine Ordered Studies 04/07/23 11:29 CT abd pelvis wo con Stat 04/07/23 11:41 US venous doppler LE LT Stat Hospital Course (1) Sepsis: (2) Mixed conductive and sensorineural hearing loss of right ear with restricted hearing of left ear: (3) Type 2 diabetes mellitus: (4) Acute diastolic (congestive) heart failure: (5) Pulmonary hypertension: (6) Chronic kidney disease, stage 3 (moderate): (7) Hyperlipidemia: (8) Hypoxemia: Hafsa Kwan is a 77 F with history of DJD, HTN, T2DM (on insulin), HLD, arthritis, prior C Diff, hypothyroidism, SNHL, Diastolic CHF, pHTN, CKD3, ostomy (2/2 diverticulitis 2010) and recent nephrolithiasis with stent placement (left) who presented for worsening chills, nausea, and LLE swelling. Recently discharged on 03/19/2023 after admission for obstructive LANDON with left ureteral calculus s/p stent placement with subsequent laser destruction and stone extraction and stent exchange on 03/29/2023 Probable Sepsis from early cellulitis Sepsis with tachycardia (100-101), reported chills, leukocytosis (16.23) on admission. Lactate/Procal - normal. Presentation with acute left lower extremity swelling and erythema - Cultures * Blood: No growth @ 48h - S/p 1 L NSS in ER and Plasmalyte 500 cc on admission - Antibiotics * Inpatient Ceftriaxone 2 g IV q24h * Continue Cephalexin (Keflex) 500 mg PO QID for 5 days (7 day course) LANDON (on CKD) - Baseline Creatinine 1.2-1.8 * Recent peak 4.2 during obstructive uropathy, downtrend to 1.78 at discharge 03/29- - Elevated to 2.3 on admission - Improved to 1.9 following fluid resuscitation (1.5 L) - Creatinine 04/09 2.15, follow up outpatient w/ CMP in 7-10 days S/P L Ureteral stent 03/29 - Evaluated by urology CTAP - stent intact w/ adjacent stranding (mild) Urology recommending against intervention, stent unlikely source given lack of urinary sx * Urine: Moderate counts of probable skin fred Chronic Diastolic CHF - Echo 08/2022: Normal LV systolic function with EF 65-70% - Stayed Euvolemic Venous Stasis - Chronic, non-pitting LE swelling Ostomy (Chronic) - S/p 6 revisions, most recent w/in last year - No surrounding tenderness/erythema - Stoma patent and non-erythematous Type II DM - Pharmacy consulted d/t differences between weight based and basal dosing Goal [id number] BSG Glucose checks AC/at bedtime, SSI, Basal insulin Choledocholithiasis Noted on prior imaging, repeat CTA/P without change Asymptomatic FEN: No IVF, Carb Consistent DVT prophylaxis: Heparin Disposition: Home CODE: Conditional code Total Time Total Time Spent Total Time Spent (In Minutes): See attending attestation Discharge Plan Discharge Items Patient Disposition: Home - Self-Care Reason For Visit: CELLULITIS,UTI Discharge Diagnosis: Cellulitis Activity: Per Instructions section Non-emergency contact: Primary Care Provider Call non-emergency contact if: you have any medication questions, your pain is not controlled and you have a fever Follow-up/Referrals: Ismael Pink MD [Primary Care Provider] - Diet: Carb Consistent or DM2 and Heart Healthy Addtl Attending Provider Instructions: You were admitted to the hospital for sepsis secondary to a skin infection (cellulitis) on your left lower extremity. Imaging was performed to determine that you do not have a DVT (blood clot). In addition, imaging and labs were performed to determine if your left sided ureter stent was contributing to your presentation. Ultimately, Urology evaluated you inpatient and determined that the stent was NOT causing your sepsis. You were started on IV antibiotics to treat the cellulitis in your leg (Ceftriaxone). This quickly improved the swelling and redness of the leg and your vitals returned to normal, because if this, it is safe to discharge you to home to continue oral antibiotics (Cephale pavel). Recommendations: - Follow up with your PCP (Dr. Pink) within 1 week (Recommend recheck kidney labs - CMP) - Continue taking Cephalexin 500 mg by mouth four times a day for an additional 5 days (7 day course) - Continue with oral hydration as discussed inpatient It was a pleasure to be a part of your care, Dr. Pool Frausto Pending Studies at Discharge: No Stand-Alone Forms: My [facility] [employer], Smoking Cessation Medications and DC Order Prescriptions: New cephalexin 500 mg capsule 500 mg PO QID 5 Days Qty: 20 0RF Continued magnesium 200 mg tablet 400 mg PO QAM ferrous sulfate 325 mg (65 mg iron) tablet,delayed release (DR/EC) 325 mg PO QAM ascorbate calcium (vitamin C) 500 mg tablet 500 mg PO DAILY acetaminophen [Arthritis Pain Relief (acetam)] 650 mg tablet extended release 650 mg PO Q12H PRN (Reason: Pain) diltiazem HCl 240 mg Capsule,Ext.Rel 24h Degradable 240 mg PO HS niacin 50 mg Tablet 50 mg PO BID levothyroxine [Synthroid] 50 mcg Tablet 50 mcg PO QAM Humalog U-100 Insulin 100 unit/mL Cartridge 1 sliding scale dose SUBCUT USEASDIRECTD Rx Instructions: with meals ezetimibe [Zetia] 10 mg Tablet 10 mg PO HS rosuvastatin 5 mg Tablet 5 mg PO HS Lantus U-100 Insulin 100 unit/mL solution 40 unit SUBCUT HS calcitriol 0.25 mcg capsule 0.25 mcg PO QAM Co Q-10 300 mg Capsule 300 mg PO HS tamsulosin 0.4 mg capsule 0.4 mg PO HS PRN (Reason: other) phenazopyridine [Pyridium] 200 mg tablet 200 mg PO Q8H PRN (Reason: pain) Qty: 10 0RF letrozole 2.5 mg tablet 2.5 mg PO QAM Discharge Orders: Discharge Order (Routine); Ordered 04/09/23 Ordered By: Pool Jordan/Other Patient Handouts: Having a Ureteral Stent Admission Data Admit Date/Time: 04/07/23 16:42 Attending Provider: Bonnie Tobin Admit Provider: Adalid Fox Primary Care Provider: Ismael Pink Other Providers: Adalid Fox ; Donny Nixon Other Interventions: Discharge Summary Assessment (RN) Last Done: 04/09/23 10:14 Supervising Physician Co-Signing Physician Notes Resident Physician Supervision Note: I independently interviewed and examined the patient and verified the martínez history and physical, reviewed labs and image studies and agree with resident findings and care plan. Resident Activity Tracking Resident Involvement: Resident Care Provided Care Provided: Adult Hospital Medicine
--- NOTE | 2023-04-13 13:23 | Coding Query ---
CODING QUERY To promote full compliance with coding requirements relating to patient care, provider participation is requested in all cases of bed spring maker uncertainty. Please assist us with the question(s) below: Coding Question(s): There is documentation in the record and on the Discharge Summary of Acute diastolic (congestive) heart failure, however, there is also documentation, as on the Discharge Summary, of, "Chronic Diastolic CHF - Echo 08/2022: Normal LV systolic function with EF 65-70% - Stayed Euvolemic". Please, clarify below, in your clinical opinion, regarding Acute Diastolic CHF: ( x) Acute Diastolic CHF is Ruled-Out ( ) Acute Diastolic CHF was possible and treated/monitored Physician's Response(s): Thank you Jyotsna Zaragoza Principal Diagnosis: "that condition established after study, to be chiefly responsible for occasioning the admission of the patient to the hospital for care." Co-Existing Principal Diagnosis: "when two or more diagnoses equally meet the criteria for principal diagnosis as determined by the circumstances of admission, diagnostic work up, and/or therapy provided, and the Alphabetic Index, Tabular List, or another coding guideline does not provide sequencing direction, any one of the diagnoses may be sequenced first." "When the physician has documented what appears to be a current diagnosis in the body of the record, but has not included the diagnosis in the final diagnostic statement, the physician should be asked whether the diagnosis should be added." (Source [facility] 2 QTR90. p3-4) DESTINI
== END 2023-04-09 11:04 | disposition home or self-care (01) | DRG 872 ==
LOC: ED 11:03 → 3W 16:42 → SUATTDRO 16:42 → 3W 20:27

== ENCOUNTER 2023-10-06 12:01 | Inpatient (IN) ==
[2023-10-06 13:03] LABS: Basophils # (auto) 0.03 K/uL (0.00-0.20); Basophils % (auto) 0.3 %; Eosinophils # (auto) 0.27 K/uL (0.00-0.50); Eosinophils % (auto) 3.1 %; Hematocrit (blood only) 27.5 % (37.0-47.0); Hemoglobin 8.1 g/dl (12.0-16.0); Immature Granulocytes # (auto) 0.04 K/uL (0.01-0.20); Immature Granulocytes % (auto) 0.5 %; Lymphocytes # (auto) 1.12 K/uL (1.20-3.40); Lymphocytes % (auto) 12.8 %; Mean Corpuscular Hemoglobin 29.7 pg (25.0-34.0); Mean Corpuscular Hgb Conc 29.5 g/dL (32.0-36.0); Mean Corpuscular Volume 100.7 fL (80.0-100.0); Mean Platelet Volume 10.1 fL (9.4-12.4); Monocytes # (auto) 0.51 K/uL (0.11-0.59); Monocytes % (auto) 5.8 %; Neutrophils # (auto) 6.75 K/uL (1.40-6.50); Neutrophils % (auto) 77.5 %; Platelet Count 210 K/uL (130-400); RDW Coefficient of Variation 17.2 % (11.5-14.5); RDW Standard Deviation 62.3 fL (36.4-46.3); Red Blood Count 2.73 M/uL (4.20-5.40); White Blood Count 8.72 K/ul (4.8-10.8)
--- NOTE | 2023-10-06 13:16 | Emergency Department Note ---
Impression & Plan Fluid overload, Morbid obesity, Chronic respiratory failure with hypoxia, Chronic kidney disease, stage 4 (severe), Diastolic CHF ED Provider Note Provider: Jose Sullivan MD DATE OF SERVICE: 10/06/2023 CHIEF COMPLAINT: Swelling, shortness of breath HISTORY OF PRESENT ILLNESS: Patient is a 78-year-old female past medical history of chronic respiratory failure on oxygen, diastolic CHF, severe stage IV CKD, hypertension, & diabetes presenting here today stating that she is feeling up with fluid. States has increased swelling of her lower legs and now worsening shortness of breath. Saw pulmonary earlier this week. States she had additional testing ordered and pulmonary was going to reach out to cardiology discussed given her complex history if additional diuresis would be helpful. Follows with nephrology as well given her CKD. Patient denies falls or trauma. Denies pain. Denies cough or cold symptoms that are new. States he is chronically on 6 L of oxygen. States he still able to get to the bathroom but she has significant swelling of her legs some swelling her abdomen and again it feels like she is filling with fluid. No fevers reported. No syncope reported. PAST MEDICAL HISTORY: As noted above MEDICATIONS: Reviewed home medications not currently on diuretic SOCIAL HISTORY: Former smoker PHYSICAL EXAM: GENERAL: alert and oriented in no acute distress on stretcher Head: normocephalic and atraumatic EYES: No injection, discharge or icterus. NECK: Trachea midline. ENT: Mucous membranes pink and moist. LUNGS: Airway patent. No retractions. Breath sounds diminished bases in the bases with some fine crackles HEART: Regular rate and rhythm. No chest wall tenderness ABDOMEN: Soft and non-tender, without guarding or rebound. SKIN: Acyanotic, warm, dry, without rashes EXTREMITIES: 2-3+ edema of the lower extremities bilaterally without significant drainage or redness/wound. NEUROLOGICAL: No focal deficits. No aphasia. No facial droop or slurred speech. EK bpm sinus tachycardia. No PVC or PAC. No acute ST segment elevation or depression. CONTINUOUS CARDIAC MONITORING: was ordered and showed a heart rate of 80s-90s bpm in normal sinus rhythm and sinus tachycardia Patient's laboratory studies and imaging reviewed. Differential includes Reactive airway disease, pneumonia, pneumothorax, COPD, CHF, infections, cardiac ischemia, pulmonary embolism, musculoskeletal, gastrointestinal, as well as other pathologies. IMPRESSION/MEDICAL DECISION MAKING: Patient does seem significantly fluid overloaded bilateral swelling of the legs. Obtain ultrasound to exclude clot although seems unlikely. History of significant CKD. Reviewed pulmonary note from the . Detailed extensive history for the patient. Does have a cardiac history and history of heart failure from chart review as well. Denies significant infectious symptoms. Did complete a respiratory viral panel. No significant leukocytosis today. Somewhat worsened anemia hemoglobin of 8.1. Normal platelet count. Chest x-ray obtained today compared to previous from the she has evidence of some pulmonary edema progressing but no focal infiltrate. No free air. Cardiology note from September 20 reviewed and prior history of diastolic heart failure exacerbation in 2019 requiring diuresis but not recently been on Lasix. Chemistries show CKD with a creatinine 1.7 little better than recent baseline over the last several months. Some hyperkalemia 5.6 is noted. BNP not elevated only at 57. Again however does appear clinically fluid overloaded. Procalcitonin not elevated again leans against infectious etiology. Respiratory viral panel is negative. Continue to cautiously diurese. Ultrasound of the lower extremity shows no obvious DVT although some limitations due to habitus. Discussed with patient findings. Again I have a lower suspicion this represents PE given the significant swelling she is experiencing. Discussed with her options at this time trial of monitor diuresis here in the hospital versus going home. Given her significant renal issues in the past and multiple comorbidities feel that monitor diuresis would be more appropriate. She was in agreement. Given a dose of IV Lasix here. Discussed with the hospitalist team for further monitoring. DIAGNOSIS: Shortness of breath, acute on chronic diastolic heart failure, fluid overload, CKD stage 4 DISPOSITION: Hospitalist will evaluate Patient was agreeable with this plan. Past Med/Surg History Medical History Sepsis Metabolic acidosis with normal anion gap and bicarbonate losses Hypoxemia Acute renal failure Left flank pain Diverticulitis Dyslipidemia SBO (small bowel obstruction) Hx of Clostridium difficile infection Seasonal allergies Congestive heart failure Pulmonary hypertension Acute respiratory failure with hypoxia Kidney stones Left ureteral calculus Sacroiliitis Ileostomy, has currently Hearing deficit Hyperlipidemia HTN (hypertension) DM type 2 (diabetes mellitus, type 2) Hypothyroidism Chronic kidney disease, stage 3 (moderate) Surgical History History of esophagogastroduodenoscopy (EGD) History of breast surgery (01/02/23) History of lumpectomy of left breast (11/07/22) History of cataract surgery History of lithotripsy Status post laser lithotripsy of ureteral calculus History of cystoscopy History of bowel resection History of total abdominal hysterectomy and bilateral salpingo-oophorectomy History of tubal ligation History of tonsillectomy History of cholecystectomy History of tooth extraction History of appendectomy History of left knee replacement History of colonoscopy H/O hernia repair Family History Mother Diabetes Hypertension Angina pectoris, unspecified Multiple sclerosis Father Myocardial infarction Sister Rectal cancer Lung cancer Son No problems noted. Son No problems noted. Family/Other Breast cancer Other No family history of adverse response to anesthesia No family history of bleeding disorder Denies family history of Cystic kidney disease Social History Smoking Status: Unknown if ever smoked Tobacco Type: Cigarettes Age Started Using Tobacco: 12; Age Quit Using Tobacco: 20; Cigarettes Per Day: Sneak smoking;; Second Hand Exposure: No; Do You Dip or Chew Tobacco: No; Hx Alcohol Use: No Hx Substance Use: No Preferred Language: [place] Communication Ability: Effective Visual Impairment: No Limitations Hearing Ability: Hard of Hearing Media/Instructional Designer Required: No Beliefs That Will Affect Care: None marital status: Current Living Situation: Spouse current occupational status: retired current occupation: From [employer] How many Children do You have: 2 Feels Safe at Home: Yes Diet: regular caffeine: No during the past year weight has: remained stable Assistive Devices: Cane, Glasses, Oxygen - Continuous and Walker Allergies Allergies Allergy/AdvReac Type Severity Reaction Status Date / Time codeine Allergy Intermediate WHITE Verified 10/01/23 16:41 CHANGE UNDER THE SKIN-ARMS Penicillins Allergy Intermediate RASH Verified 10/01/23 16:41 sulfamethoxazole Allergy Unknown DOES NOT Verified 10/01/23 16:41 KNOW REACTION trimethoprim Allergy Unknown DOES NOT Verified 10/01/23 16:41 KNOW REACTION atorvastatin AdvReac Intermediate SHE FELT Verified 10/01/23 16:41 WEAK simvastatin AdvReac Intermediate ARMS Verified 10/01/23 16:41 SWELLING adhesive AdvReac Mild SOME Verified 10/01/23 16:41 TAPE-REDNESS, ITCHY Home Meds Home Medications Medication Instructions Recorded Confirmed diltiazem HCl 240 mg 240 mg PO HS 04/22/19 10/06/23 capsule,extended release 24 hr, controlled ezetimibe 10 mg tablet (Zetia) 10 mg PO HS 04/22/19 10/06/23 insulin lispro 100 unit/mL 1 sliding scale dose subcut 04/22/19 10/06/23 subcutaneous cartridge (Humalog USEASDIRECTD U-100 Insulin) levothyroxine 50 mcg tablet 50 mcg PO QAM 04/22/19 10/06/23 (Synthroid) niacin 50 mg tablet 50 mg PO BID 04/22/19 10/06/23 rosuvastatin 5 mg tablet 5 mg PO HS 04/22/19 10/06/23 coenzyme Q10 300 mg capsule (Co 300 mg PO HS 11/04/21 10/06/23 Q-10) acetaminophen 650 mg 650 mg PO Q12H PRN Pain 03/15/22 10/06/23 tablet,extended release (Arthritis Pain Relief (acetaminophen) ER) insulin glargine 100 unit/mL 40 unit subcut HS 12/12/22 10/06/23 subcutaneous solution (Lantus U-100 Insulin) letrozole 2.5 mg tablet 2.5 mg PO QAM 03/17/23 10/06/23 ferrous sulfate 325 mg (65 mg 325 mg PO BID 06/06/23 10/06/23 iron) tablet,delayed release ascorbic acid (vitamin C) 100 mg 100 mg PO DAILY 10/01/23 10/06/23 chewable tablet multivitamin (Multiple Vitamins 1 tab PO DAILY 10/01/23 10/06/23 tablet) Previous Rx's Medication Instructions Recorded calcitriol 0.25 mcg capsule 0.25 mcg PO QAM #90 caps 06/06/23 magnesium 200 mg tablet 400 mg (2 x 200 mg) PO QAM #90 tabs 06/06/23 Incentive Spirometer #1 ea 10/03/23 Portable Oxygen #1 ea 10/03/23 zolpidem 5 mg tablet 5 mg PO ONCE PRN sleep #2 tabs 10/03/23 Results & Data (ED) Vital Signs Vital Signs - 24 hr 10/06/23 12:06 10/06/23 12:34 10/06/23 12:41 Temperature 36.9 C Temperature Source Temporal Artery Scan Pulse Rate 99 H 99 H Pulse Rate [Apical] Respiratory Rate 24 Respiratory Effort / Characteristics Spontaneous Respiratory Depth Normal Respiratory Pattern Regular Blood Pressure 163/62 H Blood Pressure [Right Arm] Blood Pressure Mean 95 Blood Pressure Mean [Right Arm] Blood Pressure Position Sitting Pulse Oximetry 90 Oxygen Delivery Method Nasal Cannula Nasal Cannula Oxygen Flow Rate 5 6 Sepsis Recent Fever Within 48 Hours No Sepsis New/Unexplained Change in Mental Status No Sepsis Action Taken by Nursing No Action Required Oxygen Flow Rate - Titration 6 Pulse Oximetry Post Tiitration 95 10/06/23 12:41 10/06/23 12:42 10/06/23 15:06 Temperature Temperature Source Pulse Rate Pulse Rate [Apical] 95 H 106 H Respiratory Rate 21 20 Respiratory Effort / Characteristics Respiratory Depth Respiratory Pattern Blood Pressure Blood Pressure [Right Arm] 152/62 H 148/57 H Blood Pressure Mean Blood Pressure Mean [Right Arm] 92 87 Blood Pressure Position Pulse Oximetry 95 95 94 Oxygen Delivery Method Nasal Cannula Nasal Cannula Nasal Cannula Oxygen Flow Rate 6 6 6 Sepsis Recent Fever Within 48 Hours Sepsis New/Unexplained Change in Mental Status Sepsis Action Taken by Nursing Oxygen Flow Rate - Titration Pulse Oximetry Post Tiitration Laboratory Data 10/06/23 12:36 10/06/23 12:36 Lab Results 10/06/23 10/06/23 Range/Units 12:36 12:40 WBC 8.72 (4.8-10.8) K/ul RBC 2.73 L (4.20-5.40) M/uL Hgb 8.1 L (12.0-16.0) g/dl Hct 27.5 L (37.0-47.0) % MCV 100.7 H (80.0-100.0) fL MCH 29.7 (25.0-34.0) pg MCHC 29.5 L (32.0-36.0) g/dL RDW Std Deviation 62.3 H (36.4-46.3) fL RDW Coeff of Sreedhar 17.2 H (11.5-14.5) % Plt Count 210 (130-400) K/uL MPV 10.1 (9.4-12.4) fL Immature Gran % (Auto) 0.5 % Neut % (Auto) 77.5 % Lymph % (Auto) 12.8 % Preston % (Auto) 5.8 % Eos % (Auto) 3.1 % Baso % (Auto) 0.3 % Neut # (Auto) 6.75 H (1.40-6.50) K/uL Lymph # (Auto) 1.12 L (1.20-3.40) K/uL Preston # (Auto) 0.51 (0.11-0.59) K/uL Eos # (Auto) 0.27 (0.00-0.50) K/uL Baso # (Auto) 0.03 (0.00-0.20) K/uL Immature Gran # (Auto) 0.04 (0.01-0.20) K/uL PT 10.8 (9.0-12.0) Seconds INR 1.0 (0.9-1.1) APTT 23 (21-31) Seconds PTT Ratio 0.8 Sodium 137 (136-145) mmol/L Potassium 5.6 H (3.5-5.1) mmol/L Chloride 105 (98-107) mmol/L Carbon Dioxide 26 (21-32) mmol/L Anion Gap 6 (3-11) BUN 27 H (6-23) mg/dl Creatinine 1.70 H (0.6-1.2) mg/dl Est Cr Clr Drug Dosing 27.0 ml/min Est GFR ( Amer) 32.9 ml/min Est GFR (Non-Af Amer) 28.4 ml/min BUN/Creatinine Ratio 15.9 (10-20) Glucose 159 H (70-99(Fasting)) mg/dl Calcium 9.1 (8.6-10.3) mg/dl Magnesium 2.0 (1.7-2.4) mg/dl Total Bilirubin 0.4 (0.2-1.0) mg/dl AST 18 (13-39) U/L ALT 8 (7-52) U/L Alkaline Phosphatase 52 (34-104) U/L Troponin I High Sens 17.7 H (0-14) pg/ml B-Natriuretic Peptide 57 (0-100) pg/ml Total Protein 7.1 (6.0-8.3) gm/dl Albumin 3.9 (3.4-5.0) gm/dl Globulin 3.2 (2.5-4.0) gm/dl Albumin/Globulin Ratio 1.2 (0.9-2) Procalcitonin 0.05 (0-0.5) ng/ml Adenovirus (PCR) Not Detected (NotDetected) B. pertussis DNA (PCR) Not Detected (NotDetected) B.parapertussis DNA PCR Not Detected (NotDetected) C. pneumoniae DNA (PCR) Not Detected (NotDetected) Coronavirus OC43 (PCR) Not Detected (NotDetected) Coronavirus HKU1 (PCR) Not Detected (NotDetected) Coronavirus 229E (PCR) Not Detected (NotDetected) SARS-CoV-2 (PCR) Not Detected (NotDetected) Coronavirus NL63 (PCR) Not Detected (NotDetected) Human Metapneumovir PCR Not Detected (NotDetected) Influenza Type A (PCR) Not Detected (NotDetected) Influenza Type B (PCR) Not Detected (NotDetected) M. pneumoniae (PCR) Not Detected (NotDetected) Parainfluenza 1 (PCR) Not Detected (NotDetected) Parainfluenza 2 (PCR) Not Detected (NotDetected) Parainfluenza 3 (PCR) Not Detected (NotDetected) Parainfluenza 4 (PCR) Not Detected (NotDetected) RSV (PCR) Not Detected (NotDetected) Entero/Rhino (PCR) Not Detected (NotDetected) Imaging Data Radiologist's Impression: Chest X-Ray 10/06/23 12:18 XR chest 1V portable HISTORY: Dyspnea COMPARISON: Chest 10/03/2023. FINDINGS: No pneumothorax. No pleural effusions. The heart remains mildly enlarged. No acute fractures identified. Perihilar interstitial/vascular thickening suggestive of mild pulmonary edema. Calcifications within the aortic knob. IMPRESSION: Cardiomegaly and mild pulmonary edema. This has progressed in the interval. ACT 112: Negative or not required by law. Electronically signed by: Chase Buchanan M.D. 10/06/2023 1:26 PM Venous Doppler Study 10/06/23 12:25 BILATERAL LOWER EXTREMITY VENOUS DOPPLER HISTORY: Lower extremity swelling COMPARISON STUDY: None. FINDINGS: There is normal compressibility, flow, and augmentation within the bilateral lower extremity deep venous systems. IMPRESSION: No DVT within the right or left lower extremity. ACT 112: Negative or not required by law. Electronically signed by: Chase Buchanan M.D. 10/06/2023 3:16 PM Discharge Plan Visit Data Chief Complaint: Shortness of Breath/Dyspnea Stated Complaint: FLUID, SOB ED Provider: Jose Sullivan Discharge Problem: Fluid overload, Morbid obesity, Chronic respiratory failure with hypoxia, Chronic kidney disease, stage 4 (severe), Diastolic CHF Patient Disposition: Being Evaluated by Hospitalist Forms Stand Alone Forms: [facility] Prescriptions Prescriptions: No Action acetaminophen [Arthritis Pain Relief (acetam)] 650 mg tablet extended release 650 mg PO Q12H PRN (Reason: Pain) calcitriol 0.25 mcg capsule 0.25 mcg PO QAM Qty: 90 3RF magnesium 200 mg tablet 400 mg PO QAM Qty: 90 3RF ferrous sulfate 325 mg (65 mg iron) tablet,delayed release (DR/EC) 325 mg PO BID ascorbic acid (vitamin C) 100 mg tablet,chewable 100 mg PO DAILY multivitamin [Multiple Vitamins] Tablet 1 tab PO DAILY (DME) Incentive Spirometer Misc See Rx Instructions .MEDSUPPLY Qty: 1 0RF Rx Instructions: As directed zolpidem 5 mg tablet 5 mg PO ONCE PRN (Reason: sleep) Qty: 2 0RF Rx Instructions: Take 1 tab on the night of sleep study (DME) Portable Oxygen Misc See Rx Instructions .MEDSUPPLY Qty: 1 0RF Rx Instructions: Oxygen 4 liters continuous via nasal cannula at rest and 10 L on exertion on exertion with portable concentrator. ELENA 99 diltiazem HCl 240 mg Capsule,Ext.Rel 24h Degradable 240 mg PO HS niacin 50 mg Tablet 50 mg PO BID levothyroxine [Synthroid] 50 mcg Tablet 50 mcg PO QAM Humalog U-100 Insulin 100 unit/mL Cartridge 1 sliding scale dose SUBCUT USEASDIRECTD Rx Instructions: with meals ezetimibe [Zetia] 10 mg Tablet 10 mg PO HS rosuvastatin 5 mg Tablet 5 mg PO HS Lantus U-100 Insulin 100 unit/mL solution 40 unit SUBCUT HS Co Q-10 300 mg Capsule 300 mg PO HS letrozole 2.5 mg tablet 2.5 mg PO QAM Referrals Referrals: Ismael Pink MD [Primary Care Provider] - Discharge Problem: Fluid overload Qualifiers: Hypervolemia type: other Qualified Code(s): E87.79 - Other fluid overload Diastolic CHF Qualifiers: Heart failure chronicity: acute on chronic Qualified Code(s): I50.33 - Acute on chronic diastolic (congestive) heart failure
[2023-10-06 13:23] LABS: Albumin Globulin Ratio 1.2 (0.9-2); Albumin Level 3.9 gm/dl (3.4-5.0); BUN Creatinine Ratio 15.9 (10-20); Bilirubin,Total 0.4 mg/dl (0.2-1.0); Calcium 9.1 mg/dl (8.6-10.3); Est GFR (African American) 32.9 ml/min; Est GFR (Non-African American) 28.4 ml/min; Globulin 3.2 gm/dl (2.5-4.0); Potassium 5.6 mmol/L (3.5-5.1); Total Protein 7.1 gm/dl (6.0-8.3)
--- NOTE | 2023-10-06 13:28 | XRay Report ---
XR chest 1V portable HISTORY: Dyspnea COMPARISON: Chest 10/03/2023. FINDINGS: No pneumothorax. No pleural effusions. The heart remains mildly enlarged. No acute fracture s identified. Perihilar interstitial/vascular thickening suggestive of mild pulmonary edema. Calcific ations within the aortic knob. IMPRESSION: Cardiomegaly and mild pulmonary edema. This has progressed in the interval. ACT 112: Negative or not required by law. Electronically signed by: Chase Buchanan M.D. 10/06/2023 1:26 PM
[2023-10-06 13:30] LABS: Partial Thromboplastin Ratio 0.8; Partial Thromboplastin Time 23 Seconds (21-31); Prothrombin Time 10.8 Seconds (9.0-12.0); Troponin I High Sensitivity 17.7 pg/ml (0-14)
[2023-10-06 13:34] LABS: Adenovirus PCR Not Detected (NotDetected); Bordetella parapertussis PCR Not Detected (NotDetected); Bordetella pertussis PCR Not Detected (NotDetected); Chlamydia pneumoniae PCR Not Detected (NotDetected); Coronavirus 229E PCR Not Detected (NotDetected); Coronavirus CoV-2 (COVID19)PCR Not Detected (NotDetected); Coronavirus HKU1 PCR Not Detected (NotDetected); Coronavirus NL63 PCR Not Detected (NotDetected); Coronavirus OC43PCR Not Detected (NotDetected); Human Metapneumovirus PCR Not Detected (NotDetected); Influenza A PCR Not Detected (NotDetected); Influenza B PCR Not Detected (NotDetected); Mycoplasma pneumoniae PCR Not Detected (NotDetected); Parainfluenza Virus 1 PCR Not Detected (NotDetected); Parainfluenza Virus 2 PCR Not Detected (NotDetected); Parainfluenza Virus 3 PCR Not Detected (NotDetected); Parainfluenza Virus 4 PCR Not Detected (NotDetected); Respiratory Syncytial VirusPCR Not Detected (NotDetected); Rhinovirus/Enterovirus PCR Not Detected (NotDetected)
--- NOTE | 2023-10-06 15:17 | Ultrasound Report ---
BILATERAL LOWER EXTREMITY VENOUS DOPPLER HISTORY: Lower extremity swelling COMPARISON STUDY: None. FINDINGS: There is normal compressibility, flow, and augmentation within the bilateral lower extremit y deep venous systems. IMPRESSION: No DVT within the right or left lower extremity. ACT 112: Negative or not required by law. Electronically signed by: Chase Buchanan M.D. 10/06/2023 3:16 PM
[2023-10-06] MEDS ORDERED: FUROSEMIDE 40 MG/4 ML VIAL IV ONE (15:21)
--- NOTE | 2023-10-06 15:34 | History & Physical Report ---
Date of Service October 06, 2023 Assessment & Plan (1) Fluid overload: Plan: -Admit to med/tele -Currently stable on 6L NC and otherwise stable -Presented to the ED for progressive BL LE swelling, and progressive increased in chronic O2 requirements -Was on 2L NC at all times last year, patient and state that her O2 requirements have been slowly increasing since -Patient is noted to be volume overloaded, especially in her BL LE's with some edema in the lower abdomen >Lungs are clear, negative JVD, BNP WNL -Patient has been watching her fluid and sodium intake but has not been on oral diuretics since her last stoma replacement in January of 2023 -Patient's standing weight on 10/03 in the Pulmonology clinic was 101 Kg, up from 93 Kg as of March of 2023; patient's states her dry weight is closer to 90 kg -At this time her differential is broad including but not limited to CKD, worsening pulmonary HTN, PE, CHF, deconditioning -Lower suspicion for the primary etiology to be Cardiac in nature as she has minimal fluid in her lungs with a BNP WNL and recent TTE on 09/28/23 showing noral LVEF but flattened septum and mildly reduced rigth ventricular systolic function -S/P 40 mg IV lasix in the ED, will continue with 40 mg IV BID for now -Will monitor UA when obtained and obtain protein-Cr ratio for further evaluation -LFT's are WNL, will hold off on liver imaging for now -Monitor daily standing weights -Will have nursing staff place BL LE LANE wraps; communication placed -Monitor daily renal function and BNP with IV diuresis -Will speak with Pulmonology concerning further evaluation for PE with CTPE or VQ scan and mention of possible need for right heart cath with Pulmonary HTN -SQ heparin for DVT PPX -HH/DMII diet with 2gm NaCl and 1800 mL restrictions -AM CBC, BMP, mag (2) Chronic respiratory failure with hypoxia: Plan: -Follows with Dr. Valencia -They have been continuing her workup outpatient but she has multiple etiologies including morbid obesity, Pulmonary HTN, CKD, and lack of oral diuretic therapy since last year -Current O2 use is 6L NC at all times -Currently stable on 6L NC -Will speak with Pulmonology regarding need for CTPE while admitted but she has been hemodynamically stable, without chest discomfort, slow increase in O2 requirements over the past year, and negative BL venous doppler today for DVT -Titrate O2 to keep SpO2 at or above 94% -Continue diuresis -Incentive spirometry and flutter therapy (3) Chronic kidney disease, stage 4 (severe): Plan: -Cr today is 1.7; this is improved compared to her recent Cr in the mid 2.0's -Will follow UA with protein/cr ratio for further evaluation -Avoid nephrotoxic agents -Monitor daily renal function with IV diuresis (4) Hyperkalemia: Plan: -Potassium today was 5.6 in the ED -Unsure if this was falsely elevated due to hemolysis as she is not on a po tassium supplement with improved kidney function compared to the past year -Did receive 40 mg IV lasix in the ED prior to admission -Will repeat potassium level on admission and treat as needed -Continue to monitor on tele -Monitor daily BMP (5) Elevated troponin: Plan: -Initial high sen trop minimally elevated at 17 in the ED -Patient denies chest pain and is without acute ST segment or T-wave changes today -Likely due to demand from volume overload -Will obtain repeat high sen trop on admission -Continue to monitor on tele (6) Hypertension: Plan: -Stable -Continue daily diltiazem (7) Insulin dependent diabetes mellitus: Plan: -Monitor BSG ACHS, goal is 110-160 -Will home lantus of 40 units HS to 30 units HS for now to avoid hypoglycemia -Start CF of 50 ACHS, hold carb ratio for now -HH/DMII diet -Adjust regimen as needed (8) Hypothyroidism: Plan: -Continue levothyroxine (9) Pulmonary hypertension: Plan: -Consider further evaluation if there is not improvement in her clinical status with IV diuresis Plan The patient was discussed with Dr. Fox at the time of the admission History of Present Illness Chief Complaint: BL LE swelling, increased SOB compared to baseline Primary Care Provider: Ismael Pink MD Aniya is a 78 year old female with a PMH significant for chronic respiratory failure on Chronic O2 therapy, pulmonary HTN, HFpEF, morbid obesity, stage 4 CKD, chronic ileostomy status who presented to the [facility] ED on 10/06/23 due to progressive BL swelling and increased SOB. She remained stable on her baseline 6L NC at rest, was noted to be tachycardic with HR in the low 100s, and otherwise stable. Labs were significant for a Hgb of 8.1 (down from 9.9 as of 08/22/23), MCV of 100.7, MCHC of 29.5, lymphocyte count of 1.12, Cr of 1.70 (Better than recent CR in the low-mid 2.0s), potassium of 5.6, initial high sen trop of 17, BNP WNL, and full respiratory biofire negative. Chest xray was read as Cardiomegaly and mild pulmonary edema. This has progressed in the interval.. BL LE venous dopplers were negative for DVT. Prior to admission the patient was given 40 mg IV Lasix. At the time of the exam the patient was sitting in bed in no acute distress with her sitting bedside, history was obtained from both. They state that she presented to the ED this am for her worsening LE edema and progressive increase in O2 requirements. She confirms that she was seen by Dr. Valencia on 10/03/23. During that visit he recommended considering restarting PO Diuretics but was going to defer to Cardiology and messaged the [facility] group. The patient states that she had not hear back from the Cardiology office and tried to call yesterday but did not hear back. She explains that since her last stoma revision in January of 2023 she has not required her oral lasix. She has been trying to drink between 40-60 ounces of water daily per recommendations of her Education Administrative Assistant and Cardiology. She denies increasing her amount of daily sodium intake recently. Her states that the LE swelling has been slowly increasing over the past 3-4 months, until this last week when it seemed to significantly increase. The patient notes that her swelling has progressed to her lower abdomen, which has not occurred prior. She denies recent fever, chills, chest pain, cough, abd pain, changes in ostomy output, decreased urinary output, and recent trauma. We discussed code status, she confirmed that she is a conditional code. She would want a trial of defibrillation only in the event of cardiac arrest of shockable heart rhythm. She would not want CPR or intubation in the event of cardiac arrest and/or respiratory failure. Please refer to Dr. Fox's attestation for any changes to the treatment plan Allergies Allergy/AdvReac Type Severity Reaction Status Date / Time codeine Allergy Intermediate WHITE Verified 10/01/23 16:41 CHANGE UNDER THE SKIN-ARMS Penicillins Allergy Intermediate RASH Verified 10/01/23 16:41 sulfamethoxazole Allergy Unknown DOES NOT Verified 10/01/23 16:41 KNOW REACTION trimethoprim Allergy Unknown DOES NOT Verified 10/01/23 16:41 KNOW REACTION atorvastatin AdvReac Intermediate SHE FELT Verified 10/01/23 16:41 WEAK simvastatin AdvReac Intermediate ARMS Verified 10/01/23 16:41 SWELLING adhesive AdvReac Mild SOME Verified 10/01/23 16:41 TAPE-REDNESS, ITCHY Home Medications Medication Instructions Recorded Confirmed Type diltiazem HCl 240 mg 240 mg PO HS 04/22/19 10/06/23 History capsule,extended release 24 hr, controlled ezetimibe 10 mg tablet (Zetia) 10 mg PO HS 04/22/19 10/06/23 History insulin lispro 100 unit/mL 1 sliding scale dose subcut 04/22/19 10/06/23 History subcutaneous cartridge (Humalog USEASDIRECTD U-100 Insulin) levothyroxine 50 mcg tablet 50 mcg PO QAM 04/22/19 10/06/23 History (Synthroid) niacin 50 mg tablet 50 mg PO BID 04/22/19 10/06/23 History rosuvastatin 5 mg tablet 5 mg PO HS 04/22/19 10/06/23 History coenzyme Q10 300 mg capsule (Co 300 mg PO HS 11/04/21 10/06/23 History Q-10) acetaminophen 650 mg 650 mg PO Q12H PRN Pain 03/15/22 10/06/23 History tablet,extended release (Arthritis Pain Relief (acetaminophen) ER) insulin glargine 100 unit/mL 40 unit subcut HS 12/12/22 10/06/23 History subcutaneous solution (Lantus U-100 Insulin) letrozole 2.5 mg tablet 2.5 mg PO QAM 03/17/23 10/06/23 History calcitriol 0.25 mcg capsule 0.25 mcg PO QAM #90 caps 06/06/23 10/06/23 Rx ferrous sulfate 325 mg (65 mg 325 mg PO BID 06/06/23 10/06/23 History iron) tablet,delayed release magnesium 200 mg tablet 400 mg (2 x 200 mg) PO QAM #90 tabs 06/06/23 10/06/23 Rx ascorbic acid (vitamin C) 100 mg 100 mg PO DAILY 10/01/23 10/06/23 History chewable tablet multivitamin (Multiple Vitamins 1 tab PO DAILY 10/01/23 10/06/23 History tablet) Incentive Spirometer #1 ea 10/03/23 10/03/23 Rx Portable Oxygen #1 ea 10/03/23 10/03/23 Rx zolpidem 5 mg tablet 5 mg PO ONCE PRN sleep #2 tabs 10/03/23 10/06/23 Rx Past Med/Surg History Medical History Sepsis Metabolic acidosis with normal anion gap and bicarbonate losses Hypoxemia Acute renal failure Left flank pain Diverticulitis Dyslipidemia SBO (small bowel obstruction) Hx of Clostridium difficile infection Seasonal allergies Congestive heart failure Pulmonary hypertension Acute respiratory failure with hypoxia Kidney stones Left ureteral calculus Sacroiliitis Ileostomy, has currently Hearing deficit Hyperlipidemia HTN (hypertension) DM type 2 (diabetes mellitus, type 2) Hypothyroidism Chronic kidney disease, stage 3 (moderate) Surgical History History of esophagogastroduodenoscopy (EGD) History of breast surgery (01/02/23) History of lumpectomy of left breast (11/07/22) History of cataract surgery History of lithotripsy Status post laser lithotripsy of ureteral calculus History of cystoscopy History of bowel resection History of total abdominal hysterectomy and bilateral salpingo-oophorectomy History of tubal ligation History of tonsillectomy History of cholecystectomy History of tooth extraction History of appendectomy History of left knee replacement History of colonoscopy H/O hernia repair Family History Mother Diabetes Hypertension Angina pectoris, unspecified Multiple sclerosis Father Myocardial infarction Sister Rectal cancer Lung cancer Son No problems noted. Son No problems noted. 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: No Beliefs That Will Affect Care: None marital status: Current Living Situation: Spouse current occupational status: retired current occupation: From [employer] How many Children do You have: 2 Feels Safe at Home: Yes Diet: regular caffeine: No during the past year weight has: remained stable Assistive Devices: Cane, Glasses, Oxygen - Continuous and Walker Physical Exam Physical Exam: Physical Exam: General: In no acute distress, stated age, well-nourished, chronically ill appearing but non-toxic HEENT: Normocephalic, atraumatic, no scleral icterus, pupils around round, symmetrical, and reactive to light, negative JVD, moist mucus membranes, trachea midline, no thyromegaly Chest/Pulm: No respiratory distress, symmetrical chest expansion, clear breath sounds throughout Cardiac: RRR, 3/6 systolic murmur noted Abdomen: Negative for ascites and bruising, ostomy noted in the lower/central abdomen without signs of infection, normoactive bowel sounds, soft, non-tender to palpation throughout Musculoskeletal: Symmetrical and without signs of acute trauma, upper and lower extremities with full ROM, no atrophy, spasticity, or flaccidity Extremities: Radial, dorsalis pedis, and posterior tibial pulses are intact and symmetrical, BL LE's are firm to palpation due to significant edema Skin: Signs of chronic venous insufficiency noted in the BL LE's Neuro: Alert and oriented to person, place, month, year, and president, no focal defects, no tremors noted Psych: No acute distress, calm and cooperative during the exam Results & Data Results & Data Vital Signs (Past 12 Hours) Vital Signs Temp Pulse Pulse Resp BP BP Pulse Ox 10/06/23 15:06 106 H 20 148/57 H 94 10/06/23 12:42 95 H 21 152/62 H 95 10/06/23 12:41 95 10/06/23 12:41 10/06/23 12:34 99 H 10/06/23 12:06 36.9 C 99 H 24 163/62 H 90 O2 Del Method O2 Flow Rate 10/06/23 15:06 Nasal Cannula 6 10/06/23 12:42 Nasal Cannula 6 10/06/23 12:41 Nasal Cannula 6 10/06/23 12:41 Nasal Cannula 6 10/06/23 12:34 10/06/23 12:06 Nasal Cannula 5 Laboratory Results Abnormal lab results 10/06/23 Range/Units 12:36 RBC 2.73 L (4.20-5.40) M/uL Hgb 8.1 L (12.0-16.0) g/dl Hct 27.5 L (37.0-47.0) % MCV 100.7 H (80.0-100.0) fL MCHC 29.5 L (32.0-36.0) g/dL RDW Std Deviation 62.3 H (36.4-46.3) fL RDW Coeff of Sreedhar 17.2 H (11.5-14.5) % Neut # (Auto) 6.75 H (1.40-6.50) K/uL Lymph # (Auto) 1.12 L (1.20-3.40) K/uL Potassium 5.6 H (3.5-5.1) mmol/L BUN 27 H (6-23) mg/dl Creatinine 1.70 H (0.6-1.2) mg/dl Glucose 159 H (70-99(Fasting)) mg/dl Troponin I High Sens 17.7 H (0-14) pg/ml Diagnostic Findings Chest X-Ray 10/06/23 12:18 XR chest 1V portable HISTORY: Dyspnea COMPARISON: Chest 10/03/2023. FINDINGS: No pneumothorax. No pleural effusions. The heart remains mildly enlarged. No acute fractures identified. Perihilar interstitial/vascular thickening suggestive of mild pulmonary edema. Calcifications within the aortic knob. IMPRESSION: Cardiomegaly and mild pulmonary edema. This has progressed in the interval. ACT 112: Negative or not required by law. Electronically signed by: Chase Buchanan M.D. 10/06/2023 1:26 PM Venous Doppler Study 10/06/23 12:25 BILATERAL LOWER EXTREMITY VENOUS DOPPLER HISTORY: Lower extremity swelling COMPARISON STUDY: None. FINDINGS: There is normal compressibility, flow, and augmentation within the bilateral lower extremity deep venous systems. IMPRESSION: No DVT within the right or left lower extremity. ACT 112: Negative or not required by law. Electronically signed by: Chase Buchanan M.D. 10/06/2023 3:16 PM ECG Additional Comments: Sinus tachycardia Nonspecific ST abnormality Otherwise normal ECG When compared with ECG of 07-APR-2023 11:38, No significant change was found Confirmed by Reginald Ortega ([id number]) on 10/06/2023 4:08:53 PM Code Status & VTE Plan Code Status Conditional code; see bottom of HPI for further details VTE Prophylaxis Plan VTE Prophylaxis will be ordered: Yes Supervising Physician Co-Signing Physician Notes Patient seen and examined, chart reviewed, case discussed with Ehsan Jo PA-C and I agree with the assessment and plan as above except as otherwise noted Labs and images reviewed 78-year-old female with past medical history of fluid overload, chronic respir atory failure with hypoxia? Pulmonary hypertension with no history of reduced EF, CKD 4, hypertension, IDDM, hypothyroidism who presents with progressive exertional fatigue, dyspnea, increased oxygen requirements, and increased fluid overload with over 20 pounds of weight gain. On initial evaluation in ER her BNP is normal and she does not have any evidence of pulmonary edema however legs are with bilateral pitting edema and venous stasis. Agree with diuresis for total body fluid overload, discussed with patient that in absence of CHF/pulmonary edema it is critical to elevate her legs, have leg wraps, and fluid mobilization therapies in order to sexually pee out the fluid which she is agreeable. Her dyspnea is somewhat disproportionate to her chest x-ray findings. Case was discussed with pulmonology who agreed with Lasix treatment and keeping follow-up as outpatient. Daily BNp recommended and ordered. VQ/CTA not recommended at this time. Appreciate recs. If progressing well may keep outpt followup. Biofire negative. Urine protein and ratio pending. PCT negative. Agree w/ assessment and management above. PG Care Time/CCT Total # of Minutes Spent Total Time Spent with Patient: Total time spent is greater than 50% in coordination of care (as documented) at patient's floor/unit and/or counseling patient: C[place] [address] INT INP/OBS CARE 3/75MIN Patient Type Established Medical Decision Making High Complexity Diagnoses Fluid overload E87.79 Hypervolemia type: other Chronic respiratory failure with hypoxia J96.11 Chronic kidney disease, stage 4 (severe) N18.4 Hyperkalemia E87.5 Elevated troponin R79.89 Hypertension I10 Insulin dependent diabetes mellitus E11.9; Z79.4 Hypothyroidism E03.9 Pulmonary hypertension I27.20 (1) Fluid overload Hypervolemia type: other Qualified Code(s): E87.79 - Other fluid overload
--- NOTE | 2023-10-06 16:09 | Electrocardiogram Report ---
Test Reason : Blood Pressure : / mmHG Vent. Rate : 101 BPM Atrial Rate : 101 BPM P-R Int : 178 ms QRS Dur : 072 ms QT Int : 322 ms P-R-T Axes : 040 008 047 degrees QTc Int : 417 ms Sinus tachycardia Nonspecific ST abnormality Otherwise normal ECG When compared with ECG of 07-APR-2023 11:38, No significant change was found Confirmed by Reginald Ortega ([id number]) on 10/06/2023 4:08:53 PM Referred By: REFERRED SELF Confirmed By:Logan Ortega
[2023-10-06 17:24] LABS: Appearance Urine Clear (Clear); Bacteria Urine Automated Negative (Negative); Bilirubin Urine Negative (Negative); Blood Urine Negative (Negative); Color Urine Yellow; Glucose Urine UA Negative (Negative); Ketones Urine Negative (Negative); Leukocyte Esterase Urine Trace (Negative); Nitrite Urine Negative (Negative); Protein Urine Negative (Negative); RBC Urine Automated 0-4 /hpf (0-4); Specific Gravity Urine 1.011 (1.000-1.030); Urobilinogen Urine Negative (Negative)
[2023-10-06 17:46] LABS: Creatinine Urine Random 47.9 mg/dl; Protein Creatinine Ratio Urine 0.4 (0-0.2); Total Protein Urine Random 20.7 mg/dl (0-11.9)
[2023-10-06] MEDS ORDERED: CARBOHYDRATES FOR HYPOGLYCEMIA PO PRN (17:51)
[2023-10-06] MEDS ORDERED: GLUCOSE 40% GEL 15 GM TUBE PO PRN (17:51)
[2023-10-06] MEDS ORDERED: GLUCAGON FOR INJ 1 MG VIAL SQ PRN (17:51)
[2023-10-06] MEDS ORDERED: DEXTROSE 50% 50 ML SYRINGE IV PRN (17:51)
[2023-10-06] MEDS ORDERED: GLUCOSE 10 TAB/TUBE PO PRN (17:51)
[2023-10-06] MEDS: INSULIN ASPART PER UNIT CHARGE SC SCH ×2 (18:30→20:21)
[2023-10-06] MEDS: FUROSEMIDE 40 MG/4 ML VIAL IV SCH (18:58)
[2023-10-06] MEDS: EZETIMIBE 10 MG TAB PO SCH (20:20)
[2023-10-06] MEDS: dilTIAZem HCL 240 MG CAPCR PO SCH (20:20)
[2023-10-06] MEDS: FERROUS SULFATE 325 MG TAB PO SCH (20:20)
[2023-10-06] MEDS: ROSUVASTATIN CALCIUM 5 MG TAB PO SCH (20:20)
[2023-10-06] MEDS: LANTUS PER UNIT CHARGE SQ SCH (20:21)
[2023-10-06] MEDS: HEPARIN SOD 5,000 UNIT/0.5 ML VIAL SQ SCH (20:24)
[2023-10-06] MEDS ORDERED: COENZYME Q10 300 MG PO SCH (21:00)
[2023-10-06] MEDS ORDERED: NIACIN 50 MG PO SCH (21:00)
[2023-10-06] MEDS ORDERED: LANTUS PER UNIT CHARGE SQ SCH (21:00)
[2023-10-07] MEDS: LEVOTHYROXINE SODIUM 50 MCG TABLET PO SCH (05:42)
[2023-10-07 07:42] LABS: Basophils # (auto) 0.04 K/uL (0.00-0.20); Basophils % (auto) 0.5 %; Eosinophils % (auto) 5.2 %; Hematocrit (blood only) 28.2 % (37.0-47.0); Hemoglobin 8.3 g/dl (12.0-16.0); Immature Granulocytes # (auto) 0.02 K/uL (0.01-0.20); Immature Granulocytes % (auto) 0.3 %; Lymphocytes # (auto) 0.99 K/uL (1.20-3.40); Lymphocytes % (auto) 12.9 %; Mean Corpuscular Hemoglobin 29.4 pg (25.0-34.0); Mean Corpuscular Hgb Conc 29.4 g/dL (32.0-36.0); Mean Platelet Volume 9.7 fL (9.4-12.4); Monocytes # (auto) 0.61 K/uL (0.11-0.59); Monocytes % (auto) 7.9 %; Neutrophils # (auto) 5.63 K/uL (1.40-6.50); Neutrophils % (auto) 73.2 %; Platelet Count 204 K/uL (130-400); RDW Coefficient of Variation 17.2 % (11.5-14.5); RDW Standard Deviation 63.6 fL (36.4-46.3); Red Blood Count 2.82 M/uL (4.20-5.40); White Blood Count 7.69 K/ul (4.8-10.8)
[2023-10-07 08:02] LABS: BUN Creatinine Ratio 17.1 (10-20); Calcium 9.4 mg/dl (8.6-10.3); Creatinine Clr Calc Pharmacy 28.8 ml/min; Est GFR (African American) 35.9 ml/min; Magnesium 1.8 mg/dl (1.7-2.4); Potassium 4.8 mmol/L (3.5-5.1)
[2023-10-07] MEDS: MAGNESIUM OXIDE 400 MG TAB PO SCH (08:24)
[2023-10-07] MEDS: LETROZOLE 2.5 MG TAB PO SCH (08:24)
[2023-10-07] MEDS: CALCITRIOL 0.25 MCG CAPSULE PO SCH (08:24)
[2023-10-07] MEDS: FERROUS SULFATE 325 MG TAB PO SCH ×2 (08:24→17:10)
[2023-10-07] MEDS: FUROSEMIDE 40 MG/4 ML VIAL IV SCH ×2 (08:25→17:10)
[2023-10-07] MEDS: HEPARIN SOD 5,000 UNIT/0.5 ML VIAL SQ SCH ×2 (08:25→20:28)
[2023-10-07] MEDS: INSULIN ASPART PER UNIT CHARGE SC SCH ×4 (08:27→20:28)
--- NOTE | 2023-10-07 19:13 | Hospitalist Progress Note ---
Date of Service October 07, 2023 Assessment & Plan (1) Acute on chronic right-sided congestive heart failure: Plan: echo done as outpatient about 1 week ago showed right ventricular systolic dysfunction LV function is wnl increased salt intake in the diet likely to blame for some of her decompensation has had very good diuresis since admission with IV lasix cont such avoid over-diuresis as she is preload dependent check labs in am right-sided CHF is 2nd to OHS/MYRANDA?? per Dr Valencia's recent pulmonary office note she has no chronic lung disease based on most recent CT chest of note - LE dopplers neg for DVT yesterday certainly her CKD will contribute to her edema as well TSH 05/2023 wnl albumin 3.9 no h/o cirrhosis (2) Chronic respiratory failure with hypoxia: Plan: on 6 L NC O2 continuously at home follows with Dr Valencia, [facility] [place] Valencia etiology of O2 dependency - pulmonary HTN, OHS/MYRANDA, etc no h/o PE no h/o ILD or other chronic lung disease remains stable on her home O2 amount (3) Ileostomy, has currently: Plan: h/o diverticulitis requiring subtotal colectomy? has had multiple revisions of her ileostomy per her report will quantitate her ileostomy output to ensure no high output (4) Chronic kidney disease, stage 4 (severe): Plan: recent baseline Cr has been mid 2's Cr is actually better today with diuresis daily BMP while on IV lasix (5) Hyperkalemia: Plan: resolved s/p diuresis with lasix repeat BMP in am for stability is not on K supplementation or LANE/ARB therapy (6) Elevated troponin: Plan: minimal elevation likely myocardial demand ischemia in setting of #1 above (7) Hypertension: Plan: BPs initially elevated but with diuresis have improved cont home meds adjust as needed (8) Insulin dependent diabetes mellitus: Plan: last a1c was 6.8% in 05/2023 recheck a1c in am cont lantus-novolog adjust as needed (9) Hypothyroidism: Plan: Continue levothyroxine TSH in fall 2022 was wnl (10) Pulmonary hypertension: Plan: severe likely cause of o2 dependency due to long-standing MYRANDA? other? (11) Morbid obesity with BMI of 50.0-59.9, adult: Plan: BMI 50 (12) Anemia: Plan: borderline macrocytic check b12/folate am TSH in 05/2023 was wnl (13) DVT prophylaxis: Plan: heparin 7500 units BID Plan updated at bedside Admission and Anticipated Discharge Date Admission Date: October 06, 2023 Subjective tele - NSR patient sitting in chair during the visit reports her breathing is better LE edema is improved she admits that she increased her salt intake several weeks ago "due to my ileostomy" she does not drink to excess ileostomy output is highly variable day to day - she empties it anywhere from 5x's to 8's each day she states she does not take diuretics at home she usually does not have LE edema? eating / drinking well Review of Systems Review of Systems: cv - no chest pain pulm - acute/chronic dyspnea on exertion GI - no abd pain or n/v Physical Exam Physical Exam: gen - morbidly obese, NAD, sitting in chair comfortably neck - JVD present mouth - MMM heart - RRR, s1 s2, 2/6 systolic murmur LSB lungs - minimal b/l basilar rales (difficult to hear), no wheezing abd - soft NT ND BS+ ext - 3+ edema b/l, pulses 2+ b/l; edema extends to the thighs Results & Data Results & Data Vital Signs (Past 12 Hours) Vital Signs Temp Pulse Pulse Resp BP Pulse Ox O2 Del Method 10/07/23 16:52 36.8 C 84 18 137/69 99 Nasal Cannula 10/07/23 14:00 85 10/07/23 11:07 36.5 C 92 H 20 164/55 H 93 Nasal Cannula 10/07/23 07:47 87 18 132/55 L 95 Nasal Cannula 10/07/23 07:34 Oxymask O2 Flow Rate 10/07/23 16:52 6 10/07/23 14:00 10/07/23 11:07 6 10/07/23 07:47 6 10/07/23 07:34 6 Laboratory Results Laboratory Results - last 24 hr 10/06/23 10/06/23 10/07/23 19:43 20:05 05:36 WBC 7.69 RBC 2.82 L Hgb 8.3 L Hct 28.2 L MCV 100.0 MCH 29.4 MCHC 29.4 L RDW Std Deviation 63.6 H RDW Coeff of Sreedhar 17.2 H Plt Count 204 MPV 9.7 Immature Gran % (Auto) 0.3 Neut % (Auto) 73.2 Lymph % (Auto) 12.9 Ceiba % (Auto) 7.9 Eos % (Auto) 5.2 Baso % (Auto) 0.5 Neut # (Auto) 5.63 Lymph # (Auto) 0.99 L Ceiba # (Auto) 0.61 H Eos # (Auto) 0.40 Baso # (Auto) 0.04 Immature Gran # (Auto) 0.02 Sodium 139 Potassium 4.7 4.8 Chloride 105 Carbon Dioxide 29 Anion Gap 5 BUN 27 H Creatinine 1.58 H Est Cr Clr Drug Dosing 28.8 Est GFR ( Amer) 35.9 Est GFR (Non-Af Amer) 31.0 BUN/Creatinine Ratio 17.1 Glucose 114 H POC Glucose 239 H Calcium 9.4 Magnesium 1.8 B-Natriuretic Peptide 74 10/07/23 10/07/23 10/07/23 08:27 12:35 17:26 WBC RBC Hgb Hct MCV MCH MCHC RDW Std Deviation RDW Coeff of Sreedhar Plt Count MPV Immature Gran % (Auto) Neut % (Auto) Lymph % (Auto) Ceiba % (Auto) Eos % (Auto) Baso % (Auto) Neut # (Auto) Lymph # (Auto) Ceiba # (Auto) Eos # (Auto) Baso # (Auto) Immature Gran # (Auto) Sodium Potassium Chloride Carbon Dioxide Anion Gap BUN Creatinine Est Cr Clr Drug Dosing Est GFR ( Amer) Est GFR (Non-Af Amer) BUN/Creatinine Ratio Glucose POC Glucose 116 H 182 H 160 H Calcium Magnesium B-Natriuretic Peptide PG Care Time/CCT Total # of Minutes Spent Total Time Spent with Patient: Total time spent is greater than 50% in coordination of care (as documented) at patient's floor/unit and/or counseling patient: Coding Level of Care Code 49225 SUB INP/OBS CARE 2/35MIN Diagnoses Acute on chronic right-sided congestive heart failure I50.813 Chronic respiratory failure with hypoxia J96.11 Ileostomy, has currently Z93.2 Chronic kidney disease, stage 4 (severe) N18.4 Hyperkalemia E87.5 Elevated troponin R79.89 Hypertension I10 Insulin dependent diabetes mellitus E11.9; Z79.4 Hypothyroidism E03.9 Pulmonary hypertension I27.20 Morbid obesity with BMI of 50.0-59.9, adult E66.01; Z68.43 Anemia D64.9 DVT prophylaxis Z29.9
[2023-10-07] MEDS: dilTIAZem HCL 240 MG CAPCR PO SCH (20:27)
[2023-10-07] MEDS: LANTUS PER UNIT CHARGE SQ SCH (20:28)
[2023-10-07] MEDS: EZETIMIBE 10 MG TAB PO SCH (20:28)
[2023-10-07] MEDS: ROSUVASTATIN CALCIUM 5 MG TAB PO SCH (20:28)
[2023-10-08] MEDS: LEVOTHYROXINE SODIUM 50 MCG TABLET PO SCH (05:59)
[2023-10-08 06:29] LABS: Basophils # (auto) 0.03 K/uL (0.00-0.20); Basophils % (auto) 0.4 %; Eosinophils # (auto) 0.37 K/uL (0.00-0.50); Eosinophils % (auto) 5.1 %; Hematocrit (blood only) 26.5 % (37.0-47.0); Immature Granulocytes # (auto) 0.03 K/uL (0.01-0.20); Immature Granulocytes % (auto) 0.4 %; Lymphocytes # (auto) 1.19 K/uL (1.20-3.40); Lymphocytes % (auto) 16.3 %; Mean Corpuscular Hemoglobin 29.5 pg (25.0-34.0); Mean Corpuscular Hgb Conc 30.2 g/dL (32.0-36.0); Mean Corpuscular Volume 97.8 fL (80.0-100.0); Mean Platelet Volume 10.1 fL (9.4-12.4); Monocytes # (auto) 0.61 K/uL (0.11-0.59); Monocytes % (auto) 8.4 %; Neutrophils # (auto) 5.06 K/uL (1.40-6.50); Neutrophils % (auto) 69.4 %; Platelet Count 187 K/uL (130-400); RDW Coefficient of Variation 17.2 % (11.5-14.5); RDW Standard Deviation 60.9 fL (36.4-46.3); Red Blood Count 2.71 M/uL (4.20-5.40); White Blood Count 7.29 K/ul (4.8-10.8)
[2023-10-08 06:41] LABS: Calcium 9.2 mg/dl (8.6-10.3); Magnesium 1.6 mg/dl (1.7-2.4)
[2023-10-08 06:47] LABS: BUN Creatinine Ratio 19.1 (10-20); Creatinine Clr Calc Pharmacy 24.7 ml/min; Est GFR (African American) 30.1 ml/min
[2023-10-08 07:14] LABS: Folate (Folic Acid),Ser orPlas 10.79 ng/ml (>5.38)
[2023-10-08 07:44] LABS: Estimated Average Glucose 108 mg/dl; Hemoglobin A1C 5.4 % (4.5-5.6)
[2023-10-08] MEDS ORDERED: MAGNESIUM SULFATE / D5W 1 GM/100 ML BAG IV ONE (08:02)
[2023-10-08] MEDS: FUROSEMIDE 40 MG/4 ML VIAL IV SCH ×2 (08:09→17:18)
[2023-10-08] MEDS: CALCITRIOL 0.25 MCG CAPSULE PO SCH (08:13)
[2023-10-08] MEDS: FERROUS SULFATE 325 MG TAB PO SCH ×2 (08:14→17:18)
[2023-10-08] MEDS: LETROZOLE 2.5 MG TAB PO SCH (08:14)
[2023-10-08] MEDS: MAGNESIUM OXIDE 400 MG TAB PO SCH (08:14)
[2023-10-08] MEDS: HEPARIN SOD 5,000 UNIT/0.5 ML VIAL SQ SCH ×2 (08:14→19:58)
[2023-10-08] MEDS: INSULIN ASPART PER UNIT CHARGE SC SCH ×4 (08:39→21:31)
[2023-10-08] MEDS: EZETIMIBE 10 MG TAB PO SCH (19:59)
[2023-10-08] MEDS: dilTIAZem HCL 240 MG CAPCR PO SCH (20:00)
[2023-10-08] MEDS: ROSUVASTATIN CALCIUM 5 MG TAB PO SCH (20:00)
--- NOTE | 2023-10-08 20:12 | Hospitalist Progress Note ---
Date of Service October 08, 2023 Assessment & Plan (1) Acute on chronic right-sided congestive heart failure: Plan: echo done as outpatient about 1 week ago showed right ventricular systolic dysfunction LV function is wnl echo in 2021 showed dilated RV but RV function at that time was wnl; thus, RV dysfunction is new increased salt intake in the diet likely to blame for some of her decompensation - she reports increased salt intake about 1 month ago has improved LE edema but her weight is unchanged in light of renal dysfunction will try bumex 1mg IV BID in rox[place] of lasix 40mg BID avoid over-diuresis as she is preload dependent right-sided CHF - 2nd to OHS/MYRANDA?? per Dr Valencia's recent pulmonary office note she has NO chronic lung disease based on most recent CT chest check BMP am of note - LE dopplers neg for DVT certainly her CKD will contribute to her edema as well TSH 05/2023 wnl albumin 3.9 no h/o cirrhosis (2) Chronic respiratory failure with hypoxia: Plan: on 6 L NC O2 continuously at home follows with [place] Valencia, [facility] [place] Valencia etiology of O2 dependency - pulmonary HTN, OHS/MYRANDA, etc no h/o PE no h/o ILD or other chronic lung disease remains stable on her home O2 amount would repeat a 2-step at discharge to see if 6 L is still her o2 requirement (sats have been high 90s last 48 hours) (3) Ileostomy, has currently: Plan: h/o diverticulitis requiring subtotal colectomy? has had multiple revisions of her ileostomy per her report will quantitate her ileostomy output to ensure no high output thus far her outputs recorded are very acceptable (4) Chronic kidney disease, stage 4 (severe): Plan: recent baseline Cr has been mid 2's Creatinine remains better than baseline daily BMP while here (5) Hyperkalemia: Plan: resolved s/p diuresis with lasix repeat BMP in am for stability is not on K supplementation or LANE/ARB therapy (6) Elevated troponin: Plan: minimal elevation likely myocardial demand ischemia in setting of #1 above (7) Hypertension: Plan: BPs initially elevated but with diuresis have improved cont home meds adjust as needed (8) Insulin dependent diabetes mellitus: Plan: last a1c was 6.8% in 05/2023 a1c 5.4% today which may not be accurate due to her anemia cont lantus-novolog adjust as needed (9) Hypothyroidism: Plan: Continue levothyroxine TSH in fall 2022 was wnl (10) Pulmonary hypertension: Plan: severe likely cause of o2 dependency due to long-standing MYRANDA? other? (11) Morbid obesity with BMI of 50.0-59.9, adult: Plan: BMI 50 (12) Anemia: Plan: borderline macrocytic checked b12/folate - both wnl TSH in 05/2023 was wnl previous ferritin level was low -- will recheck Fe studies in am (13) DVT prophylaxis: Plan: heparin 7500 units BID Plan updated at bedside once again progressing obtain PT/OT evals to ensure she will be functionally well enough to return home with Admission and Anticipated Discharge Date Admission Date: October 06, 2023 Subjective patient sitting in chair comfortably denies any new complaints at bedside LE edema continues to improve denies any dyspnea beyond her baseline remains on 6 L NC O2 - this is her chronic amount tele overnight - stable, NSR / sinus tach Review of Systems Review of Systems: cv - no chest pain GI - no abd pain/nausea/emesis pulm - no cough Physical Exam Physical Exam: gen - morbidly obese, NAD, sitting in chair comfortably neck - JVD present mouth - MMM heart - RRR, s1 s2, 2/6 systolic murmur LSB (heart tones are distant) lungs - CTA b/l; I don't hear rales today abd - soft NT ND BS+ ext - 2+ edema b/l from feet to just below knees, pulses 2+ b/l; edema in thighs resolved Results & Data Results & Data Vital Signs (Past 12 Hours) Vital Signs Temp Pulse Pulse Resp BP Pulse Ox O2 Del Method 10/08/23 17:03 36.5 C 79 20 130/63 99 Nasal Cannula 10/08/23 14:02 82 10/08/23 11:43 36.5 C 83 19 129/51 L 96 Room Air 10/08/23 09:50 37.3 C 75 18 110/68 93 Nasal Cannula O2 Flow Rate 10/08/23 17:03 6 10/08/23 14:02 10/08/23 11:43 10/08/23 09:50 6 Laboratory Results Laboratory Results 10/08/23 10/08/23 10/08/23 05:43 08:27 12:29 WBC 7.29 RBC 2.71 L Hgb 8.0 L Hct 26.5 L MCV 97.8 MCH 29.5 MCHC 30.2 L RDW Std Deviation 60.9 H RDW Coeff of Sreedhar 17.2 H Plt Count 187 MPV 10.1 Immature Gran % (Auto) 0.4 Neut % (Auto) 69.4 Lymph % (Auto) 16.3 [place] % (Auto) 8.4 Eos % (Auto) 5.1 Baso % (Auto) 0.4 Neut # (Auto) 5.06 Lymph # (Auto) 1.19 L [place] # (Auto) 0.61 H Eos # (Auto) 0.37 Baso # (Auto) 0.03 Immature Gran # (Auto) 0.03 Sodium 139 Potassium 4.0 Chloride 103 Carbon Dioxide 29 Anion Gap 7 BUN 35 H Creatinine 1.83 H Est Cr Clr Drug Dosing 24.7 Est GFR ( Amer) 30.1 Est GFR (Non-Af Amer) 26.0 BUN/Creatinine Ratio 19.1 Glucose 127 H POC Glucose 114 H 191 H Estimat Average Glucose 108 Hemoglobin A1c 5.4 Calcium 9.2 Magnesium 1.6 L Iron TIBC Unsaturated IBC Transferrin % Sat Ferritin Vitamin B12 621 Folate 10.79 10/08/23 17:20 WBC RBC Hgb Hct MCV MCH MCHC RDW Std Deviation RDW Coeff of Sreedhar Plt Count MPV Immature Gran % (Auto) Neut % (Auto) Lymph % (Auto) [place] % (Auto) Eos % (Auto) Baso % (Auto) Neut # (Auto) Lymph # (Auto) [place] # (Auto) Eos # (Auto) Baso # (Auto) Immature Gran # (Auto) Sodium Potassium Chloride Carbon Dioxide Anion Gap BUN Creatinine Est Cr Clr Drug Dosing Est GFR ( Amer) Est GFR (Non-Af Amer) BUN/Creatinine Ratio Glucose POC Glucose 190 H Estimat Average Glucose Hemoglobin A1c Calcium Magnesium Iron TIBC Unsaturated IBC Transferrin % Sat Ferritin Vitamin B12 Folate PG Care Time/CCT Total # of Minutes Spent Total Time Spent with Patient: Total time spent is greater than 50% in coordination of care (as documented) at patient's floor/unit and/or counseling patient: Coding Level of Care Code 81022 SUB INP/OBS CARE MIN Diagnoses Acute on chronic right-sided congestive heart failure I50.813 Chronic respiratory failure with hypoxia J96.11 Ileostomy, has currently Z93.2 Chronic kidney disease, stage 4 (severe) N18.4 Hyperkalemia E87.5 Elevated troponin R79.89 Hypertension I10 Insulin dependent diabetes mellitus E11.9; Z79.4 Hypothyroidism E03.9 Pulmonary hypertension I27.20 Morbid obesity with BMI of 50.0-59.9, adult E66.01; Z68.43 Anemia D64.9 DVT prophylaxis Z29.9
[2023-10-08] MEDS: LANTUS PER UNIT CHARGE SQ SCH (21:32)
[2023-10-09 06:14] LABS: Basophils # (auto) 0.04 K/uL (0.00-0.20); Basophils % (auto) 0.6 %; Eosinophils # (auto) 0.34 K/uL (0.00-0.50); Hematocrit (blood only) 26.6 % (37.0-47.0); Immature Granulocytes # (auto) 0.02 K/uL (0.01-0.20); Immature Granulocytes % (auto) 0.3 %; Lymphocytes # (auto) 1.22 K/uL (1.20-3.40); Lymphocytes % (auto) 17.8 %; Mean Corpuscular Hgb Conc 30.1 g/dL (32.0-36.0); Mean Corpuscular Volume 96.4 fL (80.0-100.0); Mean Platelet Volume 9.9 fL (9.4-12.4); Monocytes # (auto) 0.57 K/uL (0.11-0.59); Monocytes % (auto) 8.3 %; Neutrophils # (auto) 4.66 K/uL (1.40-6.50); Platelet Count 166 K/uL (130-400); RDW Coefficient of Variation 16.6 % (11.5-14.5); RDW Standard Deviation 58.7 fL (36.4-46.3); Red Blood Count 2.76 M/uL (4.20-5.40); White Blood Count 6.85 K/ul (4.8-10.8)
[2023-10-09] MEDS: LEVOTHYROXINE SODIUM 50 MCG TABLET PO SCH (06:22)
[2023-10-09 06:37] LABS: BUN Creatinine Ratio 23.5 (10-20); Calcium 9.1 mg/dl (8.6-10.3); Creatinine Clr Calc Pharmacy 26.6 ml/min; Est GFR (African American) 32.9 ml/min; Est GFR (Non-African American) 28.4 ml/min; Magnesium 1.7 mg/dl (1.7-2.4); Potassium 3.8 mmol/L (3.5-5.1)
[2023-10-09 06:56] LABS: Ferritin 20.6 ng/ml (8-388)
[2023-10-09] MEDS: INSULIN ASPART PER UNIT CHARGE SC SCH ×4 (09:22→21:55)
[2023-10-09] MEDS: BUMETANIDE 1 MG in SYRINGE 0 ML IV SCH ×2 (09:29→18:50)
[2023-10-09] MEDS: MAGNESIUM OXIDE 400 MG TAB PO SCH (09:30)
[2023-10-09] MEDS: CALCITRIOL 0.25 MCG CAPSULE PO SCH (09:30)
[2023-10-09] MEDS: LETROZOLE 2.5 MG TAB PO SCH (09:30)
[2023-10-09] MEDS: FERROUS SULFATE 325 MG TAB PO SCH ×2 (09:30→18:50)
[2023-10-09] MEDS: HEPARIN SOD 5,000 UNIT/0.5 ML VIAL SQ SCH ×2 (09:31→21:55)
--- NOTE | 2023-10-09 18:58 | Hospitalist Progress Note ---
Date of Service October 09, 2023 Assessment & Plan (1) Acute on chronic right-sided congestive heart failure: Plan: echo done as outpatient about 1 week ago showed right ventricular systolic dysfunction LV function is wnl echo in 2021 showed dilated RV but RV function at that time was wnl; thus, RV dysfunction is new increased salt intake in the diet likely to blame for some of her decompensation - she reports increased salt intake about 1 month ago, as well as drinking about 64 ounces of fluid a day to protect her kidneys dyspnea and edema are now improving on current doses of diuretics. She reports she thinks she has lost 13 pounds, however I can only substantiate that she is down 2.5 kg since admission based on chart - continue current diuretics with Bumex 1 mg IV twice daily right-sided CHF - possibly 2nd to OHS/MYRANDA per Dr Valencia's recent pulmonary office note she has NO chronic lung disease based on most recent CT chest ordered a.m. BMP of note - LE dopplers neg for DVT certainly her CKD will contribute to her edema as well TSH 05/2023 wnl albumin 3.9 no h/o cirrhosis (2) Chronic respiratory failure with hypoxia: Plan: on 6 L NC O2 continuously at home recently, however until a week ago she was only on 4 L at home which is her long-term baseline [place], [facility] [place] Valencia etiology of O2 dependency - pulmonary HTN, OHS/MYRANDA, etc no h/o PE no h/o ILD or other chronic lung disease (3) Ileostomy, has currently: Plan: h/o diverticulitis requiring subtotal colectomy? has had multiple revisions of her ileostomy per her report - reviewed output, has been acceptable (4) Chronic kidney disease, stage 4 (severe): Plan: recent baseline Cr has been mid 2's Creatinine remains better than baseline daily BMP while here - stable 10/09 (5) Hyperkalemia: Plan: resolved after diuresis with lasix is not on K supplementation or LANE/ARB therapy (6) Elevated troponin: Plan: minimal elevation likely myocardial demand ischemia in setting of #1 above, no evidence of acute coronary syndrome (7) Hypertension: Plan: BPs initially elevated but with diuresis have improved cont home meds adjust as needed (8) Insulin dependent diabetes mellitus: Plan: last a1c was 6.8% in 05/2023 a1c 5.4% now which may not be accurate due to her anemia cont lantus-novolog adjust as needed - at goal 10/09 (9) Hypothyroidism: Plan: Continue levothyroxine TSH in fall 2022 was wnl (10) Pulmonary hypertension: Plan: severe seems to be related to longstanding MYRANDA/OHS (11) Morbid obesity with BMI of 50.0-59.9, adult: Plan: BMI 50 with complications as outlined above (12) Anemia: Plan: borderline macrocytic checked b12/folate - both wnl TSH in 05/2023 was wnl reviewed iron panel and she is iron deficient. already on oral supplementation. likely also component of anemia related to chronic kidney disease - bid iron started by Dr. Bedoya in August - clarify whether she is actually taking this. - follow-up anemia in primary care and nephrology (13) DVT prophylaxis: Plan: heparin 7500 units BID Plan updated at bedside 10/08, 10/09 PT/OT evals ordered - pending Admission and Anticipated Discharge Date Admission Date: October 06, 2023 Subjective Aniya is definitely starting to feel better, she reports that her dyspnea at rest has resolved and dyspnea on exertion is improved. She thinks she has lost 13 pounds since admission and she notices that her abdomen is no longer swelling with resolution of pannus edema. Legs remain very swollen Physical Exam 2 Physical Exam: PHYSICAL EXAMINATION Last 24h vital signs reviewed, see documentation in flowsheet General: comfortable appearing, no distress, sitting up in chair moving around pretty well HEENT: Normocephalic, atraumatic, pupils round and equal, sclerae anicteric, no conjunctival injection, moist mucus membranes Lungs: Normal respiratory effort. mild scattered crackles in both bases fairly clear. No RRW Heart: Regular rate and rhythm, no murmurs. No JVD Abdomen: Soft, nontender, nondistended. Bowel sounds present. minimal edema Extremities: Warm, dry, well-perfused. 3+ LE edema up to and including thighs. Neuro: Alert and oriented x 4, face symmetric, moves 4 extremities well Psych: Normal affect and behavior Results & Data Results & Data Vital Signs (Past 12 Hours) Vital Signs Temp Pulse Pulse Resp BP Pulse Ox O2 Del Method 10/09/23 15:50 36.5 C 90 20 146/60 H 94 Nasal Cannula 10/09/23 11:22 36.5 C 78 14 119/60 98 Nasal Cannula 10/09/23 08:04 83 10/09/23 08:00 Nasal Cannula 10/09/23 07:58 36.5 C 82 14 121/64 96 Nasal Cannula O2 Flow Rate 10/09/23 15:50 6 10/09/23 11:22 6 10/09/23 08:04 10/09/23 08:00 6 10/09/23 07:58 Laboratory Results 10/09/23 05:32 10/09/23 05:32 PG Care Time/CCT Total # of Minutes Spent Total Time Spent with Patient: Total time spent is greater than 50% in coordination of care (as documented) at patient's floor/unit and/or counseling patient: Coding Level of Care Code 90849 SUB INP/OBS CARE 2/35MIN Diagnoses Acute on chronic right-sided congestive heart failure I50.813 Chronic respiratory failure with hypoxia J96.11 Ileostomy, has currently Z93.2 Chronic kidney disease, stage 4 (severe) N18.4 Hyperkalemia E87.5 Elevated troponin R79.89 Hypertension I10 Insulin dependent diabetes mellitus E11.9; Z79.4 Hypothyroidism E03.9 Pulmonary hypertension I27.20 Morbid obesity with BMI of 50.0-59.9, adult E66.01; Z68.43 Anemia D64.9 DVT prophylaxis Z29.9
[2023-10-09] MEDS: LANTUS PER UNIT CHARGE SQ SCH (21:56)
[2023-10-09] MEDS: dilTIAZem HCL 240 MG CAPCR PO SCH (21:57)
[2023-10-09] MEDS: EZETIMIBE 10 MG TAB PO SCH (21:58)
[2023-10-10] MEDS: ROSUVASTATIN CALCIUM 5 MG TAB PO SCH ×2 (00:11→20:53)
[2023-10-10] MEDS: LEVOTHYROXINE SODIUM 50 MCG TABLET PO SCH (05:55)
--- NOTE | 2023-10-10 07:42 | Hospitalist Progress Note ---
Date of Service October 10, 2023 Assessment & Plan (1) Acute on chronic right-sided congestive heart failure: Plan: Acute on chronic diastolic heart failure, acute on chronic right sided heart failure -dyspnea improved and pulmonary edema resolved, hypoxia improving. echo done as outpatient about 1 week ago showed right ventricular systolic dysfunction LV function is wnl right-sided CHF - related to OHS/MYRANDA, chronic hypoxia per Dr Valencia's recent pulmonary office note she has NO chronic lung disease based on most recent CT chest echo in 2021 showed dilated RV but RV function at that time was wnl; thus, RV dysfunction is new increased salt intake in the diet likely to blame for some of her decompensation - she reports increased salt intake about 1 month ago, as well as drinking about 64 ounces of fluid a day to protect her kidneys dyspnea and edema are now improving on IV diuretics. weight and I/O only a little negative last 24h. 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 10/10 improved will benefit from 1- 3 more days IV diuretic of note - LE dopplers neg for DVT certainly her CKD will contribute to her edema as well TSH 05/2023 wnl albumin 3.9 no h/o cirrhosis (2) Chronic respiratory failure with hypoxia: Plan: on 6 L NC O2 continuously at home recently, however until a week ago she was only on 4 L at home which is her long-term baseline follows with Dr Valencia, [facility] [place] Dr Valencia etiology of O2 dependency - pulmonary HTN, OHS/MYRANDA, etc no h/o PE no h/o ILD or other chronic lung disease (3) Ileostomy, has currently: Plan: h/o diverticulitis requiring subtotal colectomy? has had multiple revisions of her ileostomy per her report - reviewed output, has been acceptable (4) Chronic kidney disease, stage 4 (severe): Plan: recent baseline Cr has been mid 2's Creatinine remains better than baseline daily BMP while here - stable 10/10 (5) Hyperkalemia: Plan: resolved after diuresis with lasix is not on K supplementation or LANE/ARB therapy (6) Elevated troponin: Plan: minimal elevation likely myocardial demand ischemia in setting of #1 above, no evidence of acute coronary syndrome (7) Hypertension: Plan: BPs initially elevated but with diuresis have improved cont home meds adjust as needed (8) Insulin dependent diabetes mellitus: Plan: last a1c was 6.8% in 05/2023 a1c 5.4% now which may not be accurate due to her anemia cont lantus-novolog adjust as needed - at goal 10/09 (9) Hypothyroidism: Plan: Continue levothyroxine TSH in fall 2022 was wnl (10) Pulmonary hypertension: Plan: severe seems to be related to longstanding MYRANDA/OHS (11) Morbid obesity with BMI of 50.0-59.9, adult: Plan: BMI 50 with complications as outlined above (12) Anemia: Plan: borderline macrocytic checked b12/folate - both wnl TSH in 05/2023 was wnl reviewed iron panel and she is iron deficient. already on oral supplementation. likely also component of anemia related to chronic kidney disease - bid iron started by Dr. Bedoya in August - clarify whether she is actually taking this. - follow-up anemia in primary care and nephrology (13) DVT prophylaxis: Plan: heparin 7500 units BID Plan updated at bedside 10/08, 10/09 PT/OT evals ordered - pending Admission and Anticipated Discharge Date Admission Date: October 06, 2023 Subjective Generally feeling better. Leg edema improved, has some wrinkling on thighs. UOP up after metolazone. Dyspnea improved. still on 6L but sats are high. No further abdominal wall edema. Physical Exam 2 Physical Exam: PHYSICAL EXAMINATION Last 24h vital signs reviewed, see documentation in flowsheet General: comfortable appearing, no distress, in chair again HEENT: Normocephalic, atraumatic, pupils round and equal, sclerae anicteric, no conjunctival injection, moist mucus membranes Lungs: Normal respiratory effort. CTAB ant and post except slight crackles L base. No wheeze Heart: Regular rate and rhythm, no murmurs. No JVD Abdomen: Soft, nontender, nondistended. Bowel sounds present. no pannus edema Extremities: Warm, dry, well-perfused. 3+ LE edema to knees and now some wrinking, thigh edema improved skin looser. Neuro: Alert and oriented x 4, face symmetric, moves 4 extremities well Psych: Normal affect and behavior Results & Data Results & Data Vital Signs (Past 12 Hours) Vital Signs Temp Pulse Pulse Resp BP Pulse Ox O2 Del Method 10/10/23 07:29 66 10/10/23 04:12 36.5 C 68 20 109/58 L 97 Nasal Cannula 10/10/23 00:42 36.7 C 79 20 115/64 95 Nasal Cannula 10/10/23 00:34 85 10/09/23 22:34 Nasal Cannula 10/09/23 20:17 36.9 C 82 20 132/67 99 Nasal Cannula O2 Flow Rate 10/10/23 07:29 10/10/23 04:12 6 10/10/23 00:42 6 10/10/23 00:34 10/09/23 22:34 6 10/09/23 20:17 6 Laboratory Results 10/09/23 05:32 10/10/23 06:06 PG Care Time/CCT Total # of Minutes Spent Total Time Spent with Patient: Total time spent is greater than 50% in coordination of care (as documented) at patient's floor/unit and/or counseling patient: Coding Level of Care Code 38062 SUB INP/OBS CARE 2/35MIN Diagnoses Acute on chronic right-sided congestive heart failure I50.813 Chronic respiratory failure with hypoxia J96.11 Ileostomy, has currently Z93.2 Chronic kidney disease, stage 4 (severe) N18.4 Hyperkalemia E87.5 Elevated troponin R79.89 Hypertension I10 Insulin dependent diabetes mellitus E11.9; Z79.4 Hypothyroidism E03.9 Pulmonary hypertension I27.20 Morbid obesity with BMI of 50.0-59.9, adult E66.01; Z68.43 Anemia D64.9 DVT prophylaxis Z29.9
[2023-10-10 07:54] LABS: Calcium 9.3 mg/dl (8.6-10.3); Magnesium 1.6 mg/dl (1.7-2.4); Potassium 3.7 mmol/L (3.5-5.1)
[2023-10-10 08:00] LABS: BUN Creatinine Ratio 24.6 (10-20); Creatinine Clr Calc Pharmacy 24.1 ml/min; Est GFR (African American) 29.3 ml/min; Est GFR (Non-African American) 25.3 ml/min
[2023-10-10] MEDS: INSULIN ASPART PER UNIT CHARGE SC SCH ×4 (08:27→20:54)
[2023-10-10] MEDS ORDERED: metOLazone 2.5 MG TABLET PO ONE (08:30)
[2023-10-10] MEDS: MAGNESIUM OXIDE 400 MG TAB PO SCH (08:56)
[2023-10-10] MEDS: LETROZOLE 2.5 MG TAB PO SCH (08:57)
[2023-10-10] MEDS: FERROUS SULFATE 325 MG TAB PO SCH ×2 (08:57→18:21)
[2023-10-10] MEDS: CALCITRIOL 0.25 MCG CAPSULE PO SCH (08:57)
[2023-10-10] MEDS: BUMETANIDE 1 MG in SYRINGE 0 ML IV SCH ×2 (08:58→18:21)
[2023-10-10] MEDS: HEPARIN SOD 5,000 UNIT/0.5 ML VIAL SQ SCH ×2 (09:00→20:56)
[2023-10-10] MEDS ORDERED: POTASSIUM CHLORIDE CRTAB 20 MEQ TABCR PO STA (16:33)
[2023-10-10] MEDS: EZETIMIBE 10 MG TAB PO SCH (20:53)
[2023-10-10] MEDS: dilTIAZem HCL 240 MG CAPCR PO SCH (20:53)
[2023-10-10] MEDS: LANTUS PER UNIT CHARGE SQ SCH (20:54)
[2023-10-11] MEDS: LEVOTHYROXINE SODIUM 50 MCG TABLET PO SCH (05:42)
[2023-10-11 06:34] LABS: BUN Creatinine Ratio 29.3 (10-20); Calcium 9.7 mg/dl (8.6-10.3); Creatinine Clr Calc Pharmacy 24.4 ml/min; Est GFR (African American) 30.5 ml/min; Est GFR (Non-African American) 26.3 ml/min; Potassium 3.5 mmol/L (3.5-5.1)
[2023-10-11] MEDS ORDERED: POTASSIUM CHLORIDE CRTAB 20 MEQ TABCR PO STA (07:22)
--- NOTE | 2023-10-11 07:25 | Hospitalist Progress Note ---
Date of Service October 11, 2023 Assessment & Plan (1) Acute on chronic right-sided congestive heart failure: Plan: Acute on chronic diastolic heart failure, acute on chronic right sided heart failure -dyspnea improved and pulmonary edema resolved, hypoxia improving. echo done as outpatient about 1 week ago showed right ventricular systolic dysfunction LV function is wnl right-sided CHF - related to OHS/MYRANDA, chronic hypoxia per Dr Valencia's recent pulmonary office note she has NO chronic lung disease based on most recent CT chest echo in 2021 showed dilated RV but RV function at that time was wnl; thus, RV dysfunction is new increased salt intake in the diet likely to blame for some of her decompensation - she reports increased salt intake about 1 month ago, as well as drinking about 64 ounces of fluid a day to protect her kidneys dyspnea and edema are now improving on IV diuretics. 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 10/11 much better response to diuretic possibly home tomorrow of note - LE dopplers neg for DVT certainly her CKD will contribute to her edema as well TSH 05/2023 wnl albumin 3.9 no h/o cirrhosis (2) Chronic respiratory failure with hypoxia: Plan: on 6 L NC O2 continuously at home recently, however until a week ago she was only on 4 L at home which is her long-term baseline follows with Dr Valencia, [facility] [place]ology per Dr Valencia etiology of O2 dependency - pulmonary HTN, OHS/MYRANDA, etc no h/o PE no h/o ILD or other chronic lung disease improved to 4L (3) Ileostomy, has currently: Plan: h/o diverticulitis requiring subtotal colectomy? has had multiple revisions of her ileostomy per her report - reviewed output, has been acceptable (4) Chronic kidney disease, stage 4 (severe): Plan: recent baseline Cr has been mid 2's Creatinine remains better than baseline daily BMP while here - stable 10/11 (5) Hyperkalemia: Plan: resolved after diuresis with lasix is not on K supplementation or LANE/ARB therapy (6) Elevated troponin: Plan: minimal elevation likely myocardial demand ischemia in setting of #1 above, no evidence of acute coronary syndrome (7) Hypertension: Plan: BPs initially elevated but with diuresis have improved to normal cont home meds adjust as needed (8) Insulin dependent diabetes mellitus: Plan: last a1c was 6.8% in 05/2023 a1c 5.4% now which may not be accurate due to her anemia cont lantus-novolog adjust as needed - above goal 10/10 increased glargine and correction factor, at goal 10/11 (9) Hypothyroidism: Plan: Continue levothyroxine TSH in fall 2022 was wnl (10) Pulmonary hypertension: Plan: severe seems to be related to longstanding MYRANDA/OHS (11) Morbid obesity with BMI of 50.0-59.9, adult: Plan: BMI 50 with complications as outlined above (12) Anemia: Plan: borderline macrocytic checked b12/folate - both wnl TSH in 05/2023 was wnl reviewed iron panel and she is iron deficient. already on oral supplementation. likely also component of anemia related to chronic kidney disease - bid iron started by Dr. Bedoya in August - clarify whether she is actually taking this. - follow-up anemia in primary care and nephrology (13) DVT prophylaxis: Plan: heparin 7500 units BID Plan updated at bedside daily 10/08-10/11 PT/OT evals ordered - cleared for home with 's assistance Admission and Anticipated Discharge Date Admission Date: October 06, 2023 Subjective Aniya definitely feeling better, now on 4L O2 and dyspnea on exertion much improved, good UOP and leg swelling improved, having more response to current diuretic doses Physical Exam 2 Physical Exam: PHYSICAL EXAMINATION Last 24h vital signs reviewed, see documentation in flowsheet General: in chair per her usual HEENT: Normocephalic, atraumatic, pupils round and equal, sclerae anicteric, no conjunctival injection, moist mucus membranes Lungs: Normal respiratory effort. CTAB ant and post no crackles No wheeze Heart: Regular rate and rhythm, no murmurs. No JVD Abdomen: Soft, nontender, nondistended. Bowel sounds present. no pannus edema Extremities: Warm, dry, well-perfused. 3+ LE edema to knees improved significantly, thigh edema much improved Neuro: Alert and oriented x 4, face symmetric, moves 4 extremities well Psych: Normal affect and behavior Results & Data Results & Data Vital Signs (Past 12 Hours) Vital Signs Temp Pulse Pulse Resp BP Pulse Ox O2 Del Method 10/11/23 03:57 76 10/11/23 02:42 36.7 C 75 18 120/74 98 Nasal Cannula 10/10/23 22:38 36.6 C 75 18 95/55 L 97 Room Air 10/10/23 22:27 Nasal Cannula 10/10/23 19:35 36.6 C 84 18 128/57 L 100 Nasal Cannula O2 Flow Rate 10/11/23 03:57 10/11/23 02:42 4 10/10/23 22:38 10/10/23 22:27 4 10/10/23 19:35 6 Laboratory Results 10/09/23 05:32 10/11/23 05:53 PG Care Time/CCT Total # of Minutes Spent Total Time Spent with Patient: Total time spent is greater than 50% in coordination of care (as documented) at patient's floor/unit and/or counseling patient: Coding Level of Care Code 93792 SUB INP/OBS CARE 2/35MIN Diagnoses Acute on chronic right-sided congestive heart failure I50.813 Chronic respiratory failure with hypoxia J96.11 Ileostomy, has currently Z93.2 Chronic kidney disease, stage 4 (severe) N18.4 Hyperkalemia E87.5 Elevated troponin R79.89 Hypertension I10 Insulin dependent diabetes mellitus E11.9; Z79.4 Hypothyroidism E03.9 Pulmonary hypertension I27.20 Morbid obesity with BMI of 50.0-59.9, adult E66.01; Z68.43 Anemia D64.9 DVT prophylaxis Z29.9
[2023-10-11] MEDS: BUMETANIDE 1 MG in SYRINGE 0 ML IV SCH ×2 (08:17→16:31)
[2023-10-11] MEDS: CALCITRIOL 0.25 MCG CAPSULE PO SCH (08:18)
[2023-10-11] MEDS: HEPARIN SOD 5,000 UNIT/0.5 ML VIAL SQ SCH ×2 (08:18→20:29)
[2023-10-11] MEDS: LETROZOLE 2.5 MG TAB PO SCH (08:18)
[2023-10-11] MEDS: FERROUS SULFATE 325 MG TAB PO SCH ×2 (08:19→16:31)
[2023-10-11] MEDS: MAGNESIUM OXIDE 400 MG TAB PO SCH (08:19)
[2023-10-11] MEDS: INSULIN ASPART PER UNIT CHARGE SC SCH ×4 (09:07→21:10)
[2023-10-11] MEDS: dilTIAZem HCL 240 MG CAPCR PO SCH (20:23)
[2023-10-11] MEDS: EZETIMIBE 10 MG TAB PO SCH (20:23)
[2023-10-11] MEDS: ROSUVASTATIN CALCIUM 5 MG TAB PO SCH (20:23)
[2023-10-11] MEDS ORDERED: LANTUS PER UNIT CHARGE SQ SCH (21:00)
[2023-10-12] MEDS: LEVOTHYROXINE SODIUM 50 MCG TABLET PO SCH (05:38)
[2023-10-12 07:20] LABS: BUN Creatinine Ratio 29.5 (10-20); Est GFR (Non-African American) 23.3 ml/min; Potassium 3.3 mmol/L (3.5-5.1)
[2023-10-12] MEDS: CALCITRIOL 0.25 MCG CAPSULE PO SCH (08:10)
[2023-10-12] MEDS: FERROUS SULFATE 325 MG TAB PO SCH (08:10)
[2023-10-12] MEDS: LETROZOLE 2.5 MG TAB PO SCH (08:10)
[2023-10-12] MEDS: BUMETANIDE 1 MG in SYRINGE 0 ML IV SCH (08:10)
[2023-10-12] MEDS: HEPARIN SOD 5,000 UNIT/0.5 ML VIAL SQ SCH (08:10)
[2023-10-12] MEDS: MAGNESIUM OXIDE 400 MG TAB PO SCH (08:10)
[2023-10-12] MEDS ORDERED: POTASSIUM CHLORIDE CRTAB 20 MEQ TABCR PO STA (08:28)
[2023-10-12] MEDS: INSULIN ASPART PER UNIT CHARGE SC SCH ×2 (08:56→12:07)
--- NOTE | 2023-10-12 18:06 | Discharge Summary ---
Date of Service October 12, 2023 Admission HPI Per Admitting Provider Aniya is a 78 year old female with a PMH significant for chronic respiratory failure on Chronic O2 therapy, pulmonary HTN, HFpEF, morbid obesity, stage 4 CKD, chronic ileostomy status who presented to the [facility] ED on 10/06/23 due to progressive BL swelling and increased SOB. She remained stable on her baseline 6L NC at rest, was noted to be tachycardic with HR in the low 100s, and otherwise stable. Labs were significant for a Hgb of 8.1 (down from 9.9 as of 08/22/23), MCV of 100.7, MCHC of 29.5, lymphocyte count of 1.12, Cr of 1.70 (Better than recent CR in the low-mid 2.0s), potassium of 5.6, initial high sen trop of 17, BNP WNL, and full respiratory biofire negative. Chest xray was read as Cardiomegaly and mild pulmonary edema. This has progressed in the interval.. BL LE venous dopplers were negative for DVT. Prior to admission the patient was given 40 mg IV Lasix. At the time of the exam the patient was sitting in bed in no acute distress with her sitting bedside, history was obtained from both. They state that she presented to the ED this am for her worsening LE edema and progressive increase in O2 requirements. She confirms that she was seen by Dr. Valencia on 10/03/23. During that visit he recommended considering restarting PO Diuretics but was going to defer to Cardiology and messaged the [facility] group. The patient states that she had not hear back from the Cardiology office and tried to call yesterday but did not hear back. She explains that since her last stoma revision in January of 2023 she has not required her oral lasix. She has been trying to drink between 40-60 ounces of water daily per recommendations of her [employer] and Cardiology. She denies increasing her amount of daily sodium intake recently. Her states that the LE swelling has been slowly increasing over the past 3-4 months, until this last week when it seemed to significantly increase. The patient notes that her swelling has progressed to her lower abdomen, which has not occurred prior. She denies recent fever, chills, chest pain, cough, abd pain, changes in ostomy output, decreased urinary output, and recent trauma. We discussed code status, she confirmed that she is a conditional code. She would want a trial of defibrillation only in the event of cardiac arrest of shockable heart rhythm. She would not want CPR or intubation in the event of cardiac arrest and/or respiratory failure. Principal Diagnosis Acute on chronic hypoxic respiratory failure due to acute on chronic diastolic and right sided heart failure Discharge Exam PHYSICAL EXAMINATION Last 24h vital signs reviewed, see documentation in flowsheet General: looks better, sitting in chair HEENT: Normocephalic, atraumatic, pupils round and equal, sclerae anicteric, no conjunctival injection, moist mucus membranes Lungs: Normal respiratory effort. Heart: Abdomen: no pannus edema Extremities: Warm, dry, well-perfused. 2+ LE edema to knees, thigh edema close to resolved Neuro: Alert and oriented x 4, face symmetric, moves 4 extremities well Psych: Normal affect and behavior Discharge Data Allergies Allergy/AdvReac Type Severity Reaction Status Date / Time codeine Allergy Intermediate WHITE Verified 10/01/23 16:41 CHANGE UNDER THE SKIN-ARMS Penicillins Allergy Intermediate RASH Verified 10/01/23 16:41 sulfamethoxazole Allergy Unknown DOES NOT Verified 10/01/23 16:41 KNOW REACTION trimethoprim Allergy Unknown DOES NOT Verified 10/01/23 16:41 KNOW REACTION atorvastatin AdvReac Intermediate SHE FELT Verified 10/01/23 16:41 WEAK simvastatin AdvReac Intermediate ARMS Verified 10/01/23 16:41 SWELLING adhesive AdvReac Mild SOME Verified 10/01/23 16:41 TAPE-REDNESS, ITCHY Consultations 10/06/23 15:25 ED Decision to Admit Stat 10/10/23 10:32 [facility] Referral Routine Ordered Studies 10/06/23 12:25 US venous doppler LE BI Stat Chest X-Ray 10/06/23 12:18 XR chest 1V portable HISTORY: Dyspnea COMPARISON: Chest 10/03/2023. FINDINGS: No pneumothorax. No pleural effusions. The heart remains mildly enlarged. No acute fractures identified. Perihilar interstitial/vascular thickening suggestive of mild pulmonary edema. Calcifications within the aortic knob. IMPRESSION: Cardiomegaly and mild pulmonary edema. This has progressed in the interval. ACT 112: Negative or not required by law. Electronically signed by: Chase Buchanan M.D. 10/06/2023 1:26 PM Venous Doppler Study 10/06/23 12:25 BILATERAL LOWER EXTREMITY VENOUS DOPPLER HISTORY: Lower extremity swelling COMPARISON STUDY: None. FINDINGS: There is normal compressibility, flow, and augmentation within the bilateral lower extremity deep venous systems. IMPRESSION: No DVT within the right or left lower extremity. ACT 112: Negative or not required by law. Electronically signed by: Chase Buchanan M.D. 10/06/2023 3:16 PM 10/09/23 05:32 10/12/23 05:42 Hospital Course (1) Acute on chronic right-sided congestive heart failure: Acute on chronic diastolic heart failure, acute on chronic right sided heart failure presented with progressive edema and volume overload as outpatient and worsening hypoxia, dyspnea going from 4L to 6L O2 requirement over the week [employer] echo done as outpatient about 1 week ago showed right ventricular systolic dysfunction LV function is wnl right-sided CHF - related to OHS/MYRANDA, chronic hypoxia per Dr Valencia's recent pulmonary office note she has NO chronic lung disease based on most recent CT chest echo in 2021 showed dilated RV but RV function at that time was wnl; thus, RV dysfunction is new increased salt intake in the diet likely to blame for some of her decompensation - she reports increased salt intake about 1 month ago, as well as drinking about 64 ounces of fluid a day to protect her kidneys including gatorade dyspnea resolved and edema significantly improved IV diuretics - diuresed with Bumex 1 mg IV twice daily - once abdominal wall and upper thigh edema resolved she became much more responsive to diuretics - weight decreased from 104.1 kg to 95.6 kg - discharged on 1 mg bumex qAM with instructions to increase to 2 mg if weight or edema increased, will follow daily weight - made referral to heart failure clinic for follow up, has appt next week - counseled patient and her 10/11- wrt maintaining fluid intake around max 2L (was drinking much more at home) and avoiding gatorade (which she was drinking), keeping sodium intake around 2000 mg/d - discussed needing to balance diuretics and fluid intake with her ileostomy output - O2 improved from needing 6L down to 4L and dyspnea resolved - outpatient ceo and founder is Dr. Saldana of note - LE dopplers neg for DVT certainly her CKD will contribute to her edema as well TSH 05/2023 wnl albumin 3.9 no h/o cirrhosis (2) Chronic respiratory failure with hypoxia: Acute on chronic hypoxic respiratory failure present on admission 4L home O2 is her recent baseline, increased to 6L less than a week before admission, required 6L during early hospital stay Worsening hypoxia was caused by heart failure exacerbation and she improved back to 4L O2 by time of discharge follows with Dr Valencia, [facility] Pulmonology per Dr Valencia etiology of O2 dependency - pulmonary HTN, OHS/MYRANDA, etc no h/o PE no h/o ILD or other chronic lung disease improved to 4L has follow up scheduled with Dr. Valencia and PFTs (3) Ileostomy, has currently: h/o diverticulitis requiring subtotal colectomy? has had multiple revisions of her ileostomy per her report, last in January which did result in decreased ostomy fluid output - reviewed output, has been acceptable (4) Chronic kidney disease, stage 4 (severe): recent baseline Cr has been mid 2's Creatinine remained better than baseline after diuresis, inflected back to 2 on day of discharge reflecting intravascular euvolemia or slight volume depletion, diuretics held 10/12 has follow up scheduled with Dr. Bedoya (5) Hyperkalemia: resolved after diuresis with lasix is not on K supplementation or LANE/ARB therapy had mild hypokalemia during IV diuresis, replaced did not discharge on K replacement because of hx hyperkalemia and K falls slowly only with high dose IV diuretics (6) Elevated troponin: minimal elevation likely myocardial demand ischemia in setting of #1 above, no evidence of acute coronary syndrome (7) Hypertension: BPs initially elevated but with diuresis have improved to normal cont home meds adjust as needed (8) Insulin dependent diabetes mellitus: last a1c was 6.8% in 05/2023 a1c 5.4% now which may not be accurate due to her anemia (9) Hypothyroidism: Continue levothyroxine TSH in fall 2022 was wnl (10) Pulmonary hypertension: severe seems to be related to longstanding MYRANDA/OHS, chronic hypoxia (11) Morbid obesity with BMI of 50.0-59.9, adult: BMI 50 with complications as outlined above (12) Anemia: borderline macrocytic checked b12/folate - both wnl TSH in 05/2023 was wnl reviewed iron panel and she is iron deficient. already on oral supplementation. likely also component of anemia related to chronic kidney disease - bid iron started by Dr. Bedoya in August - clarify whether she is actually taking this. - follow-up anemia in primary care and nephrology Plan updated at bedside daily 10/08-10/12 PT/OT ayana ordered - cleared for home with 's assistance Total Time Total Time Spent Total Time Spent (In Minutes): I personally spent: 45 minutes today on clinical care activities including: reviewing chart notes and vital signs reviewing labs examining and counseling the patient counseling the patient's family writing orders documentation Discharge Plan Discharge Items Patient Disposition: Home - Self-Care Reason For Visit: CHF EXACERBATION, LE SWELLING, ELEVATED TROP, HYPE Discharge Diagnosis: Acute on chronic respiratory failure, acute on chronic diastolic and right sided heart failure Condition on Discharge: Fair Activity: Resume your previous activity Non-emergency contact: Primary Care Provider and [employer] Call non-emergency contact if: you have any medication questions and your symptoms worsen Follow-up/Referrals: Kimberlee Perrin PA-C [Physician Director Custom] - 10/18/23 10:30 am (heart failure clinic - schedule as soon as possible) Ismael Pink MD [Primary Care Provider] - 10/19/23 9:00 am Diet: Carb Consistent or DM2 Addtl Attending Provider Instructions: You were treated for fluid overload that caused swelling of legs/abdomen and lungs resulting in trouble breathing and low oxygen We call this "heart failure" - basically your heart and kidney couldn't keep up with your salt and fluid intake, causing swelling We treat this with diuretics ("water pills"), and reducing fluid and salt intake. You are more complicated because you do have kidney disease and an ostomy - so its harder to balance between fluid overloaded and too dehydrated. We will try diuretic pill called bumetanide (bumex) 1 mg every morning. Weigh yourself every morning. Your weight and swelling should be stable to very slowly decreasing. If you gain 3 pounds overnight or 5 pounds in a week that is fluid - increase the bumex to 2 mg every morning and call the heart failure clinic If you get sick and are not eating/drinking normally or have diarrhea / high ostomy output - hold the bumex for the day or a few days until things go back to normal Avoid sports drinks like gatorade. They have a lot of sodium Try drinking max of 2000 mL (2 Liters) of fluid a day Try to reduce the salt in your diet - a typical "low salt" diet is 2000 mg per day of sodium from food. If its hard to get your sodium that low because of the ostomy diet, your diuretic dose could be increased to balance the extra salt if necessary. It was a pleasure taking care of you in the hospital Susannah Owusu MD Pending Studies at Discharge: No Stand-Alone Forms: My [facility], Smoking Cessation Medications and DC Order Prescriptions: New bumetanide 1 mg tablet See Rx Instructions .ROUTE .COMPLEX Qty: 60 0RF Rx Instructions: take 1 tablet every morning. increase to 2 tablets every morning if weight/edema increasing by 3 pounds overnight or 5 pounds in a week Continued acetaminophen [Arthritis Pain Relief (acetam)] 650 mg tablet extended release 650 mg PO Q12H PRN (Reason: Pain) calcitriol 0.25 mcg capsule 0.25 mcg PO QAM Qty: 90 3RF magnesium 200 mg tablet 400 mg PO QAM Qty: 90 3RF ferrous sulfate 325 mg (65 mg iron) tablet,delayed release (DR/EC) 325 mg PO BID ascorbic acid (vitamin C) 100 mg tablet,chewable 100 mg PO DAILY multivitamin [Multiple Vitamins] Tablet 1 tab PO DAILY (DME) Incentive Spirometer Misc See Rx Instructions .MEDSUPPLY Qty: 1 0RF Rx Instructions: As directed zolpidem 5 mg tablet 5 mg PO ONCE PRN (Reason: sleep) Qty: 2 0RF Rx Instructions: Take 1 tab on the night of sleep study (DME) Portable Oxygen Misc See Rx Instructions .MEDSUPPLY Qty: 1 0RF Rx Instructions: Oxygen 4 liters continuous via nasal cannula at rest and 10 L on exertion on exertion with portable concentrator. ELENA 99 diltiazem HCl 240 mg Capsule,Ext.Rel 24h Degradable 240 mg PO HS niacin 50 mg Tablet 50 mg PO BID levothyroxine [Synthroid] 50 mcg Tablet 50 mcg PO QAM Humalog U-100 Insulin 100 unit/mL Cartridge 1 sliding scale dose SUBCUT USEASDIRECTD Rx Instructions: with meals ezetimibe [Zetia] 10 mg Tablet 10 mg PO HS rosuvastatin 5 mg Tablet 5 mg PO HS Lantus U-100 Insulin 100 unit/mL solution 40 unit SUBCUT HS Co Q-10 300 mg Capsule 300 mg PO HS letrozole 2.5 mg tablet 2.5 mg PO QAM Discharge Orders: Discharge Order- CHF (Routine); Ordered 10/12/23 Ordered By: Susannah Owusu Admission Data Admit Date/Time: 10/06/23 15:37 Attending Provider: Susannah Owusu Admit Provider: Adalid Fox Primary Care Provider: Ismael Pink Other Providers: Adalid Fox; Kimberlee Perrin Other Interventions: Discharge Summary Assessment (RN) Last Done: 10/12/23 12:33 Coding Level of Care Code 38607 INP/OBS DISCH >30 MIN Diagnoses Acute on chronic right-sided congestive heart failure I50.813 Chronic respiratory failure with hypoxia J96.11 Ileostomy, has currently Z93.2 Chronic kidney disease, stage 4 (severe) N18.4 Hyperkalemia E87.5 Elevated troponin R79.89 Hypertension I10 Insulin dependent diabetes mellitus E11.9; Z79.4 Hypothyroidism E03.9 Pulmonary hypertension I27.20 Morbid obesity with BMI of 50.0-59.9, adult E66.01; Z68.43 Anemia D64.9
== END 2023-10-12 13:26 | disposition home or self-care (01) | DRG 291 ==
LOC: ED 12:01 → 2N 15:37 → SUATTDRO 15:37 → 2N 17:21
DX: Z79.4 Long term (current) use of insulin; Z88.0 Allergy status to penicillin; J96.21 Acute and chronic respiratory failure with hypoxia; I24.89 Other forms of acute ischemic heart disease; I50.813 Acute on chronic right heart failure; I13.0 Hypertensive heart and chronic kidney disease with heart failure and stage 1 through stage 4 chronic kidney disease, or unspecified chronic kidney disease; Z88.5 Allergy status to narcotic agent; Z96.652 Presence of left artificial knee joint; N18.4 Chronic kidney disease, stage 4 (severe); Z68.43 Body mass index [BMI] 50.0-59.9, adult; I27.20 Pulmonary hypertension, unspecified; I50.33 Acute on chronic diastolic (congestive) heart failure; E66.2 Morbid (severe) obesity with alveolar hypoventilation; Z88.2 Allergy status to sulfonamides; Z93.2 Ileostomy status

== ENCOUNTER 2025-03-23 13:58 | Observation (INO) ==
[2025-03-23 14:43] LABS: Hematocrit (blood only) 44.9 % (37.0-47.0); Hemoglobin 14.6 g/dl (12.0-16.0); Immature Granulocytes # (auto) 0.02 K/uL (0.01-0.20); Immature Granulocytes % (auto) 0.2 %; Mean Corpuscular Hemoglobin 31.7 pg (25.0-34.0); Mean Corpuscular Volume 97.6 fL (80.0-100.0); Platelet Count 187 K/uL (130-400); RDW Standard Deviation 58.8 fL (36.4-46.3); Red Blood Count 4.60 M/uL (4.20-5.40); White Blood Count 8.22 K/ul (4.8-10.8)
--- NOTE | 2025-03-23 14:57 | Emergency Department Note ---
Impression & Plan Dyspnea, Bilateral lower extremity edema, CHF (congestive heart failure), Acute electrocardiogram changes ED Provider Note ED Provider Note NAME: CHANDANA FRASER AGE:79 SEX: Female : 1945 ARRIVES VIA: Private vehicle INFORMANT: Patient ED PROVIDER(s): Carola Hill DO CHIEF COMPLAINT: Increased leg swelling and increased shortness of breath HPI: This is a 79-year-old female who presents emergency room due to concern for increased leg swelling and increased shortness of breath over the last 10 days. Patient does have a history of fluid retention and CHF. She does wear oxygen chronically at home with 3 L/min. She does take a diuretic daily. She states for 5 days she doubled her dose of her diuretic but did not see any improvement in her leg swelling and felt her breathing continued to worsen. She states she also took a dose of an old diuretic she used to take and that did not help either. She denies any dietary indiscretion. She denies any fevers, chills, or URI symptoms. Patient states she follows with Dr. Heller for cardiology. 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 She denies any other recent change in any medications. She states her weight has increased by about 7 pounds over the last week and a half additionally. She states she is not on any fluid restriction. She denies any chest pain, nausea, abdominal pain, dizziness, or headaches. PAST MEDICAL HISTORY:See Below PAST SURGICAL HISTORY:See Below FAMILY HISTORY:See Below SOCIAL HISTORY:See Below HOME MEDICATIONS:See Below ALLERGIES:See Below VITALS:See Below PHYSICAL EXAMINATION: GENERAL: alert, well appearing, well nourished, no distress, non-toxic EYE EXAM: normal conjunctiva, PERRL and EOM's grossly intact OROPHARYNX: no exudate, no erythema, lips, buccal mucosa, and tongue normal and mucous membranes are moist NECK: supple, no nuchal rigidity, no adenopathy, non-tender LUNGS: Decreased bilaterally to auscultation. Normal chest wall mechanics, no w/r/r, tachypnea and increased work of breathing with conversation, becomes hypoxic with prolonged conversation additionally while on her oxygen HEART: no murmurs, S1 normal and S2 normal ABDOMEN: abdomen soft, non-tender, normo-active bowel sounds, no masses, no rebound or guarding. BACK: Back is symmetrical on inspection and there is no deformity, no midline tenderness, no CVA tenderness. SKIN: no rashes, petechiae, orbruising UPPER EXTREMITIES: upper extremities are grossly normal. FROM, nml pulses b/l. LOWER EXTREMITIES: 2+ b/l pitting edema. FROM, nml pulses b/l. NEURO EXAM: Normal sensorium, cranial nerves II-XII grossly intact, normal speech, no facial droop,nogross weakness of arms, no gross weakness of legs. Gross sensation intact. No ataxia. Vital Signs: reviewed and remarkable Differential Diagnosis: pneumonia, bronchitis, COPD/Asthma exacerbation, pneumothorax, pulmonary embolism, congestive heart failure, acute coronary syndrome, as well as others were considered MEDICAL DECISION MAKING: This is a 79-year-old female who presents emerged part due to concern for increased lower extremity edema, increased shortness of breath, and weight gain over the course of the last 10 days. Patient does take diuretics daily and is on chronic oxygen therapy. She was afebrile and hemodynamically stable here. Of note patient does get hypoxic even with prolonged conversation despite her use of oxygen. Patient was noted to have lower extremity edema. Labs drawn and sent, IV established, EKG and chest ray performed at bedside interpreted by me and patient monitored on telemetry. Patient's labs and imaging here are consistent with a volume overload status. Patient with history of CHF. Patient given additional dose of IV Bumex here. Case discussed with hospitalist team for additional evaluation and management given failed outpatient treatment and worsening symptomatology. Consultation(s): 1605: Discussed with [facility] hospitalist for additional evaluation and management. ER Treatment Provided: See below Diagnostics Interpreted By Me: -ECG: Normal sinus at 81, first-degree AV block, leftward axis, normal intervals, T wave inversions noted in 3, aVF, V2 through V6-T wave inversions are new compared to September 2023 -Cardiac Monitoring: An order was placed for continuous cardiac monitoring. The monitor shows a rate of [] with [] rhythm. -Laboratory studies: As stated above and show below. -Imaging studies: cxr: +cm, interstitial markings b/l consistent with pulm edema, no wide mediastinum, no pna Triage Nursing Note Reviewed Prior/Outside Records Reviewed -echo from September 2024 reviewed Past Med/Surg History Problem List (Updated 03/23/25 @ 20:03 by Blanco Yu MD, PhD) Demand ischemia Acute on chronic systolic (congestive) heart failure Acute electrocardiogram changes (Acute) CHF (congestive heart failure) (Acute) Bilateral lower extremity edema (Acute) Dyspnea (Acute) Short of breath on exertion Pulmonary arterial hypertension Ileostomy, has currently Morbid obesity with BMI of 50.0-59.9, adult Acute on chronic right-sided congestive heart failure ILD (interstitial lung disease) Lower extremity edema Exertional shortness of breath Chronic respiratory failure with hypoxia (Acute) Hypersomnia Chronic diastolic CHF (congestive heart failure) Diastolic CHF (Acute) Chronic kidney disease, stage 4 (severe) (Acute) Nephrolithiasis, uric acid Cellulitis (Acute) DJD (degenerative joint disease) of knee Hypertension Insulin dependent diabetes mellitus Hypercholesterolemia Acute cystitis Arthritis Clostridium difficile colitis Dysfunction of right eustachian tube Pure hypercholesterolemia Hypothyroidism Impacted cerumen of right ear Mixed conductive and sensorineural hearing loss of right ear with restricted hearing of left ear Rectovaginal fistula Right serous otitis media Secondary hyperparathyroidism Type 2 diabetes mellitus Vitamin D deficiency Vulvitis Bilateral nephrolithiasis Acute diastolic (congestive) heart failure Kidney stone on right side Encounter for pre-operative examination Parastomal hernia Surgical wound, non healing (Acute) ETD (eustachian tube dysfunction) Neoplasm of left breast, 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 Pulmonary hypertension (Acute) per 08/2022 [place] records: "...pulmonary hypertension identified on echocardiography when she was fluid overloaded...recent echocardiogram does not suggest significant elevated right-sided pressures although right ventricular systolic pressure was not specifically mentioned, possibly due to inadequate TR to make that determination..." further evaluation not felt to be needed per [place] cardiology note Osteoarthritis Chronic kidney disease, stage 3 (moderate) Follows with nephro Hyperlipidemia Sacroiliitis Medical History Sepsis Metabolic acidosis with normal anion gap and bicarbonate losses Hypoxemia Acute renal failure Left flank pain Diverticulitis Dyslipidemia SBO (small bowel obstruction) Hx of Clostridium difficile infection ~2010 (reason for bowel resection) Seasonal allergies Congestive heart failure EF 65-70% on 08/2022 echo Acute respiratory failure with hypoxia Kidney stones hx Left ureteral calculus Hearing deficit B/L [place] HTN (hypertension) Hypothyroidism Surgical History History of esophagogastroduodenoscopy (EGD) History of breast surgery (01/02/23) Re-excision of left inferior margin of lumpectomy site Dr. Chandana Cooper History of lumpectomy of left breast (11/07/22) Dr. Chandana Cooper History of cataract surgery Bilateral History of lithotripsy ESWL Status post laser lithotripsy of ureteral calculus History of cystoscopy WITH STENT History of bowel resection 2010 History of total abdominal hysterectomy and bilateral salpingo-oophorectomy History of tubal ligation History of tonsillectomy History of cholecystectomy History of tooth extraction History of appendectomy History of left knee replacement History of colonoscopy H/O hernia repair Family History (Updated 03/23/25 @ 19:57 by Blanco Yu MD, PhD) Mother , at 75 years of age from long-standing complications arising from DM and multiple sclerosis. Diabetes Hypertension Angina pectoris, unspecified Multiple sclerosis Father , at 54 years of age from acute OK in the setting of tobacco abuse, but not in the setting of HTN or DM. Myocardial infarction Sister Rectal cancer Lung cancer Son No problems noted. Son No problems noted. Family/Other Breast cancer Maternal aunt Other No family history of adverse response to anesthesia No family history of bleeding disorder Denies family history of Cystic kidney disease Social History (Updated 03/23/25 @ 19:59 by Blanco Yu MD, PhD) Smoking Status: Former smoker Tobacco Type: Cigarettes Age Started Using Tobacco: 12; Age Quit Using Tobacco: 20; Cigarettes Per Day: Sneak smoking;; Second Hand Exposure: No; Do You Dip or Chew Tobacco: No; Tobacco Cessation Education Requested by Patient: No Hx Alcohol Use: No Hx Substance Use: No Preferred Language: [place] Communication Ability: Effective Visual Impairment: No Limitations Hearing Ability: Hard of Hearing Library Serials Assistant Required: No Beliefs That Will Affect Care: None marital status: marital status details: x 61 years. Ambulates with cane at home. Drives car independently. 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 How many Children do You have: 2 How many Children do You have Comment: 2 sons, 57 yrs and 59 yrs, both alive and well. Other Information That Helps Us Care for You: No Feels Safe at Home: Yes Safety Concerns: Feels Safe At This Time Diet: regular caffeine: No during the past year weight has: remained stable Assistive Devices: Cane and Hearing Aid - Left Allergies Allergies Allergy/AdvReac Type Severity Reaction Status Date / Time codeine Allergy Intermediate WHITE Verified 03/02/25 12:30 CHANGE UNDER THE SKIN-ARMS Penicillins Allergy Intermediate RASH Verified 03/02/25 12:30 sulfamethoxazole Allergy Unknown DOES NOT Verified 03/02/25 12:30 KNOW REACTION trimethoprim Allergy Unknown DOES NOT Verified 03/02/25 12:30 KNOW REACTION atorvastatin AdvReac Intermediate SHE FELT Verified 03/02/25 12:30 WEAK simvastatin AdvReac Intermediate ARMS Verified 03/02/25 12:30 SWELLING adhesive AdvReac Mild SOME Verified 03/02/25 12:30 TAPE-REDNESS, ITCHY Home Meds Home Medications Medication Instructions Recorded Confirmed diltiazem HCl 240 mg 240 mg PO HS 04/22/19 03/23/25 capsule,extended release 24 hr, controlled ezetimibe 10 mg tablet (Zetia) 10 mg PO HS 04/22/19 03/23/25 insulin lispro 100 unit/mL 1 sliding scale dose subcut 04/22/19 03/23/25 subcutaneous cartridge (Humalog USEASDIRECTD U-100 Insulin) levothyroxine 50 mcg tablet 50 mcg PO QAM 04/22/19 03/23/25 (Synthroid) niacin 50 mg tablet 50 mg PO BID 04/22/19 03/23/25 rosuvastatin 5 mg tablet 5 mg PO HS 04/22/19 03/23/25 coenzyme Q10 300 mg capsule (Co 300 mg PO HS 11/04/21 03/23/25 Q-10) acetaminophen 650 mg 650 mg PO Q12H PRN Pain 03/15/22 03/23/25 tablet,extended release (Arthritis Pain Relief (acetaminophen) ER) insulin glargine 100 unit/mL 40 unit subcut HS 12/12/22 03/23/25 subcutaneous solution (Lantus U-100 Insulin) letrozole 2.5 mg tablet 2.5 mg PO QAM 03/17/23 03/23/25 magnesium 200 mg tablet 700 mg PO QAM 10/18/23 03/23/25 ferrous sulfate 325 mg (65 mg 325 mg PO DAILY 11/14/23 03/23/25 iron) tablet,delayed release Previous Rx's Medication Instructions Recorded Incentive Spirometer #1 ea 10/03/23 Portable Oxygen #1 ea 10/03/23 bumetanide 1 mg tablet See Rx Instructions .Route 10/12/23 .COMPLEX #60 tabs Auto Titrating CPAP #1 ea 02/21/24 CPAP Supplies #1 ea 02/21/24 cholecalciferol (vitamin D3) 25 25 mcg PO DAILY #30 caps 08/28/24 mcg (1,000 unit) capsule budesonide-formoterol HFA 80 2 puff inhalation BID #10.2 grams 11/18/24 mcg-4.5 mcg/actuation aerosol inhaler (Symbicort) Results & Data (ED) Vital Signs Vital Signs - 24 hr 03/23/25 13:59 03/23/25 14:08 03/23/25 14:08 Temperature 36.6 C Temperature Source Temporal Artery Scan Pulse Rate 87 Pulse Rate from SpO2 Sensor Respiratory Rate 22 Respiratory Effort / Characteristics Non-Labored Spontaneous Respiratory Depth Normal Respiratory Pattern Regular Blood Pressure 149/59 H Blood Pressure Mean 89 Pulse Oximetry 91 94 94 Oxygen Delivery Method Nasal Cannula Nasal Cannula Nasal Cannula Oxygen Flow Rate 4 3 3 Sepsis Recent Fever Within 48 Hours No Sepsis New/Unexplained Change in Mental Status N/A Sepsis Action Taken by Nursing No Action Required 03/23/25 14:54 03/23/25 15:00 03/23/25 16:05 Temperature Temperature Source Pulse Rate 95 H 87 91 H Pulse Rate from SpO2 Sensor 86 91 H Respiratory Rate 18 42 H Respiratory Effort / Characteristics Respiratory Depth Respiratory Pattern Blood Pressure 157/81 H Blood Pressure Mean 106 Pulse Oximetry 92 94 Oxygen Delivery Method Nasal Cannula Nasal Cannula Oxygen Flow Rate 3 3 Sepsis Recent Fever Within 48 Hours Sepsis New/Unexplained Change in Mental Status Sepsis Action Taken by Nursing 03/23/25 16:33 Temperature Temperature Source Pulse Rate 84 Pulse Rate from SpO2 Sensor 84 Respiratory Rate 18 Respiratory Effort / Characteristics Respiratory Depth Respiratory Pattern Blood Pressure Blood Pressure Mean Pulse Oximetry 96 Oxygen Delivery Method Nasal Cannula Oxygen Flow Rate 3 Sepsis Recent Fever Within 48 Hours Sepsis New/Unexplained Change in Mental Status Sepsis Action Taken by Nursing Laboratory Data 03/23/25 14:33 03/23/25 14:33 Lab Results 03/23/25 Range/Units 14:33 WBC 8.22 (4.8-10.8) K/ul RBC 4.60 (4.20-5.40) M/uL Hgb 14.6 (12.0-16.0) g/dl Hct 44.9 (37.0-47.0) % MCV 97.6 (80.0-100.0) fL MCH 31.7 (25.0-34.0) pg MCHC 32.5 (32.0-36.0) g/dL RDW Std Deviation 58.8 H (36.4-46.3) fL RDW Coeff of Sreedhar 16.2 H (11.5-14.5) % Plt Count 187 (130-400) K/uL MPV 10.3 (9.4-12.4) fL Immature Gran % (Auto) 0.2 % Neut % (Auto) 78.0 % Lymph % (Auto) 13.9 % [place] % (Auto) 4.6 % Eos % (Auto) 2.7 % Baso % (Auto) 0.6 % Neut # (Auto) 6.41 (1.40-6.50) K/uL Lymph # (Auto) 1.14 L (1.20-3.40) K/uL [place] # (Auto) 0.38 (0.11-0.59) K/uL Eos # (Auto) 0.22 (0.00-0.50) K/uL Baso # (Auto) 0.05 (0.00-0.20) K/uL Immature Gran # (Auto) 0.02 (0.01-0.20) K/uL PT 10.9 (9.0-12.0) Seconds INR 1.0 (0.9-1.1) APTT 24 (21-31) Seconds PTT Ratio 0.9 Sodium 133 L (136-145) mmol/L Potassium 4.9 (3.5-5.1) mmol/L Chloride 99 (98-107) mmol/L Carbon Dioxide 26 (21-32) mmol/L Anion Gap 8 (3-11) BUN 38 H (6-23) mg/dl Creatinine 2.30 H (0.6-1.2) mg/dl Est Cr Clr Drug Dosing Not Reportable eGFR 21.09 BUN/Creatinine Ratio 16.5 (10-20) Glucose 183 H (70-99(Fasting)) mg/dl Estimat Average Glucose 131 mg/dl Hemoglobin A1c 6.2 H (4.5-5.6) % Calcium 9.6 (8.6-10.3) mg/dl Total Bilirubin 1.0 (0.2-1.0) mg/dl AST 19 (13-39) U/L ALT 17 (7-52) U/L Alkaline Phosphatase 76 (34-104) U/L Troponin I High Sens 18.4 H (0-14) pg/ml B-Natriuretic Peptide 190 H (0-100) pg/ml Total Protein 7.9 (6.0-8.3) gm/dl Albumin 4.1 (3.4-5.0) gm/dl Globulin 3.8 (2.5-4.0) gm/dl Albumin/Globulin Ratio 1.1 (0.9-2) TSH 1.623 (0.300-4.500) uIu/ml Administered Medications Diltiazem HCl (Diltiazem Hcl 240 Mg Capcr) 240 mg PO [facility] Stop: 04/22/25 20:59 Last Admin: 03/23/25 20:27 Dose: 240 mg Documented By: HFW Ezetimibe (Ezetimibe 10 Mg Tab) 10 mg PO [facility] Stop: 04/22/25 20:59 Last Admin: 03/23/25 20:27 Dose: 10 mg Documented By: HFW Enoxaparin Sodium (Enoxaparin Inj 30 Mg/0.3 Ml Syr) 30 mg SQ QAM [facility] Stop: 04/22/25 19:44 Last Admin: 03/23/25 20:40 Dose: Not Given Documented By: HFW Furosemide (Furosemide 40 Mg/4 Ml Vial) 40 mg IV ONE ONE Stop: 03/23/25 23:32 Last Admin: 03/23/25 23:26 Dose: 40 mg Documented By: HFW Insulin Aspart (Insulin Aspart Per Unit Charge) 0 units SC [facility] Stop: 04/22/25 18:59 Last Admin: 03/23/25 21:34 Dose: Not Given Documented By: Admin: 03/23/25 20:41 Dose: 6 units Documented By: HFW Co-signed By: DONTRELL Insulin Glargine (Lantus Per Unit Charge) 40 units SQ HS [facility] Stop: 04/22/25 20:59 Last Admin: 03/23/25 20:40 Dose: 40 units Documented By: HFW Co-signed By: DONTRELL Letrozole (Letrozole 2.5 Mg Tab) 2.5 mg PO QAM [facility] Stop: 04/22/25 17:14 Last Admin: 03/23/25 20:27 Dose: 2.5 mg Documented By: HFW Co-signed By: DIOMEDES Levothyroxine Sodium (Levothyroxine Sodium 50 Mcg Tablet) 50 mcg PO DAILYBB [facility] Stop: 04/22/25 16:59 Last Admin: 03/23/25 20:27 Dose: 50 mcg Documented By: ARNIE Melatonin (Melatonin 3 Mg Tab) 3 mg PO HS PRN PRN Reason: Sleep Stop: 04/22/25 21:33 Last Admin: 03/23/25 22:05 Dose: 3 mg Documented By: ARNIE Rosuvastatin Calcium (Rosuvastatin Calcium 5 Mg Tab) 5 mg PO HS [facility] Stop: 04/22/25 20:59 Last Admin: 03/23/25 20:40 Dose: 5 mg Documented By: ARNIE Discontinued Medications Furosemide (Furosemide 40 Mg/4 Ml Vial) 40 mg IV ONE ONE Stop: 03/23/25 16:55 Last Admin: 03/23/25 17:31 Dose: 40 mg Documented By: LACHELLE Miscellaneous (Patient's Height &/Or Weight Needed) 1 each N/A Q2H STA Stop: 03/23/25 17:08 Last Admin: 03/23/25 17:40 Dose: Not Given Documented By: LACHELLE Imaging Data Radiologist's Impression: Chest X-Ray 03/23/25 14:08 XR chest 1V portable HISTORY: 79 years-old Female Chest pain, nonspecific COMPARISON: 11/18/2024 TECHNIQUE: AP view of the chest FINDINGS: Cardiac silhouette is enlarged. Atherosclerosis of the aorta. Pulmonary vascular congestion. No pneumothorax, large pleural effusion or lobar airspace consolidation. Bones of the chest appear grossly intact. IMPRESSION: Cardiomegaly with pulmonary vascular congestion. ACT 112: Negative or not required by law. The above report was generated using voice recognition software. It may contain grammatical, syntax or spelling errors. Electronically signed by: Erick Kaiser M.D. 03/23/2025 3:16 PM Discharge Plan Visit Data Chief Complaint: Swelling/Edema to Extremity Stated Complaint: WATER RETENTION ED Provider: Carola Hill Discharge Problem: Dyspnea, Bilateral lower extremity edema, CHF (congestive heart failure), Acute electrocardiogram changes Patient Disposition: Admitted As Inpatient Condition: Fair Discharge Instructions Interventions: ED Discharge Assessment Last Done: 03/23/25 19:27
[2025-03-23 15:03] LABS: Alanine Aminotransferase 17 U/L (7-52); Albumin Globulin Ratio 1.1 (0.9-2); Alkaline Phosphatase 76 U/L (34-104); Anion Gap 8 (3-11); Bilirubin,Total 1.0 mg/dl (0.2-1.0); Blood Urea Nitrogen 38 mg/dl (6-23); Calcium 9.6 mg/dl (8.6-10.3); Carbon Dioxide 26 mmol/L (21-32); Chloride 99 mmol/L (98-107); Globulin 3.8 gm/dl (2.5-4.0); Glucose 183 mg/dl (70-99(Fasting)); Potassium 4.9 mmol/L (3.5-5.1); Sodium 133 mmol/L (136-145); Total Protein 7.9 gm/dl (6.0-8.3)
--- NOTE | 2025-03-23 15:17 | XRay Report ---
XR chest 1V portable HISTORY: 79 years-old Female Chest pain, nonspecific COMPARISON: 11/18/2024 TECHNIQUE: AP view of the chest FINDINGS: Cardiac silhouette is enlarged. Atherosclerosis of the aorta. Pulmonary vascular congestion. No pneum othorax, large pleural effusion or lobar airspace consolidation. Bones of the chest appear grossly in tact. IMPRESSION: Cardiomegaly with pulmonary vascular congestion. ACT 112: Negative or not required by law. The above report was generated using voice recognition software. It may contain grammatical, syntax o r spelling errors. Electronically signed by: Erick Kaiser M.D. 03/23/2025 3:16 PM
[2025-03-23 15:27] LABS: INR 1.0 (0.9-1.1); Partial Thromboplastin Time 24 Seconds (21-31); Prothrombin Time 10.9 Seconds (9.0-12.0)
[2025-03-23] MEDS ORDERED: BUMETANIDE 1 MG in SYRINGE 0 ML IV ONE (16:03)
[2025-03-23] MEDS ORDERED: ACETAMINOPHEN 325 MG TAB PO PRN (16:49)
[2025-03-23] MEDS ORDERED: NON-FORMULARY MEDICATION (Insulin Lispro [Humalog U-100 Insulin] 100 unit/mL Cartridge) SQ SCH (17:00)
[2025-03-23] MEDS ORDERED: GLUCOSE 40% GEL 15 GM TUBE PO PRN (17:15)
[2025-03-23] MEDS ORDERED: CARBOHYDRATES FOR HYPOGLYCEMIA PO PRN (17:15)
[2025-03-23] MEDS ORDERED: GLUCAGON FOR INJ 1 MG VIAL SQ PRN (17:15)
[2025-03-23] MEDS ORDERED: DEXTROSE 50% 50 ML SYRINGE IV PRN (17:15)
[2025-03-23] MEDS ORDERED: GLUCOSE 10 TAB/TUBE PO PRN (17:15)
[2025-03-23] MEDS: FUROSEMIDE 40 MG/4 ML VIAL IV ONE ×2 (17:31→23:26)
[2025-03-23] MEDS: Patient's HEIGHT &/or WEIGHT Needed STA (17:40)
[2025-03-23 18:13] LABS: Thyroid Stimulating Hormone 1.623 uIu/ml (0.300-4.500)
[2025-03-23 19:00] LABS: Hemoglobin A1C 6.2 % (4.5-5.6)
--- NOTE | 2025-03-23 19:17 | History & Physical Report ---
Date of Service March 23, 2025 Assessment & Plan (1) Acute on chronic systolic (congestive) heart failure: Plan: As above in the History of Present Illness. (2) Demand ischemia: Plan: As above in the History of Present Illness. History of Present Illness Chief Complaint: "I have gained 7 pounds in the past 1.5 weeks. In that time, I have gotten more short of breath. I tried to deal with it by doubling my bumex dose from 1mg a day to 2mg a day, but that did nothing. I was still short of breath. No coughing or wheezing. I normally take 2 liters a minute of oxygen at home when I am resting and 3 liters a minute of oxygen when I am moving around, and I didn't need more oxygen, but I was still short of breath. My legs were getting a little larger, too, but they did not hurt at all. So, I told my to bring me to [facility] ER to get checked out." Primary Care Provider: Ismael Pink MD 79 years old female with PMH of FULL CODE @ home, morbid obesity with BMI 48.7 (height 139.7 cm; weight 95.0 kg), ambulatory dysfunction utilizing cane at home and outside of home, no walker or wheelchair, MYRANDA, non-compliant with CPAP, former tobacco abuse with subsequent development of chronic hypoxic respiratory failure requiring 2 liters/minute O2 via nasal cannula at rest and 3 liters/minute O2 via nasal cannula with exertion, not on home steroids, just budesonide 80ug - formoterol 4.5ug/puff, 2 puffs PO bid, left BRCA s/p lumpectomy, now in clinical remission, on letrozole 2.5mg PO qam, acute diverticulitis due to Clostridium difficile infection, leading to acute bowel perforation, warranting emergent colectomy with ileostomy (11/2010, [facility], Breast Surgeon Dr. Aniya Cooper), insulin-dependent DM2 with HbA1c 5.4% (10/08/2023, 5:43am) on lantus 40 units SQ qhs, humalog sliding scale qac + qhs, hypothyroidism with TSH 1.623 uIU/mL (03/23/2025, 2:33pm) on synthroid 50ug PO daily, hyperlipidemia on niacin 50mg PO bid, rosuvastatin 5mg PO qhs, and zetia 10mg PO qhs, CKD stage IV with baseline creatinine range, 2.18-2.37 mg/dL (02/21/2024 - 08/20/2024), HTN on diltiazem 240mg PO qhs and bumex 1mg PO qam, chronic systolic CHF with RV systolic function mildly reduced, preserved LVEF 55-60% (as noted on 09/28/2023, 10:57am TTE, CARDS Dr. Catracho Govea) with dry baseline weight of 194 pounds at home with 1 pillow orthopnea, no paroxysmal noc turnal dyspnea, or platypnea, baseline troponin-I range of 17.7 pg/mL (10/06/2023, 12:36pm) to 21.0 pg/mL (10/06/2023, 5:02pm) and baseline BNP range of 117 pg/mL (11/04/2021, 3:13am) to 36 pg/mL (02/21/2024, 9:50am), and chronic euvolemic hyponatremia with baseline Na range, 133-134 mmol/L (02/21/2024 - 02/23/2025), who reports: "I have gained 7 pounds in the past 1.5 weeks. In that time, I have gotten more short of breath. I tried to deal with it by doubling my bumex dose from 1mg a day to 2mg a day, but that did nothing. I was still short of breath. No coughing or wheezing. I normally take 2 liters a minute of oxygen at home when I am resting and 3 liters a minute of oxygen when I am moving around, and I didn't need more oxygen, but I was still short of breath. My legs were getting a little larger, too, but they did not hurt at all. So, I told my to bring me to [facility] ER to get checked out." Patient denies antecedent/coincident fevers, chills, diaphoresis, cough, wheeze, sore throat, hemoptysis, chest pains, palpitations, pleurisy, nausea, vomiting, diarrhea, abdominal pain, pelvic pain, hematemesis, hematochezia, melena, hematuria, dysuria, frequency, urgency, flank pain, headaches, dizziness, lightheadedness, visual changes, hearing changes, weakness, falls, syncope, trauma, travel history, sick contacts, or food/drug ingestions novel or new. All other review of systems are reported as negative by the patient on observation date 03/22/2025. In [facility] ER bed #B02, patient was afebrile @ 36.6 degrees Celsius, HR 87, RR 22, O2 sat 91% on 4 liters/minute O2 via NC, and BP 149/59 (03/22/2025, 1:59pm). Height 139.7 cm; weight 95.0 kg = 209.0 pounds (03/22/2025, 1:59pm). cf., dry baseline weight of 194 pounds at home. Exam was noted for bibasilar crackles without audible expiratory wheeze, egophony, pectoriloquy, increase in tactile fremitus, or flatness/dullness to percussion at the bases. In addition, speaking 6-9 words at a time would elicit increased tachypnea at rest. In addition, patient displayed 2+ pitting pedal edema with extension to the bilateral mid-shins, sparing the bilateral upper shins, knees, hips, thighs, and abdomen. Labs in [facility] ER bed #B02 included: WBC 8.2, N78 L14 M5 E3 B1, Hb 14.6, MCV 97.6, MCHC 32.5, platelet 187 (03/23/2025, 2:33pm). Na 133, K 4.9, CO2 26, BUN 38, creatinine 2.30, GFR 21.1 mL/min, glucose 183, anion gap 8, Ca 9.6 (03/23/2025, 2:33pm). HbA1c 6.2% (03/22/2025, 2:33pm). Troponin-I #1 18.4 pg/mL (03/22/2025, 2:33pm). Troponin-I #2 19.4 pg/mL (03/22/2025, 6:44pm). Troponin-I #3 (03/22/2025, 10:33pm). BNP 190 pg/mL (03/22/2025, 2:33pm). Additional testing included: Portable CXR (03/22/2025, 2:08pm): Cardiomegaly with pulmonary vascular congestion. No infiltrate, effusion, pneumothorax (by my review). EKG #1 (03/22/2025, 2:22pm): NSR @ 81, WI 202, QTC 418, TWI in III, aVF, V1-V6, no acute ST depressions/elevations (by my review). EKG #2 (03/22/2025, 6:44pm): Historical testing includes: EKG old (10/06/2023, 12:17pm): sinus tach @ 101, WI 178, QTC 417, no TWI, no acute ST depressions/elevations (by my review). TTE (09/28/2023, 10:57am): 1. LVEF 55-60%. Flattened septum consistent with RV pressure overload. No regional wall motion abnormalities. 2. RV mild-moderately dilated. RV systolic function mildly reduced. 3. LA/RA sizes normal. No evidence for ASD. 4. No /AR. 5. Trace WI. 6. No MS/MR. 7. Trace TR. 8. Aortic root normal size. PA normal size. Normal IVC diameter and respiratory variation suggests normal CVP. 9. No pericardial effusion. (as per CARDS Dr. Catracho Govea). Patient was subsequently placed in OBSERVATION on the hospitalist service @ [facility] on 03/22/2025 with the following diagnoses: 1. Acute exacerbation of chronic systolic CHF with RV systolic function mildly reduced, preserved LVEF 55-60% (as noted on 09/28/2023, 10:57am TTE, CARDS Dr. Catracho Govea) with dry baseline weight of 194 pounds at home with 1 pillow orthopnea, no paroxysmal nocturnal dyspnea, or platypnea. 2. Acute type II NSTEMI with troponin-I #1 18.4 pg/mL (03/22/2025, 2:33pm) and troponin-I #2 19.4 pg/mL (03/22/2025, 6:44pm). To address #1, patient was started on 2 gram sodium diet, lasix 40mg IV x 1 dose (03/22/2025, 5:31pm), followed by lasix 40mg IV bid x 2 doses (03/22/2025, 1 1:31pm; 03/23/2025, 5:31am) in [facility] ER bed #B02. I will check vitals, chest exam, daily weights, strict I/O without bangura catheter, and TTE (03/24/2025, 8:00am)(to evaluate for any interval change(s) in LVEF or RV systolic function since 09/28/2023, 10:57am TTE, CARDS Dr. Catracho Govea, wherein LVEF was preserved/normal @ 55-60% and RV systolic function was mildly reduced). Of note, patient's admission weight of 209 pounds on 03/23/2025 is approximately 15 pounds over patient's dry baseline weight of 194 pounds at home on a daily basis. To address #2, patient awaits troponin-I #3 (03/23/2025, 10:33pm), EKG #2 (03/22/2025, 6:44pm)(to evaluate for any interval changes from EKG #1 (03/22/2025, 2:22pm), and TTE (03/23/2025, 8:00am)(to evaluate for any LV wall motion abnormalities that might suggest acute myocardial ischemia). Given the low index of suspicion for acute type I NSTEMI, I have not started patient on either heparin infusion or lovenox 1mg/kg SQ q12, especially as the latter may provoke further renal embarrassment in this 79 years old female with pre- existing CKD stage IV with baseline creatinine range, 2.18-2.37 mg/dL (02/21/2024 - 08/20/2024) with admission creatinine 2.30 mg/dL, GFR 21.1 mL/min (03/23/2025, 2:33pm). Of note, I surmise that the nominal troponin elevations noted herein are due to demand ischemia, which is due, in turn, to: a. Acute exacerbation of chronic systolic CHF with RV systolic function mildly reduced, preserved LVEF 55-60% (as noted on 09/28/2023, 10:57am TTE, CARDS Dr. Catracho Govea) with dry baseline weight of 194 pounds at home with 1 pillow orthopnea, no paroxysmal nocturnal dyspnea, or platypnea. b. Chronic hypoxic respiratory failure requiring 2 liters/minute O2 via nasal cannula at rest and 3 liters/minute O2 via nasal cannula with exertion. c. CKD stage IV with baseline creatinine range, 2.18-2.37 mg/dL (02/21/2024 - 08/20/2024). cf., baseline troponin-I range of 17.7 pg/mL (10/06/2023, 12:36pm) to 21.0 pg/mL (10/06/2023, 5:02pm) and baseline BNP range of 117 pg/mL (11/04/2021, 3:13am) to 36 pg/mL (02/21/2024, 9:50am). Of final note, patient's slightly elevated admission BNP 190 pg/mL (03/22/2025, 2:33pm), while greater than the patient's baseline BNP range given above, is still only marginally elevated above normal. The reason for marginally elevated BNP levels in morbidly obese individuals, including this individual with BNP 48.7 (height 139.7 cm; weight 95.0 kg) is complex and remains an active area of research, with no clear explanation to date. In sum, BNP levels in morbidly obese individuals should not be relied upon as an accurate biomarker of the morbidly obese individual's CHF status. Allergies Allergy/AdvReac Type Severity Reaction Status Date / Time codeine Allergy Intermediate WHITE Verified 03/02/25 12:30 CHANGE UNDER THE SKIN-ARMS Penicillins Allergy Intermediate RASH Verified 03/02/25 12:30 sulfamethoxazole Allergy Unknown DOES NOT Verified 03/02/25 12:30 KNOW REACTION trimethoprim Allergy Unknown DOES NOT Verified 03/02/25 12:30 KNOW REACTION atorvastatin AdvReac Intermediate SHE FELT Verified 03/02/25 12:30 WEAK simvastatin AdvReac Intermediate ARMS Verified 03/02/25 12:30 SWELLING adhesive AdvReac Mild SOME Verified 03/02/25 12:30 TAPE-REDNESS, ITCHY Home Medications Medication Instructions Recorded Confirmed Type diltiazem HCl 240 mg 240 mg PO HS 04/22/19 03/23/25 History capsule,extended release 24 hr, controlled ezetimibe 10 mg tablet (Zetia) 10 mg PO HS 04/22/19 03/23/25 History insulin lispro 100 unit/mL 1 sliding scale dose subcut 04/22/19 03/23/25 History subcutaneous cartridge (Humalog USEASDIRECTD U-100 Insulin) levothyroxine 50 mcg tablet 50 mcg PO QAM 04/22/19 03/23/25 History (Synthroid) niacin 50 mg tablet 50 mg PO BID 04/22/19 03/23/25 History rosuvastatin 5 mg tablet 5 mg PO HS 04/22/19 03/23/25 History coenzyme Q10 300 mg capsule (Co 300 mg PO HS 11/04/21 03/23/25 History Q-10) acetaminophen 650 mg 650 mg PO Q12H PRN Pain 03/15/22 03/23/25 History tablet,extended release (Arthritis Pain Relief (acetaminophen) ER) insulin glargine 100 unit/mL 40 unit subcut HS 12/12/22 03/23/25 History subcutaneous solution (Lantus U-100 Insulin) letrozole 2.5 mg tablet 2.5 mg PO QAM 03/17/23 03/23/25 History Incentive Spirometer #1 ea 10/03/23 03/23/25 Rx Portable Oxygen #1 ea 10/03/23 03/23/25 Rx bumetanide 1 mg tablet See Rx Instructions .Route 10/12/23 03/23/25 Rx .COMPLEX #60 tabs magnesium 200 mg tablet 700 mg PO QAM 10/18/23 03/23/25 History ferrous sulfate 325 mg (65 mg 325 mg PO DAILY 11/14/23 03/23/25 History iron) tablet,delayed release Auto Titrating CPAP #1 ea 02/21/24 03/23/25 Rx CPAP Supplies #1 ea 02/21/24 03/23/25 Rx cholecalciferol (vitamin D3) 25 25 mcg PO DAILY #30 caps 08/28/24 03/23/25 Rx mcg (1,000 unit) capsule budesonide-formoterol HFA 80 2 puff inhalation BID #10.2 grams 11/18/24 03/23/25 Rx mcg-4.5 mcg/actuation aerosol inhaler (Symbicort) Past Med/Surg History Problem List (Updated 03/23/25 @ 20:03 by Blanco Yu MD, PhD) Demand ischemia Acute on chronic systolic (congestive) heart failure Acute electrocardiogram changes (Acute) CHF (congestive heart failure) (Acute) Bilateral lower extremity edema (Acute) Dyspnea (Acute) Short of breath on exertion Pulmonary arterial hypertension Ileostomy, has currently Morbid obesity with BMI of 50.0-59.9, adult Acute on chronic right-sided congestive heart failure ILD (interstitial lung disease) Lower extremity edema Exertional shortness of breath Chronic respiratory failure with hypoxia (Acute) Hypersomnia Chronic diastolic CHF (congestive heart failure) Diastolic CHF (Acute) Chronic kidney disease, stage 4 (severe) (Acute) Nephrolithiasis, uric acid Cellulitis (Acute) DJD (degenerative joint disease) of knee Hypertension Insulin dependent diabetes mellitus Hypercholesterolemia Acute cystitis Arthritis Clostridium difficile colitis Dysfunction of right eustachian tube Pure hypercholesterolemia Hypothyroidism Impacted cerumen of right ear Mixed conductive and sensorineural hearing loss of right ear with restricted hearing of left ear Rectovaginal fistula Right serous otitis media Secondary hyperparathyroidism Type 2 diabetes mellitus Vitamin D deficiency Vulvitis Bilateral nephrolithiasis Acute diastolic (congestive) heart failure Kidney stone on right side Encounter for pre-operative examination Parastomal hernia Surgical wound, non healing (Acute) ETD (eustachian tube dysfunction) Neoplasm of left breast, 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 Pulmonary hypertension (Acute) per 08/2022 [place] records: "...pulmonary hypertension identified on echocardiography when she was fluid overloaded...recent echocardiogram does not suggest significant elevated right-sided pressures although right ventricular systolic pressure was not specifically mentioned, possibly due to inadequate TR to make that determination..." further evaluation not felt to be needed per [place] cardiology note Osteoarthritis Chronic kidney disease, stage 3 (moderate) Follows with nephro Hyperlipidemia Sacroiliitis Medical History Sepsis Metabolic acidosis with normal anion gap and bicarbonate losses Hypoxemia Acute renal failure Left flank pain Diverticulitis Dyslipidemia SBO (small bowel obstruction) Hx of Clostridium difficile infection ~2010 (reason for bowel resection) Seasonal allergies Congestive heart failure EF 65-70% on 08/2022 echo Acute respiratory failure with hypoxia Kidney stones hx Left ureteral calculus Hearing deficit B/L MOROCHO HTN (hypertension) Hypothyroidism Surgical History History of esophagogastroduodenoscopy (EGD) History of breast surgery (01/02/23) Re-excision of left inferior margin of lumpectomy site Dr. Aniya Cooper History of lumpectomy of left breast (11/07/22) Dr. Aniya Cooper History of cataract surgery Bilateral History of lithotripsy ESWL Status post laser lithotripsy of ureteral calculus History of cystoscopy WITH STENT History of bowel resection 2010 History of total abdominal hysterectomy and bilateral salpingo-oophorectomy History of tubal ligation History of tonsillectomy History of cholecystectomy History of tooth extraction History of appendectomy History of left knee replacement History of colonoscopy H/O hernia repair Family History (Updated 03/23/25 @ 19:57 by Blanco Yu MD, PhD) Mother , at 75 years of age from long-standing complications arising from DM and multiple sclerosis. Diabetes Hypertension Angina pectoris, unspecified Multiple sclerosis Father , at 54 years of age from acute OR in the setting of tobacco abuse, but not in the setting of HTN or DM. Myocardial infarction Sister Rectal cancer Lung cancer Son No problems noted. Son No problems noted. Family/Other Breast cancer Maternal aunt Other No family history of adverse response to anesthesia No family history of bleeding disorder Denies family history of Cystic kidney disease Social History (Updated 03/23/25 @ 19:59 by Blanco Yu MD, PhD) Smoking Status: Former smoker Tobacco Type: Cigarettes Age Started Using Tobacco: 12; Age Quit Using Tobacco: 20; Cigarettes Per Day: Sneak smoking;; Second Hand Exposure: No; Do You Dip or Chew Tobacco: No; Hx Alcohol Use: No Hx Substance Use: No Preferred Language: Maltese Communication Ability: Effective Visual Impairment: No Limitations Hearing Ability: Hard of Hearing Bpm Developer Required: No Beliefs That Will Affect Care: None marital status: marital status details: x 61 years. Ambulates with cane at home. Drives car independently. 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 How many Children do You have: 2 How many Children do You have Comment: 2 sons, 57 yrs and 59 yrs, both alive and well. Feels Safe at Home: Yes Diet: regular caffeine: No during the past year weight has: remained stable Assistive Devices: Cane, Oxygen - Continuous and Walker Review of Systems Constitutional: As above in the History of Present Illness. Physical Exam Constitutional: General: Comfortable, coherent, cooperative. Wide awake and alert. Not confused, lethargic, or obtunded. Patient speaks in complete, fluent, and articulate 4-6 word sentences without cough or wheeze, but pauses to catch her breath, with O2 sat 91% on 4 liters/minute O2 via NC (03/22/2025, 1:59pm). HEENT: Normocephalic, atraumatic. Extra-ocular muscles intact. Pupils equally round and reactive to light. No nystagmus, gaze paresis, anisocoria, miosis, mydriasis, hyphema, scleral injection, conjunctivitis, or pterygium. No otorrhea. No pharyngeal erythema, edema, or discharge. Neck: Supple, no stridor, bruit, goiter, or hepato-jugular reflux. Jugular venous pressure is estimated to be 3 cm above the sternal angle of Armando, which in turn, is 5 cm above the level of the right atrium; with jugular venous pressure estimated to be 8 cm, then, there is no jugular venous distention on 03/22/2025. Lymphatics: No cervical (anterior/posterior), supraclavicular, infraclavicular, axillary, epitrochlear, or inguinal adenopathy. Chest: Symmetric rise and fall with respirations. Non-tender to palpation. Lungs: Bibasilar crackles. No audible expiratory wheeze, egophony, pectoriloquy, increase in tactile fremitus, or flatness/dullness to percussion at the bases. Heart: Regular rate and rhythm. S1 and S2 noted. No S3 or S4 summation gallop. No tripartite friction rub. Grade II/ early systolic murmur @ LLSB without radiation to the carotids, axilla, or back, and which remains invariant in regards to the respiratory cycle. Abdomen: Soft, non-distended, non-tender. No rebound, guarding, Garcia's sign, or organomegaly. Bowel sounds auscultated in all 4 quadrants. Extremities: No clubbing, cyanosis in upper extremities or lower extremities bilaterally. 2+ pitting pedal edema with extension to the bilateral mid-shins, sparing the upper shins bilaterally, knees, hips, thighs, and abdomen. 2+ pedal pulses bilaterally. Skin: No decubitus ulcer, exanthem, or enanthem. Genito-urinary: No urethral discharge. No bangura catheter. Neurology: Alert and oriented in regards to person, place, time, and situation. DTR+ and symmetric. 5/5 motor strength in all 4 extremities, both proximally and distally. No pronator drift. No facial droop. No dysarthria. Psychiatry: No homicidal ideation. No suicidal ideation. No flat affect; smiles appropriately. Results & Data Results & Data Vital Signs (Past 12 Hours) Vital Signs Temp Pulse Resp BP Pulse Ox O2 Del Method O2 Flow Rate 03/23/25 18:30 83 24 156/78 H 94 Nasal Cannula 3 03/23/25 17:02 82 21 153/79 H 99 Nasal Cannula 3 03/23/25 16:33 84 18 96 Nasal Cannula 3 03/23/25 16:05 91 H 42 H 94 Nasal Cannula 3 03/23/25 15:00 87 18 157/81 H 92 Nasal Cannula 3 03/23/25 14:54 95 H 03/23/25 14:08 94 Nasal Cannula 3 03/23/25 14:08 94 Nasal Cannula 03/23/25 13:59 36.6 C 87 22 149/59 H 91 Nasal Cannula 4 Laboratory Results As above in the History of Present Illness. Diagnostic Findings As above in the History of Present Illness. Code Status & VTE Plan VTE Prophylaxis Plan VTE Prophylaxis will be ordered: Yes PG Care Time/CCT Total # of Minutes Spent Total Time Spent with Patient: Total time spent is greater than 50% in coordination of care (as documented) at patient's floor/unit and/or counseling patient: Coding Level of Care Code 54765 INT INP/OBS CARE 2/55MIN Diagnoses Acute on chronic systolic (congestive) heart failure I50.23 Demand ischemia I24.89
[2025-03-23] MEDS ORDERED: NITROGLYCERIN SL 0.4 MG/TAB TAB SL PRN (19:19)
[2025-03-23] MEDS ORDERED: MoRPHine SULFATE 2 MG/ML CARP IV PRN (19:19)
[2025-03-23] MEDS ORDERED: ENOXAPARIN 100 MG/1ML SYR SQ ONE (19:30)
[2025-03-23] MEDS: LETROZOLE 2.5 MG TAB PO SCH (20:27)
[2025-03-23] MEDS: EZETIMIBE 10 MG TAB PO SCH (20:27)
[2025-03-23] MEDS: LEVOTHYROXINE SODIUM 50 MCG TABLET PO SCH (20:27)
[2025-03-23] MEDS: ENOXAPARIN INJ 30 MG/0.3 ML SYR SQ SCH (20:40)
[2025-03-23] MEDS: ROSUVASTATIN CALCIUM 5 MG TAB PO SCH (20:40)
[2025-03-23] MEDS: LANTUS PER UNIT CHARGE SQ SCH (20:40)
[2025-03-23] MEDS: INSULIN ASPART PER UNIT CHARGE SC SCH (20:41)
[2025-03-23] MEDS: MELATONIN 3 MG TAB PO PRN (22:05)
[2025-03-23 23:34] VITALS: RESP 18
[2025-03-24] MEDS: FUROSEMIDE 40 MG/4 ML VIAL IV ONE (05:51)
[2025-03-24 07:33] VITALS: BP 136/78; PULSE 76; TEMP 97.5; O2SAT 96
[2025-03-24 08:12] LABS: Anion Gap 6.0 (3-11); Blood Urea Nitrogen 36.0 mg/dl (6-23); Calcium 8.9 mg/dl (8.6-10.3); Carbon Dioxide 30.0 mmol/L (21-32); Chloride 103.0 mmol/L (98-107); Creatinine Clr Calc Pharmacy 20.2 ml/min; Glucose 106.0 mg/dl (70-99(Fasting)); Potassium 3.9 mmol/L (3.5-5.1); Sodium 139.0 mmol/L (136-145)
[2025-03-24] MEDS: PERFLUTREN LIPID MICROSPHERE (DEFINITY) IV ONE (10:17)
--- NOTE | 2025-03-24 11:36 | XCELERA ---
[id number]
--- NOTE | 2025-03-24 16:03 | Discharge Summary ---
Discharge Summary Date of Service March 24, 2025 Principal Dx & Hospital Course #1 = Principal Diagnosis (1) Acute on chronic systolic (congestive) heart failure: To address #1, patient received a 2 gram sodium diet, lasix 40mg IV x 1 dose (03/22/2025, 5:31pm) in [facility] ER bed #B02, followed by lasix 40mg IV bid x 2 doses (03/22/2025, 11:26pm; 03/23/2025, 5:51am) in [facility] Med-Surg bed #N388-1. Patient's weight subsequently declined from admission weight of 95.0 kg = 209.0 pounds (03/23/2025, 1:59pm) to discharge weight of 89.9 kg = 197.6 pounds (03/24/2025, 5:44am). Hence, patient is about 3.6 pounds over her dry baseline weight of 194 pounds on discharge date 03/24/2025. Patient also underwent TTE (03/24/2025, 8:00am)(to evaluate for any interval change(s) in LVEF or RV systolic function since 09/28/2023, 10:57am TTE, CARDS Dr. Catracho Govea, wherein LVEF was preserved/normal @ 55-60% and RV systolic function was mildly reduced). TTE (03/24/2025, 11:37am): 1. LVEF 60-65%. 2. LV wall motion is normal. 3. RV systolic function moderately reduced. 4. RVSP elevated at 40-50 mm Hg. 5. IVC mildly dilated. (as per CARDS Dr. Reginald Ortega). Patient subsequently reported that she feels well and wants to go home. Patient was subsequently discharged back to her home on 03/24/2025 with an electronic prescription for lasix 20mg PO daily, #30 tablets, no refills, transmitted to her [id number], [address] [place] [address], on 03/24/2025, prior to hospital discharge back to her home on 03/24/2025. Patient was advised to stop taking her home-scheduled bumex 1mg PO daily or bumex 2mg PO daily, and to start lasix 20mg PO daily on 03/24/2025 on arrival to her home on 03/24/2025. Patient was also advised to follow up with her PCP Dr. Ismael Pink within 5-7 days of hospital discharge for routine follow up visit. Patient reports that he will comply with this recommendation. (2) Demand ischemia: To address #2, patient underwent troponin-I #3 (20.7 pg/mL, 03/23/2025, 10:33pm) and TTE (03/23/2025, 8:00am)(to evaluate for any LV wall motion abnormalities that might suggest acute myocardial ischemia; no such LV wall motion abnormalities were reported). Given the low index of suspicion for acute type I NSTEMI, I did not start the patient on either heparin infusion or lovenox 1mg/kg SQ q12, especially as the latter may provoke further renal embarrassment in this 79 years old female with pre-existing CKD stage IV with baseline creatinine range, 2.18-2.37 mg/dL (02/21/2024 - 08/20/2024) with admission creatinine 2.30 mg/dL, GFR 21.1 mL/min (03/23/2025, 2:33pm). Of note, I surmised that the nominal troponin elevations noted herein were due to demand ischemia, which was due, in turn, to: a. Acute exacerbation of chronic systolic CHF with RV systolic function mildly reduced, preserved LVEF 55-60% (as noted on 09/28/2023, 10:57am TTE, CARDS Dr. Catracho Govea) with dry baseline weight of 194 pounds at home with 1 pillow orthopnea, no paroxysmal nocturnal dyspnea, or platypnea. b. Chronic hypoxic respiratory failure requiring 2 liters/minute O2 via nasal cannula at rest and 3 liters/minute O2 via nasal cannula with exertion. c. CKD stage IV with baseline creatinine range, 2.18-2.37 mg/dL (02/21/2024 - 08/20/2024). cf., baseline troponin-I range of 17.7 pg/mL (10/06/2023, 12:36pm) to 21.0 pg/mL (10/06/2023, 5:02pm) and baseline BNP range of 117 pg/mL (11/04/2021, 3:13am) to 36 pg/mL (02/21/2024, 9:50am). Of final note, patient's slightly elevated admission BNP 190 pg/mL (03/22/2025, 2:33pm), while greater than the patient's baseline BNP range given above, was still only marginally elevated above normal. The reason for marginally elevated BNP levels in morbidly obese individuals, including this individual with BNP 48.7 (height 139.7 cm; weight 95.0 kg) is complex and remains an active area of research, with no clear explanation to date. In sum, BNP levels in morbidly obese individuals should not be relied upon as an accurate biomarker of the morbidly obese individual's CHF status. 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 Aniya Cooper), insulin-dependent DM2 with HbA1c 5.4% (10/08/2023, 5:43am) on lantus 40 units SQ qhs, humalog sliding scale qac + qhs, hypothyroidism with TSH 1.623 uIU/mL (03/23/2025, 2:33pm) on synthroid 50ug PO daily, hyperlipidemia on niacin 50mg PO bid, rosuvastatin 5mg PO qhs, and zetia 10mg PO qhs, CKD stage IV with baseline creatinine range, 2.18-2.37 mg/dL (02/21/2024 - 08/20/2024), HTN on diltiazem 240mg PO qhs and bumex 1mg PO qam, chronic systolic CHF with RV systolic function mildly reduced, preserved LVEF 55-60% (as noted on 09/28/2023, 10:57am TTE, CARDS Dr. Catracho Govea) with dry baseline weight of 194 pounds at home with 1 pillow orthopnea, no paroxysmal nocturnal dyspnea, or platypnea, baseline troponin-I range of 17.7 pg/mL (10/06/2023, 12:36pm) to 21.0 pg/mL (10/06/2023, 5:02pm) and baseline BNP range of 117 pg/mL (11/04/2021, 3:13am) to 36 pg/mL (02/21/2024, 9:50am), and chronic euvolemic hyponatremia with baseline Na range, 133-134 mmol/L (02/21/2024 - 02/23/2025), who reports: "I have gained 7 pounds in the past 1.5 weeks. In that time, I have gotten more short of breath. I tried to deal with it by doubling my bumex dose from 1mg a day to 2mg a day, but that did nothing. I was still short of breath. No coughing or wheezing. I normally take 2 liters a minute of oxygen at home when I am resting and 3 liters a minute of oxygen when I am moving around, and I didn't need more oxygen, but I was still short of breath. My legs were getting a little larger, too, but they did not hurt at all. So, I told my to bring me to [facility] ER to get checked out." Patient denies antecedent/coincident fevers, chills, diaphoresis, cough, wheeze, sore throat, hemoptysis, chest pains, palpitations, pleurisy, nausea, vomiting, diarrhea, abdominal pain, pelvic pain, hematemesis, hematochezia, melena, hematuria, dysuria, frequency, urgency, flank pain, headaches, dizziness, lightheadedness, visual changes, hearing changes, weakness, falls, syncope, trauma, travel history, sick contacts, or food/drug ingestions novel or new. All other review of systems are reported as negative by the patient on observation date 03/22/2025. In [facility] ER bed #B02, patient was afebrile @ 36.6 degrees Celsius, HR 87, RR 22, O2 sat 91% on 4 liters/minute O2 via NC, and BP 149/59 (03/22/2025, 1:59pm). Height 139.7 cm; weight 95.0 kg = 209.0 pounds (03/22/2025, 1:59pm). cf., dry baseline weight of 194 pounds at home. Exam was noted for bibasilar crackles without audible expiratory wheeze, egophony, pectoriloquy, increase in tactile fremitus, or flatness/dullness to percussion at the bases. In addition, speaking 6-9 words at a time would elicit increased tachypnea at rest. In addition, patient displayed 2+ pitting pedal edema with extension to the bilateral mid-shins, sparing the bilateral upper shins, knees, hips, thighs, and abdomen. Labs in [facility] ER bed #B02 included: WBC 8.2, N78 L14 M5 E3 B1, Hb 14.6, MCV 97.6, MCHC 32.5, platelet 187 (03/23/2025, 2:33pm). Na 133, K 4.9, CO2 26, BUN 38, creatinine 2.30, GFR 21.1 mL/min, glucose 183, anion gap 8, Ca 9.6 (03/23/2025, 2:33pm). HbA1c 6.2% (03/22/2025, 2:33pm). Troponin-I #1 18.4 pg/mL (03/22/2025, 2:33pm). Troponin-I #2 19.4 pg/mL (03/22/2025, 6:44pm). Troponin-I #3 (03/22/2025, 10:33pm). BNP 190 pg/mL (03/22/2025, 2:33pm). Additional testing included: Portable CXR (03/22/2025, 2:08pm): Cardiomegaly with pulmonary vascular congestion. No infiltrate, effusion, pneumothorax (by my review). EKG #1 (03/22/2025, 2:22pm): NSR @ 81, DE 202, QTC 418, TWI in III, aVF, V1-V6, no acute ST depressions/elevations (by my review). EKG #2 (03/22/2025, 6:44pm): Historical testing includes: EKG old (10/06/2023, 12:17pm): sinus tach @ 101, DE 178, QTC 417, no TWI, no acute ST depressions/elevations (by my review). TTE (09/28/2023, 10:57am): 1. LVEF 55-60%. Flattened septum consistent with RV pressure overload. No regional wall motion abnormalities. 2. RV mild-moderately dilated. RV systolic function mildly reduced. 3. LA/RA sizes normal. No evidence for ASD. 4. No /AR. 5. Trace DE. 6. No MS/MR. 7. Trace TR. 8. Aortic root normal size. PA normal size. Normal IVC diameter and respiratory variation suggests normal CVP. 9. No pericardial effusion. (as per CARDS Dr. Catracho Govea). Patient was subsequently placed in OBSERVATION on the hospitalist service @ [facility] on 03/22/2025 with the following diagnoses: 1. Acute exacerbation of chronic systolic CHF with RV systolic function mildly reduced, preserved LVEF 55-60% (as noted on 09/28/2023, 10:57am TTE, CARDS Dr. Catracho Govea) with dry baseline weight of 194 pounds at home with 1 pillow orthopnea, no paroxysmal nocturnal dyspnea, or platypnea. 2. Acute type II NSTEMI with troponin-I #1 18.4 pg/mL (03/22/2025, 2:33pm) and troponin-I #2 19.4 pg/mL (03/22/2025, 6:44pm). To address #1, patient was started on 2 gram sodium diet, lasix 40mg IV x 1 dose (03/22/2025, 5:31pm), followed by lasix 40mg IV bid x 2 doses (03/22/2025, 11:31pm; 03/23/2025, 5:31am) in [facility] ER bed #B02. I will check vitals, chest exam, daily weights, strict I/O without bangura catheter, and TTE (03/24/2025, 8:00am)(to evaluate for any interval change(s) in LVEF or RV systolic function since 09/28/2023, 10:57am TTE, CARDS Dr. Catracho Govea, wherein LVEF was preserved/normal @ 55-60% and RV systolic function was mildly reduced). Of note, patient's admission weight of 209 pounds on 03/23/2025 is approximately 15 pounds over patient's dry baseline weight of 194 pounds at home on a daily basis. To address #2, patient awaits troponin-I #3 (03/23/2025, 10:33pm), EKG #2 (03/22/2025, 6:44pm)(to evaluate for any interval changes from EKG #1 (03/22/2025, 2:22pm), and TTE (03/23/2025, 8:00am)(to evaluate for any LV wall motion abnormalities that might suggest acute myocardial ischemia). Given the low index of suspicion for acute type I NSTEMI, I have not started patient on either heparin infusion or lovenox 1mg/kg SQ q12, especially as the latter may provoke further renal embarrassment in this 79 years old female with pre- existing CKD stage IV with baseline creatinine range, 2.18-2.37 mg/dL (02/21/2024 - 08/20/2024) with admission creatinine 2.30 mg/dL, GFR 21.1 mL/min (03/23/2025, 2:33pm). Of note, I surmise that the nominal troponin elevations noted herein are due to demand ischemia, which is due, in turn, to: a. Acute exacerbation of chronic systolic CHF with RV systolic function mildly reduced, preserved LVEF 55-60% (as noted on 09/28/2023, 10:57am TTE, CARDS Dr. Catracho Govea) with dry baseline weight of 194 pounds at home with 1 pillow orthopnea, no paroxysmal nocturnal dyspnea, or platypnea. b. Chronic hypoxic respiratory failure requiring 2 liters/minute O2 via nasal cannula at rest and 3 liters/minute O2 via nasal cannula with exertion. c. CKD stage IV with baseline creatinine range, 2.18-2.37 mg/dL (02/21/2024 - 08/20/2024). cf., baseline troponin-I range of 17.7 pg/mL (10/06/2023, 12:36pm) to 21.0 pg/mL (10/06/2023, 5:02pm) and baseline BNP range of 117 pg/mL (11/04/2021, 3:13am) to 36 pg/mL (02/21/2024, 9:50am). Of final note, patient's slightly elevated admission BNP 190 pg/mL (03/22/2025, 2:33pm), while greater than the patient's baseline BNP range given above, is still only marginally elevated above normal. The reason for marginally elevated BNP levels in morbidly obese individuals, including this individual with BNP 48.7 (height 139.7 cm; weight 95.0 kg) is complex and remains an active area of research, with no clear explanation to date. In sum, BNP levels in morbidly obese individuals should not be relied upon as an accurate biomarker of the morbidly obese individual's CHF status. Discharge Exam Constitutional General: Comfortable, coherent, cooperative. Wide awake and alert. Not confused, lethargic, or obtunded. Patient speaks in complete, fluent, and articulate 4-6 word sentences without cough or wheeze, but pause to catch her breath, with O2 sat 91% on 4 liters/minute O2 via NC (03/23/2025, 1:59pm). Patient speaks in complete, fluent, and articulate 4-6 word sentences without cough or wheeze, and does not pause to catch her breath with discharge O2 sat 96% on 3 liters/minute O2 via NC (03/24/2025, 9:10am). HEENT: Normocephalic, atraumatic. Extra-ocular muscles intact. Pupils equally round and reactive to light. No nystagmus, gaze paresis, anisocoria, miosis, mydriasis, hyphema, scleral injection, conjunctivitis, or pterygium. No otorrhea. No pharyngeal erythema, edema, or discharge. Neck: Supple, no stridor, bruit, goiter, or hepato-jugular reflux. Jugular venous pressure is estimated to be 3 cm above the sternal angle of Armando, which in turn, is 5 cm above the level of the right atrium; with jugular venous pressure estimated to be 8 cm, then, there is no jugular venous distention on 03/22/2025. Lymphatics: No cervical (anterior/posterior), supraclavicular, infraclavicular, axillary, epitrochlear, or inguinal adenopathy. Chest: Symmetric rise and fall with respirations. Non-tender to palpation. Lungs: Clear to auscultation and percussion. No audible expiratory wheeze, egophony, pectoriloquy, increase in tactile fremitus, or flatness/dullness to percussion at the bases. Heart: Regular rate and rhythm. S1 and S2 noted. No S3 or S4 summation gallop. No tripartite friction rub. Grade II/ early systolic murmur @ LLSB without radiation to the carotids, axilla, or back, and which remains invariant in regards to the respiratory cycle. Abdomen: Soft, non-distended, non-tender. No rebound, guarding, Garcia's sign, or organomegaly. Bowel sounds auscultated in all 4 quadrants. Extremities: No clubbing, cyanosis in upper extremities or lower extremities bilaterally. 2+ Trace pitting pedal edema with extension to the bilateral mid-shins, sparing the upper shins bilaterally, knees, hips, thighs, and abdomen on admission date 03/23/2025. pitting pedal edema with extension to the bilateral mid-shins, sparing the upper shins bilaterally, knees, hips, thighs, and abdomen on discharge date 03/24/2025. 2+ pedal pulses bilaterally. Skin: No decubitus ulcer, exanthem, or enanthem. Genito-urinary: No urethral discharge. No bangura catheter. Neurology: Alert and oriented in regards to person, place, time, and situation. DTR+ and symmetric. 5/5 motor strength in all 4 extremities, both proximally and distally. No pronator drift. No facial droop. No dysarthria. Psychiatry: No homicidal ideation. No suicidal ideation. No flat affect; smiles appropriately. Discharge Plan Discharge Items Patient Disposition: Home - Self-Care Reason For Visit: ACUTE ON CHRONIC DIASTOLIC CHF Discharge Diagnosis: Acute exacerbation of chronic RV systolic CHF. Condition on Discharge: Fair Activity: Resume your previous activity Lifting: Gradually increase as tolerated Bathing: No limitations Exercise/Sports: Gradually increase as tolerated Driving/Machine Use: No limitations Weightbearing: Full weightbearing Non-emergency contact: Primary Care Provider Call non-emergency contact if: you have any medication questions Follow-up/Referrals: Ismael Pink MD [Primary Care Provider] - 03/31/25 3:25 pm Diet: Heart Healthy Addtl Attending Provider Instructions: See your PCP Dr. Ismael Pink within 5-7 days of hospital discharge. Pending Studies at Discharge: No Stand-Alone Forms: My [employer], Smoking Cessation Medications and DC Order Prescriptions: New furosemide [Lasix] 20 mg tablet 20 mg PO DAILY Qty: 30 0RF Continued acetaminophen [Arthritis Pain Relief (acetam)] 650 mg tablet extended release 650 mg PO Q12H PRN (Reason: Pain) magnesium 200 mg tablet 700 mg PO QAM ferrous sulfate 325 mg (65 mg iron) tablet,delayed release (DR/EC) 325 mg PO DAILY (DME) Incentive Spirometer Misc See Rx Instructions .MEDSUPPLY Qty: 1 0RF Rx Instructions: As directed (DME) Portable Oxygen Misc See Rx Instructions .MEDSUPPLY Qty: 1 0RF Rx Instructions: Oxygen 4 liters continuous via nasal cannula at rest and 10 L on exertion on exertion with portable concentrator. ELENA 99 (DME) Auto Titrating CPAP Misc See Rx Instructions .MEDSUPPLY Qty: 1 0RF Rx Instructions: Auto PAP with 5-15 cm H20. Lifetime usage. G47.33 (DME) CPAP Supplies Misc See Rx Instructions .MEDSUPPLY Qty: 1 0RF Rx Instructions: CPAP supplies, mask, headgear, filters, tubing, water chamber. G47.33 cholecalciferol (vitamin D3) 25 mcg (1,000 unit) capsule 25 mcg PO DAILY Qty: 30 5RF budesonide-formoterol [Symbicort] 80-4.5 mcg/actuation HFA aerosol inhaler 2 puff inhalation BID Qty: 10.2 7RF diltiazem HCl 240 mg Capsule,Ext.Rel 24h Degradable 240 mg PO HS niacin 50 mg Tablet 50 mg PO BID levothyroxine [Synthroid] 50 mcg Tablet 50 mcg PO QAM Humalog U-100 Insulin 100 unit/mL Cartridge 1 sliding scale dose SUBCUT USEASDIRECTD Rx Instructions: with meals ezetimibe [Zetia] 10 mg Tablet 10 mg PO HS rosuvastatin 5 mg Tablet 5 mg PO HS Lantus U-100 Insulin 100 unit/mL solution 40 unit SUBCUT HS Co Q-10 300 mg Capsule 300 mg PO HS letrozole 2.5 mg tablet 2.5 mg PO QAM Discontinued bumetanide 1 mg tablet See Rx Instructions .ROUTE .COMPLEX Qty: 60 0RF Rx Instructions: take 1 tablet every morning. increase to 2 tablets every morning if weight/edema increasing by 3 pounds overnight or 5 pounds in a week Discharge Orders: Discharge Order (Routine); Ordered 03/24/25 Ordered By: Blanco Yu Discharge Order- CHF (Routine); Ordered 03/24/25 Ordered By: Blanco Jordan/Other Patient Handouts: Managing Type 2 Diabetes Admission Data Admit Date/Time: 03/23/25 16:49 Attending Provider: Blanco Yu Admit Provider: Blanco Yu Primary Care Provider: Ismael Pink Other Providers: Blanco Yu Other Interventions: Discharge Summary Assessment (RN) Last Done: 03/24/25 14:19 Hospital Stay Data Consultations 03/23/25 16:33 ED Decision to Admit Stat Pending Results Patient Have Any Pending Studies at Discharge: No Discharge Instructions Given to Patient (Per Discharging Provider) See your PCP Dr. Ismael Pink within 5-7 days of hospital discharge. Total Time Total Time Spent Total Time Spent (In Minutes): 35 minutes. Of this time period, 19 minutes were spent in coordinating patient's discharge. Coding Level of Care Code 33274 INP/OBS DISCH >30 MIN Diagnoses Acute on chronic systolic (congestive) heart failure I50.23 Demand ischemia I24.89
--- NOTE | 2025-03-24 17:44 | Electrocardiogram Report ---
Test Reason : Blood Pressure : */* mmHG Vent. Rate : 81 BPM Atrial Rate : 81 BPM P-R Int : 202 ms QRS Dur : 76 ms QT Int : 360 ms P-R-T Axes : 47 -73 -37 degrees QTcB Int : 418 ms Normal sinus rhythm Indeterminate axis Incomplete right bundle branch block Abnormal ECG When compared with ECG of 06-Oct-2023 12:17, T wave inversion now evident in Inferior leads T wave inversion now evident in Anterolateral leads Confirmed by Reginald Ortega ([id number]) on 03/24/2025 5:44:22 PM Referred By: REFERRED SELF Confirmed By: Reginald Ortega
[2025-03-24] MEDS ORDERED: ENOXAPARIN 100 MG/1ML SYR SQ SCH (21:00)
== END 2025-03-24 14:38 | disposition home or self-care (01) ==
LOC: SUATTDRO → ED 13:58 → 3N 13:58